=== PATIENT | female | born 1985 | race Caucasian/White ===

== ENCOUNTER 2019-12-30 11:55 | Emergency (ER) | payer MEDICARE, MEDICAID, SELFPAY ==
[2019-12-30 12:23] VITALS: BP 129/73; PULSE 93; RESP 20; TEMP 36.7; O2SAT 99
--- NOTE | 2019-12-30 13:05 | ED.EAR ---
HPI - Ear Problem General Chief complaint: Ear Stated complaint: Think I pushed a fly in my ear Time Seen by Provider: 12/30/19 13:05 Source: patient Mode of arrival: ambulatory Limitations: no limitations History of Present Illness HPI Narrative: Elvi Marcus is a 34 yo female with no PMH who comes to express care with c/o fly in L ear that got into ear this morning. States she can feel it moving around Related Data Home Medications Medication Instructions Recorded Confirmed amitriptyline 50 mg PO HS 12/30/19 12/30/19 pregabalin 50 mg PO BID 12/30/19 12/30/19 quetiapine 100 mg PO HS 12/30/19 12/30/19 Allergies Allergy/AdvReac Type Severity Reaction Status Date / Time No Known Allergies Allergy Verified 12/30/19 12:37 Review of Systems Review of Systems: Narrative: CONSTITUTIONAL: Denies fever, chills, sweats. EYES: Denies visual changes, redness, discharge. ENT: Denies rhinorrhea, congestion, sore throat, otalgia.Thinks fly is in L ear CARDIOVASCULAR: Denies chest pain, palpitations, edema. RESPIRATORY: Denies dyspnea, wheezing, cough GASTROINTESTINAL: Denies abdominal pain, nausea, vomiting, diarrhea. GENITOURINARY: Denies dysuria, hematuria, abnormal discharge SKIN: Denies rash or itching. NEUROLOGIC: Denies numbness, or focal weakness. PSYCHIATRIC: Denies anxiety or depression. [facility] Family History Family History (Updated 12/30/19 @ 13:08 by Lashaun Henry CNP) Other No acute medical problems Social History Social History (Updated 12/30/19 @ 13:08 by Lashaun Henry CNP) Smoking status: Former smoker Alcohol intake: current Comments At time of signature, I agree with nursing past medical, surgical, social and family history. There is no relevant family history pertinent to the presenting complaint. Exam Narrative: Exam Narrative: GENERAL: This is a well-nourished, well-developed patient, in mild distress. HEAD: normocephalic, atraumatic. EYES: PERRL. Sclera clear/white. Vision is grossly intact. EARS: External ears normal, auditory canals clear and without drainage, TMs normal without perforation.small amount wax with insect near TM Hearing grossly intact. NOSE: External nose normal without nasal discharge, nares without redness, no rhinorrhea. THROAT: Mucous membranes moist, posterior pharynx NECK: Neck supple, non-tender CARDIOVASCULAR: Regular rate and rhythm without murmurs, gallops, or rubs. RESPIRATORY: Clear to auscultation. Breath sounds equal bilaterally. No wheezes, rales, or rhonchi. GASTROINTESTINAL: Abdomen soft, SKIN: warm, intact with no suspicious lesions or rash, good texture and turgor. NEURO: awake, alert, and oriented to person, place and time. There were no obvious focal neurologic abnormalities. Steady gait EXTREMITIES: Normal range of motion. BACK: Nontender without deformity Course Course Emergency Course: Ear flush to remove small insect started on eardrops discussed use of eardrops with patient Vital Signs Vital signs: Vital Signs Temperature 98.0 F 12/30/19 12:23 Pulse Rate 93 12/30/19 12:23 Respiratory Rate 20 12/30/19 12:23 Blood Pressure 129/73 12/30/19 12:23 Pulse Oximetry 99 12/30/19 12:23 Temperature 98.0 F 12/30/19 12:23 Pulse Rate 93 12/30/19 12:23 Respiratory Rate 20 12/30/19 12:23 Blood Pressure 129/73 12/30/19 12:23 Pulse Oximetry 99 12/30/19 12:23 Procedures Foreign Body Removal Foreign Body #1: Foreign Body Removal Date: 12/30/19 Foreign Body Removal Time: 13:20 Time Out Performed: no Site: left and ear Description of foreign body: insect Sedation/Analgesia: none Technique: irrigation Confirmed by:: direct visualization Post-procedure exam: awake, alert Medical Decision Making Differential Diagnosis Differential Diagnosis: Impacted cerumen versus foreign body to ear Medical Records Medical records reviewed: Yes I reviewed the pa
== END 2019-12-30 13:25 | disposition home or self-care (01) ==
PROVIDERS: Emergency Provider Nurse Practitioner
DX: T16.2XXA Foreign body in left ear, initial encounter (principal); Z87.891 Personal history of nicotine dependence; X58.XXXA Exposure to other specified factors, initial encounter
CPT/HCPCS: 99213; G0463

== ENCOUNTER 2023-03-23 09:17 | Emergency (ER) | payer MEDICARE, MEDICAID, SELFPAY ==
--- NOTE | 2023-03-23 09:24 | ED.URI ---
HPI - URI/Sore Throat General Chief Complaint: Upper Respiratory Infection Stated Complaint: fever/cough/aches Time Seen by Provider: 03/23/23 09:31 Source: patient, RN notes reviewed and old records reviewed Mode of arrival: ambulatory Limitations: no limitations History of Present Illness HPI Narrative: 38-year-old female presents to the [facility] with complaints cough, body aches and feeling feverish. Patient states symptoms started last , got better over the weekend and cough returned yesterday. Related Data Home Medications Medication Instructions Recorded Confirmed amitriptyline 50 mg tablet 50 mg PO HS 12/30/19 03/23/23 quetiapine 100 mg tablet 100 mg PO HS 12/30/19 03/23/23 Allergies Allergy/AdvReac Type Severity Reaction Status Date / Time No Known Allergies Allergy Verified 03/23/23 09:32 Review of Systems Review of Systems: All systems reviewed & are unremarkable except as noted in HPI and below Constitutional: Constitutional: Reports as per HPI Eyes: Eyes: Reports no additional eye complaints ENT: Reports as per HPI Cardiovascular: Cardiovascular: Reports no additional cardiovascular complaints, Denies chest pain and Denies dyspnea Respiratory: Respiratory: Reports as per HPI, Denies chest congestion, Reports cough and Denies dyspnea Gastrointestinal: Gastrointestinal: Reports no additional gastrointestinal complaints, Denies abdominal pain, Denies nausea and Denies vomiting Musculoskeletal: Musculoskeletal: Reports no additional musculoskeletal complaints Integumentary/Breasts: Skin/Breast: Reports system reviewed and no additional complaints, except as docu Neurologic: Reports system reviewed and no additional complaints, except as documented Psychiatric: Psychiatric: Reports no additional psychiatric complaints Allergic/Immunologic: Allergic/Immunologic: Reports no additional allergic/immunologic complaints PMFSH Family History Family History Other No acute medical problems Social History Social History Smoking status: Former smoker Alcohol intake: current Comments At the time of my signature, I reviewed and agree with the nursing past medical, surgical, social, and family history. There is no relevant family history pertinent to the patient complaint. Exam Const: General: cooperative, healthy appearing, comfortable, no acute distress, well developed, alert and well nourished Nutritional Appearance: well nourished Orientation/consciousness: patient oriented x3 Limitations: no limitations HENMT: Head: normal to inspection Ears: hearing grossly normal bilaterally, external ears normal, TM's normal bilaterally, EAC's normal and mastoids normal Face/Nose/Sinus: Normal external nose present, Normal nares present, Normal nasal mucous membranes and turbinates present, normal facial exam and face symmetric Face and sinus: normal facial exam and face symmetric Mouth: Yes Normal oral and palatal mucosa present, Yes lip normal and Yes moist mucous membranes Throat: posterior oropharynx normal, uvula midline and postnasal drainage Eyes: General: appearance normal, both eyes and all related structures Alignment and Position: alignment normal Periorbital: periorbital findings normal Pupils: Equal, round and reactive pupils present EOM: EOMs intact bilaterally Neck: Neck: normal visual inspection, full ROM, no lymphadenopathy and no meningeal signs Chest: Chest palpation & inspection: normal inspection of the chest Resp: Effort & Inspection: normal respiratory effort and able to speak in complete sentences Auscultation: no crackles, no rales, no rhonchi and wheezes expiratory wheezes and throughout Cardio: Rate: regular rate Rhythm: regular rhythm Back/Spine/Pelvis: Cervical Spine: cervical ROM normal Skin: General skin exam: normal color and no rashes or lesions
[2023-03-23 09:29] VITALS: BP 113/85; PULSE 91; RESP 18; TEMP 36.3; O2SAT 98
== END 2023-03-23 09:53 | disposition home or self-care (01) ==
PROVIDERS: Emergency Provider Nurse Practitioner
DX: J40 Bronchitis, not specified as acute or chronic (principal); Z87.891 Personal history of nicotine dependence
CPT/HCPCS: 99213; G0463

== ENCOUNTER 2023-09-04 13:07 | Emergency (ER) | payer MEDICARE, MEDICAID, SELFPAY ==
[2023-09-04 13:12] VITALS: BP 135/66; PULSE 103; RESP 16; TEMP 36.8; O2SAT 99
--- NOTE | 2023-09-04 13:22 | ED.URI ---
HPI - URI/Sore Throat General Chief Complaint: Upper Respiratory Infection Stated Complaint: Sore Throat/Shortness of Breath Time Seen by Provider: 09/04/23 13:25 Source: patient, RN notes reviewed and old records reviewed Mode of arrival: ambulatory Limitations: no limitations History of Present Illness HPI Narrative: 38 year old female who presents to [facility] care with complaints of sore throat since Monday with painful swallowing. Patient reports that she feels a little shortness of breath with exertion, denies any acute cough. Patient has clear lungs to auscultation, no tachypnea noted or any retractions. Patient does have an inhaler but has not used it. Patient reports that she has been taking Tylenol cold and sinus for her symptoms. MD elicited complaint: sore throat Pertinent past history: other (past strep) Onset (ago): day(s) (day 3 symptoms) Consistency: constant Pain scale (0-10): 4 Able to tolerate fluids by mouth: Yes Treatments prior to arrival: antibiotics (3 doses of left over Amoxicillin) and other (Tylenol cold and sinus) Related Data Home Medications Medication Instructions Recorded Confirmed amitriptyline 50 mg tablet 50 mg PO HS 12/30/19 03/23/23 quetiapine 100 mg tablet 100 mg PO HS 12/30/19 03/23/23 Allergies Allergy/AdvReac Type Severity Reaction Status Date / Time No Known Allergies Allergy Verified 03/23/23 09:32 Review of Systems Review of Systems: CONSTITUTIONAL: Denies malaise, chills, sweats, or fever. EYES: Denies visual changes, redness, or discharge. ENT: Reports rhinorrhea, congestion,no sinus pain, nootalgia and positive for sore throat. CARDIOVASCULAR: Denies chest pain, palpitations, or edema. RESPIRATORY: Reports no cough.? states some dyspnea with exertion. GASTROINTESTINAL: Denies abdominal pain, nausea, vomiting, diarrhea SKIN: Denies rash or itching. MUSCULOSKELETAL: Denies myalgia. NEUROLOGIC: Denies headache. All systems reviewed & are unremarkable except as noted in HPI and below PMFSH Past Medical History Medical History (Updated 09/06/23 @ 09:43 by Chaparrita Mitchell NP) Bronchitis Fibromyalgia PTSD (post-traumatic stress disorder) Strep throat Family History Family History Other No acute medical problems Social History Social History (Updated 09/06/23 @ 09:44 by Chaparrita Mitchell NP) Smoking status: Former smoker Alcohol intake: current Gender identity (if verbalized by the patient): Female Comments At time of signature, agree with nursing past medical, surgical, social and family history. There is no relevant family history pertinent to the presenting complaint Exam Narrative: GENERAL: Well-appearing, well-nourished, and in no acute distress. HEAD: Normocephalic EYES: PERRLA, conjunctivae clear ENT: Nares clear, turbinates edematous and erythematous, clear discharge. Mucous membranes moist. TM pearly monahan with dull light reflex bilaterally; no tragal tenderness. Oropharynx erythematous without lesions. Tonsils enlarged and throat without exudate, no drooling, no hoarseness, no trismus, uvula midline. NECK: Supple. lymphadenopathy CHEST: Clear to auscultation, breath sounds equal. No wheezing, rhonchi, rales, or stridor. No respiratory distress, speaks in full sentences.SAO2 99% on room air HEART: Regular rate and rhythm. No murmur heard. SKIN: Warm, dry, no rash. NEURO: Alert and oriented x3. PSYCH: Normal mood and affect Course Course Emergency Course: Patient is aware of diagnosis, understands and agrees to treatment plan.? Anticipatory guidance given.? Patient agrees to follow-up as directed and is aware of reasons to seek care at the emergency department. Portions of this record may have been created with voice recognition software Level of Care: Express Care Visit Vital Signs Vital signs: Vital Signs Temperature 36.8 C 04
== END 2023-09-04 13:51 | disposition home or self-care (01) ==
PROVIDERS: Emergency Provider Registered Nurse
DX: J02.0 Streptococcal pharyngitis (principal); Z87.891 Personal history of nicotine dependence; M79.7 Fibromyalgia
CPT/HCPCS: 87880; 99213; G0463

== ENCOUNTER 2025-05-17 13:53 | Emergency (ER) | payer MEDICARE, SELFPAY ==
--- OUTSIDE RECORDS SUMMARY | 2025-05-17 13:55 | XMS_ITS | Clinical Summary ---
Author Organization [facility] Address [address] [place] [address] Phone Care Team Providers Care Airplane And Engine Inspector Name Role Phone JOSIE TOWNSEND MD Primary Care Provider [phone] [address], JARON Wall [phone] Reason for Visit and Chief Complaint The Chief Complaint is: Pt was here yesterday and tested pos for strep pt having sore throat and some fatigue and body ache neck and back Problems Includes: Problems addressed during this encounter and other active Problems All Visits Onset Date Resolved Date Provider Condition S tatus Hyperlipidemia 07/08/2016 JARON DIEGO M.D. Active Last Documented On 07/08/2016 2:16PM ; [facility] Note: Unchanged Fibromyalgia 07/25/2013 JARON TOWNSEND M.D. Active Last Documented On 4 12:07PM ; [facility] Low Back Pain 03/25/2013 JARON TOWNSEND M.D. A ctive Last Documented On 4 12:07PM ; [facility] Anxiety Disorder Nos 08/30/2012 JARON TOWNSEND M.D. Active Last Documented On 01/02/2023 2:44PM ; [facility] Note: Unchanged - Appears to be JAJA, rul e out OCD. Depression Chronic 08/27/2008 JARON Vega Active Last Documented On 4 12:06PM ; [facility] Plan of Treatment Pt to use prescription as ordered. Purpose of and use of medication discussed. . - Last Documented On 04/09/2022 1:09PM ; [facility] If symptoms worsen or do not improve call/return to office. - Last Documented On 04/09/2022 1:09PM ; [facility] Assessments Includes: Assessments from this encounter Findings - Acute pharyngitis [J02.9 - Acute pharyngitis, unspecified] - Last Documented On 04/09/2022 1:09PM ; [facility] Medical Equipment - Implanted Devices Includes: Current Devices No Medical Equipment Recorded Medications Includes: Medications discussed during this encounter and other current Medications New / Renewed during this visit HAYLIE LOPEZ on 04/09/2022 Amoxicillin 500 MG Oral Tablet Provider: HAYLIE LOPEZ 10 day supply: 20 tablet, 0 refills Diagnosis: Acute pharyngitis, unspecified One tablet twice a day Pharmacy: [address], [address] - Last Documented On 07/04/2022 2:35PM By JOSIE TOWNSEND MD ; [facility] Current Medications (continue as prescribed) Venlafaxine HCl ER 37.5 MG Oral Capsule Extended Release 24 Hour 11/02/2023 Provider: JARON TOWNSEND M.D. Diagnosis: Major depressive disorder, single episode, unspecified 1 CAPSULE EVERY MORNING NEED OFFICE VISIT. Last Documented On 11/02/2023 3:17PM By JOSIE TOWNSEND MD ; [facility] Amitriptyline HCl 50 MG Oral Tablet 11/02/2023 Provi jazmine: JARON TOWNSEND M.D. Diagnosis: Fibromyalgia TAKE 1 TABLET BY MOUTH AT BEDTIME NEED OFFICE SIT Last Documented On 11/02/2023 3:17PM By JOSIE TOWNSEND MD ; [facility] QUEtiapine Fumarate 100 MG Oral Tablet 10/02/2023 Provider: JARON TOWNSEND M.D. Diagnosis: Major depressive disorder, single episode, unspecified One tablet at bed timeNeed O ffice Visit. Last Documented On 10/02/2023 9:27AM By JOSIE TOWNSEND MD ; [facility] Medications Administered Includes: Administered Medications from this encounter No Administered Medications Recorded Vital Signs Includes: Vital Signs from this encounter Vital Name 04/09/2022 12:53P Pulse Rate-Sitting (bpm) 91 Temp-Oral (F) 99.2 Height (in) 65.75 Weight (lb) 178 Body Mass Index 28.9 Body Surface Area 1.9 Oxygen Saturation (%) 98 Last Documented: On 04/09/2022 12:57P M ; [facility] Results Includes: Results discussed during this encounter Group A strep [facility] Ordered by HAYLIE LOPEZ on 1 06/09/2021 Collected: Reported: 04/09/2022 13:01 Last Documented On 2 1:02PM ; [facility] Reviewed on 04/09/2022; All test results are final unless otherwise noted. Rapid Strep neg N (Normal) Last Documented On 2 1:02PM ; [facility] LOT # AND EXP. DATE [id number] N (Normal) Last Documented On 1:02PM ; [facility] INT. QC ACCEPTABLE? yes N (Normal) Last Documented On 1:02PM ; [facility] History of Present Illness Includes: History of Present Illness from this encounter HPI WILL PAEZ is a 37 year old female. Source of patient information was patient ? Allergy list reviewed ? Problem list reviewed ? Medication list reviewed - Feeling poorly (malaise) - No fever - No chills - Headache - Nasal discharge - Sore throat - No ear symptoms - No postnasal drip - No nasal passage blockage (stuffiness) - Intermittent cough - Not feeling congested in the chest - No dyspnea - No wheezing - No vomiting - No diarrhea - Myalgias Will is here with sore throat- tested positive for strep yesterday. Social History Description Last Updated Tobacco non-user 04/09/2022 Last Documented On 2 1:09PM ; [facility] Smoking Status Unknown Procedures and Surgical History Includes: Procedures from this encounter Procedures Code Diagnosis Performing Provider Service L ocation Service Date Discussed with family that current strep testing is NEGATIVE. Pt /family with be notified if further testing reveals positive strep pharyngitis. Discussed with pt /family the etiology, natural course, possible complications, and treatment options for pharyngitis. Recommended OTC therapy with pain/fever control products, topical products (lozenges/sprays/fercho les) as needed per information security analyst's recommendation. Recommended for pt/ family to call/return to office with follow up if pt persits with greater than 5 days of symptoms, worsens, or as otherwise directed. Discussed with pt / family that is pt contagious until fever free for at least 24 hours. Return to activities when pt feels well and fever free for 24 hours. Observe pt contacts for signs/symptoms of illness Last Documented On 2 1:09PM ; [facility] patient to call if symptoms worsen or not improved in 3-5 days to update patient's status Last Documented On 2 1:09PM ; [facility] use of tobacco assessment performed 1000F Last Documented On 2 12:58PM ; [facility] review of medications documented 1160F Last Documented On 2 12:58PM ; [facility] Medical History Includes: Medical History addressed during this encounter No Medical History Recorded Family History Includes: Family History addressed during this encounter No Family History Recorded Review of Systems Includes: Review of Systems from this encounter Systemic: No fever. Head: Headache. Otolaryngeal: No earache. Nasal discharge and sore throat. Cardiovascular: No cardiovascular symptoms. Pulmonary: Cough. Gastrointestinal: No gastrointestinal symptoms. Musculoskeletal: Muscle aches. Skin: No skin symptoms. Mental Status Includes: Mental Status from this encounter Description Oriented to time, place, and person Functional Status Includes: Functional Status from this encounter No Functional Status Recorded Physical Exam Includes: Physical Exam from this encounter Allergies Includes: Active Allergies Substance Type Reaction Onset Date Resolved Date Statu s Codeine and Related Allergy upset stomach 08/27/2008 Active Last Documented On 01/02/2023 1:31PM ; [facility] Note: Imported from external source. [facility] Allergy 10/13/2014 Active Last Documented On 01/02/2023 1:31PM ; [facility] Note: Imported from external source. Encounters Encounter Provider Location Date Check-In Time Check-Out Time Diagnosis COVID SICK VISIT- ESTABLISHED PATIENT HAYLIE Franco EZEKIEL FOOD MANAGER-C [facility] 04/09/20 12:48PM 1:01PM Pharyngitis Acute Insurance Includes: Active Insurance Policies Plan Name Member ID Group # Subscriber Relationship Effect adolfo Dates 1 - MEDICARE PART A CLAIMS/NGS [id number] WILL PAEZ Self 2 - MEDICAID OF [place] MEDICARE SECOND [id number] WILL PAEZ Self Clinical Notes Includes: Clinical Notes from this encounter No Clinical Notes Recorded
--- OUTSIDE RECORDS SUMMARY | 2025-05-17 13:55 | XMS_ITS | Clinical Summary ---
Author Organization [facility] Address [address] [place] [address] Phone Care Team Providers Care Rat Farmer Name Role Phone KRISTIAN PERAZA, JOSIE Primary Care Provider [phone] KRISTIAN Hill, JARON Wall [phone] Reason for Visit and Chief Complaint CHECK UP Problems Includes: Problems addressed during this encounter and other active Problems All Visits Onset Date Resolved Date Provider Condition S tatus Hyperlipidemia 07/08/2016 JARON DIEGO M.D. Active Last Documented On 07/08/2016 2:16PM ; [facility] Note: Unchanged Fibromyalgia 07/25/2013 JARON TOWNSEND M.D. Active Last Documented On 4 12:07PM ; [facility] Low Back Pain 03/25/2013 JARON TOWNSEND M.D. A ctive Last Documented On 4 12:07PM ; [facility] Anxiety Disorder Nos 08/30/2012 JARON TOWNSEND M.D. Active Last Documented On 01/02/2023 2:44PM ; [facility] Note: Unchanged - Appears to be JAJA, rul e out OCD. Depression Chronic 08/27/2008 JARON Vega Active Last Documented On 4 12:06PM ; [facility] Plan of Treatment Pending Tests Order Diagnosis Results Due Ordering [facility] Lab THYROID PANEL (TSH & FREE T4) 07/01/23 JARON TOWNSEND M.D. Last Documented On 3 2:46PM ; [facility] Lab LIPID PANEL 07/01/23 JARON DIEGO M.D. Last Documented On 3 2:46PM ; [facility] Lab CMP 07/01/23 JARON Franco M.D. Last Documented On 3 2:46PM ; [facility] Lab CBC WITH DIFF 07/01/23 JARON WALL M.D. Last Documented On 3 2:46PM ; [facility] Assessments Includes: Assessments from this encounter No Assessments Recorded Medical Equipment - Implanted Devices Includes: Current Devices No Medical Equipment Recorded Medications Includes: Medications discussed during this encounter and other current Medications Current Medications (continue as prescribed) Venlafaxine HCl ER 37.5 MG Oral Capsule Extended Release 24 Hour 11/02/2023 Provider: JARON TOWNSEND M.D. Diagnosis: Major depressive disorder, single episode, unspecified 1 CAPSULE EVERY MORNING NEED OFFICE VISIT. Last Documented On 11/02/2023 3:17PM By JOSIE TOWNSEND MD ; [facility] Amitriptyline HCl 50 MG Oral Tablet 11/02/2023 Provi jazmine: JARON TOWNSEND M.D. Diagnosis: Fibromyalgia TAKE 1 TABLET BY MOUTH AT BEDTIME NEED OFFICE SIT Last Documented On 11/02/2023 3:17PM By JOSIE TOWNSEND MD ; [facility] QUEtiapine Fumarate 100 MG Oral Tablet 10/02/2023 Provider: JARON TOWNSEND M.D. Diagnosis: Major depressive disorder, single episode, unspecified One tablet at bed timeNeed O ffice Visit. Last Documented On 10/02/2023 9:27AM By JOSIE TOWNSEND MD ; [facility] Medications Administered Includes: Administered Medications from this encounter No Administered Medications Recorded Results Includes: Results discussed during this encounter No Results Recorded For Specified Dates History of Present Illness Includes: History of Present Illness from this encounter No History of Present Illness Recorded Social History No Social History Recorded - Smoking Status Unknown Medical History Includes: Medical History addressed during this encounter No Medical History Recorded Family History Includes: Family History addressed during this encounter No Family History Recorded Review of Systems Includes: Review of Systems from this encounter No Review of Systems Recorded Mental Status Includes: Mental Status from this encounter No Mental Status Recorded Functional Status Includes: Functional Status from this encounter No Functional Status Recorded Physical Exam Includes: Physical Exam from this encounter No Physical Exam Recorded Allergies Includes: Active Allergies Substance Type Reaction Onset Date Resolved Date Statu s Codeine and Related Allergy upset stomach 08/27/2008 Active Last Documented On 01/02/2023 1:31PM ; [facility] Note: Imported from external source. [facility]ES Allergy 10/13/2014 Active Last Documented On 01/02/2023 1:31PM ; [facility] Note: Imported from external source. Insurance Includes: Active Insurance Policies Plan Name Member ID Group # Subscriber Relationship Effect adolfo Dates 1 - MEDICARE PART A CLAIMS/NGS [id number] WILL Alarcon 2 - MEDICAID [place] MEDICARE SECOND [id number] WILL Alarcon Clinical Notes Includes: Clinical Notes from this encounter No Clinical Notes Recorded
--- OUTSIDE RECORDS SUMMARY | 2025-05-17 13:56 | XMS_ITS | Data Portability ---
Author Organization [facility] Address [address] [place] [address] Assessment Encounter Date Assessment Date Assessment LastModified by Organization Details LastModified Time 07/18/2017 07/18/2017 38 weeks, scheduled induction for next monday Not available 07/18/2017 11:21:34 08/16/2017 08/16/2017 ppd check today is ok, bleeding minimal going ok exam in 4 weeks Not available 08/16/2017 11:02:45 09/12/2017 09/12/2017 post exam normal, quitting shortly. 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 still a smoker so contraceptive options limited. So far so good with condoms for 3 years. vasectomy and depo discussed as well. Not available 09/03/2020 10:48:03 08/21/2023 08/21/2023 Not seen in 3 years. No big health changes. 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 Kids 6 &17 ( senior and kindergarten...) will try some low dose OCPs Not available 08/21/2023 12:40:29 Plan of Treatment Reminders Order Date Submit Date Provider Last Modified By Organization Details Last Modified Time Details Appointments None recorded. Lab cytology report, thin prep, smear or scraping, cervical or vaginal 2023 024 L[facility], [address], [address] [address], [place], [address], 4 16:12:18 cytology report, thin prep, smear or scraping, cervical or vaginal 2020 021 [place] [facility], [address] [facility], [address], [place], [address], 1 07:11:05 unlisted lab - igp, rfx aptima HPV ascu 2017 018 [facility], [address] [facility], [address], [place], [address], 8 15:17:53 urinalysis , dipstick 2017 018 In-Office Order, Internal Use Only DO Not Attach Compendium DO Not Attach Compendium, Do Not Delete/merge, [id number] 8 11:21:35 Referral None recorded. Procedures None recorded. Surgeries None recorded. Imaging MAMMO, screening, digital, bilateral 2023 024 [place] Grajeda [facility] Scheduling, [address] [facility] , [place], [address], 4 16:52:44 Medication Orders Junel Fe 24 1 mg-20 mcg (24)/75 mg (4) tablet 2023 024 maciearrlia [facility] #[id number], [address] [place] [address], [address], 4 13:38:52 Loestrin Fe /20 (28-Day) 1 mg-20 mcg (21)/75 mg (7) tablet 2017 018 [email or web address] [facility], [address] [place] [address], [address], [place], [address], 3 12:02:22 Patient TargetsNo targets recorded. Patient Instructions Encounter Date Encounter Id Patient Instructions Last Modified By Organization Details Last Modified Time 08/16/[id number] depression after childbirth: care instructions Not available 08/16/2017 11:02:46 stress in parent s of infants: care instructions Not available 08/16/2017 11:02:46 08/21/2023 [id number] A healthy lifestyle: care instructions Not available 08/21/2023 12:28:59 learning about breast cancer screening gturner Not available 08/21/2023 12:28:59 Reason for Referral None Reported. Results Created Date Observation Date Name Description Value Unit Range Abnormal Flag Note LastModifiedBy Organization Detail LastModifiedTime 07/18/19 18 07/18/2017 urina lysis , dipst ick Protein Trace Not Available In-Office Order Internal Use Only DO Not Attach Compendium DO Not Attach Compendium, Do Not Delete/merge, [id number] 07/18/2017 10:56:47 07/18/19 18 07/18/2017 urina lysis , dipst ick Glucose Negati ve Not Available In-Office Order Internal Use Only DO Not Attach Compendium DO Not Attach Compendium, Do Not Delete/merge, [id number] 07/18/2017 10:56:47 06/26/19 18 06/26/2017 gluco se helen ance test, 4 speci mens note: Commen t For diagn osis of gesta jarett l diabe nakita, at least two value s must meet or excee d junior l limit s, which is based on 100 gm of oral gluco se chall enge. Not Available [facility] ([facility]) [address] [facility], [place], [address], 06/27/2017 08:31:18 06/26/19 18 06/27/2017 gluco se helen ance test, 4 speci mens glucose - fasting 69 mg/dL 65-94 Not Available [facility] ([facility]) [address] [place], [address], 06/27/2017 08:31:18 06/26/19 18 06/27/2017 gluco se helen ance test, 4 speci mens glucose - 1 hour 111 mg/dL 65-179 Not Available [facility] ([facility]) [address] [place], [address], 06/27/2017 08:31:18 06/26/19 18 06/27/2017 gluco se helen ance test, 4 speci mens glucose - 2 hour 101 mg/dL 65-154 Not Available [facility] ([facility]) [address] [place], [address], 06/27/2017 08:31:18 06/26/19 18 06/27/2017 gluco se helen ance test, 4 speci mens glucose - 3 hour 68 mg/dL 65-139 Not Available [facility] ([facility]) [address] [place], [address], 06/27/2017 08:31:18 06/26/19 18 06/28/2017 strep tococ cus group B, cultu re, unspe cifie d speci men strep gp B ALAINA Positi ve negati ve abnormal Cente rs for Disea se Contr ol and Preve ntion (CDC) and Ameri can Congr ess of Obste trici ans and Gynec ologi sts (ACOG ) guide lines for preve ntion of perin atal group B strep tococ sabas (GBS) disea se speci fy co-co llect ion of a vagin al and recta l swab speci men to maxim ize sensi tivit y of GBS detec tion. Per the CDC and ACOG, swabb ing both the lower vagin a and rectu m subst antia lly incre ases the yield of detec tion zay red with sampl ing the vagin a alone . Penic illin G, ampic illin , or cefaz arti are indic ated for intra partu m proph ylaxi s of perin atal GBS colon izati on. Refle x susce ptibi lity testi ng shoul d be perfo rmed prior to use of clind amyci n only on GBS isola nakita from penic illin -soha rgic women who are consi dered a high risk for anaph ylaxi s. Treat ment with vanco mycin witho ut addit ional testi ng is warra nted if resis tance to clind pooja spear is noted . Not Available [facility] ([facility]) [address] [facility], [place], [address], 06/28/2017 15:13:46 06/26/19 18 06/26/2017 urina lysis , dipst ick Protein Trace Not Available In-Office Order Internal Use Only DO Not Attach Compendium DO Not Attach Compendium, Do Not Delete/merge, [id number] 06/26/2017 16:03:00 06/26/19 18 06/26/2017 urina lysis , dipst ick Glucose Negati ve Not Available In-Office Order Internal Use Only DO Not Attach Compendium DO Not Attach Compendium, Do Not Delete/merge, [id number] 06/26/2017 16:03:00 07/06/19 18 07/06/2017 urina lysis , dipst ick Protein Trace Not Available In-Office Order Internal Use Only DO Not Attach Compendium DO Not Attach Compendium, Do Not Delete/merge, [id number] 07/06/2017 15:08:24 07/06/19 18 07/06/2017 urina lysis , dipst ick Glucose Negati ve Not Available In-Office Order Internal Use Only DO Not Attach Compendium DO Not Attach Compendium, Do Not Delete/merge, [id number] 07/06/2017 15:08:24 09/13/19 18 09/13/2017 pap, IG + refle x HR HPV diagnosis: Commen t NEGAT CARLOS FOR INTRA EPITH ELIAL SUMMER Spear AND MILDRED TAYLOR . Not Available [facility] ([facility]) [address] [facility], [place], [address], 09/13/2017 15:17:52 09/13/19 18 09/13/2017 pap, IG + refle x HR HPV specimen adequacy: Commen t Satis facto ry for evalu ation . Endoc ervic al and/o r squam ous metap lasti c cells (endo cervi sabas compo nent) are prese nt. Not Available [facility] ([facility]) [address] [place], [address], 09/13/2017 15:17:52 09/13/19 18 09/13/2017 pap, IG + refle x HR HPV clinician provided ICD10: Erik guo Z39.2 Not Available [facility] ([facility]) [address] [place], [address], 09/13/2017 15:17:52 09/13/19 18 09/13/2017 pap, IG + refle x HR HPV performed by: Erik Strauss ond, Cytot fide guo (ASCP ) Not Available [facility] ([facility]) [address] [place], [address], 09/13/2017 15:17:52 09/13/19 18 09/13/2017 pap, IG + refle x HR HPV . . Not Available [facility] ([facility]) [address] [place], [address], 09/13/2017 15:17:52 09/13/19 18 09/13/2017 pap, IG + refle x HR HPV note: Erik guo The Pap smear is a scree jennifer test desig joaquin to aid in the detec tion of hansel ligna nt and malig nant condi tions of the uteri ne cervi x. It is not a diagn ostic proce dure and shoul d not be used as the sole means of detec ting cervi sabas cance r. Both false -posi tive and false -nega tive repor ts do occur . Not Available [facility] ([facility]) [address] [place], [address], 09/13/2017 15:17:52 09/13/19 18 09/13/2017 pap, IG + refle x HR HPV test methodology: Erik guo This liqui d based ThinP rep(R ) pap test was scree joaquin with the use of an image guide d syste m. Not Available [facility] ([facility]) [address] [place], [address], 09/13/2017 15:17:52 09/13/19 18 09/13/2017 pap, IG + refle x HR HPV . Erik guo The HPV DNA refle x crite cyndi were not met with this speci men resul t there fore, no HPV testi ng was perfo rmed. Not Available [facility] ([facility]) [address] [place], [address], 09/13/2017 15:17:52 09/04/19 21 09/04/2020 cytol ogy repor t, thin prep, smear or scrap ing, cervi sabas or vagin al diagnosis: Erik guo NEGAT CARLOS FOR INTRA EPITH ELIAL LESIO N OR MILDRED TAYLOR . Not Available [facility] ([facility]) [address] [facility], [place], [address], 09/05/2020 07:11:05 09/04/19 21 09/04/2020 cytol ogy repor t, thin prep, smear or scrap ing, cervi sabas or vagin al specimen adequacy: Erik guo Satis facto ry for evalu ation . No endoc ervic al compo nent is ident ified . Not Available [facility] ([facility]) [address] [facility], [place], [address], 09/05/2020 07:11:05 09/04/19 21 09/04/2020 cytol ogy repor t, thin prep, smear or scrap ing, cervi sabas or vagin al clinician provided ICD10: Erik guo Z01.4 19 Not Available [facility] ([facility]) [address] [place], [address], 09/05/2020 07:11:05 09/04/19 21 09/04/2020 cytol ogy repor t, thin prep, smear or scrap ing, cervi sabas or vagin al performed by: Commen t Arron W Drege r, Cytot echno logis t (ASCP ) Not Available [facility] ([facility]) [address] [place], [address], 09/05/2020 07:11:05 09/04/19 21 09/04/2020 cytol ogy repor t, thin prep, smear or scrap ing, cervi sabas or vagin al . . Not Available [facility] ([facility]) [address] [facility], [place], [address], 09/05/2020 07:11:05 09/04/19 21 09/04/2020 cytol ogy repor t, thin prep, smear or scrap ing, cervi sabas or vagin al note: Commen t The Pap smear is a scree jennifer test desig joaquin to aid in the detec tion of hansel ligna nt and malig nant condi tions of the uteri ne cervi x. It is not a diagn ostic proce dure and shoul d not be used as the sole means of detec ting cervi sabas cance r. Both false -posi tive and false -nega tive repor ts do occur . Not Available [facility] ([facility]) [address] [facility], [place], [address], 09/05/2020 07:11:05 09/04/19 21 09/04/2020 cytol ogy repor t, thin prep, smear or scrap ing, cervi sabas or vagin al test methodology: Commen t This liqui d based ThinP rep(R ) pap test was scree joaquin with the use of an image guide d systelmer m. Not Available [facility] ([facility]) [address] [place], [address], 09/05/2020 07:11:05 09/04/1909/04/2020 cytol ogy repor t, thin prep, smear or scrap ing, cervi sabas or vagin al . Commen t The HPV DNA refle x crite cyndi were not met with this speci men resul t there fore, no HPV testi ng was perfo rmed. Not Available [facility] ([facility]) [address] [place], [address], 09/05/2020 07:11:05 09/04/19 21 09/04/2020 cytol ogy repor t, thin prep, smear or scrap ing, cervi sabas or vagin al chlamydia, nuc. acid amp Negati ve negati ve Not Available [facility] ([facility]) [address] [place], [address], 09/05/2020 07:11:05 09/04/19 21 09/04/2020 cytol ogy repor t, thin prep, smear or scrap ing, cervi sabas or vagin al gonococcus, nuc. acid amp Negati ve negati ve Not Available [facility] ([facility]) [address] [place], [address], 09/05/2020 07:11:05 09/04/19 21 09/04/2020 cytol ogy repor t, thin prep, smear or scrap ing, cervi sabas or vagin al trich vag by ALAINA Negati ve negati ve Not Available [facility] ([facility]) [address] [place], [address], 09/05/2020 07:11:05 08/21/19 24 08/23/2023 IGP,C TNGTV ,RFX APTIM A HPV ASCU diagnosis: Commen t NEGAT CARLOS FOR INTRA EPITH ELIAL LESIO N OR MILDRED TAYLOR . Not Available [facility] ([facility]) [address] [place], [address], 08/23/2023 16:12:18 08/21/19 24 08/23/2023 IGP,C TNGTV ,RFX APTIM A HPV ASCU specimen adequacy: Commen t Satis facto ry for evalu ation . Endoc ervic al and/o r squam ous metap lasti c cells (endo cervi sabas compo nent) are prese nt. Not Available [facility] ([facility]) [address] [facility], [place], [address], 08/23/2023 16:12:18 08/21/19 24 08/23/2023 IGP,C TNGTV ,RFX APTIM A HPV ASCU clinician provided ICD10: Erik guo Z01.4 19 Not Available [facility] ([facility]) [address] [place], [address], 08/23/2023 16:12:18 08/21/19 24 08/23/2023 IGP,C TNGTV ,RFX APTIM A HPV ASCU performed by: Jorge Alberto Zavala (ASCP ) Not Available [facility] ([facility]) [address] [facility], [place], [address], 08/23/2023 16:12:18 08/21/19 24 08/23/2023 IGP,C TNGTV ,RFX APTIM A HPV ASCU . . Not Available [facility] ([facility]) [address] [place], [address], 08/23/2023 16:12:18 08/21/19 24 08/23/2023 IGP,C TNGTV ,RFX APTIM A HPV ASCU note: Erik guo The Pap smear is a scree jennifer test desig joaquin to aid in the detec tion of hansel ligna nt and malig nant condi tions of the uteri ne cervi x. It is not a diagn ostic proce dure and shoul d not be used as the sole means of detec ting cervi sabas cance r. Both false -posi tive and false -nega tive repor ts do occur . Not Available [facility] ([facility]) [address] [place], [address], 08/23/2023 16:12:18 08/21/19 24 08/23/2023 IGP,C TNGTV ,RFX APTIM A HPV ASCU test methodology: Commen t This liqui d based ThinP rep(R ) pap test was jeff nuñez with the use of an image guide sally rivera Not Available [facility] ([facility]) [address] [place], [address], 08/23/2023 16:12:18 08/21/19 24 08/23/2023 IGP,C TNGTV ,RFX APTIM A HPV ASCU . Commen t The HPV DNA refle x crite cyndi were not met with this speci men resul t there fore, no HPV testi ng was perfo rmed. Not Available [facility] ([facility]) [address] [place], [address], 08/23/2023 16:12:18 08/21/19 24 08/23/2023 IGP,C TNGTV ,RFX APTIM A HPV ASCU chlamydia, nuc. acid amp Negati ve negati ve Not Available [facility] ([facility]) [address] [place], [address], 08/23/2023 16:12:18 08/21/19 24 08/23/2023 IGP,C TNGTV ,RFX APTIM A HPV ASCU gonococcus, nuc. acid amp Negati ve negati ve Not Available [facility] ([facility]) [address] [place], [address], 08/23/2023 16:12:18 08/21/19 24 08/23/2023 IGP,C TNGTV ,RFX APTIM A HPV ASCU trich vag by ALAINA Negati ve negati ve Not Available [facility] ([facility]) [address] [place], [address], 08/23/2023 16:12:18 01/04/20 24 01/04/2024 MAMMO , nahide jennifer, digit al, bilat eral No observ ation record ed. cdarrrn Symone [facility] Scheduling [address], [address], 01/04/2024 16:53:44 Result Notes None recorded. Problems Name Problem SNOMED Code Status Onset Date Resolution Date Notes Provider Name and Address Organization Details Recorded Time Amenorrhea 49705670 Active Marty Farias MD Attn: Cem ibanez,[address] [facility], [place], [address], [facility] 5 11:33:55 [id number] Completed 201608/10/2017 LIA Herrera, [facility] 8 16:52:56 Problem Notes None recorded. Procedures Surgical History Date Name Laterality Status Provider Name and Address Organization Details Recorded Time 01/04/20 24 Most Recent Mammogram completed Zaria Catalan RN [facility] 01/04/2024 16:53:51 08/21/19 24 Date of Last Pap Smear completed URIEL Maciel [facility] 08/23/2023 16:19:41 05/29/19 03 Cholecystectomy completed Zaria Catalan RN [facility] 12/02/2014 15:19:47 Imaging Results None recorded. Procedure Notes None recorded. Medical Equipment None Reported. Allergies Allergen ID Allergen Name Allergen Category Reaction Reaction Severity Criticality Documentation Date Start Date Code Code System Note Provider Name and Address Organization Details Recorded Time 80404 codeine medicatio n Not available Not available Not available 12/02/2014 2670 RxNorm LIA Herrera, [facility] 5 15:19:48 Medications Name Sig Start Date Stop Date Status Note LastModified by Organization Details LastModified Time fluoxetine 40 mg capsule 01/17 completed Not Available Not Available Not Available amoxicillin 500 mg capsule TAKE 1 CAPSULE BY MOUTH TWICE A DAY 01/17 completed Not Available Not Available Not Available venlafaxine ER 37.5 mg capsule,ext ended release 24 hr TAKE 1 TABLET BY MOUTH EVERY MORNING NEEDS CLINIC APPOINTME NT active Not Available Not Available No t Available ibuprofen 800 mg tablet 01/17 completed Not Available Not Available Not Available ampicillin 500 mg capsule 09/03 completed Not Available Not Available Not Available ondansetron HCl 4 mg tablet Take 1 tablet every 8 hours by oral route. 01/17 completed Not Available Not Available Not Available prednisone 20 mg tablet TAKE 2 TABS BY MOUTH DAILY FOR 5 DAYS, THEN 1 DAILY FOR 5 DAYS 08/20 completed Not Available Not Available Not Available quetiapine 200 mg tablet 01/17 completed Not Available Not Available Not Available metronidazo le 500 mg tablet 08/20 completed Not Available Not Available Not Available norethindro ne 1 mg-ethinyl estradiol 20 mcg (21)-iron 75 mg (7) tablet Take 1 tablet every day by oral route for 28 days. 01/17 completed Not Available Not Available Not Available quetiapine 100 mg tablet TAKE 1 TABLET BY MOUTH EVERYDAY AT BEDTIME active Not Available Not Available No t Available amitriptyli ne 50 mg tablet TAKE 1 TABLET BY MOUTH AT BEDTIME active Not Available Not Available No t Available bupropion HCl SR 100 mg tablet,12 hr sustained-r elease 01/17 completed Not Available Not Available Not Available terconazole 80 mg vaginal suppository Insert 1 supposito ry every day by vaginal route for 3 days. 01/17 completed Not Available Not Available Not Available alprazolam 0.5 mg tablet 01/17 completed Not Available Not Available Not Available amoxicillin 875 mg tablet TAKE 1 TABLET BY MOUTH EVERY 12 HOURS active Not Available Not Available No t Available hydrocodone 7.5 mg-acetamin ophen 325 mg tablet 09/03 completed Not Available Not Available Not Available ibuprofen 600 mg tablet 01/17 completed Not Available Not Available Not Available hydroxyzine HCl 10 mg tablet 01/17 completed Not Available Not Available Not Available fluoxetine 20 mg capsule 01/17 completed Not Available Not Available Not Available naproxen 500 mg tablet 01/17 completed Not Available Not Available Not Available Ventolin HFA 90 mcg/actuati on aerosol inhaler INHALE 2 PUFFS 4 TIMES A DAY NEEDED FOR SHORTNESS OF BREATH OR FOR WHEEZE active Not Available Not Available No t Available neomycin-po lymyxin-hyd rocort 3.5 mg-10,000 unit/mL-1 % ear drops,susp INSTIL 4 DROPS LEFT EAR EVERY 8 HOURS FOR 10 DAYS 01/17 completed Not Available Not Available Not Available Sprintec (28) 0.25 mg-0.035 mg tablet Take 1 tablet every day by oral route for 28 days. 2023 active Not Available Not Available Not Avai lable nitrofurant oin monohydrate /macrocryst als 100 mg capsule 01/17 completed Not Available Not Available Not Available duloxetine 30 mg capsule,del ayed release 01/17 completed Not Available Not Available Not Available pregabalin 50 mg capsule TAKE 1 CAPSULE TWICE DAILY 01/17 completed Not Available Not Available Not Available Xulane 150 mcg-35 mcg/24 hr transdermal patch 09/03 completed Not Available Not Available Not Available 1 mg-20 mcg (24)/75 mg (4) tablet TAKE 1 TABLET BY MOUTH EVERY DAY 2023 active Not Available Not Available Not Avai lable Vitals Date Recorded Body weight Provider Name an d Address Organization Details Last Updated DateTime 07/18/2017 21584.891206 g Marty Farias MD Attn: Accounting,[address] [place], [address], [facility] 07/18/2017 11:20:44 Date Recorded Body height Body mass index (BMI) Systolic And Diastolic Provider Name and Address Organization Details Last Updated DateTime 07/18/2017 165.1 cm 29.7 kg/m2 132/82 mm[Hg] Yanci Woodward MA [facility] 07/18/2017 10:56:17 Date Recorded Body height Body mass index (BMI) Body weight Systolic And Diastolic Provider Name and Address Organization Details Last Updated DateTime 08/16/2017 165.1 cm 25.4 kg/m2 10702.27 g 114/76 mm[Hg] Yanci Woodward [facility] 08/16/2017 10:50:40 Date Recorded Body height Body mass index (BMI) Body weight Systolic And Diastolic Provider Name and Address Organization Details Last Updated DateTime 08/21/2023 165.1 cm 31.8 kg/m2 34250.29 g 118/76 mm[Hg] URIEL Maciel [facility] 08/21/2023 12:14:58 Date Recorded Body weight Systolic And Diastolic Provider Name and Address Organization Details Last Updated DateTime 09/03/2020 40161.91 g 118/72 mm[Hg] URIEL Maciel [place] [facility] 09/03/2020 10:28:18 Date Recorded Body height Body mass index (BMI) Body weight Systolic And Diastolic Provider Name and Address Organization Details Last Updated DateTime 09/12/2017 165.1 cm 25.4 kg/m2 02920.55 g 122/82 mm[Hg] Yanci Woodward [place] [facility] 09/12/2017 14:40:54 Social History Question Answer Notes LastModified by Organizat ion Details LastModified Time Tobacco Smoking Status Former Smoker URIEL Maciel null, [place] [facility] 08/21/2023 12:18:24 Marital Status Single Informat ion not available 12/17/2014 What Was The Date Of Your Most Recent Tobacco Screening? 08/21/2023 Information not available 08/21/2023 How Many Children Do You Have? 1 Information not available 12/17/2014 What Is Your Current Pack Years? [id number] rs Information not available 09/03/2020 At What Age Did You Start Smoking Tobacco? 19 Information not available 09/03/2020 Has Tobacco Cessation Counseling Been Provided? No Information not available 09/03/2020 How Many Years Have You Smoked Tobacco? 15 [email or web address] Information not available 12/02/2014 Sex: Female Functional Status Question Answer Note LastModified by Organization D etails LastModified Time Do you or have you ever used any other forms of tobacco or nicotine? No Information not available 09/03/2020 Mental Status None recorded. Family History Relationship Description Onset Age of this Age Resolved Age Notes LastModified by Organization Details LastModified Time Father No current problems or disability [email or web address] Not available 09/03 10:22:45 Mother No current problems or disability [email or web address] Not available 09/03 10:22:45 Notes:no breast ca hx Medical History Condition Response Anxiety/Depression Y Gynecological History Statement/Question Response Abnormal Pap N Sexually Active? Y STIs/STDs Y Date of Last Pap Smear 08/21/2023 Sexual Problems? N Current Control Method None Most Recent Mammogram 01/04/2024 LMP Definite Desired Control Method Unknown Obstetrics History GPAL:G 3 P 2 0 1 2 Type Value Full Term 2 Induced 1 Living 2 Total 3 Immunizations Vaccine Type Date Status Note Provider Cesar payne and Address Organization Details Recorded Time Tdap 06/26/2017 completed Not Available [facility] 06[facility]15/2019 02:34:54 Past Encounters Encounter ID Performer Location Encounter Start Date Encounter Closed Date Diagnosis/Indication Diagnosis SNOMED-CT Code Diagnosis ICD10 Code Diagnosis IMO Codes Diagnosis Note [id number] MD Symone Parra ([place] [address]) 2 [facility] [address] [place] [address] 12/17/2014 10:27:56 12/17/2014 11:37:08 Amenorrhea [id number] MD Symone Parra ([place] [address]) 2 [facility] [address] [place] [address] 01/11/2017 11:23:37 01/11/2017 13:40:52 Normal [id number] Z34.81 [id number] MD Symone Parra ([place] [address]) 2 [facility] [address] [place] [address] 02/13/2017 11:06:29 02/14/2017 15:46:07 Normal [id number] Z34.81 [id number] MD Symone Parra ([place] [address]) 2 [facility] [address] [place] [address] 03/06/2017 11:15:58 03/06/2017 14:13:55 Normal 50300432 Z34.82 [id number] MD Symone Parra ([place] [address]) 2 [facility] [address] [place] [address] 03/27/2017 11:52:18 03/27/2017 15:12:09 Body mass index 25-29 - overweight 407463370 Z68.28 Normal 6110711 2 Z34.82 [id number] MD Symone Parar ([place] [address]) 2 [facility] [address] [place] [address] 04/27/2017 10:18:14 04/27/2017 16:36:37 Body mass index 25-29 - overweight 609121655 Z68.28 Normal 6417983 2 Z34.82 [id number] MD Symone Parra ([place] [address]) 2 [facility] [address] [place] [address] 05/18/2017 11:02:31 05/18/2017 16:09:45 Body mass index 25-29 - overweight 532431186 Z68.28 Normal 7482741 2 Z34.82 [id number] MD Symone Parra ([place] [address]) 2 [facility] [address] [place] [address] 06/08/2017 11:22:16 06/09/2017 11:53:33 Normal 97286584 Z34.82 [id number] MD Symone Parra ([place] [address]) 2 [facility] [address] [place] [address] 06/26/2017 15:48:41 06/26/2017 16:20:59 Body mass index 30+ - obesity 578297774 Z68.31 Administra tion of diphtheria, pertussis, and tetanus vaccine 450700492 Z23 Normal 1992593 2 Z34.82 [id number] MD Symone Parra ([place] [address]) 2 [facility] [address] [place] [address] 07/06/2017 14:55:28 07/06/2017 15:50:32 Body mass index 30+ - obesity 981826922 Z68.30 Normal 9212688 2 Z34.82 [id number] MD Symone Parra ([place] [address]) 2 [facility] [address] [place] [address] 07/18/2017 10:39:43 07/18/2017 16:22:40 Body mass index 25-29 - overweight 754966796 Z68.29 Normal 4252770 2 Z34.82 [id number] MD Symone Parra ([place] [address]) 2 [facility] [address] [place] [address] 08/16/2017 10:41:42 08/22/2017 10:01:49 Body mass index 25-29 - overweight 660550326 Z68.25 depression 58 980632 O99.442 [id number] MD Symone Parra ([place] [address]) 2 [facility] [address] [place] [address] 09/12/2017 14:18:04 09/13/2017 14:33:03 care 098728243 Z39.2 Body mass index 25-29 - overweight 378529741 Z68.25 Contracept [facility] [id number] Z30.9 [id number] MD Symone Parra 14 OB 4 [facility] [address] [place] [address] 09/03/2020 10:13:14 09/04/2020 07:32:11 Gynecologic examination 71091308 Z01.158 [id number] MD Symone Parra 14 OB 4 [facility] [address] [place] [address] 08/21/2023 12:00:10 08/22/2023 09:23:51 Positive screening for depression on PHQ-9 (Patient Health Questionnaire 9) 5655752056 11541 Z13.31 Obesity 041150921 E66.9 Gynecologi c examination 98917905 Z01.419 Screening for malignant neoplasm of breast 560235719 Z12.39 Irregular periods 498856 07 N92.6 Health Concerns Section Related Observation LastModified by Organization Detai ls LastModified Time None Recorded Concern Status LastModified by Organization Details LastModified Time None Recorded Advance Directives Directive None Recorded Payers Insurance Date Sequence Insurance Name Policy Number Policy Mims Covered Member ID Mims Member ID Guarantor Name 08/21/2023 1 [place] Elvi Marcus [id number] Elvi Marcus 08/21/2023 1 [facility] (MEDICARE - MEDICAID REPLACEMENT HMO) Elvi Marcus [id number] Elvi Marcus 08/22/2023 [place] [facility] Elvi Marcus [id number] Elvi Marcus 08/21/2023 2 [place] MED[place]ARE OR MEDICARE REPLACEMENT PRIMARY) Elvi Marcus [id number] Elvi Marcus 08/21/2023 1 [place] [facility] Elvi Ho [id number] Elvi Marcus 08/21/2023 1 [facility] (MEDICAID HMO) [id number] Elvi Ho [id number] Elvi Marcus 08/21/2023 2 [place] [facility] Elvi Marcus [id number] Elvi Marcus 08/21/2023 1 [place] Elvi [place] [id number] Elvi Marcus 08/21/2023 [place] [facility] Elvi Marcus [id number] Elvi Marcus 08/21/2023 2 [place] [facility] Eliv Ho [id number] Elvi Marcus 08/21/2023 2 MEDICARE A-[place]: [facility] Elvi Price Amrit [id number] Elvi Marcus 08/21/2023 1 [place] Elvi Marcus [id number] Elvi Marcus 08/21/2023 2 [place] [facility] Elvi Price Amrit [id number] Elvi Marcus 08/21/2023 2 [place] Elvi Price Amrit [id number] Elvi Marcus 08/21/2023 2 [place] OR MEDIC[place] REPLACEMENT PRIMARY) Elvi Marcus [id number] Elvi Marcus Notes Date Note Type Note Provider Name and Address Organization Details Recorded Time 8 text/html VisitReported by Patient Marty Farias MD Attn: Accounting[address] [place], [address], [facility] 09/12/2017 14:59:36 1 text/html Annual GYNReported by PatientGenitourinary symptomsFor menstrual cycle, patient reportsnormal menses. For urinary symptoms, patient reportsno hematuriaandno incontinence. For vulva, patient reportsno genital lesion. For vagina, patient reportsnormal vaginal discharge.Breast symptomsFor breast, patient reportsno breast pain,no breast lump, andno nipple discharge.Endocrine symptomsFor sexual complaints, patient reportsno sexual complaints,no pain during intercourse, andnormal libido. For menopausal symptoms, patient reportsno menopausal symptomsandnormal vaginal lubrication.Psychological symptomsFor psychological symptoms, patient reportsno depression,no anxiety, andno pmdd.ROS as noted in the HPI Marty Farias MD Attn: Accounting[address] [place], [address], [facility] 09/03/2020 10:48:16 4 text/html Annual GYNReported by PatientGenitourinary symptomsFor menstrual cycle, patient reportsirregular cycle intervals. For urinary symptoms, patient reportsno hematuriaandno incontinence. For vulva, patient reportsno genital lesion. For vagina, patient reportsnormal vaginal discharge.Breast symptomsFor breast, patient reportsno breast pain,no breast lump, andno nipple discharge.Endocrine symptomsFor sexual complaints, patient reportsno sexual complaints,no pain during intercourse, andnormal libido. 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 Marty Farias MD Attn: Accounting[address] [place], [address], [facility] 08/21/2023 12:40:46 OBGyn Episode Ob Episode Information Episode Created Date Number of Fetuses Patient Bloodtype Patient rh Status Prepregnancy Weight lbs Domestic Partner Domestic Partner Phone Father Name Washcloth Folder Status 12/03/19 15 1 CLOSED Fetus Data First Name Last Name Admitted to NICU Weight (g) Sex Living Outcome Pediatric Complications Fetus ID Race Codes Race Delivery Type [id number] Vaginal Jackson Calculation Initial Jackson Date Initial Exam Date Initial Exam Provider Initial Ultrasound Date Last Menstrual Period Date Ultra Sound Weeks Gestation 0 Eighteen To Twenty Week Jackson Update Ultra Sound Date Fundal Height At Umbil Quickening Date Ultra Sound Latest Weeks Gestation Final Jackson Confirmed By Final Jackson Confirmed Date Final Jackson Date Ultra Sound Latest Days Gestation 0 0 Menstrual History Last Menstrual Date Menses Monthly On Bcp Conception Prior Menses Frequency Hcg Plus Date Menarche Onset Age Delivery Information Delivery Date Delivery Type Labor Anesthesia Weeks Gestation Incision Type Labor Labor Length Hrs Delivered By Post Complications Tubal Sterilization Discharge Date Comments 6 Dr. Gauthier o/c for Dr. Farias Discharge Information Feeding Method Contraceptive Method Maternal HG B and HCT Levels Ob Episode Information Episode Created Date Number of Fetuses Patient Bloodtype Patient rh Status Prepregnancy Weight lbs Domestic Partner Domestic Partner Phone Father Name Washcloth Folder Status 01/12/20 17 1 A Positive [facility] CLOSED Fetus Data First Name Last Name Admitted to NICU Weight (g) Sex Living Outcome Pediatric Complications Fetus ID Race Codes Race Delivery Type Juan Marcus false 3118.44 5 M true Full Term 28801 [id number] White Vaginal Jackson Calculation Initial Jackson Date Initial Exam Date Initial Exam Provider Initial Ultrasound Date Last Menstrual Period Date Ultra Sound Weeks Gestation 07/22/2016 01/11/2017 03/08/2017 10/20/2016 20 Eighteen To Twenty Week Jackson Update Ultra Sound Date Fundal Height At Umbil Quickening Date Ultra Sound Latest Weeks Gestation Final Jackson Confirmed By Final Jackson Confirmed Date Final Jackson Date Ultra Sound Latest Days Gestation 0 07/28/19 18 0 Pre-caitlyn Flowsheet Flowsheet Date 01/11/2017 Reddy Score Blood Edema Fundus Height Fundus Units Glucose Ketones Leukocytes Nitrite Labor Signs Protein Cervic Dilation Cervic Effacement Cervic Station 12 wks 0cm 0% -4 Type Weight in lbs Pre/Post Dialysis Refused 175.090310878993 BP Diastolic BP Location Tested BP Systolic BP Type 68 100 sitting Fetus Heart Rate Present A 156 Present Fetus Movement Comments Seroquel is med she was most concerned aboutDAughter is 11 Flowsheet Date 02/13/2017 Reddy Score Blood Edema Fundus Height Fundus Units Glucose Ketones Leukocytes Nitrite Labor Signs Protein Cervic Dilation Cervic Effacement Cervic Station Type Weight in lbs Pre/Post Dialysis Refused 169.967293017650 BP Diastolic BP Location Tested BP Systolic BP Type 62 102 sitting Fetus Heart Rate Present A 145 Present Fetus Movement Comments doing well, US in 2 weeks, a pthere in threeLong S-T syndrome runs in DAd's family ; likely PP f/u with peds Flowsheet Date 03/06/2017 Reddy Score Blood Edema Fundus Height Fundus Units Glucose Ketones Leukocytes Nitrite Labor Signs Protein Cervic Dilation Cervic Effacement Cervic Station 19 wks Type Weight in lbs Pre/Post Dialysis Refused 163.651593365369 BP Diastolic BP Location Tested BP Systolic BP Type 66 106 sitting Fetus Heart Rate Present A 148 Present Fetus Movement A Yes Comments US is ve RX for F lagyl for trich on pap.did not discuss xanax / MJ as daughter was present Flowsheet Date 03/27/2017 Reddy Score Blood Edema Fundus Height Fundus Units Glucose Ketones Leukocytes Nitrite Labor Signs Protein Cervic Dilation Cervic Effacement Cervic Station 22 wks Type Weight in lbs Pre/Post Dialysis Refused 168.944873078282 BP Diastolic BP Location Tested BP Systolic BP Type 56 112 sitting Fetus Heart Rate Present A 146 Present Fetus Movement A Yes Comments doing well, discussed (+) dr sukhjinder pichardo test next visitanatomy scan was good Flowsheet Date 04/27/2017 Reddy Score Blood Edema Fundus Height Fundus Units Glucose Ketones Leukocytes Nitrite Labor Signs Protein Cervic Dilation Cervic Effacement Cervic Station 28 cm none neg Type Weight in lbs Pre/Post Dialysis Refused 168.568803632799 BP Diastolic BP Location Tested BP Systolic BP Type 66 102 sitting Fetus Heart Rate Present A 145 Present Fetus Movement A Yes Comments doing well, sugar test today discussed BTL and vasectomy Flowsheet Date 05/18/2017 Reddy Score Blood Edema Fundus Height Fundus Units Glucose Ketones Leukocytes Nitrite Labor Signs Protein Cervic Dilation Cervic Effacement Cervic Station none 29 cm Type Weight in lbs Pre/Post Dialysis Refused 170.150405168961 BP Diastolic BP Location Tested BP Systolic BP Type 76 110 sitting Fetus Heart Rate Present A 156 Present Fetus Movement A Yes Comments doing well, no 3 hr gtt ytno big issues Flowsheet Date 06/08/2017 Reddy Score Blood Edema Fundus Height Fundus Units Glucose Ketones Leukocytes Nitrite Labor Signs Protein Cervic Dilation Cervic Effacement Cervic Station 31 cm Type Weight in lbs Pre/Post Dialysis Refused 169.703809980324 BP Diastolic BP Location Tested BP Systolic BP Type 76 122 sitting Fetus Heart Rate Present A 156 Present Fetus Movement A Yes Comments doing well, had some PTL ove r the will try and get sugar test done Flowsheet Date 06/26/2017 Reddy Score Blood Edema Fundus Height Fundus Units Glucose Ketones Leukocytes Nitrite Labor Signs Protein Cervic Dilation Cervic Effacement Cervic Station trace 33 cm none trace Type Weight in lbs Pre/Post Dialysis Refused 186.566791967027 BP Diastolic BP Location Tested BP Systolic BP Type 68 102 sitting Fetus Heart Rate Present A 143 Present Fetus Movement A Yes Comments doing well, did 3 hr gtt tod ay. cervix check next time for vertex Flowsheet Date 07/06/2017 Reddy Score Blood Edema Fundus Height Fundus Units Glucose Ketones Leukocytes Nitrite Labor Signs Protein Cervic Dilation Cervic Effacement Cervic Station none 34 cm none trace 1cm 70% -3 Type Weight in lbs Pre/Post Dialysis Refused 184.019064270311 BP Diastolic BP Location Tested BP Systolic BP Type 74 112 sitting Fetus Heart Rate Present A 155 Present Fetus Movement A Yes Comments doing well, no new issues, p assed 3 hr GTTcervix 1.5 cm Flowsheet Date 07/18/2017 Reddy Score Blood Edema Fundus Height Fundus Units Glucose Ketones Leukocytes Nitrite Labor Signs Protein Cervic Dilation Cervic Effacement Cervic Station 34 cm Type Weight in lbs Pre/Post Dialysis Refused 178.640907188975 BP Diastolic BP Location Tested BP Systolic BP Type 82 132 sitting Fetus Heart Rate Present Fetus Movement A Yes Comments 38 weeks, scheduled inductio n for next monday Menstrual History Last Menstrual Date Menses Monthly On Bcp Conception Prior Menses Frequency Hcg Plus Date Menarche Onset Age 0510/20/2016 Genetic Screening And Infection History Question Response Note Congenital Heart Defect true Delivery Information Delivery Date Delivery Type Labor Anesthesia Weeks Gestation Incision Type Labor Labor Length Hrs Delivered By Post Complications Tubal Sterilization Discharge Date Comments 8 Induce d 39.5 false Kori Farias MD None 07/27/2017 Discharge Information Feeding Method Contraceptive Method Maternal HG B and HCT Levels Breast
--- OUTSIDE RECORDS SUMMARY | 2025-05-17 13:56 | XMS_ITS ---
Author Organization [facility] Address [address] [place] [address] Phone Care Team Providers Care Social Service Manager Name Role Phone KRISTIAN PERAZA, JOSIE Primary Care Provider [phone] KRISTIAN Hill, JARON Wall [phone] Reason for Referral Date Encounter Description Provider Reason for Referral 01/12/09 PROBLEM VISIT JARON TOWNSEND M.D. Reques t Consultation By Psychiatrist 10/13/08 2 WK CK-UP JARON TOWNSEND M.D. Request Consultation By Mental Health Counselor Problems Includes: Active, inactive, and resolved Problems All Visits Onset Date Resolved Date Provider Condition S tatus Hyperlipidemia 07/08/2016 JARON DIEGO M.D. Active Last Documented On 07/08/2016 2:16PM ; [facility] Note: Unchanged Fibromyalgia 07/25/2013 JARON TOWNSEND M.D. Active Last Documented On 4 12:07PM ; [facility] Low Back Pain 03/25/2013 JARON TOWNSEND M.D. A ctive Last Documented On 4 12:07PM ; [facility] Irritable Bowel Syndrome 01/21/2013 JARON WALL M.D. Inactive Last Documented On 3 1:50PM ; [facility] TENSION HEADACHE NOS 01/21/2013 JARON TOWNSEND M.D. Inactive Last Documented On 5 2:20PM ; [facility] Anxiety Disorder Nos 08/30/2012 JARON TOWNSEND M.D. Active Last Documented On 01/02/2023 2:44PM ; [facility]: Unchanged - Appears to be JAJA, rul e out OCD. 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 JARON Kristi TOWNSEND M.D. Inactive Last Documented On 01/02/2023 1:46PM ; [facility] Note: Unchanged Cannabis Dependence - Continuous 08/30/2012 JARON S KRISTIAN M.D. Inactive Last Documented On 01/02/2023 1:50PM ; [facility] Note: Unchanged Episodic Mood Disorders 08/30/2012 JARON S ARINA TREJO M.D. Inactive Last Documented On 01/02/2023 1:44PM ; [facility] Note: Unchanged - , Most likely major de pressive disorder, recurrent Longterm Use of Other Medications 08/30/2012 JARON S KRISTIAN M.D. Inactive Last Documented On 01/02/2023 1:44PM ; [facility] Note: Unchanged Post-traumatic Stress Disorder 08/30/2012 JARON S KRISTIAN M.D. Inactive Last Documented On 01/02/2023 1:45PM ; [facility] Note: Unchanged ATTN DEFICIT W HYPERACT 03/06/2012 JARON S DI ZON M.D. Inactive Last Documented On 5 2:20PM ; [facility] Anxiety Disorder Nos 08/27/2008 JARON Kristi TOWNSEND M.D. Inactive Last Documented On 3 1:44PM ; [facility] Depression Chronic 08/27/2008 JARON Kristi TOWNSEND M .D. Active Last Documented On 4 12:06PM ; [facility] Insomnia NOS 08/27/2008 JARON S KRISTIAN M.D. In active Last Documented On 0 11:56AM ; [facility] Plan of Treatment Findings Encounter Date Continue current medication CHECK UP with MIKOCI O Kristi Rogers.Vicki 01/02/2023 Last Documented On 3 2:48PM ; [facility] Ordered patient to call if fany funk develops CHECK UP with JARONDevonte Rogers.Vicki 01/02/2023 Last Documented On 3 2:48PM ; [facility] Ordered return to the clinic if condition worsens or new symptoms arise CHECK UP with JARON TOWNSEND M.D. 01/02/2023 Last Documented On 3 2:48PM ; [facility] Continue current medication CHECK UP with LEONCI O S KRISTIAN M.D. 07/04/2022 Last Documented On 3 2:51PM ; [facility] Ordered patient to call if p roblem develops CHECK UP with JARON S KRISTIAN M.D. 07/04/2022 Last Documented On 3 2:51PM ; [facility] Ordered return to the clinic if condition worsens or new symptoms arise CHECK UP with JARON S KRISTIAN M.D. 07/04/2022 Last Documented On 3 2:51PM ; [facility] Pt to use prescription as or dered. Purpose of and use of medication discussed. COVID SICK VISIT- ESTABLISHED PATIENT with HAYLIE [employer]-C 04/09/2022 Last Documented On 2 1:09PM ; [facility] Continue current medication CHECK UP with LEONCI O S KRISTIAN M.D. 05/25/2021 Last Documented On 1 10:41AM ; [facility] Ordered patient to call if p roblem develops CHECK UP with JARON S KRISTIAN M.D. 05/25/2021 Last Documented On 1 10:41AM ; [facility] Ordered return to the clinic if condition worsens or new symptoms arise CHECK UP with JARON S KRISTIAN M.D. 05/25/2021 Last Documented On 1 10:41AM ; [facility] Continue current medication CHECK UP with LEONCI O S KRISTIAN M.D. 10/23/2020 Last Documented On 1 10:12AM ; [facility] Ordered patient to call if p roblem develops CHECK UP with JARON S KRISTIAN M.D. 10/23/2020 Last Documented On 1 10:12AM ; [facility] Ordered return to the clinic if condition worsens or new symptoms arise CHECK UP with JARON S KRISTIAN M.D. 10/23/2020 Last Documented On 1 10:12AM ; [facility] Continue current medication CHECK UP with LEONCI O S KRISTIAN M.D. 08/24/2020 Last Documented On 1 2:04PM ; [facility] Ordered patient to call if p roblem develops CHECK UP with JARON S KRISTIAN M.D. 08/24/2020 Last Documented On 1 2:04PM ; [facility] Ordered return to the clinic if condition worsens or new symptoms arise CHECK UP with JARON S KRISTIAN M.D. 08/24/2020 Last Documented On 1 2:04PM ; [facility] Plan - start medication Add Effexor at am CHECK UP with JARON S KRISTIAN Rogers.Vicki 08/24/2020 Last Documented On 1 2:04PM ; [facility] Continue current medication duloxetine at night CHECK UP with JARON S KRISTIAN Rogers.Vicki 06/25/2020 Last Documented On 1 2:09PM ; [facility] Ordered patient to call if p roblem develops CHECK UP with JARON S KRISTIAN M.D. 06/25/2020 Last Documented On 1 2:09PM ; [facility] Ordered return to the clinic if condition worsens or new symptoms arise CHECK UP with JARON S KRISTIAN M.D. 06/25/2020 Last Documented On 1 2:09PM ; [facility] Ordered patient to call if p roblem develops MED CHECK with JARON S KRISTIAN M.D. 05/27/2020 Last Documented On 0 12:07PM ; [facility] Ordered return to the clinic if condition worsens or new symptoms arise MED CHECK with JARON S KRISTIAN M.D. 05/27/2020 Last Documented On 0 12:07PM ; [facility] Plan - start medication MED CHECK with JARON S KRISTIAN M.D. 05/27/2020 Last Documented On 0 12:07PM ; [facility] Ordered patient to call if p roblem develops MED CHECK with JARON S KRISTIAN M.D. 10/29/2019 Last Documented On 0 11:10AM ; [facility] Ordered return to the clinic if condition worsens or new symptoms arise MED CHECK with JARON TOWNSEND M.D. 10/29/2019 Last Documented On 0 11:10AM ; [facility] Plan - start medication tria l of Lyrica at 50 mg 2 x a day MED CHECK with JARON TOWNSEND M.D. 10/29/2019 Last Documented On 0 11:10AM ; [facility] Continue current medication 3 MONTH CHECK with L EONCRIOS TOWNSEND M.D. 03/29/2019 Last Documented On 9 11:12AM ; [facility] Ordered patient to call if p roblem develops 3 MONTH CHECK with JARON TOWNSEND M.D. 03/29/2019 Last Documented On 9 11:12AM ; [facility] Ordered return to the clinic if condition worsens or new symptoms arise 3 MONTH CHECK with JARON TOWNSEND M.D. 03/29/2019 Last Documented On 9 11:12AM ; [facility] Plan - start medication add wellbutrin at 100 mg 2 x a day 3 MONTH CHECK with JARON TOWNSEND M.D. 03/29/2019 Last Documented On 9 11:12AM ; [facility] Continue current medication ibuprofen for pain PROBLEM VISIT with JARON TOWNSEND M.D. 12/27/2018 Last Documented On 9 11:17AM ; [facility] Ordered patient to call if p roblem develops PROBLEM VISIT with JARNO TOWNSEND M.D. 12/27/2018 Last Documented On 9 11:17AM ; [facility] Ordered return to the clinic if condition worsens or new symptoms arise PROBLEM VISIT with JARON TOWNSEND M.D. 12/27/2018 Last Documented On 9 11:17AM ; [facility] Plan - start medication ly tidine for Ibuprofen PROBLEM VISIT with JARON TOWNSEND M.D. 12/27/2018 Last Documented On 9 11:17AM ; [facility] Continue current medication MED CHECK with LEONC IO Kristi TOWNSEND M.DLeyda 09/27/2018 Last Documented On 9 11:30AM ; [facility] Ordered patient to call if p rodlem develops MED CHECK with JARON Kristi TOWNSEND M.DLeyda 09/27/2018 Last Documented On 9 11:30AM ; [facility] Ordered return to the clinic if condition worsens or new symptoms arise MED CHECK with JARON Kristi TOWNSEND M.D. 09/27/2018 Last Documented On 9 11:30AM ; [facility] Ordered patient to call if p roblem develops SICK VISIT with JARONADRIAN TOWNSEND M.DLeyda 05/11/2018 Last Documented On 8 4:51PM ; [facility] Ordered return to the clinic if condition worsens or new symptoms arise SICK VISIT with JARON TOWNSEND M.Vicki 05/11/2018 Last Documented On 8 4:51PM ; [facility] Ordered patient to call if p roblem develops MED CHECK with JARON Kristi TOWNSEND M.D. 12/19/2017 Last Documented On 8 5:17PM ; [facility] Ordered return to the clinic if condition worsens or new symptoms arise MED CHECK with JARON TOWNSEND M.DLeyda 12/19/2017 Last Documented On 8 5:17PM ; [facility] Plan - start medication MED CHECK with JARON TOWNSEND M.Vicki 12/19/2017 Last Documented On 8 5:17PM ; [facility] Continue current medication seroquel at 100 mg at night amitriptyline at 50 mg at night MED CHECK with JARON TOWNSEND M.DLeyda 10/09/2017 Last Documented On 8 3:50PM ; [facility] Ordered patient to call if p roblem develops MED CHECK with JARON S KRISTIAN M.DLeyda 10/09/2017 Last Documented On 8 3:50PM ; [facility] Ordered return to the clinic if condition worsens or new symptoms arise MED CHECK with JARON S KRISTIAN M.DLeyda 10/09/2017 Last Documented On 8 3:50PM ; [facility] Continue current medication MED CHECK with LEONC IO S KRISTIAN M.DLeyda 11/11/2016 Last Documented On 7 4:13PM ; [facility] Ordered patient to call if p roblem develops MED CHECK with JARON S KRISTIAN M.D. 11/11/2016 Last Documented On 7 4:13PM ; [facility] Ordered return to the clinic if condition worsens or new symptoms arise MED CHECK with JARON S KRISTIAN M.DLeyda 11/11/2016 Last Documented On 7 4:13PM ; [facility] Continue current medication MED CHECK with LEONC IO S KRISTIAN M.DLeyda 07/08/2016 Last Documented On 7 2:17PM ; [facility] Ordered patient to call if p roblem develops MED CHECK with JARON S KRISTIAN M.DLeyda 07/08/2016 Last Documented On 7 2:17PM ; [facility] Ordered return to the clinic if condition worsens or new symptoms arise MED CHECK with JARON S KRISTIAN M.DLeyda 07/08/2016 Last Documented On 7 2:17PM ; [facility] Continue current medication 3 MONTH CHECK with L EONCIO S KRISTIAN M.DLeyda 03/30/2016 Last Documented On 6 4:14PM ; [facility] Ordered patient to call if p roblem develops 3 MONTH CHECK with JARON S KRISTIAN M.D. 03/30/2016 Last Documented On 6 4:14PM ; [facility] Ordered return to the clinic if condition worsens or new symptoms arise 3 MONTH CHECK with JARON S KRISTIAN M.D. 03/30/2016 Last Documented On 6 4:14PM ; [facility] Continue current medication 3 MONTH CHECK with L EONCIO S KRISTIAN M.DLeyda 12/25/2015 Last Documented On 6 2:31PM ; [facility] Ordered patient to call if p roblem develops 3 MONTH CHECK with JARON TOWNSEND M.D. 12/25/2015 Last Documented On 6 2:31PM ; [facility] Ordered return to the clinic if condition worsens or new symptoms arise 3 MONTH CHECK with JARONDevonte TOWNSEND M.D. 12/25/2015 Last Documented On 6 2:31PM ; [facility] Ordered patient to call if p roblem develops 1 MONTH CHECK with JARON TOWNSEND M.D. 10/13/2015 Last Documented On 6 10:35AM ; [facility] Ordered return to the clinic if condition worsens or new symptoms arise 1 MONTH CHECK with JARON TOWNSEND M.D. 10/13/2015 Last Documented On 6 10:35AM ; [facility] Plan - start medication restart Prozac 1 MONTH CHECK with JARON TOWNSEND M.D. 10/13/2015 Last Documented On 6 10:35AM ; [facility] Ordered patient to call if p roblem develops 3 MONTH CHECK with JARON TOWNSEND M.D. 08/31/2015 Last Documented On 6 11:22AM ; [facility] Ordered return to the clinic if condition worsens or new symptoms arise 3 MONTH CHECK with JARON TOWNSEND M.D. 08/31/2015 Last Documented On 6 11:22AM ; [facility] Plan - start medication add wellbutrin, 100 mg, 2 x a day 3 MONTH CHECK with JARON TOWNSEND M.D. 08/31/2015 Last Documented On 6 11:22AM ; [facility] Continue current medication CHECK UP with VANESSA O Kristi TOWNSEND M.D. 05/01/2015 Last Documented On 5 3:22PM ; [facility] Ordered patient to call if p roblem develops CHECK UP with JARONDevonte TOWNSEND M.D. 05/01/2015 Last Documented On 5 3:22PM ; [facility] Ordered return to the clinic if condition worsens or new symptoms arise CHECK UP with JARON TOWNSEND M.D. 05/01/2015 Last Documented On 5 3:22PM ; [facility] Continue current medication ibuprofen as needed PROBLEM VISIT with JARON TOWNSEND M.D. 02/16/2015 Last Documented On 5 2:24PM ; [facility] Ordered an X-ray ordered in outside facility L clavicle PROBLEM VISIT with JARON TOWNSEND M.D. 02/16/2015 Last Documented On 5 2:24PM ; [facility] Ordered patient to call if p roblem develops PROBLEM VISIT with JARON TOWNSEND M.D. 02/16/2015 Last Documented On 5 2:24PM ; [facility] Ordered return to the clinic if condition worsens or new symptoms arise PROBLEM VISIT with JARON TOWNSEND M.D. 02/16/2015 Last Documented On 5 2:24PM ; [facility] Advice appropriate Dietary r egimen. adviced low carbohydrate/ low starch diet MED CHECK with JARON TOWNSEND M.D. 01/26/2015 Last Documented On 5 11:41AM ; [facility] Continue current medication MED CHECK with MIKOC RIOS TOWNSEND M.D. 01/26/2015 Last Documented On 5 11:41AM ; [facility] Ordered patient to call if p roblem develops MED CHECK with JARON TOWNSEND M.D. 01/26/2015 Last Documented On 5 11:41AM ; [facility] Ordered return to the clinic if condition worsens or new symptoms arise MED CHECK with JARON Kristi Rogers.Vicki 01/26/2015 Last Documented On 5 11:41AM ; [facility] Continue current medication MED CHECK with LEONC IO Kristi Rogers.Vicki 10/13/2014 Last Documented On 5 5:12PM ; [facility] Ordered patient to call if p roblem develops MED CHECK with JARON Kristi TOWNSEND M.D. 10/13/2014 Last Documented On 5 5:12PM ; [facility] Ordered return to the clinic if condition worsens or new symptoms arise MED CHECK with JARON TOWNSEND M.D. 10/13/2014 Last Documented On 5 5:12PM ; [facility] Modify drug dosage increase amitriptyline to 50 mg at night MED CHECK with JARON TOWNSEND M.D. 08/05/2014 Last Documented On 5 2:23PM ; [facility] Ordered patient to call if p roblem develops MED CHECK with JARON TOWNSEND M.D. 08/05/2014 Last Documented On 5 2:23PM ; [facility] Ordered return to the clinic if condition worsens or new symptoms arise MED CHECK with JARON TOWNSEND M.D. 08/05/2014 Last Documented On 5 2:23PM ; [facility] Continue current medication 1 MONTH CHECK with Fernando TOWNSEND M.D. 04/17/2014 Last Documented On 4 1:49PM ; [facility] Ordered patient to call if p roblem develops 1 MONTH CHECK with JARON TOWNSEND M.D. 04/17/2014 Last Documented On 4 1:49PM ; [facility] Ordered return to the clinic if condition worsens or new symptoms arise 1 MONTH CHECK with JARON TOWNSEND M.D. 04/17/2014 Last Documented On 4 1:49PM ; [facility] Modify drug dosage xanax 0.5 TID on next refill PROBLEM VISIT with JARON TOWNSEND M.D. 03/18/2014 Last Documented On 4 2:52PM ; [facility] Ordered patient to call if p roblem develops PROBLEM VISIT with JARONDevonte TOWNSEND M.D. 03/18/2014 Last Documented On 4 2:52PM ; [facility] Ordered return to the clinic if condition worsens or new symptoms arise PROBLEM VISIT with JARON TOWNSEND M.D. 03/18/2014 Last Documented On 4 2:52PM ; [facility] Continue current medication 3 MONTH CHECK with L ENEDINANCRIOS ZhangD. 11/27/2013 Last Documented On 4 12:04PM ; [facility] Ordered a chest x-ray ordere d in outside facility 3 MONTH CHECK with JARON TOWNSEND M.D. 11/27/2013 Last Documented On 4 12:04PM ; [facility] Ordered an X-ray ordered in outside facility T Spine X ray 3 MONTH CHECK with JARON TOWNSEND M.D. 11/27/2013 Last Documented On 4 12:04PM ; [facility] Ordered patient to call if p roblem develops 3 MONTH CHECK with JARON TOWNSEND M.D. 11/27/2013 Last Documented On 4 12:04PM ; [facility] Ordered return to the clinic if condition worsens or new symptoms arise 3 MONTH CHECK with JARON TOWNSEND M.D. 11/27/2013 Last Documented On 4 12:04PM ; [facility] Continue current medication 2 MONTH CHECK with Fernando TOWNSEND M.D. 09/23/2013 Last Documented On 4 12:09PM ; [facility] Ordered patient to call if p roblem develops 2 MONTH CHECK with JARON TOWNSEND M.D. 09/23/2013 Last Documented On 4 12:09PM ; [facility] Ordered return to the clinic if condition worsens or new symptoms arise 2 MONTH CHECK with JARON TOWNSEND M.D. 09/23/2013 Last Documented On 4 12:09PM ; [facility] Plan - start medication scot ctone as needed for swelling 2 MONTH CHECK with JARON TOWNSEND M.D. 09/23/2013 Last Documented On 4 12:09PM ; [facility] Advice appropriate Dietary regimen 1 MONTH CHECK with JARON TOWNSEND M.D. 07/25/2013 Last Documented On 4 2:43PM ; [facility] Continue current medication 1 MONTH CHECK with Fernando TOWNSEND M.D. 07/25/2013 Last Documented On 4 2:43PM ; [facility] Ordered patient to call if p roblem develops 1 MONTH CHECK with JARONDevonte TOWNSEND M.DLeyda 07/25/2013 Last Documented On 4 2:43PM ; [facility] Ordered return to the clinic if condition worsens or new symptoms arise 1 MONTH CHECK with JARON Kristi TOWNSEND M.DLeyda 07/25/2013 Last Documented On 4 2:43PM ; [facility] Advice appropriate Dietary regimen 2 MONTH CHECK with JARON Rogers.DLeyda 06/27/2013 Last Documented On 4 2:14PM ; [facility] Patient advice on weight los s techniques 2 MONTH CHECK with JARON Rogers.Vicki 06/27/2013 Last Documented On 4 2:14PM ; [facility] Ordered patient to call if p roblem develops 2 MONTH CHECK with JARON Kristi Rogers.DLeyda 06/27/2013 Last Documented On 4 2:14PM ; [facility] Ordered return to the clinic if condition worsens or new symptoms arise 2 MONTH CHECK with JARON TOWNSEND M.DLeyda 06/27/2013 Last Documented On 4 2:14PM ; [facility] Plan - start medication bakari riptyline for myalgias 2 MONTH CHECK with JARON TOWNSEND M.DLeyda 06/27/2013 Last Documented On 4 2:14PM ; [facility] Continue current medication 1 MONTH CHECK with L EONCIO S KRISTIAN M.DLeyda 04/23/2013 Last Documented On 3 2:06PM ; [facility] Ordered patient to call if p roblem develops 1 MONTH CHECK with JARON Kristi TOWNSEND M.DLeyda 04/23/2013 Last Documented On 3 2:06PM ; [facility] Ordered return to the clinic if condition worsens or new symptoms arise 1 MONTH CHECK with JARON S KRISTIAN M.DLeyda 04/23/2013 Last Documented On 3 2:06PM ; [facility] Continue current medication 1 MONTH CHECK with L EONCIO S KRISTIANMAYA Hill 03/25/2013 Last Documented On 3 11:36AM ; [facility] Ordered patient to call if p roblem develops 1 MONTH CHECK with JARON TOWNSEND M.D. 03/25/2013 Last Documented On 3 11:36AM ; [facility] Ordered return to the clinic if condition worsens or new symptoms arise 1 MONTH CHECK with JARON TOWNSEND M.D. 03/25/2013 Last Documented On 3 11:36AM ; [facility] Continue current medication Ibuprofen 800 QID 2 WK CK-UP with JARON Rogers.Vicki 02/22/2013 Last Documented On 3 1:48PM ; [facility] Ordered patient to call if p roblem develops 2 WK CK-UP with JARON Rogers.Vicki 02/22/2013 Last Documented On 3 1:48PM ; [facility] Ordered return to the clinic if condition worsens or new symptoms arise 2 WK CK-UP with JARON TOWNSEND M.D. 02/22/2013 Last Documented On 3 1:48PM ; [facility] Ordered patient to call if p roblem develops EMERGENCY ROOM FOLLOW UP with JARON TOWNSEND M.D. 02/08/2013 Last Documented On 3 2:04PM ; [facility] Ordered return to the clinic if condition worsens or new symptoms arise EMERGENCY ROOM FOLLOW UP with JARON TOWNSEND M.D. 02/08/2013 Last Documented On 3 2:04PM ; [facility] Advice appropriate Dietary regimen 2 MONTH CHECK with JARON TOWNSEND M.D. 01/07/2013 Last Documented On 3 10:31AM ; [facility] Advice to have regular exerc ise regimen 2 MONTH CHECK with JARON TOWNSEND M.D. 01/07/2013 Last Documented On 3 10:31AM ; [facility] Ordered patient to call if p roblem develops 2 MONTH CHECK with JARON TOWNSEND M.D. 01/07/2013 Last Documented On 3 10:31AM ; [facility] Ordered return to the clinic if condition worsens or new symptoms arise 2 MONTH CHECK with JARON TOWNSEND M.D. 01/07/2013 Last Documented On 3 10:31AM ; [facility] Continue current medication Continue Prozac and Xanax 2 WK CK-UP with JARON TOWNSEND M.D. 07/09/2012 Last Documented On 3 12:04PM ; [facility] Modify drug dosage Inc Seroq uel to 200 mg a day 2 WK CK-UP with JARON TOWNSEND M.D. 07/09/2012 Last Documented On 3 12:04PM ; [facility] Plan - stop medication [place] 2 WK CK-UP with Fernando TOWNSEND M.D. 07/09/2012 Last Documented On 3 12:04PM ; [facility] Ordered return to the clinic if condition worsens or new symptoms arise MED CHECK with JARON TOWNSEND M.D. 06/25/2012 Last Documented On 3 5:16PM ; [facility] Plan - start medication add [place] 300 mg 1 tab 2 x a day MED CHECK with JARON TOWNSEND M.D. 06/25/2012 Last Documented On 3 5:16PM ; [facility] Ordered follow-up visit as n eeded with an office visit. SICK VISIT with MELANIE WHIPPLE PA-C 01/04/2012 Last Documented On 2 10:23AM ; [facility] Ordered patient to call if fany funk develops SICK VISIT with MELANIE WHIPPLE PA-C 01/04/2012 Last Documented On 2 10:23AM ; [facility] Advice appropriate Dietary regimen MED CHECK wit h JARON TOWNSEND M.D. 07/25/2011 Last Documented On 2 2:25PM ; [facility] Advice to have regular exerc ise regimen MED CHECK with JARON TOWNSEND M.D. 07/25/2011 Last Documented On 2 2:25PM ; [facility] Advice appropriate Dietary regimen 1 MONTH CHECK with JARON TOWNSEND M.D. 07/12/2010 Last Documented On 1 10:53AM ; [facility] Advice to have regular exerc ise regimen 1 MONTH CHECK with JARON TOWNSEND M.D. 07/12/2010 Last Documented On 1 10:53AM ; [facility] Requested consultation with a psychiatrist PROBLEM VISIT with JARON TOWNSEND M.D. 01/12/2009 Last Documented On 9 5:40PM ; [facility] Requested consultation with a mental health counselor 2 WK CK-UP with JARON TOWNSEND M.D. 10/13/2008 Last Documented On 9 11:38AM ; [facility] Pending Tests Order Diagnosis Results Due Ordering [facility] Lab THYROID PANEL (TSH & FREE T4) 07/01/23 JARON TOWNSEND M.D. Last Documented On 3 2:46PM ; [facility] Lab LIPID PANEL 07/01/23 JARON CERON ON M.Vicki Last Documented On 3 2:46PM ; [facility] Lab CMP 07/01/23 JARON Franco M.D. Last Documented On 3 2:46PM ; [facility] Lab CBC WITH DIFF 07/01/23 JARON WALL M.D. Last Documented On 3 2:46PM ; [facility] Referrals To Diagnosis Psychiatrist ELISA MOE MD DEPRESSIVE DIS ORDER NEC Note: At [place] Last Documented On 9 10:47AM ; [facility] Instructions to patient Intervention and counseling on cessation of tobacco use : Patient recieved smoking cessation handout Last Documented On 1 9:48AM ; [facility] Education and Decision Aids were provided during visit for: Discussed concerns about tob acco use Last Documented On 2 10:20AM ; [facility] Patient education about anti biotics: need to finish even if feeling better Last Documented On 2 10:21AM ; [facility] Assessments Includes: Assessments for all patient encounters Findings Encounter Date Anxiety disorder NOS CHECK UP with JARON SANTAZ ON M.D. 01/02/2023 Last Documented On 3 2:48PM ; [facility] Chronic depression CHECK UP with JARON S KRISTIAN M.D. 01/02/2023 Last Documented On 3 2:48PM ; [facility] Fibromyalgia CHECK UP with JARON S KRISTIAN M. D. 01/02/2023 Last Documented On 3 2:48PM ; [facility] Hyperlipidemia CHECK UP with JARON S KRISTIAN M. D. 01/02/2023 Last Documented On 3 2:48PM ; [facility] Low back pain CHECK UP with JARON S KRISTIAN M. D. 01/02/2023 Last Documented On 3 2:48PM ; [facility] Anxiety disorder NOS CHECK UP with JARON S DIZ ON M.D. 07/04/2022 Last Documented On 3 2:51PM ; [facility] Chronic depression CHECK UP with JARON S KRISTIAN M.D. 07/04/2022 Last Documented On 3 2:51PM ; [facility] Fibromyalgia CHECK UP with JARON S KRISTIAN M. D. 07/04/2022 Last Documented On 3 2:51PM ; [facility] Hyperlipidemia CHECK UP with JARON S KRISTIAN M. D. 07/04/2022 Last Documented On 3 2:51PM ; [facility] Irritable bowel syndrome CHECK UP with JARON S KRISTIAN M.D. 07/04/2022 Last Documented On 3 2:51PM ; [facility] Low back pain CHECK UP with JARON S KRISTIAN M. D. 07/04/2022 Last Documented On 3 2:51PM ; [facility] Acute pharyngitis COVID SICK VISIT- ES TABLISHED PATIENT with HAYLIE N FALCON FILM PRODUCER-C 04/09/2022 Last Documented On 2 1:09PM ; [facility] Anxiety disorder NOS CHECK UP with JARON S DIZ ON M.D. 05/25/2021 Last Documented On 1 10:41AM ; [facility] Chronic depression CHECK UP with JARON S KRISTIAN M.D. 05/25/2021 Last Documented On 1 10:41AM ; [facility] Fibromyalgia CHECK UP with JARON S KRISTIAN M. D. 05/25/2021 Last Documented On 1 10:41AM ; [facility] Hyperlipidemia CHECK UP with JARON S KRISTIAN M. D. 05/25/2021 Last Documented On 10:41AM ; [facility] Irritable bowel syndrome CHECK UP with JARON S KRISTIAN M.D. 05/25/2021 Last Documented On 10:41AM ; [facility] Low back pain CHECK UP with JARON S KRISTIAN M. D. 05/25/2021 Last Documented On 10:41AM ; [facility] Anxiety disorder NOS CHECK UP with JARON S DIZ ON M.D. 10/23/2020 Last Documented On 1 10:12AM ; [facility] Chronic depression CHECK UP with JARON S KRISTIAN M.D. 10/23/2020 Last Documented On 1 10:12AM ; [facility] Fibromyalgia CHECK UP with JARON S KRISTIAN M. D. 10/23/2020 Last Documented On 1 10:12AM ; [facility] Hyperlipidemia CHECK UP with JARON S KRISTIAN M. D. 10/23/2020 Last Documented On 1 10:12AM ; [facility] Irritable bowel syndrome CHECK UP with JARON S KRISTIAN M.D. 10/23/2020 Last Documented On 1 10:12AM ; [facility] Low back pain CHECK UP with JARON S KRISTIAN M. D. 10/23/2020 Last Documented On 1 10:12AM ; [facility] Anxiety disorder NOS CHECK UP with JARON S DIZ ON M.D. 08/24/2020 Last Documented On 1 2:04PM ; [facility] Chronic depression CHECK UP with JARON S KRISTIAN M.D. 08/24/2020 Last Documented On 1 2:04PM ; [facility] Fibromyalgia CHECK UP with JARON S KRISTIAN M. D. 08/24/2020 Last Documented On 1 2:04PM ; [facility] Hyperlipidemia CHECK UP with JARON S KRISTIAN M. D. 08/24/2020 Last Documented On 1 2:04PM ; [facility] Irritable bowel syndrome CHECK UP with JARON S KRISTIAN M.D. 08/24/2020 Last Documented On 1 2:04PM ; [facility] Low back pain CHECK UP with JARON S KRISTIAN M. D. 08/24/2020 Last Documented On 1 2:04PM ; [facility] Anxiety disorder NOS CHECK UP with JARON S DIZ ON M.D. 06/25/2020 Last Documented On 1 2:09PM ; [facility] Chronic depression CHECK UP with JARON S KRISTIAN M.D. 06/25/2020 Last Documented On 1 2:09PM ; [facility] Fibromyalgia CHECK UP with JARON S KRISTIAN M. D. 06/25/2020 Last Documented On 1 2:09PM ; [facility] Hyperlipidemia CHECK UP with JARON S KRISTIAN M. D. 06/25/2020 Last Documented On 1 2:09PM ; [facility] Irritable bowel syndrome CHECK UP with JARON S KRISTIAN M.D. 06/25/2020 Last Documented On 1 2:09PM ; [facility] Low back pain CHECK UP with JARON S KRISTIAN M. D. 06/25/2020 Last Documented On 1 2:09PM ; [facility] Anxiety disorder NOS MED CHECK with JARON S DI ZON M.D. 05/27/2020 Last Documented On 0 12:07PM ; [facility] Chronic depression MED CHECK with JARON S DIZO N M.D. 05/27/2020 Last Documented On 0 12:07PM ; [facility] Fibromyalgia MED CHECK with JARON S KRISTIAN M .D. 05/27/2020 Last Documented On 0 12:07PM ; [facility] Hyperlipidemia MED CHECK with JARON S KRISTIAN M .D. 05/27/2020 Last Documented On 0 12:07PM ; [facility] Irritable bowel syndrome MED CHECK with JARON S KRISTIAN M.D. 05/27/2020 Last Documented On 0 12:07PM ; [facility] Low back pain MED CHECK with AJRON S KRISTIAN M .D. 05/27/2020 Last Documented On 0 12:07PM ; [facility] Anxiety disorder NOS MED CHECK with JARON S DI ZON M.D. 10/29/2019 Last Documented On 0 11:10AM ; [facility] Chronic depression MED CHECK with JARON S DIZO N M.D. 10/29/2019 Last Documented On 0 11:10AM ; [facility] Fibromyalgia MED CHECK with JARON S KRISTIAN M .D. 10/29/2019 Last Documented On 0 11:10AM ; [facility] Hyperlipidemia MED CHECK with JARON S KRISTIAN M .D. 10/29/2019 Last Documented On 0 11:10AM ; [facility] Irritable bowel syndrome MED CHECK with JARON S KRISTIAN M.D. 10/29/2019 Last Documented On 0 11:10AM ; [facility] Low back pain MED CHECK with JARON S KRISTIAN M .D. 10/29/2019 Last Documented On 0 11:10AM ; [facility] Anxiety disorder NOS 3 MONTH CHECK with JARON S KRISTIAN M.D. 03/29/2019 Last Documented On 9 11:12AM ; [facility] Chronic depression 3 MONTH CHECK with JARON S KRISTIAN M.D. 03/29/2019 Last Documented On 9 11:12AM ; [facility] Fibromyalgia 3 MONTH CHECK with JARON S DIZ ON M.D. 03/29/2019 Last Documented On 9 11:12AM ; [facility] Hyperlipidemia 3 MONTH CHECK with JARON S DIZ ON M.D. 03/29/2019 Last Documented On 9 11:12AM ; [facility] Irritable bowel syndrome 3 MONTH CHECK with MIKO ROTARY CUTTER S KRISTIAN M.D. 03/29/2019 Last Documented On 9 11:12AM ; [facility] Low back pain 3 MONTH CHECK with JARON S DIZ ON M.D. 03/29/2019 Last Documented On 9 11:12AM ; [facility] Anxiety disorder NOS PROBLEM VISIT with JARON S KRISTIAN M.D. 12/27/2018 Last Documented On 9 11:17AM ; [facility] Chronic depression PROBLEM VISIT with JARON S KRISTIAN M.D. 12/27/2018 Last Documented On 9 11:17AM ; [facility] Fibromyalgia PROBLEM VISIT with JARON S DIZ ON M.D. 12/27/2018 Last Documented On 9 11:17AM ; [facility] Hyperlipidemia PROBLEM VISIT with JARON S DIZ ON M.D. 12/27/2018 Last Documented On 9 11:17AM ; [facility] Irritable bowel syndrome PROBLEM VISIT with MIKO ROTARY CUTTER S KRISTIAN M.D. 12/27/2018 Last Documented On 9 11:17AM ; [facility] Low back pain PROBLEM VISIT with JARON S DIZ ON M.D. 12/27/2018 Last Documented On 9 11:17AM ; [facility] Strain of left rhomboid muscles PROBLEM VISIT wi th JARON S KRISTIAN M.D. 12/27/2018 Last Documented On 9 11:17AM ; [facility] Anxiety disorder NOS MED CHECK with JARON S DI MAYA M.D. 09/27/2018 Last Documented On 9 11:30AM ; [facility] Chronic depression MED CHECK with JARON S DIZO N M.D. 09/27/2018 Last Documented On 9 11:30AM ; [facility] Fibromyalgia MED CHECK with JARON S KRISTIAN M .D. 09/27/2018 Last Documented On 9 11:30AM ; [facility] Hyperlipidemia MED CHECK with JARON S KRISTIAN M .D. 09/27/2018 Last Documented On 9 11:30AM ; [facility] Irritable bowel syndrome MED CHECK with JARON S KRISTIAN M.D. 09/27/2018 Last Documented On 9 11:30AM ; [facility] Low back pain MED CHECK with JARON S KRISTIAN M .D. 09/27/2018 Last Documented On 9 11:30AM ; [facility] Tinea versicolor MED CHECK with JARON S KRISTIAN M.D. 09/27/2018 Last Documented On 9 11:30AM ; [facility] Acute bronchitis SICK VISIT with JARON S KRISTIAN M.D. 05/11/2018 Last Documented On 8 4:51PM ; [facility] Acute sinusitis SICK VISIT with JARON S KRISTIAN M.D. 05/11/2018 Last Documented On 8 4:51PM ; [facility] Anxiety disorder NOS MED CHECK with JARON S ARNIA ZON M.D. 12/19/2017 Last Documented On 8 5:17PM ; [facility] Chronic depression MED CHECK with JARON S ARINAZO N M.D. 12/19/2017 Last Documented On 8 5:17PM ; [facility] Fibromyalgia MED CHECK with JARON S KRISTIAN M .D. 12/19/2017 Last Documented On 8 5:17PM ; [facility] Hyperlipidemia MED CHECK with JARON S KRISTIAN M .D. 12/19/2017 Last Documented On 8 5:17PM ; [facility] Irritable bowel syndrome MED CHECK with JARON S KRISTIAN M.D. 12/19/2017 Last Documented On 8 5:17PM ; [facility] Low back pain MED CHECK with JARON S KRISTIAN M .D. 12/19/2017 Last Documented On 8 5:17PM ; [facility] Anxiety disorder NOS MED CHECK with JARON S DI ZON M.D. 10/09/2017 Last Documented On 8 3:50PM ; [facility] Chronic depression MED CHECK with JARON S DIZO N M.D. 10/09/2017 Last Documented On 8 3:50PM ; [facility] Fibromyalgia MED CHECK with JARON S KRISTIAN M .D. 10/09/2017 Last Documented On 8 3:50PM ; [facility] Hyperlipidemia MED CHECK with JARON S KRISTIAN M .D. 10/09/2017 Last Documented On 8 3:50PM ; [facility] Irritable bowel syndrome MED CHECK with JARON S KRISTIAN M.D. 10/09/2017 Last Documented On 8 3:50PM ; [facility] Low back pain MED CHECK with JARON S KRISTIAN M .D. 10/09/2017 Last Documented On 8 3:50PM ; [facility] Anxiety disorder NOS MED CHECK with JARON S DI ZON M.D. 11/11/2016 Last Documented On 7 4:13PM ; [facility] Chronic depression MED CHECK with JARON S DIZO N M.D. 11/11/2016 Last Documented On 7 4:13PM ; [facility] Fibromyalgia MED CHECK with JARON S KRISTIAN M .D. 11/11/2016 Last Documented On 7 4:13PM ; [facility] Hyperlipidemia MED CHECK with JARON S KRISTIAN M .D. 11/11/2016 Last Documented On 7 4:13PM ; [facility] Irritable bowel syndrome MED CHECK with JARON S KRSITIAN M.D. 11/11/2016 Last Documented On 7 4:13PM ; [facility] Low back pain MED CHECK with JARON S KRISTIAN M .D. 11/11/2016 Last Documented On 7 4:13PM ; [facility] Acute bronchitis MED CHECK with JARON S KRISTIAN M.D. 07/08/2016 Last Documented On 7 2:17PM ; [facility] Anxiety disorder NOS MED CHECK with JARON S DI ZON M.D. 07/08/2016 Last Documented On 7 2:17PM ; [facility] Chronic depression MED CHECK with JARON S DIZO N M.D. 07/08/2016 Last Documented On 7 2:17PM ; [facility] Fibromyalgia MED CHECK with JARON S KRISTIAN M .D. 07/08/2016 Last Documented On 7 2:17PM ; [facility] Hyperlipidemia MED CHECK with JARON S KRISTIAN M .D. 07/08/2016 Last Documented On 7 2:17PM ; [facility] Irritable bowel syndrome MED CHECK with JARON S KRISTIAN M.D. 07/08/2016 Last Documented On 7 2:17PM ; [facility] Low back pain MED CHECK with JARON S KRISTIAN M .D. 07/08/2016 Last Documented On 7 2:17PM ; [facility] Anxiety disorder NOS 3 MONTH CHECK with JARON S KRISTIAN M.D. 03/30/2016 Last Documented On 6 4:14PM ; [facility] Chronic depression 3 MONTH CHECK with JARON S KRISTIAN M.D. 03/30/2016 Last Documented On 6 4:14PM ; [facility] Fibromyalgia 3 MONTH CHECK with JARON S DIZ ON M.D. 03/30/2016 Last Documented On 6 4:14PM ; [facility] Irritable bowel syndrome 3 MONTH CHECK with MIKO ROTARY CUTTER S KRISTIAN M.D. 03/30/2016 Last Documented On 6 4:14PM ; [facility] Low back pain 3 MONTH CHECK with JARON S DIZ ON M.D. 03/30/2016 Last Documented On 6 4:14PM ; [facility] Anxiety disorder NOS 3 MONTH CHECK with JARON S KRISTIAN M.D. 12/25/2015 Last Documented On 6 2:31PM ; [facility] Chronic depression 3 MONTH CHECK with JARON S KIRSTIAN M.D. 12/25/2015 Last Documented On 6 2:31PM ; [facility] Fibromyalgia 3 MONTH CHECK with JARON S DIZ ON M.D. 12/25/2015 Last Documented On 6 2:31PM ; [facility] Irritable bowel syndrome 3 MONTH CHECK with MIKO ROTARY CUTTER S KRISTIAN M.D. 12/25/2015 Last Documented On 6 2:31PM ; [facility] Low back pain 3 MONTH CHECK with JARON S DIZ ON M.D. 12/25/2015 Last Documented On 6 2:31PM ; [facility] Anxiety disorder NOS 1 MONTH CHECK with JARON S KRISTIAN M.D. 10/13/2015 Last Documented On 6 10:35AM ; [facility] Chronic depression 1 MONTH CHECK with JARON S KRISTIAN M.D. 10/13/2015 Last Documented On 6 10:35AM ; [facility] Fibromyalgia 1 MONTH CHECK with JARON S DIZ ON M.D. 10/13/2015 Last Documented On 6 10:35AM ; [facility] Irritable bowel syndrome 1 MONTH CHECK with MIKO ROTARY CUTTER S KRISTIAN M.D. 10/13/2015 Last Documented On 6 10:35AM ; [facility] Low back pain 1 MONTH CHECK with JARON S DIZ ON M.D. 10/13/2015 Last Documented On 6 10:35AM ; [facility] Anxiety disorder NOS 3 MONTH CHECK with JARON S KRISTIAN M.D. 08/31/2015 Last Documented On 6 11:22AM ; [facility] Chronic depression 3 MONTH CHECK with JARON S KRISTIAN M.D. 08/31/2015 Last Documented On 6 11:22AM ; [facility] Fibromyalgia 3 MONTH CHECK with JARON S DIZ ON M.D. 08/31/2015 Last Documented On 6 11:22AM ; [facility] Irritable bowel syndrome 3 MONTH CHECK with MIKO ROTARY CUTTER S KRISTIAN M.D. 08/31/2015 Last Documented On 6 11:22AM ; [facility] Low back pain 3 MONTH CHECK with JARON S DIZ ON M.D. 08/31/2015 Last Documented On 6 11:22AM ; [facility] Anxiety disorder NOS CHECK UP with JARON S DIZ ON M.D. 05/01/2015 Last Documented On 5 3:22PM ; [facility] Chronic depression CHECK UP with JARON S KRISTIAN M.D. 05/01/2015 Last Documented On 5 3:22PM ; [facility] Fibromyalgia CHECK UP with JARON S KRISTIAN M. D. 05/01/2015 Last Documented On 5 3:22PM ; [facility] Irritable bowel syndrome CHECK UP with JARON S KRISTIAN M.D. 05/01/2015 Last Documented On 5 3:22PM ; [facility] Low back pain CHECK UP with JARON S KRISTIAN M. D. 05/01/2015 Last Documented On 5 3:22PM ; [facility] Acquired deformity of clavicle PROBLEM VISIT wit h JARON S KRISTIAN M.D. 02/16/2015 Last Documented On 5 2:24PM ; [facility] Anxiety disorder NOS PROBLEM VISIT with JARON S KRISTIAN M.D. 02/16/2015 Last Documented On 5 2:24PM ; [facility] Anxiety disorder NOS MED CHECK with JARON S DI ZON M.D. 01/26/2015 Last Documented On 5 11:41AM ; [facility] Chronic depression MED CHECK with JARON S DIZO N M.D. 01/26/2015 Last Documented On 5 11:41AM ; [facility] Fibromyalgia MED CHECK with JARON S KRISTIAN M .D. 01/26/2015 Last Documented On 5 11:41AM ; [facility] Low back pain MED CHECK with JARON S KRISTIAN M .D. 01/26/2015 Last Documented On 5 11:41AM ; [facility] Anxiety disorder NOS MED CHECK with JARON S DI ZON M.D. 10/13/2014 Last Documented On 5 5:12PM ; [facility] Chronic depression MED CHECK with JARON S DIZO N M.D. 10/13/2014 Last Documented On 5 5:12PM ; [facility] Fibromyalgia MED CHECK with JARON S KRISTIAN M .D. 10/13/2014 Last Documented On 5 5:12PM ; [facility] Low back pain MED CHECK with JARON S KRISTIAN M .D. 10/13/2014 Last Documented On 5 5:12PM ; [facility] Anxiety disorder NOS MED CHECK with JARON S DI ZON M.D. 08/05/2014 Last Documented On 5 2:23PM ; [facility] Chronic depression MED CHECK with JARON S DIZO N M.D. 08/05/2014 Last Documented On 5 2:23PM ; [facility] Fibromyalgia MED CHECK with JARON S KRISTIAN M .D. 08/05/2014 Last Documented On 5 2:23PM ; [facility] Hyperlipidemia MED CHECK with JARON S KRISTIAN M .D. 08/05/2014 Last Documented On 5 2:23PM ; [facility] Low back pain MED CHECK with JARON S KRISTIAN M .D. 08/05/2014 Last Documented On 5 2:23PM ; [facility] Anxiety disorder NOS 1 MONTH CHECK with JARON S KRISTIAN M.D. 04/17/2014 Last Documented On 4 1:49PM ; [facility] Chronic depression 1 MONTH CHECK with JARON S KRISTIAN M.D. 04/17/2014 Last Documented On 4 1:49PM ; [facility] Fibromyalgia 1 MONTH CHECK with JARON S JIE ON M.D. 04/17/2014 Last Documented On 4 1:49PM ; [facility] Low back pain 1 MONTH CHECK with JARON S DIZ ON M.D. 04/17/2014 Last Documented On 4 1:49PM ; [facility] Anxiety disorder NOS PROBLEM VISIT with JARON S KRISTIAN M.D. 03/18/2014 Last Documented On 4 2:52PM ; [facility] Chronic depression PROBLEM VISIT with JARON S KRISTIAN M.D. 03/18/2014 Last Documented On 4 2:52PM ; [facility] Fibromyalgia PROBLEM VISIT with JARON S DIZ ON M.D. 03/18/2014 Last Documented On 4 2:52PM ; [facility] Low back pain PROBLEM VISIT with JARON S DIZ ON M.D. 03/18/2014 Last Documented On 4 2:52PM ; [facility] Anxiety disorder NOS 3 MONTH CHECK with JARON S KRISTIAN M.D. 11/27/2013 Last Documented On 4 12:04PM ; [facility] Chronic depression 3 MONTH CHECK with JARON S KRISTIAN M.D. 11/27/2013 Last Documented On 4 12:04PM ; [facility] Fibromyalgia 3 MONTH CHECK with JARON S DIZ ON M.D. 11/27/2013 Last Documented On 4 12:04PM ; [facility] Low back pain 3 MONTH CHECK with JARON S DIZ ON M.D. 11/27/2013 Last Documented On 4 12:04PM ; [facility] Anxiety disorder NOS 2 MONTH CHECK with JARON S KRSITIAN M.D. 09/23/2013 Last Documented On 4 12:09PM ; [facility] Chronic depression 2 MONTH CHECK with JARON S KRISTIAN M.D. 09/23/2013 Last Documented On 4 12:09PM ; [facility] Fibromyalgia 2 MONTH CHECK with JARON S DIZ ON M.D. 09/23/2013 Last Documented On 4 12:09PM ; [facility] Low back pain 2 MONTH CHECK with JARON S DIZ ON M.D. 09/23/2013 Last Documented On 4 12:09PM ; [facility] Anxiety disorder NOS 1 MONTH CHECK with JARON S KRISTIAN M.D. 07/25/2013 Last Documented On 4 2:43PM ; [facility] Depression 1 MONTH CHECK with JARON S DIZ ON M.D. 07/25/2013 Last Documented On 4 2:43PM ; [facility] Fibromyalgia 1 MONTH CHECK with JARON S DIZ ON M.D. 07/25/2013 Last Documented On 4 2:43PM ; [facility] Low back pain 1 MONTH CHECK with JARON S DIZ ON M.D. 07/25/2013 Last Documented On 4 2:43PM ; [facility] Anxiety disorder NOS 2 MONTH CHECK with JARON S KRISTIAN M.D. 06/27/2013 Last Documented On 4 2:14PM ; [facility] [facility] Depression 2 MONTH CHECK with JARON S DIZ ON M.D. 06/27/2013 Last Documented On 4 2:14PM ; [facility] Fibromyalgia 2 MONTH CHECK with JARON S DIZ ON M.D. 06/27/2013 Last Documented On 4 2:14PM ; [facility] Low back pain 2 MONTH CHECK with JARON S DIZ ON M.D. 06/27/2013 Last Documented On 4 2:14PM ; [facility] Anxiety disorder NOS 1 MONTH CHECK with JARON S KRISTIAN M.D. 04/23/2013 Last Documented On 3 2:06PM ; [facility] Depression 1 MONTH CHECK with JARON S DIZ ON M.D. 04/23/2013 Last Documented On 3 2:06PM ; [facility] Low back pain 1 MONTH CHECK with JARON S DIZ ON M.D. 04/23/2013 Last Documented On 3 2:06PM ; [facility] Anxiety disorder NOS 1 MONTH CHECK with JARON S KRISTIAN M.D. 03/25/2013 Last Documented On 3 11:36AM ; [facility] Depression 1 MONTH CHECK with JARON S DIZ ON M.D. 03/25/2013 Last Documented On 3 11:36AM ; [facility] Lumbago 1 MONTH CHECK with JARON S DIZ ON M.D. 03/25/2013 Last Documented On 3 11:36AM ; [facility] Anxiety disorder NOS 2 WK CK-UP with JARON S D IZON M.D. 02/22/2013 Last Documented On 3 1:48PM ; [facility] Attention-deficit hyperactivity disorder 2 WK CK-UP with JARON S KRISTIAN M.D. 02/22/2013 Last Documented On 3 1:48PM ; [facility] Depression 2 WK CK-UP with JARON S KRISTIAN M.D. 02/22/2013 Last Documented On 3 1:48PM ; [facility] Irritable bowel syndrome 2 WK CK-UP with JARON S KRISTIAN M.D. 02/22/2013 Last Documented On 3 1:48PM ; [facility] Lumbago 2 WK CK-UP with JARON S KRISTIAN M.D. 02/22/2013 Last Documented On 3 1:48PM ; [facility] Tension-type headache 2 WK CK-UP with JARON S KRISTIAN M.D. 02/22/2013 Last Documented On 3 1:48PM ; [facility] Anxiety disorder NOS EMERGENCY ROOM FOLLOW UP wi th JARON S KRISTIAN M.D. 02/08/2013 Last Documented On 3 2:04PM ; [facility] Lumbar strain EMERGENCY ROOM FOLLOW UP with LE ONCIO S KRISTIAN M.D. 02/08/2013 Last Documented On 3 2:04PM ; [facility] Anxiety disorder NOS PROBLEM VISIT with JARON S KRISTIAN M.D. 01/21/2013 Last Documented On 3 11:50AM ; [facility] Depression PROBLEM VISIT with JARON S DIZ ON M.D. 01/21/2013 Last Documented On 3 11:50AM ; [facility] Irritable bowel syndrome PROBLEM VISIT with MIKO ROTARY CUTTER S KRISTIAN M.D. 01/21/2013 Last Documented On 3 11:50AM ; [facility] Tension-type headache PROBLEM VISIT with JARON S KRISTIAN M.D. 01/21/2013 Last Documented On 3 11:50AM ; [facility] Anxiety disorder NOS 2 MONTH CHECK with JARON S KRISTIAN M.D. 01/07/2013 Last Documented On 3 10:31AM ; [facility] Depression 2 MONTH CHECK with JARON S ARINAZ ON M.D. 01/07/2013 Last Documented On 3 10:31AM ; [facility] Tension-type headache 2 MONTH CHECK with JARON S KRISTIAN M.D. 01/07/2013 Last Documented On 3 10:31AM ; [facility] Anxiety disorder NOS MED CHECK with JARON S ARINA TREJO M.D. 11/06/2012 Last Documented On 3 3:31PM ; [facility] Depression MED CHECK with JARON S KRISTIAN M .D. 11/06/2012 Last Documented On 3 3:31PM ; [facility] Ganglion of the flexor sheat h of the left ring finger MED CHECK with JARON S KRISTIAN M.D. 11/06/2012 Last Documented On 3 3:31PM ; [facility] Anxiety disorder NOS 1 MONTH CHECK with JARON S KRISTIAN M.D. 08/15/2012 Last Documented On 3 10:49AM ; [facility] Depression 1 MONTH CHECK with JARON S DIZ ON M.D. 08/15/2012 Last Documented On 3 10:49AM ; [facility] Anxiety disorder NOS 2 WK CK-UP with JARON S D SYEDON M.D. 07/09/2012 Last Documented On 3 12:04PM ; [facility] Depression 2 WK CK-UP with JARON S KRISTIAN M.D. 07/09/2012 Last Documented On 3 12:04PM ; [facility] Anxiety disorder NOS MED CHECK with JARON S DI ZON M.D. 06/25/2012 Last Documented On 3 5:16PM ; [facility] Depression MED CHECK with JARON S KRISTIAN M .D. 06/25/2012 Last Documented On 3 5:16PM ; [facility] Anxiety disorder NOS MED CHECK with JARON S DI ZON M.D. 04/11/2012 Last Documented On 2 5:09PM ; [facility] Attention-deficit hyperactivity disorder MED CHECK with JARON S KRISTIAN M.D. 04/11/2012 Last Documented On 2 5:09PM ; [facility] Depression MED CHECK with JARON S KRISTIAN M .D. 04/11/2012 Last Documented On 2 5:09PM ; [facility] Thoracic strain MED CHECK with JARON S KRISTIAN M .D. 04/11/2012 Last Documented On 2 5:09PM ; [facility] Anxiety disorder NOS 2 WK CK-UP with JARON S D SYEDON M.D. 03/06/2012 Last Documented On 2 10:29AM ; [facility] Attention-deficit hyperactivity disorder 2 WK CK-UP with JARON S KRISTIAN M.D. 03/06/2012 Last Documented On 2 10:29AM ; [facility] Depression 2 WK CK-UP with JARON S KRISTIAN M.D. 03/06/2012 Last Documented On 2 10:29AM ; [facility] Anxiety disorder NOS MED CHECK with JARON S DI ZON M.D. 02/20/2012 Last Documented On 2 5:23PM ; [facility] Attention-deficit hyperactivity disorder MED CHECK with JARON S KRISTIAN M.D. 02/20/2012 Last Documented On 2 5:23PM ; [facility] Depression MED CHECK with JARON S KRISTIAN M .D. 02/20/2012 Last Documented On 2 5:23PM ; [facility] Exanthem SICK VISIT with MELANIE Nogueira 01/04/2012 Last Documented On 2 10:23AM ; [facility] Fatigue SICK VISIT with MELANIE Nogueira 01/04/2012 Last Documented On 2 10:23AM ; [facility] Pharyngitis SICK VISIT with MELANIE Nogueira 01/04/2012 Last Documented On 2 10:23AM ; [facility] Tobacco Abuse SICK VISIT with MELANIE Nogueira 01/04/2012 Last Documented On 2 10:23AM ; [facility] Tension-type headache SICK VISIT with JARONDevonte TOWNSEND M.DLeyda 12/26/2011 Last Documented On 2 10:07AM ; [facility] Anxiety disorder NOS 1 MONTH CHECK with JARON S KRISTIAN M.D. 12/19/2011 Last Documented On 2 11:54AM ; [facility] Depression 1 MONTH CHECK with JARON S ARINAZ ON M.D. 12/19/2011 Last Documented On 2 11:54AM ; [facility] Anxiety disorder NOS MED CHECK with JARON S DI ZON M.D. 11/18/2011 Last Documented On 2 5:56PM ; [facility] Candidal intertrigo MED CHECK with JARON S DIZ ON M.D. 11/18/2011 Last Documented On 2 5:56PM ; [facility] Depression MED CHECK with JARON S KRISTIAN M .D. 11/18/2011 Last Documented On 2 5:56PM ; [facility] Anxiety disorder NOS MED CHECK with JARON S DI ZON M.D. 07/25/2011 Last Documented On 2 2:25PM ; [facility] Depression MED CHECK with JARON S KRISTIAN M .D. 07/25/2011 Last Documented On 2 2:25PM ; [facility] Anxiety disorder NOS MED CHECK with JARON S DI ZON M.D. 05/13/2011 Last Documented On 1 11:35AM ; [facility] Depression MED CHECK with JARON S KRISTIAN M .D. 05/13/2011 Last Documented On 1 11:35AM ; [facility] Irritable bowel syndrome MED CHECK with JARON S KRISTIAN M.D. 05/13/2011 Last Documented On 1 11:35AM ; [facility] Anxiety disorder NOS MED CHECK with JARON S DI ZON M.D. 03/08/2011 Last Documented On 1 4:38PM ; [facility] Depression MED CHECK with JARON S KRISTIAN M .D. 03/08/2011 Last Documented On 1 4:38PM ; [facility] Anxiety disorder NOS MED CHECK with JARON S DI ZON M.D. 12/30/2010 Last Documented On 1 3:52PM ; [facility] Depression MED CHECK with JARON S KRISTIAN M .D. 12/30/2010 Last Documented On 1 3:52PM ; [facility] Anxiety disorder NOS MED CHECK with JARON S DI ZON M.D. 09/17/2010 Last Documented On 1 3:57PM ; [facility] Depression MED CHECK with JARON S KRISTIAN M .D. 09/17/2010 Last Documented On 1 3:57PM ; [facility] Anxiety disorder NOS 1 MONTH CHECK with JARON S KRISTIAN M.D. 07/12/2010 Last Documented On 1 10:53AM ; [facility] Depression 1 MONTH CHECK with JARON S JIE ON M.D. 07/12/2010 Last Documented On 1 10:53AM ; [facility] Anxiety disorder NOS MED CHECK with JARON S DI ZON M.D. 06/11/2010 Last Documented On 1 2:34PM ; [facility] Depression MED CHECK with JARON S KRISTIAN M .D. 06/11/2010 Last Documented On 1 2:34PM ; [facility] Anxiety disorder NOS MED CHECK with JARON S DI ZON M.D. 03/22/2010 Last Documented On 0 5:43PM ; [facility] Depression MED CHECK with JARON S KRISTIAN M .D. 03/22/2010 Last Documented On 0 5:43PM ; [facility] Anxiety disorder NOS MED CHECK with JARON S DI ZON M.D. 02/02/2010 Last Documented On 0 1:57PM ; [facility] Depression MED CHECK with JARON S KRISTIAN M .D. 02/02/2010 Last Documented On 0 1:57PM ; [facility] Anxiety disorder NOS 2 MONTH CHECK with JARON S KRISTIAN M.D. 10/12/2009 Last Documented On 0 2:17PM ; [facility] Depression 2 MONTH CHECK with JARON S DIZ ON M.D. 10/12/2009 Last Documented On 0 2:17PM ; [facility] Anxiety disorder NOS 1 MONTH CHECK with JARON S KRISTIAN M.D. 08/19/2009 Last Documented On 0 11:58AM ; [facility] Depression 1 MONTH CHECK with JARON S DIZ ON M.D. 08/19/2009 Last Documented On 0 11:58AM ; [facility] Anxiety disorder NOS 2 WK CK-UP with JARON S D IZON M.D. 07/22/2009 Last Documented On 0 12:13PM ; [facility] Depression 2 WK CK-UP with JARON S KRISTIAN M.D. 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 07/22/2009 Last Documented On 0 12:13PM ; [facility] Anxiety disorder NOS 2 WK CK-UP with JARON S D IZON M.D. 07/08/2009 Last Documented On 0 12:04PM ; [facility] Depression 2 WK CK-UP with JARON S KRISTIAN M.D. 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 07/08/2009 Last Documented On 0 12:04PM ; [facility] Anxiety disorder NOS MED CHECK with JARON S ARINA TREJO M.D. 06/23/2009 Last Documented On 0 3:29PM ; [facility] Depression ? PTSD MED CHECK with JARON Kristi TOWNSEND M.D. 06/23/2009 Last Documented On 0 3:29PM ; [facility] Anxiety disorder NOS PROBLEM VISIT with JARON Kristi TOWNSEND M.DLeyda 01/12/2009 Last Documented On 9 5:40PM ; [facility] Depression ? Bipolar dso PROBLEM VISIT with MIKO ROTARY CUTTER Kristi TOWNSEND M.DLeyda 01/12/2009 Last Documented On 9 5:40PM ; [facility] Lymphadenopathy ? thyroglossal duct cyst PROBLEM VISIT with JARONADRIAN TOWNSEND M.DLeyda 01/12/2009 Last Documented On 9 5:40PM ; [facility] Anxiety disorder NOS MED CHECK with JARON S ARINA TREJO M.D. 10/30/2008 Last Documented On 9 2:26PM ; [facility] Depression MED CHECK with JARON Kristi TOWNSEND M .D. 10/30/2008 Last Documented On 9 2:26PM ; [facility] Insomnia related known axis III factor MED CHECK with JARON Kristi TOWNSEND M.D. 10/30/2008 Last Documented On 9 2:26PM ; [facility] Anxiety disorder NOS 2 WK CK-UP with JARON Kristi WALL M.D. 10/13/2008 Last Documented On 9 11:38AM ; [facility] Depression 2 WK CK-UP with JARON S KRISTIAN M.D. 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 10/13/2008 Last Documented On 9 11:38AM ; [facility] Depression 2 MONTH CHECK with JARON Kristi DIEGO M.DLeyda 09/29/2008 Last Documented On 9 11:07PM ; [facility] Generalized anxiety disorder 2 MONTH CHECK with JARON TOWNSEND M.D. 09/29/2008 Last Documented On 9 11:07PM ; [facility] Panic disorder without agoraphobia 2 MONTH CHECK with JARON TOWNSEND M.D. 09/29/2008 Last Documented On 9 11:07PM ; [facility] Instructions Includes: Instructions for all patient encounters Instructions to patient Intervention and counseling on cessation of tobacco use : Patient recieved smoking cessation handout Last Documented On 1 9:48AM ; [facility] Education and Decision Aids were provided during visit for: Discussed concerns about tob acco use Last Documented On 2 10:20AM ; [facility] Patient education about anti biotics: need to finish even if feeling better Last Documented On 2 10:21AM ; [facility] Medical Equipment - Implanted Devices Includes: Current and historical Devices No Medical Equipment Recorded Medications Includes: Current and historical Medications Current Medications (continue as prescribed) Venlafaxine HCl ER 37.5 MG Oral Capsule Extended Release 24 Hour 11/02/2023 Provider: JARON TOWNSEND M.D. Diagnosis: Major depressive disorder, single episode, unspecified 1 CAPSULE EVERY MORNING NEED OFFICE VISIT. Last Documented On 11/02/2023 3:17PM By JOSIE TOWNSEND MD ; [facility] Amitriptyline HCl 50 MG Oral Tablet 11/02/2023 Provi jazmine: JARON TOWNSEND M.D. Diagnosis: Fibromyalgia TAKE 1 TABLET BY MOUTH AT BEDTIME NEED OFFICE SIT Last Documented On 11/02/2023 3:17PM By JOSIE TOWNSEND MD ; [facility] QUEtiapine Fumarate 100 MG Oral Tablet 10/02/2023 Provider: JARON TOWNSEND M.D. Diagnosis: Major depressive disorder, single episode, unspecified One tablet at bed timeNeed O ffice Visit. Last Documented On 10/02/2023 9:27AM By JOSIE TOWNSEND MD ; [facility] Past Medications on file Venlafaxine HCl ER 37.5 MG Oral Capsule Extended Release 24 Hour 10/02/2023 - 11/02/2023 Provider: JARON TOWNSEND M.D. Diagnosis: Major depressive disorder, single episode, unspecified 1 Capsule every morningNeed Office Visit. Last Documented On 11/02/2023 3:06PM By JOSIE TOWNSEND MD ; [facility] Amitriptyline HCl 50 MG Oral Tablet 10/02/2023 - 11/02/2023 Provider: JARON TOWNSEND M.D. Diagnosis: Fibromyalgia One tablet at bed timeNeed Office Visit. Last Documented On 11/02/2023 3:06PM By JOSIE TOWNSEND MD ; [facility] Venlafaxine HCl ER 37.5 MG Oral Capsule Extended Release 24 Hour 07/02/2023 - 10/02/2023 Provider: JARON TOWNSEND M.D. Diagnosis: Major depressive disorder, single episode, unspecified TAKE 1 CAPSULE BY MOUTH EVER Y DAY IN THE MORNING Last Documented On 10/02/2023 9:19AM By JOSIE TOWNSEND MD ; [facility] Amitriptyline HCl 50 MG Oral Tablet 07/02/2023 - 10/02/2023 Provider: JARON TOWNSEND M.D. Diagnosis: Fibromyalgia TAKE 1 TABLET BY MOUTH EVERYDAY AT BEDTIME Last Documented On 10/02/2023 9:17AM By JOSIE TOWNSEND MD ; [facility] Fumarate 100 MG Oral Tablet 07/02/2023 - 10/02/2023 Provider: JARON TOWNSEND M.D. Diagnosis: Major depressive disorder, single episode, unspecified TAKE 1 TABLET BY MOUTH EVERYDAY AT BEDTIME Last Documented On 10/02/2023 9:18AM By JOSIE TOWNSEND MD ; [facility] Fumarate 100 MG Oral Tablet 04/02/2023 - 07/02/2023 Provider: JARON TOWNSEND M.D. Diagnosis: Major depressive disorder, single episode, unspecified TAKE 1 TABLET BY MOUTH EVERYDAY AT BEDTIME Last Documented On 07/02/2023 5:59PM By JOSIE TOWNSEND MD ; [facility] Venlafaxine HCl ER 37.5 MG Oral Capsule Extended Release 24 Hour 04/02/2023 - 07/02/2023 Provider: JARON TOWNSEND M.D. Diagnosis: Major depressive disorder, single episode, unspecified TAKE 1 CAPSULE BY MOUTH EVER Y DAY IN THE MORNING Last Documented On 07/02/2023 6:00PM By JOSIE TOWNSEND MD ; [facility] Amitriptyline HCl 50 MG Oral Tablet 04/02/2023 - 07/02/2023 Provider: JARON TOWNSEND M.D. Diagnosis: Fibromyalgia TAKE 1 TABLET BY MOUTH EVERYDAY AT BEDTIME Last Documented On 07/02/2023 5:59PM By JOSIE TOWNSEND MD ; [facility] Fumarate 100 MG Oral Tablet 01/02/2023 - 04/02/2023 Provider: JARON TOWNSEND M.D. Diagnosis: Major depressive disorder, single episode, unspecified TAKE 1 TABLET BY MOUTH AT BEDTIME Last Documented On 04/02/2023 9:22PM By JOSIE TOWNSEND MD ; [facility] Amitriptyline HCl 50 MG Oral Tablet 01/02/2023 - 04/02/2023 Provider: JARON TOWNSEND M.D. Diagnosis: Fibromyalgia TAKE 1 TABLET BY MOUTH AT BEDTIME Last Documented On 04/02/2023 9:23PM By JOSIE TOWNSEND MD ; [facility] Venlafaxine HCl ER 37.5 MG Oral Capsule Extended Release 24 Hour 01/02/2023 - 04/02/2023 Provider: JARON TOWNSEND M.D. Diagnosis: Major depressive disorder, single episode, unspecified TAKE 1 CAPSULE BY MOUTH EVER Y DAY IN THE MORNING Last Documented On 04/02/2023 9:26PM By JOSIE TOWNSEND MD ; [facility] Amitriptyline HCl 50 MG Oral Tablet 09/29/2022 - 01/02/2023 Provider: JARON TOWNSEND M.D. Diagnosis: Major depressive disorder, single episode, unspecified TAKE 1 TABLET BY MOUTH AT BEDTIME Last Documented On 01/02/2023 2:45PM By JOSIE TOWNSEND MD ; [facility] Venlafaxine HCl ER 37.5 MG Oral Capsule Extended Release 24 Hour 09/29/2022 - 01/02/2023 Provider: JARON TOWNSEND M.D. Diagnosis: Major depressive disorder, single episode, unspecified TAKE 1 CAPSULE BY MOUTH EVER Y DAY IN THE MORNING Last Documented On 01/02/2023 2:45PM By JOSIE TOWNSEND MD ; [facility] QUEtiapine Fumarate 100 MG Oral Tablet 09/29/2022 - 01/02/2023 Provider: JARON TOWNSEND M.D. Diagnosis: Major depressive disorder, single episode, unspecified TAKE 1 TABLET BY MOUTH AT BEDTIME Last Documented On 01/02/2023 2:45PM By JOSIE TOWNSEND MD ; [facility] Amitriptyline HCl 50 MG Oral Tablet 07/04/2022 - 09/29/2022 Provider: JARON TOWNSEND M.D. Diagnosis: Major depressive disorder, single episode, unspecified One tablet at bed time Last Documented On 09/29/2022 8:51AM By JOSIE TOWNSEND MD ; [facility] Venlafaxine HCl ER 37.5 MG Oral Capsule Extended Release 24 Hour 07/04/2022 - 09/29/2022 Provider: JARON TOWNSEND M.D. Diagnosis: Major depressive disorder, single episode, unspecified 1 Capsule every morning Last Documented On 09/29/2022 8:52AM By JOSIE TOWNSEND MD ; [facility] Fumarate 100 MG Oral Tablet 07/04/2022 - 09/29/2022 Provider: JARON TOWNSEND M.D. Diagnosis: Major depressive disorder, single episode, unspecified One tablet at bed time Last Documented On 09/29/2022 8:51AM By JOSIE TOWNSEND MD ; [facility] Amitriptyline HCl 50 MG Oral Tablet 06/11/2022 - 07/04/2022 Provider: JARON TOWNSEND M.D. Diagnosis: Major depressive disorder, single episode, unspecified TAKE 1 TABLET BY MOUTH EVERY DAY AT BEDTIME , NEED OFFICE VISIT Last Documented On 07/04/2022 2:47PM By JOSIE TOWNSEND MD ; [facility] QUEtiapine Fumarate 100 MG Oral Tablet 05/27/2022 - 07/04/2022 Provider: JARON TOWNSEND M.D. Diagnosis: ONE TABLET AT BED TIME NEED OFFICE VISIT. Last Documented On 07/04/2022 2:48PM By JOSIE TOWNSEND MD ; [facility] Amitriptyline HCl 50 MG Oral Tablet 05/12/2022 - 06/11/2022 Provider: JARON TOWNSEND M.D. Diagnosis: Major depressive disorder, single episode, unspecified TAKE 1 TABLET BY MOUTH EVERY DAY AT BEDTIME , NEED OFFICE VISIT Last Documented On 06/11/2022 11:58AM By JOSIE TOWNSEND MD ; [facility] QUEtiapine Fumarate 100 MG Oral Tablet 04/13/2022 - 05/27/2022 Provider: JARON TOWNSEND M.D. Diagnosis: One tablet at bed timeNeed Office Visit. Last Documented On 05/27/2022 8:13PM By JOSIE TOWNSEND MD ; [facility] Amitriptyline HCl 50 MG Oral Tablet 04/13/2022 - 05/12/2022 Provider: JARON TOWNSEND M.D. Diagnosis: Major depressive disorder, single episode, unspecified TAKE 1 TABLET BY MOUTH EVERY DAY AT BEDTIME , NEED OFFICE VISIT Last Documented On 05/12/2022 11:46AM By JOSIE TOWNSEND MD ; [facility] Amoxicillin 500 MG Oral Tablet 04/09/2022 - 07/04/2022 Provider: [employer] Diagnosis: Acute pharyngiti s, unspecified One tablet twice a day Last Documented On 07/04/2022 2:35PM By JOSIE TOWNSEND MD ; [facility] Venlafaxine HCl ER 37.5 MG Oral Capsule Extended Release 24 Hour 03/22/2022 - 07/04/2022 Provider: JARON TOWNSEND M.D. Diagnosis: Major depressive disorder, single episode, unspecified TAKE 1 CAPSULE BY MOUTH EVER Y DAY EVERY MORNING NEED OFFICE VISIT. Last Documented On 07/04/2022 2:48PM By JOSIE TOWNSEND MD ; [facility] Amitriptyline HCl 50 MG Oral Tablet 03/13/2022 - 04/13/2022 Provider: JARON TOWNSEND M.D. Diagnosis: Major depressive disorder, single episode, unspecified TAKE 1 TABLET BY MOUTH EVERY DAY AT BEDTIME , NEED OFFICE VISIT Last Documented On 04/13/2022 9:14AM By JOSIE TOWNSEND MD ; [facility] QUEtiapine Fumarate 100 MG Oral Tablet 02/21/2022 - 04/13/2022 Provider: JARON TOWNSEND M.D. Diagnosis: TAKE 1 TABLET BY MOUTH AT BEDTIME NEED CLINIC AP PT Last Documented On 04/13/2022 2:13PM By JOSIE TOWNSEND MD ; [facility] Amitriptyline HCl 50 MG Oral Tablet 02/17/2022 - 03/13/2022 Provider: JARON TOWNSEND M.D. Diagnosis: Major depressive disorder, single episode, unspecified One tablet at bed timeNeed Office Visit. Last Documented On 03/13/2022 6:21PM By JOSIE TOWNSEND MD ; [facility] Venlafaxine HCl ER 37.5 MG Oral Capsule Extended Release 24 Hour 01/26/2022 - 03/22/2022 Provider: JARON TOWNSEND M.D. Diagnosis: TAKE 1 CAPSULE BY MOUTH EVER Y DAY EVERY MORNINGNeed Office Visit. Last Documented On 03/22/2022 8:58AM By JOSIE TOWNSEND MD ; [facility] QUEtiapine Fumarate 100 MG Oral Tablet 12/23/2021 - 02/21/2022 Provider: JARON TOWNSEND M.D. Diagnosis: TAKE 1 TABLET BY MOUTH AT BEDTIME NEED CLINIC AP PT Last Documented On 02/21/2022 1:28PM By JOSIE TOWNSEND MD ; [facility] Venlafaxine HCl ER 37.5 MG Oral Capsule Extended Release 24 Hour 11/20/2021 - 01/26/2022 Provider: JARON TOWNSEND M.D. Diagnosis: 1 Capsule every morningNeed Office Visit. Last Documented On 01/26/2022 1:51PM By JOSIE TOWNSEND MD ; [facility] Amitriptyline HCl 50 MG Oral Tablet 11/20/2021 - 02/17/2022 Provider: JARON TOWNSEND M.D. Diagnosis: TAKE 1 TABLET BY MOUTH EVERYDAY AT BEDTIME Last Documented On 02/17/2022 8:57AM By OJSIE TOWNSEND MD ; [facility] QUEtiapine Fumarate 100 MG Oral Tablet 09/19/2021 - 12/23/2021 Provider: JARON TOWNSEND M.D. Diagnosis: TAKE 1 TABLET BY MOUTH AT BEDTIME NEED CLINIC AP PT Last Documented On 12/23/2021 9:44AM By JOSIE TOWNSEND MD ; [facility] QUEtiapine Fumarate 100 MG Oral Tablet 08/26/2021 - 09/19/2021 Provider: JARON TOWNSEND M.D. Diagnosis: One tablet at bed timeNeed Office Visit. Last Documented On 09/19/2021 8:22PM By JOSIE TOWNSEND MD ; [facility] Venlafaxine HCl ER 37.5 MG Oral Capsule Extended Release 24 Hour 08/16/2021 - 11/20/2021 Provider: JARON TOWNSEND M.D. Diagnosis: TAKE 1 CAPSULE BY MOUTH EVERY DAY IN THE MORNING Last Documented On 11/20/2021 10:47AM By JOSIE TOWNSEND MD ; [facility] Amitriptyline HCl 50 MG Oral Tablet 08/16/2021 - 11/20/2021 Provider: JARON TOWNSEND M.D. Diagnosis: TAKE 1 TABLET BY MOUTH EVERYDAY AT BEDTIME Last Documented On 11/20/2021 10:48AM By JOSIE TOWNSEND MD ; [facility] SEROquel 100 MG Oral Tablet 06/04/2021 - 08/26/2021 Pr ovider: JARON TOWNSEND M.D. Diagnosis: One tablet at bed time Last Documented On 08/26/2021 9:27AM By JOSIE TOWNSEND MD ; [facility] Nicoderm CQ 14 MG/24HR Transdermal Patch 24 Hour 05/25/2021 - 01/02/2023 Provider: Diagnosis: Last Documented On 01/02/2023 2:45PM By JOSIE TOWNSEND MD ; [facility] Venlafaxine HCl ER 37.5 MG Oral Capsule Extended Release 24 Hour 05/25/2021 - 08/16/2021 Provider: JARON TOWNSEND M.D. Diagnosis: 1 Capsule every morning Last Documented On 08/16/2021 8:56AM By JOSIE TOWNSEND MD ; [facility] Amitriptyline HCl 50 MG Oral Tablet 05/25/2021 - 08/16/2021 Provider: JARON TOWNSEND M.D. Diagnosis: TAKE 1 TABLET AT BEDTIME Last Documented On 08/16/2021 8:56AM By JOSIE TOWNSEND MD ; [facility] Venlafaxine HCl ER 37.5 MG Oral Capsule Extended Release 24 Hour 04/27/2021 - 05/25/2021 Provider: JARON TOWNSEND M.D. Diagnosis: 1 Capsule every morningNeed Office Visit. Last Documented On 05/25/2021 10:35AM By JOSIE TOWNSEND MD ; [facility] QUEtiapine Fumarate 100 MG Oral Tablet 03/26/2021 - 01/02/2023 Provider: JARON TOWNSEND M.D. Diagnosis: One tablet at bed timeNeed Office Visit. Last Documented On 01/02/2023 1:45PM By JOSIE TOWNSEND MD ; [facility] Venlafaxine HCl ER 37.5 MG Oral Capsule Extended Release 24 Hour 03/26/2021 - 04/27/2021 Provider: JARON TOWNSEND M.D. Diagnosis: TAKE 1 CAPSULE EVERY MORNING NEED OFFICE VISIT Last Documented On 04/27/2021 3:23PM By JOSIE TOWNSEND MD ; [facility] Amitriptyline HCl 50 MG Oral Tablet 02/23/2021 - 05/25/2021 Provider: JARON TOWNSEND M.D. Diagnosis: TAKE 1 TABLET AT BEDTIME Last Documented On 05/25/2021 10:35AM By JOSIE TOWNSEND MD ; [facility] Venlafaxine HCl ER 37.5 MG Oral Capsule Extended Release 24 Hour 02/16/2021 - 03/26/2021 Provider: JARON TOWNSEND M.D. Diagnosis: TAKE 1 CAPSULE EVERY MORNINGNeed Office Visit. Last Documented On 03/26/2021 3:41PM By JOSIE TOWNSEND MD ; [facility] Venlafaxine HCl ER 37.5 MG Oral Capsule Extended Release 24 Hour 01/15/2021 - 02/16/2021 Provider: JARON TOWNSEND M.D. Diagnosis: TAKE 1 CAPSULE EVERY MORNING Last Documented On 02/16/2021 1:57PM By JOSIE TOWNSEND MD ; [facility] Venlafaxine HCl ER 37.5 MG Oral Capsule Extended Release 24 Hour 12/10/2020 - 01/15/2021 Provider: JARON TOWNSEND M.D. Diagnosis: 1 Capsule every morning Last Documented On 01/15/2021 3:30PM By Vasiliy TREVINO ; [facility] Amitriptyline HCl 50 MG Oral Tablet 11/23/2020 - 02/23/2021 Provider: JARON TOWNSEND M.D. Diagnosis: TAKE 1 TABLET AT BEDTIME Last Documented On 02/23/2021 3:06PM By JOSIE TOWNSEND MD ; [facility] Effexor XR 37.5 MG Oral Capsule Extended Release 24 Hour 10/23/2020 - 05/25/2021 Provider: JARON TOWNSEND M.D. Diagnosis: 1 Capsule every morning Last Documented On 05/25/2021 10:29AM By JOSIE TOWNSEND MD ; [facility] QUEtiapine Fumarate 100 MG Oral Tablet 08/24/2020 - 03/26/2021 Provider: JARON TOWNSEND M.D. Diagnosis: One tablet at bed time Last Documented On 03/26/2021 3:40PM By JOSIE TOWNSEND MD ; [facility] Effexor XR 37.5 MG Oral Capsule Extended Release 24 Hour 08/24/2020 - 10/23/2020 Provider: JARON TOWNSEND M.D. Diagnosis: 1 Capsule every morning Last Documented On 10/23/2020 10:09AM By JOSIE TOWNSEND MD ; [facility] Amitriptyline HCl 50 MG Oral Tablet 08/24/2020 - 11/23/2020 Provider: JARON TOWNSEND M.D. Diagnosis: One tablet at bed time Last Documented On 11/23/2020 11:43AM By JOSIE TOWNSEND MD ; [facility] QUEtiapine Fumarate 100 MG Oral Tablet 05/27/2020 - 08/24/2020 Provider: JARON TOWNSEND M.D. Diagnosis: One tablet at bed time Last Documented On 08/24/2020 2:01PM By JOSIE TOWNSEND MD ; [facility] hydrOXYzine HCl 10 MG Oral Tablet 05/27/2020 - 06/25/2020 Provider: JARON TOWNSEND M.D. Diagnosis: One to 2 tabs tablet daily as needed for anxiety Last Documented On 06/25/2020 2:05PM By JOSIE TOWNSEND MD ; [facility] DULoxetine HCl 30 MG Oral Capsule Delayed Release Particles 05/27/2020 - 08/24/2020 Provider: JARON TOWNSEND M.D. Diagnosis: One tablet daily Last Documented On 08/24/2020 1:45PM By Sandra TREVINO ; [facility] Amitriptyline HCl 50 MG Oral Tablet 05/27/2020 - 08/24/2020 Provider: JARON TOWNSEND M.D. Diagnosis: One tablet at bed time Last Documented On 08/24/2020 2:01PM By JOSIE TOWNSEND MD ; [facility] Lyrica 50 MG Oral Capsule 04/28/2020 - 05/27/2020 Prov ider: JARON TOWNSEND M.D. Diagnosis: One tablet twice a dayNeed Office Visit. Last Documented On 10:39AM By Sandra TREVINO ; [facility] QUEtiapine Fumarate 100 MG Oral Tablet 04/28/2020 - 05/27/2020 Provider: JARON TOWNSEND M.D. Diagnosis: One tablet at bed timeNeed Office Visit. Last Documented On 05/27/2020 12:04PM By JOSIE TOWNSEND MD ; [facility] Amitriptyline HCl 50 MG Oral Tablet 04/28/2020 - 05/27/2020 Provider: JARON TOWNSEND M.D. Diagnosis: One tablet at bed timeNeed Office Visit. Last Documented On 05/27/2020 12:04PM By JOSIE TOWNSEND MD ; [facility] Amitriptyline HCl 50 MG Oral Tablet 01/28/2020 - 04/28/2020 Provider: JARON TOWNSEND M.D. Diagnosis: One tablet at bed time Last Documented On 04/28/2020 5:17PM By JOSIE TOWNSEND MD ; [facility] SEROquel 100 MG Oral Tablet 01/28/2020 - 06/04/2021 Pr ovider: JARON TOWNSEND M.D. Diagnosis: One tablet at bed time Last Documented On 06/04/2021 11:11AM By JOSIE TOWNSEND MD ; [facility] Amitriptyline HCl 50 MG Oral Tablet 10/29/2019 - 01/28/2020 Provider: JARON TOWNSEND M.D. Diagnosis: One tablet at bed time Last Documented On 01/28/2020 8:53AM By Julita Ontiveros LPN ; [facility] Lyrica 50 MG Oral Capsule 10/29/2019 - 04/28/2020 Prov ider: JARON TOWNSEND M.D. Diagnosis: One tablet twice a day Last Documented On 04/28/2020 3:18PM By JOSIE TOWNSEND MD ; [facility] SEROquel 100 MG Oral Tablet 10/29/2019 - 01/28/2020 Pr ovider: JARON TOWNSEND M.D. Diagnosis: One tablet at bed time Last Documented On 01/28/2020 8:54AM By Julita Ontiveros LPN ; [facility] Amitriptyline HCl 50 MG Oral Tablet 09/26/2019 - 10/29/2019 Provider: JARON TOWNSEND M.D. Diagnosis: One tablet at bed timeNeed Office Visit. Last Documented On 10/29/2019 11:10AM By JOSIE TOWNSEND MD ; [facility] SEROquel 100 MG Oral Tablet 09/26/2019 - 10/29/2019 Pr ovider: JARON TOWNSEND M.D. Diagnosis: One tablet at bed timeNeed Office Visit. Last Documented On 10/29/2019 11:10AM By JOSIE TOWNSEND MD ; [facility] Amitriptyline HCl 50 MG Oral Tablet 06/27/2019 - 09/26/2019 Provider: JARON TOWNSEND M.D. Diagnosis: One tablet at bed timeNeed Office Visit. Last Documented On 09/26/2019 2:04PM By JOSIE TOWNSEND MD ; [facility] SEROquel 100 MG Oral Tablet 06/27/2019 - 09/26/2019 Pr ovider: JARON TOWNSEND M.D. Diagnosis: One tablet at bed timeNeed Office Visit. Last Documented On 09/26/2019 2:05PM By JOSIE TOWNSEND MD ; [facility] Amitriptyline HCl 50 MG Oral Tablet 03/29/2019 - 06/27/2019 Provider: JARON TOWNSEND M.D. Diagnosis: One tablet at bed time Last Documented On 06/27/2019 3:46PM By JOSIE TOWNSEND MD ; [facility] Wellbutrin SR 100 MG Oral Tablet Extended Release 12 Hour 03/29/2019 - 10/29/2019 Provider: JARON TOWNSEND M.D. Diagnosis: 1 twice a day Last Documented On 0 10:36AM By Sandra Jean Baptiste Dee ; [facility] Meclizine HCl 25 MG Oral Tablet 03/29/2019 - 10/29/2019 Provider: JARON TOWNSEND M.D. Diagnosis: Take one four times a day as needed Last Documented On 0 10:37AM By Sandra TREVINO ; [facility] SEROquel 100 MG Oral Tablet 03/29/2019 - 06/27/2019 Pr ovider: JARON TOWNSEND M.D. Diagnosis: One tablet at bed time Last Documented On 06/27/2019 3:47PM By JOSIE TOWNSEND MD ; [facility] raNITIdine HCl 300MG Oral Tablet 12/27/2018 - 03/29/2019 Provider: JARON TOWNSEND M.D. Diagnosis: Strain of musc/fasc/tend at shldr/up arm, left arm, init One tablet twice a day Last Documented On 03/29/2019 11:03AM By JOSIE TOWNSEND MD ; [facility] SEROquel 100MG Oral Tablet 12/27/2018 - 03/29/2019 Pro vider: JARON TOWNSEND M.D. Diagnosis: One tablet at bed time Last Documented On 03/29/2019 11:12AM By JOSIE TOWNSEND MD ; [facility] Amitriptyline HCl 50MG Oral Tablet 12/26/2018 - 03/29/2019 Provider: JARON TOWNSEND M.D. Diagnosis: One tablet at bed time Last Documented On 03/29/2019 11:12AM By JOSIE TOWNSEND MD ; [facility] Amitriptyline HCl 50MG Oral Tablet 09/27/2018 - 12/26/2018 Provider: JARON TOWNSEND M.D. Diagnosis: One tablet at bed time Last Documented On 12/26/2018 4:30PM By JOSIE TOWNSEND MD ; [facility] LamISIL AT 1% External Cream 09/27/2018 - 12/27/2018 Provider: JARON TOWNSEND M.D. Diagnosis: Pityriasis versi color as directed apply to area 2 x a day x 3 weeks Last Documented On 10:09AM By Sandra TREVINO ; [facility] SEROquel 100MG Oral Tablet 09/27/2018 - 12/27/2018 Pro vider: JARON TOWNSEND M.D. Diagnosis: One tablet at bed time Last Documented On 12/27/2018 11:16AM By JOSIE TOWNSEND MD ; [facility] SEROquel 100MG Oral Tablet 08/29/2018 - 09/27/2018 Pro vider: JARON TOWNSEND M.D. Diagnosis: TAKE ONE TABLET BY MOUTH AT BED TIME NEED OFFICE VISIT. Last Documented On 09/27/2018 11:29AM By JOSIE TOWNSEND MD ; [facility] Amitriptyline HCl 50MG Oral Tablet 08/29/2018 - 09/27/2018 Provider: JARON TOWNSEND M.D. Diagnosis: One tablet at bed timeNeed Office Visit. Last Documented On 09/27/2018 11:29AM By JOSIE TOWNSEND MD ; [facility] SEROquel 100MG Oral Tablet 07/27/2018 - 08/29/2018 Pro vider: JARON TOWNSEND M.D. Diagnosis: One tablet at bed timeNeed Office Visit. Last Documented On 08/29/2018 2:48PM By JOSIE TOWNSEND MD ; [facility] SEROquel 100MG Oral Tablet 06/28/2018 - 07/27/2018 Pro vider: JARON TOWNSEND M.D. Diagnosis: One tablet at bed time Last Documented On 07/27/2018 3:41PM By JOSIE TOWNSEND MD ; [facility] SEROquel 100MG Oral Tablet 05/30/2018 - 06/28/2018 Pro vider: JARON TOWNSEND M.D. Diagnosis: One tablet at bed time Last Documented On 06/28/2018 1:33PM By JOSIE TOWNSEND MD ; [facility] Amitriptyline HCl 50MG Oral Tablet 05/30/2018 - 08/29/2018 Provider: JARON TOWNSEND M.D. Diagnosis: One tablet at bed time Last Documented On 08/29/2018 3:58PM By JOSIE TOWNSEND MD ; [facility] Zithromax Z-Gonzalez 250MG Oral Tablet 05/11/2018 - 08/29/2018 Provider: JARON TOWNSEND M.D. Diagnosis: use as directed Last Documented On 08/29/2018 3:57PM By Tonya TREVINO ; [facility] SEROquel 100MG Oral Tablet 04/18/2018 - 05/30/2018 Pro vider: JARON TOWNSEND M.D. Diagnosis: One tablet at bed timeNeed Office Visit. Last Documented On 05/30/2018 11:51AM By JOSIE TOWNSEND MD ; [facility] Amitriptyline HCl 50MG Oral Tablet 03/06/2018 - 05/30/2018 Provider: JARON TOWNSEND M.D. Diagnosis: One tablet at bed time Last Documented On 05/30/2018 11:51AM By JOSIE TOWNSEND MD ; [facility] SEROquel 100MG Oral Tablet 01/16/2018 - 04/18/2018 Pro vider: JARON TOWNSEND M.D. Diagnosis: One tablet at bed time Last Documented On 04/18/2018 11:08AM By JOSIE TOWNSEND MD ; [facility] BusPIRone HCl 10MG Oral Tablet 12/19/2017 - 09/27/2018 Provider: JARON TOWNSEND M.D. Diagnosis: Anxiety disorder , unspecified One tablet daily as needed Last Documented On 09/27/2018 11:24AM By JOSIE TOWNSEND MD ; [facility] Gabapentin 100MG Oral Capsule 12/19/2017 - 09/27/2018 Provider: JARON TOWNSEND M.D. Diagnosis: Low back pain One tablet three times a day Last Documented On 09/27/2018 11:24AM By JOSIE TOWNSEND MD ; [facility] Naproxen 500MG Oral Tablet 11/21/2017 - 12/19/2017 Pro vider: JARON TOWNSEND M.D. Diagnosis: One tablet twice a day Last Documented On 12/19/2017 5:13PM By JOSIE TOWNSEND MD ; [facility] SEROquel 200MG Oral Tablet 11/09/2017 - 12/19/2017 Pro vider: JARON TOWNSEND M.D. Diagnosis: 1/2 tab at night Last Documented On 12/19/2017 2:45PM By Sandra TREVINO ; [facility] SEROquel 100MG Oral Tablet 10/09/2017 - 01/16/2018 Pro vider: JARON TOWNSEND M.D. Diagnosis: One tablet at bed time Last Documented On 01/16/2018 3:17PM By JOSIE TOWNSEND MD ; [facility] Amitriptyline HCl 50MG Oral Tablet 10/09/2017 - 03/06/2018 Provider: JARON TOWNSEND M.D. Diagnosis: One tablet at bed time Last Documented On 03/06/2018 11:13AM By JOSIE TOWNSEND MD ; [facility] Amitriptyline HCl 50MG Oral Tablet 08/16/2017 - 10/09/2017 Provider: JARON TOWNSEND M.D. Diagnosis: One tablet at bed time TAKE 1 TABLET AT BEDTIME Last Documented On 10/09/2017 3:48PM By JOSIE TOWNSEND MD ; [facility] SEROquel 200MG Oral Tablet 04/26/2017 - 10/09/2017 Pro vider: JARON TOWNSEND M.D. Diagnosis: TAKE 1 TABLET AT BEDTIME Last Documented On 10/09/2017 3:48PM By JOSIE TOWNSEND MD ; [facility] Amitriptyline HCl 50MG Oral Tablet 02/13/2017 - 08/16/2017 Provider: JARON TOWNSEND M.D. Diagnosis: One tablet at bed time TAKE 1 TABLET AT BEDTIME Last Documented On 08/16/2017 12:00PM By JOSIE TOWNSEND MD ; [facility] Xanax 0.5MG Oral Tablet 01/12/2017 - 10/09/2017 Provid er: JARON TOWNSEND M.D. Diagnosis: One tablet twice a day Last Documented On 10/09/2017 3:19PM By Sandra TREVINO ; [facility] Amitriptyline HCl 50MG Oral Tablet 01/06/2017 - 01/06/2017 Provider: JARON TOWNSEND M.D. Diagnosis: TAKE 1 TABLET AT BEDTIME Last Documented On 01/06/2017 3:26PM By ITA Malin LPN ; [facility] Amitriptyline HCl 50 MG OR TABS 01/06/2017 - 02/13/2017 Provider: JARON TOWNSEND M.D. Diagnosis: TAKE 1 TABLET AT BEDTIME Last Documented On 02/13/2017 2:26PM By JOSIE TOWNSEND MD ; [facility] Hydrocodone-Acetaminophen 7. 5-325MG Oral Tablet 2017 - 10/09/2017 Provider: JARON TOWNSEND M.D. Diagnosis: One tablet three times a day Last Documented On 10/09/2017 3:45PM By JOSIE TOWNSEND MD ; [facility] ALPRAZolam 0.5MG Oral Tablet 12/12/2016 - 10/09/2017 Provider: JARON TOWNSEND M.D. Diagnosis: Anxiety disorder , unspecified One tablet three times a day as needed Last Documented On 10/09/2017 3:22PM By Sandra TREVINO ; [facility] SEROquel 200MG Oral Tablet 12/06/2016 - 04/26/2017 Pro vider: JARON TOWNSEND M.D. Diagnosis: TAKE 1 TABLET AT BEDTIME Last Documented On 04/26/2017 9:45AM By JOSIE TOWNSEND MD ; [facility] Hydrocodone-Acetaminophen 7. 5-325MG Oral Tablet 12/02/2016 - 2017 Provider: JARON TOWNSEND M.D. Diagnosis: One tablet three times a day Last Documented On 2017 3:01PM By JOSIE TOWNSEND MD ; [facility] ALPRAZolam 0.5MG Oral Tablet 11/11/2016 - 12/12/2016 Provider: JARON TOWNSEND M.D. Diagnosis: Anxiety disorder , unspecified One tablet three times a day as needed Last Documented On 12/12/2016 9:33AM By JOSIE TOWNSEND MD ; [facility] Hydrocodone-Acetaminophen 7. 5-325MG Oral Tablet 11/01/2016 - 12/02/2016 Provider: BEHZAD BENITEZ D.O. Diagnosis: One tablet three times a day Last Documented On 12/02/2016 10:50AM By JOSIE TOWNSEND MD ; [facility] Xanax 0.5MG Oral Tablet 11/01/2016 - 01/12/2017 Provid er: BEHZAD BENITEZ D.O. Diagnosis: One tablet three times a day Last Documented On 01/12/2017 11:26AM By JOSIE TOWNSEND MD ; [facility] Xanax 0.5MG Oral Tablet 10/03/2016 - 11/01/2016 Provid er: JARON TOWNSEND M.D. Diagnosis: One tablet three times a day Last Documented On 11/01/2016 1:13PM By BEHZAD BENITEZ DO ; [facility] Hydrocodone-Acetaminophen 7. 5-325MG Oral Tablet 10/03/2016 - 11/01/2016 Provider: JARON TOWNSEND M.D. Diagnosis: One tablet three times a day Last Documented On 11/01/2016 1:10PM By BEHZAD BENITEZ DO ; [facility] Ibuprofen 800MG Oral Tablet 09/19/2016 - 09/27/2018 Pr ovider: JARON TOWNSEND M.D. Diagnosis: Take one four times a day as needed Last Documented On 09/27/2018 11:24AM By JOSIE TOWNSEND MD ; [facility] Xanax 0.5MG Oral Tablet 09/02/2016 - 10/03/2016 Provid er: JARON TOWNSEND M.D. Diagnosis: One tablet three times a day Last Documented On 10/03/2016 10:27AM By JOSIE TOWNSEND MD ; [facility] Hydrocodone-Acetaminophen 7. 5-325MG Oral Tablet 09/02/2016 - 10/03/2016 Provider: JARON TOWNSEND M.D. Diagnosis: One tablet three times a day Last Documented On 10/03/2016 10:27AM By JOSIE TOWNSEND MD ; [facility] Hydrocodone-Acetaminophen 7. 5-325MG Oral Tablet 08/03/2016 - 09/02/2016 Provider: JARON TOWNSEND M.D. Diagnosis: One tablet three times a day Last Documented On 09/02/2016 10:29AM By JOSIE TOWNSEND MD ; [facility] Xanax 0.5MG Oral Tablet 08/03/2016 - 09/02/2016 Provid er: JARON TOWNSEND M.D. Diagnosis: One tablet three times a day Last Documented On 09/02/2016 10:26AM By JOSIE TOWNSEND MD ; [facility] Amoxicillin 500MG Oral Capsule 07/08/2016 - 11/11/2016 Provider: JARON TOWNSEND M.D. Diagnosis: Acute bronchitis , unspecified 1 three times daily Last Documented On 11/11/2016 3:26PM By CINTHYA TREVINO ; [facility] Amitriptyline HCl 50MG Oral Tablet 07/06/2016 - 01/06/2017 Provider: JARON TOWNSEND M.D. Diagnosis: TAKE 1 TABLET AT BEDTIME Last Documented On 01/06/2017 1:14PM By JOSIE TOWNSEND MD ; [facility] Xanax 0.5MG Oral Tablet 07/06/2016 - 08/03/2016 Provid er: JARON TOWNSEND M.D. Diagnosis: One tablet three times a day Last Documented On 08/03/2016 9:52AM By JOSIE TOWNSEND MD ; [facility] Hydrocodone-Acetaminophen 7. 5-325MG Oral Tablet 07/06/2016 - 08/03/2016 Provider: JARON TOWNSEND M.D. Diagnosis: One tablet three times a day Last Documented On 08/03/2016 9:58AM By JOSIE TOWNSEND MD ; [facility] SEROquel 200MG Oral Tablet 07/06/2016 - 12/06/2016 Pro vider: JARON TOWNSEND M.D. Diagnosis: TAKE 1 TABLET AT BEDTIME Last Documented On 12/06/2016 2:15PM By JOSIE TOWNSEND MD ; [facility] PROzac 40 MG Capsule, conventional 06/06/2016 - 10/09/2017 Provider: JARON TOWNSEND M.D. Diagnosis: Major depressive disorder, single episode, unspecified One tablet daily Last Documented On 10/09/2017 3:21PM By Sandra TREVINO ; [facility] Hydrocodone-Acetaminophen 7. 5-325 MG Tablet 06/06/2016 - 07/06/2016 Provider: JARON TOWNSEND M.D. Diagnosis: One tablet three times a day Last Documented On 07/06/2016 10:14AM By JOSIE TOWNSEND MD ; [facility] Xanax 0.5 MG Tablet 06/06/2016 - 07/06/2016 Provider: AJRON TOWNSEND M.D. Diagnosis: One tablet three times a day Last Documented On 07/06/2016 10:15AM By JOSIE TOWNSEND MD ; [facility] SEROquel 200 MG Tablet 06/06/2016 - 07/06/2016 Provide r: JARON TOWNSEND M.D. Diagnosis: TAKE 1 TABLET AT BEDTIME Last Documented On 07/06/2016 10:13AM By JOSIE TOWNSEND MD ; [facility] Hydrocodone-Acetaminophen 7. 5-325 MG Tablet 05/06/2016 - 06/06/2016 Provider: HIPOLITO PROCTOR PMHNP-BC FILM PRODUCER-BC Diagnosis: 1 q 8hrs PRN pain Last Documented On 06/06/2016 10:53AM By JOSIE TOWNSEND MD ; [facility] Xanax 0.5 MG Tablet 05/06/2016 - 06/06/2016 Provider: HIPOLITO PROCTOR PMHNP-BC FILM PRODUCER-BC Diagnosis: One tablet three times a day Last Documented On 06/06/2016 10:51AM By JOSIE TOWNSEND MD ; [facility] Amitriptyline HCl 50 MG Tablet 04/07/2016 - 07/06/2016 Provider: JARON TOWNSEND M.D. Diagnosis: TAKE 1 TABLET AT BEDTIME Last Documented On 07/06/2016 10:12AM By JOSIE TOWNSEND MD ; [facility] SEROquel 200 MG Tablet 04/07/2016 - 06/06/2016 Provide r: JARON TOWNSEND M.D. Diagnosis: TAKE 1 TABLET AT BEDTIME Last Documented On 06/06/2016 9:02AM By JOSIE TOWNSEND MD ; [facility] Hydrocodone-Acetaminophen 7. 5-325 MG Tablet 03/10/2016 - 04/07/2016 Provider: JARON TOWNSEND M.D. Diagnosis: One tablet three times a day as needed Last Documented On 04/07/2016 9:43AM By JOSIE TOWNSEND MD ; [facility] Xanax 0.5 MG Tablet 03/10/2016 - 04/07/2016 Provider: JARON TOWNSEND M.D. Diagnosis: One tablet three times a day Last Documented On 04/07/2016 9:44AM By JOSIE TOWNSEND MD ; [facility] PROzac 40 MG Capsule, conventional 03/10/2016 - 06/06/2016 Provider: JARON TOWNSEND M.D. Diagnosis: Major depressive disorder, single episode, unspecified One tablet daily Last Documented On 06/06/2016 9:02AM By JOSIE TOWNSEND MD ; [facility] Hydrocodone-Acetaminophen 7. 5-325 MG Tablet 02/10/2016 - 03/10/2016 Provider: JARON TOWNSEND M.D. Diagnosis: One tablet three times a day as needed Last Documented On 03/10/2016 10:27AM By JOSIE TOWNSEND MD ; [facility] Xanax 0.5 MG Tablet 02/08/2016 - 03/10/2016 Provider: JARON TOWNSEND M.D. Diagnosis: One tablet three times a day Last Documented On 03/10/2016 10:26AM By JOSIE TOWNSEND MD ; [facility] Hydrocodone-Acetaminophen 7. 5-325 MG Tablet 01/11/2016 - 02/10/2016 Provider: JARON TOWNSEND M.D. Diagnosis: One tablet three times a day as needed Last Documented On 02/10/2016 9:23AM By JOSIE TOWNSEND MD ; [facility] [facility] S[facility] MG Tablet 01/08/2016 - 04/07/2016 Provide r: JARON TOWNSEND M.D. Diagnosis: TAKE 1 TABLET AT BEDTIME Last Documented On 04/07/2016 9:42AM By JOSIE TOWNSEND MD ; [facility] Amitriptyline HCl 50 MG Tablet 01/08/2016 - 04/07/2016 Provider: JARON TOWNSEND M.D. Diagnosis: TAKE 1 TABLET AT BEDTIME Last Documented On 04/07/2016 9:42AM By JOSIE TOWNSEND MD ; [facility] Xanax 0.5 MG Tablet 01/08/2016 - 02/08/2016 Provider: JARON TOWNSEND M.D. Diagnosis: One tablet three times a day Last Documented On 02/08/2016 11:18AM By JOSIE TOWNSEND MD ; [facility] PROzac 40 MG Capsule, conventional 12/25/2015 - 03/10/2016 Provider: JARON TOWNSEND M.D. Diagnosis: Major depressive disorder, single episode, unspecified One tablet daily Last Documented On 03/10/2016 10:25AM By JOSIE TOWNSEND MD ; [facility] Xanax 0.5 MG Tablet 12/10/2015 - 01/08/2016 Provider: HIPOLITO PROCTOR [facility] Diagnosis: One tablet three times a day Last Documented On 01/08/2016 9:33AM By JOSIE TOWNSEND MD ; [facility] Hydrocodone-Acetaminophen 7. 5-325 MG Tablet 12/10/2015 - 01/11/2016 Provider: HIPOLITO PROCTOR [facility] Diagnosis: One tablet three times a dayFill on: 12/11/15 Last Documented On 01/11/2016 12:04PM By JOSIE TOWNSEND MD ; [facility] SEROquel 200 MG Tablet 12/10/2015 - 01/08/2016 Provide r: JARON TOWNSEND M.D. Diagnosis: TAKE 1 TABLET AT BEDTIME Last Documented On 01/08/2016 9:39AM By JOSIE TOWNSEND MD ; [facility] Amitriptyline HCl 50 MG Tablet 12/10/2015 - 01/08/2016 Provider: JARON TOWNSEND M.D. Diagnosis: TAKE 1 TABLET AT BEDTIME Last Documented On 01/08/2016 9:33AM By JOSIE TOWNSEND MD ; [facility] Hydrocodone-Acetaminophen 7. 5-325 MG Tablet 11/12/2015 - 12/10/2015 Provider: JARON TOWNSEND M.D. Diagnosis: One tablet three times a day Last Documented On 6 12:53PM By HIPOLITO PROCTOR [facility] [place] ; [facility] Xanax 0.5 MG Tablet 11/10/2015 - 12/10/2015 Provider: JARON TOWNSEND M.D. Diagnosis: One tablet three times a day Last Documented On 6 12:56PM By HIOPLITO PROCTOR [facility] [place] ; [facility] Hydrocodone-Acetaminophen 7. 5-325 MG Tablet 10/15/2015 - 11/12/2015 Provider: JARON TOWNSEND M.D. Diagnosis: One tablet three times a day Last Documented On 11/12/2015 2:59PM By JOSIE TOWNSEND MD ; [facility] PROzac 40 MG Capsule 10/13/2015 - 12/25/2015 Provider: JARON TOWNSEND M.D. Diagnosis: Major depressive disorder, single episode, unspecified 1 daily Last Documented On 12/25/2015 2:28PM By JOSIE TOWNSEND MD ; [facility] Xanax 0.5 MG Tablet 10/09/2015 - 11/10/2015 Provider: JARON TOWNSEND M.D. Diagnosis: One tablet three times a day Last Documented On 11/10/2015 11:27AM By JOSIE TOWNSEND MD ; [facility] Hydrocodone-Acetaminophen 7. 5-325 MG Tablet 09/17/2015 - 10/15/2015 Provider: JARON TOWNSEND M.D. Diagnosis: One tablet three times a day Last Documented On 10/15/2015 11:58AM By JOSIE TOWNSEND MD ; [facility] Amitriptyline HCl 50 MG Tablet 09/11/2015 - 12/10/2015 Provider: JARON TOWNSEND M.D. Diagnosis: TAKE 1 TABLET AT BEDTIME Last Documented On 6 12:52PM By СЕРГЕЙ MOFFETT PA-C ; [facility] SEROquel 200 MG Tablet 09/11/2015 - 12/10/2015 Provide r: JARON TOWNSEND M.D. Diagnosis: TAKE 1 TABLET AT BEDTIME Last Documented On 6 12:53PM By СЕРГЕЙ MOFFETT PA-C ; [facility] Xanax 0.5 MG Tablet 09/11/2015 - 10/09/2015 Provider: JARON TOWNSEND M.D. Diagnosis: One tablet three times a day Last Documented On 10/09/2015 1:16PM By JOSIE TOWNSEND MD ; [facility] Wellbutrin SR 100 MG Tablet, extended-release 12 hour 08/31/2015 - 10/13/2015 Provider: JARON TOWNSEND M.D. Diagnosis: Major depressive disorder, single episode, unspecified 1 twice a day Last Documented On 10/13/2015 10:32AM By JOSIE TOWNSEND MD ; [facility] Hydrocodone-Acetaminophen 7. 5-325 MG Tablet 08/20/2015 - 09/17/2015 Provider: JARON TOWNSEND M.D. Diagnosis: One tablet three times a day Last Documented On 09/17/2015 9:22AM By JOSIE TOWNSEND MD ; [facility] Xanax 0.5 MG Tablet 08/13/2015 - 09/11/2015 Provider: JARON TOWNSEND M.D. Diagnosis: One tablet three times a day Last Documented On 09/11/2015 9:38AM By JOSIE TOWNSEND MD ; [facility] SEROquel 200 MG Tablet 08/13/2015 - 09/11/2015 Provide r: JARON TOWNSEND M.D. Diagnosis: TAKE 1 TABLET AT BEDTIME Last Documented On 09/11/2015 9:38AM By JOSIE TOWNSEND MD ; [facility] Amitriptyline HCl 50 MG Tablet 08/13/2015 - 09/11/2015 Provider: JARON TOWNSEND M.D. Diagnosis: TAKE 1 TABLET AT BEDTIME Last Documented On 09/11/2015 9:40AM By JOSIE TOWNSEND MD ; [facility] Hydrocodone-Acetaminophen 7. 5-325 MG Tablet 07/23/2015 - 08/20/2015 Provider: JARON TOWNSEND M.D. Diagnosis: One tablet three times a day Last Documented On 08/20/2015 11:37AM By JOSIE TOWNSEND MD ; [facility] Xanax 0.5 MG Tablet 07/17/2015 - 08/13/2015 Provider: JARON TOWNSEND M.D. Diagnosis: One tablet three times a day Last Documented On 08/13/2015 11:49AM By JOSIE TOWNSEND MD ; [facility] Amitriptyline HCl 50 MG Tablet 07/15/2015 - 08/13/2015 Provider: JARON TOWNSEND M.D. Diagnosis: TAKE 1 TABLET AT BEDTIME Last Documented On 08/13/2015 11:48AM By JOSIE TOWNSEND MD ; [facility] SEROquel 200 MG Tablet 07/15/2015 - 08/13/2015 Provide r: JARON TOWNSEND M.D. Diagnosis: TAKE 1 TABLET AT BEDTIME Last Documented On 08/13/2015 11:48AM By JOSIE TOWNSEND MD ; [facility] Hydrocodone-Acetaminophen 7. 5-325 MG Tablet 06/23/2015 - 07/23/2015 Provider: JARON TOWNSEND M.D. Diagnosis: One tablet three times a day as needed - DO NOT FILL UNTIL 05-24-15 Last Documented On 07/23/2015 10:30AM By JOSIE TOWNSEND MD ; [facility] Xanax 0.5 MG Tablet 06/18/2015 - 07/17/2015 Provider: JARON TOWNSEND M.D. Diagnosis: One tablet three times a day Last Documented On 07/17/2015 1:39PM By JOSIE TOWNSEND MD ; [facility] Hydrocodone-Acetaminophen 7. 5-325 MG Tablet 05/21/2015 - 06/23/2015 Provider: ADAL BARAJAS PA-C Diagnosis: One tablet three times a day as needed - DO NOT FILL UNTIL 05-24-15 Last Documented On 06/23/2015 2:49PM By JOSIE TOWNSEND MD ; [facility] Xanax 0.5 MG Tablet 05/18/2015 - 06/18/2015 Provider: BEHZAD BENITEZ D.O. Diagnosis: One tablet three times a day Last Documented On 06/18/2015 12:10PM By JOSIE TOWNSEND MD ; [facility] Hydrocodone-Acetaminophen 7. 5-325 MG Tablet 04/24/2015 - 05/21/2015 Provider: JARON TOWNSEND M.D. Diagnosis: One tablet three times a day as needed Last Documented On 5 10:27AM By ADAL BARAJAS PA-C ; [facility] Xanax 0.5 MG Tablet 04/17/2015 - 05/18/2015 Provider: JARON TOWNSEND M.D. Diagnosis: One tablet three times a day Last Documented On 05/18/2015 5:26PM By SANTOSH TREVINO ; [facility] SEROquel 200 MG Tablet 04/07/2015 - 07/15/2015 Provide r: JARON TOWNSEND M.D. Diagnosis: One tablet at bed time Last Documented On 07/15/2015 10:26AM By JOSIE TOWNSEND MD ; [facility] Amitriptyline HCl 50 MG Tablet 04/07/2015 - 07/15/2015 Provider: JARON TOWNSEND M.D. Diagnosis: One tablet at bed time Last Documented On 07/15/2015 10:27AM By JOSIE TOWNSEND MD ; [facility] Hydrocodone-Acetaminophen 7. 5-325 MG Tablet 03/26/2015 - 04/24/2015 Provider: JARON TOWNSEND M.D. Diagnosis: One tablet three times a day as needed Last Documented On 04/24/2015 9:54AM By JOSIE TOWNSEND MD ; [facility] Xanax 0.5 MG Tablet 03/18/2015 - 04/17/2015 Provider: JARON TOWNSEND M.D. Diagnosis: One tablet three times a day Last Documented On 04/17/2015 11:59AM By JOSIE TOWNSEND MD ; [facility] SEROquel 200 MG Tablet 03/06/2015 - 04/07/2015 Provide r: JARON TOWNSEND M.D. Diagnosis: One tablet at bed time Last Documented On 04/07/2015 10:00AM By JOSIE TOWNSEND MD ; [facility] Amitriptyline HCl 50 MG Tablet 03/06/2015 - 04/07/2015 Provider: JARON TOWNSEND M.D. Diagnosis: One tablet at bed time Last Documented On 04/07/2015 10:00AM By JOSIE TOWNSEND MD ; [facility] Hydrocodone-Acetaminophen 7. 5-325 MG Tablet 02/23/2015 - 03/26/2015 Provider: JARON TOWNSEND M.D. Diagnosis: One tablet three times a day as needed Last Documented On 03/26/2015 9:06AM By JOSIE TOWNSEND MD ; [facility] Xanax 0.5 MG Tablet 02/16/2015 - 03/18/2015 Provider: JARON TOWNSEND M.D. Diagnosis: One tablet three times a day Last Documented On 03/18/2015 10:43AM By JOSIE TOWNSEND MD ; [facility] Hydrocodone-Acetaminophen 7. 5-325 MG Tablet 01/22/2015 - 02/23/2015 Provider: JARON TOWNSEND M.D. Diagnosis: One tablet three times a day as needed Last Documented On 02/23/2015 9:23AM By JOSIE TOWNSEND MD ; [facility] Xanax 0.5 MG Tablet 01/16/2015 - 02/16/2015 Provider: JARON TOWNSEND M.D. Diagnosis: One tablet three times a day Last Documented On 02/16/2015 12:03PM By JOSIE TOWNSEND MD ; [facility] Hydrocodone-Acetaminophen 7. 5-325 MG Tablet 12/23/2014 - 01/22/2015 Provider: JARON TOWNSEND M.D. Diagnosis: One tablet three times a day as needed Last Documented On 01/22/2015 9:32AM By JOSIE TOWNSEND MD ; [facility] Xanax 0.5 MG Tablet 12/16/2014 - 01/16/2015 Provider: JARON TOWNSEND M.D. Diagnosis: 1 three times daily Last Documented On 01/16/2015 9:49AM By JOSIE TOWNSEND MD ; [facility] SEROquel 200 MG Tablet 12/08/2014 - 03/06/2015 Provide r: JARON TOWNSEND M.D. Diagnosis: One tablet at bed time Last Documented On 03/06/2015 2:45PM By JOSIE TOWNSEND MD ; [facility] Amitriptyline HCl 50 MG Tablet 12/05/2014 - 03/06/2015 Provider: JARON TOWNSEND M.D. Diagnosis: TAKE 1 TABLET AT BEDTIME Last Documented On 03/06/2015 2:45PM By JOSIE TOWNSEND MD ; [facility] Hydrocodone-Acetaminophen 7. 5-325 MG Tablet 11/24/2014 - 12/23/2014 Provider: JARON TOWNSEND M.D. Diagnosis: One tablet three times a day as needed Last Documented On 12/23/2014 9:52AM By JOSIE TOWNSEND MD ; [facility] Xanax 0.5 MG Tablet 11/17/2014 - 12/16/2014 Provider: JARON TOWNSEND M.D. Diagnosis: 1 three times daily Last Documented On 12/16/2014 10:42AM By JOSIE TOWNSEND MD ; [facility] Amitriptyline HCl 50 MG Tablet 11/07/2014 - 12/05/2014 Provider: JARON TOWNSEND M.D. Diagnosis: TAKE 1 TABLET AT BEDTIME Last Documented On 12/05/2014 1:49PM By JOSIE TOWNSEND MD ; [facility] SEROquel 200 MG Tablet 11/06/2014 - 12/08/2014 Provide r: JARON TOWNSEND M.D. Diagnosis: One tablet at bed time Last Documented On 12/08/2014 9:35AM By JOSIE TOWNSEND MD ; [facility] Hydrocodone-Acetaminophen 7. 5-325 MG Tablet 10/27/2014 - 11/24/2014 Provider: BEHZAD BENITEZ D.O. Diagnosis: One tablet three times a day as needed Last Documented On 11/24/2014 11:56AM By JOSIE TOWNSEND MD ; [facility] Hydrocodone-Acetaminophen 7. 5-325 MG Tablet 10/23/2014 - 10/27/2014 Provider: JARON TOWNSEND M.D. Diagnosis: One tablet three times a day as needed Last Documented On 10/27/2014 2:21PM By BEHZAD BENITEZ DO ; [facility] Xanax 0.5 MG Tablet 10/17/2014 - 11/17/2014 Provider: JARON TOWNSEND M.D. Diagnosis: 1 three times daily Last Documented On 11/17/2014 10:30AM By JOSIE TOWNSEND MD ; [facility] SEROquel 200 MG Tablet 10/07/2014 - 11/06/2014 Provide r: JARON TOWNSEND M.D. Diagnosis: One tablet at bed time Last Documented On 11/06/2014 11:58AM By JOSIE TOWNSEND MD ; [facility] Amitriptyline HCl 50 MG Tablet 10/07/2014 - 11/07/2014 Provider: JARON TOWNSEND M.D. Diagnosis: One tablet at bed time Last Documented On 11/07/2014 4:56PM By JOSIE TOWNSEND MD ; [facility] Hydrocodone-Acetaminophen 7. 5-325 MG Tablet 09/22/2014 - 10/23/2014 Provider: JARON TOWNSEND M.D. Diagnosis: One tablet three times a day as needed Last Documented On 10/23/2014 3:25PM By JOSIE TOWNSEND MD ; [facility] Xanax 0.5 MG Tablet 09/18/2014 - 10/17/2014 Provider: JARON TOWNSEND M.D. Diagnosis: 1 three times daily Last Documented On 10/17/2014 3:23PM By JOSIE TOWNSEND MD ; [facility] SEROquel 200 MG Tablet 09/05/2014 - 10/07/2014 Provide r: JARON TOWNSEND M.D. Diagnosis: One tablet at bed time Last Documented On 10/07/2014 9:32AM By JOSIE TOWNSEND MD ; [facility] Hydrocodone-Acetaminophen 7. 5-325 MG Tablet 08/19/2014 - 09/22/2014 Provider: JARON TOWNSEND M.D. Diagnosis: One tablet three times a day as needed Last Documented On 09/22/2014 1:21PM By JOSIE TOWNSEND MD ; [facility] Xanax 0.5 MG Tablet 08/18/2014 - 09/18/2014 Provider: JARON TOWNSEND M.D. Diagnosis: 1 three times daily Last Documented On 09/18/2014 1:45PM By JOSIE TOWNSEND MD ; [facility] SEROquel 200 MG Tablet 08/05/2014 - 09/05/2014 Provide r: JARON TOWNSEND M.D. Diagnosis: One tablet at bed time Last Documented On 09/05/2014 3:22PM By JOSIE TOWNSEND MD ; [facility] Amitriptyline HCl 50 MG Tablet 08/05/2014 - 10/07/2014 Provider: JARON TOWNSEND M.D. Diagnosis: One tablet at bed time Last Documented On 10/07/2014 9:32AM By JOSIE TOWNSEND MD ; [facility] PROzac 40 MG Capsule, conventional 08/05/2014 - 08/31/2015 Provider: JARON TOWNSEND M.D. Diagnosis: 1 daily Last Documented On 08/31/2015 10:47AM By CINTHYA TREVINO ; [facility] Xanax 0.5 MG OR TABS 07/21/2014 - 08/18/2014 Provider: JARON TOWNSEND M.D. Diagnosis: Last Documented On 08/18/2014 10:29AM By JOSIE TOWNSEND MD ; [facility] HYDROcodone-Acetaminophen 7. 5-325 MG OR TABS 07/21/2014 - 08/19/2014 Provider: JARON TOWNSEND M.D. Diagnosis: Need Office Visit. Last Documented On 08/19/2014 4:12PM By JOSIE TOWNSEND MD ; [facility] Xanax 0.5 MG OR TABS 06/19/2014 - 07/21/2014 Provider: JARON TOWNSEND M.D. Diagnosis: Last Documented On 07/21/2014 10:56AM By JOSIE TOWNSEND MD ; [facility] HYDROcodone-Acetaminophen 7. 5-325 MG OR TABS 06/19/2014 - 07/21/2014 Provider: JARON TOWNSEND M.D. Diagnosis: Need Office Visit. Last Documented On 07/21/2014 9:35AM By JOSIE TOWNSEND MD ; [facility] Xanax 0.5 MG OR TABS 05/19/2014 - 06/19/2014 Provider: JARON TOWNSEND M.D. Diagnosis: Last Documented On 06/19/2014 3:09PM By JOSIE TOWNSEND MD ; [facility] HYDROcodone-Acetaminophen 7. 5-325 MG OR TABS 05/13/2014 - 06/19/2014 Provider: JARON TOWNSEND M.D. Diagnosis: Last Documented On 06/19/2014 1:47PM By JOSIE TOWNSEND MD ; [facility] SEROquel 200 MG OR TABS 05/06/2014 - 08/05/2014 Provid er: JARON TOWNSEND M.D. Diagnosis: Last Documented On 08/05/2014 11:50AM By JOSIE TOWNSEND MD ; [facility] Amitriptyline HCl 25 MG OR TABS 05/06/2014 - 10/13/2014 Provider: JARON TOWNSEND M.D. Diagnosis: Last Documented On 10/13/2014 4:54PM By JOSIE TOWNSEND MD ; [facility] Xanax 0.5 MG OR TABS 04/17/2014 - 05/19/2014 Provider: JARON TOWNSEND M.D. Diagnosis: Last Documented On 05/19/2014 2:17PM By JOSIE TOWNSEND MD ; [facility] HYDROcodone-Acetaminophen 7. 5-325 MG OR TABS 04/14/2014 - 05/13/2014 Provider: JARON TOWNSEND M.D. Diagnosis: Last Documented On 05/13/2014 11:42AM By JOSIE TOWNSEND MD ; [facility] SEROquel 200 MG OR TABS 04/03/2014 - 05/06/2014 Provid er: JARON TOWNSEND M.D. Diagnosis: Last Documented On 05/06/2014 1:34PM By JOSIE TOWNSEND MD ; [facility] Amitriptyline HCl 25 MG OR TABS 04/03/2014 - 05/06/2014 Provider: JARON TOWNSEND M.D. Diagnosis: Last Documented On 05/06/2014 1:34PM By JOSIE TOWNSEND MD ; [facility] Xanax 0.5 MG OR TABS 03/20/2014 - 04/17/2014 Provider: JARON TOWNSEND M.D. Diagnosis: Last Documented On 04/17/2014 1:42PM By JOSIE TOWNSEND MD ; [facility] Diflucan 150 MG OR TABS 03/18/2014 - 04/17/2014 Provid er: JARON TOWNSEND M.D. Diagnosis: Last Documented On 04/17/2014 1:39PM By JOSIE TOWNSEND MD ; [facility] HYDROcodone-Acetaminophen 7. 5-325 MG OR TABS 03/14/2014 - 04/14/2014 Provider: BEHZAD BENITEZ D.O. Diagnosis: Last Documented On 04/14/2014 10:19AM By JOSIE TOWNSEND MD ; [facility] Amitriptyline HCl 25 MG OR TABS 03/03/2014 - 04/03/2014 Provider: JARON TOWNSEND M.D. Diagnosis: Last Documented On 04/03/2014 10:43AM By JOSIE TOWNSEND MD ; [facility] HYDROcodone-Acetaminophen 7. 5-325 MG OR TABS 02/14/2014 - 03/14/2014 Provider: JARON TOWNSEND M.D. Diagnosis: Last Documented On 03/14/2014 1:00PM By BEHZAD BENITEZ DO ; [facility] Amitriptyline HCl 25 MG OR TABS 01/24/2014 - 03/03/2014 Provider: JARON TOWNSEND M.D. Diagnosis: Last Documented On 03/03/2014 1:52PM By JOSIE TOWNSEND MD ; [facility] HYDROcodone-Acetaminophen 7. 5-325 MG OR TABS 01/16/2014 - 02/14/2014 Provider: JARON TOWNSEND M.D. Diagnosis: Last Documented On 02/14/2014 9:50AM By JOSIE TOWNSEND MD ; [facility] HYDROcodone-Acetaminophen 7. 5-325 MG OR TABS 12/17/2013 - 01/16/2014 Provider: JARON TOWNSEND M.D. Diagnosis: Last Documented On 01/16/2014 2:12PM By JOSIE TOWNSEND MD ; [facility] HYDROcodone-Acetaminophen 7. 5-325 MG OR TABS 11/18/2013 - 12/17/2013 Provider: JARON TOWNSEND M.D. Diagnosis: Last Documented On 12/17/2013 3:37PM By JOSIE TOWNSEND MD ; [facility] Xanax 0.5 MG OR TABS 11/04/2013 - 03/20/2014 Provider: BEHZAD BENITEZ D.O. Diagnosis: Last Documented On 03/20/2014 11:36AM By JOSIE TOWNSEND MD ; [facility] Amitriptyline HCl 25 MG OR TABS 10/24/2013 - 01/24/2014 Provider: JARON TOWNSEND M.D. Diagnosis: Last Documented On 01/24/2014 12:03PM By JOSIE TOWNSEND MD ; [facility] HYDROcodone-Acetaminophen 7. 5-325 MG OR TABS 10/17/2013 - 11/18/2013 Provider: JARON TOWNSEND M.D. Diagnosis: Last Documented On 11/18/2013 2:33PM By JOSIE TOWNSEND MD ; [facility] SEROquel 200 MG OR TABS 10/07/2013 - 04/03/2014 Provid er: JARON TOWNSEND M.D. Diagnosis: Last Documented On 04/03/2014 10:44AM By JOSIE TOWNSEND MD ; [facility] Xanax 0.5 MG OR TABS 10/04/2013 - 11/04/2013 Provider: JARON TOWNSEND M.D. Diagnosis: Last Documented On 11/04/2013 4:47PM By BEHZAD BENITEZ DO ; [facility] PROzac 40 MG OR CAPS 10/04/2013 - 08/05/2014 Provider: JARON TOWNSEND M.D. Diagnosis: Last Documented On 08/05/2014 11:50AM By JOSIE TOWNSEND MD ; [facility] Aldactone 25 MG OR TABS 09/23/2013 - 03/18/2014 Provid er: JARON TOWNSEND M.D. Diagnosis: Last Documented On 03/18/2014 2:19PM By JOSIE TOWNSEND MD ; [facility] HYDROcodone-Acetaminophen 7. 5-325 MG OR TABS 09/18/2013 - 10/17/2013 Provider: JARON TOWNSEND M.D. Diagnosis: Last Documented On 10/17/2013 1:22PM By JOSIE TOWNSEND MD ; [facility] Xanax 0.5 MG OR TABS 09/06/2013 - 10/04/2013 Provider: JARON TOWNSEND M.D. Diagnosis: Last Documented On 10/04/2013 2:27PM By JOSIE TOWNSEND MD ; [facility] HYDROcodone-Acetaminophen 7. 5-325 MG OR TABS 08/19/2013 - 09/18/2013 Provider: JARON TOWNSEND M.D. Diagnosis: Last Documented On 09/18/2013 11:09AM By JOSIE TOWNSEND MD ; [facility] Xanax 0.5 MG OR TABS 08/08/2013 - 09/06/2013 Provider: JARON TOWNSEND M.D. Diagnosis: Last Documented On 09/06/2013 1:28PM By JOSIE TOWNSEND MD ; [facility] Amitriptyline HCl 25 MG OR TABS 07/25/2013 - 10/24/2013 Provider: JARON TOWNSEND M.D. Diagnosis: Last Documented On 10/24/2013 11:12AM By JOSIE TOWNSEND MD ; [facility] HYDROcodone-Acetaminophen 7. 5-325 MG OR TABS 07/22/2013 - 08/19/2013 Provider: JARON TOWNSEND M.D. Diagnosis: Last Documented On 08/19/2013 1:37PM By JOSIE TOWNSEND MD ; [facility] Xanax 0.5 MG OR TABS 07/08/2013 - 08/08/2013 Provider: JARON TOWNSEND M.D. Diagnosis: Last Documented On 08/08/2013 2:21PM By JOSIE TOWNSEND MD ; [facility] PROzac 40 MG OR CAPS 07/08/2013 - 10/04/2013 Provider: JARON TOWNSEND M.D. Diagnosis: Last Documented On 10/04/2013 2:13PM By JOSIE TOWNSEND MD ; [facility] SEROquel 200 MG OR TABS 07/08/2013 - 10/07/2013 Provid er: JARON TOWNSEND M.D. Diagnosis: Last Documented On 10/07/2013 11:37AM By JOSIE TOWNSEND MD ; [facility] Amitriptyline HCl 25 MG OR TABS 06/27/2013 - 07/25/2013 Provider: JARON TOWNSEND M.D. Diagnosis: Last Documented On 07/25/2013 11:49AM By JOSIE TOWNSEND MD ; [facility] HYDROcodone-Acetaminophen 7. 5-325 MG OR TABS 06/24/2013 - 07/22/2013 Provider: BEHZAD BENITEZ D.O. Diagnosis: Last Documented On 07/22/2013 3:22PM By JOSIE TOWNSEND MD ; [facility] PROzac 40 MG OR CAPS 06/10/2013 - 07/08/2013 Provider: JARON TOWNSEND M.D. Diagnosis: Last Documented On 07/08/2013 1:19PM By JOSIE TOWNSEND MD ; [facility] SEROquel 200 MG OR TABS 06/10/2013 - 07/08/2013 Provid er: JARON TOWNSEND M.D. Diagnosis: Last Documented On 07/08/2013 1:19PM By JOSIE TOWNSEND MD ; [facility] Xanax 0.5 MG OR TABS 06/07/2013 - 07/08/2013 Provider: JARON TOWNSEND M.D. Diagnosis: Last Documented On 07/08/2013 2:22PM By JOSIE TOWNSEND MD ; [facility] HYDROcodone-Acetaminophen 7. 5-325 MG OR TABS 05/23/2013 - 06/24/2013 Provider: BEHZAD BENITEZ D.O. Diagnosis: Last Documented On 06/24/2013 1:20PM By BEHZAD BENITEZ DO ; [facility] Xanax 0.5 MG OR TABS 05/07/2013 - 06/07/2013 Provider: JARON TOWNSEND M.D. Diagnosis: Last Documented On 06/07/2013 1:59PM By JOSIE TOWNSEND MD ; [facility] PROzac 40 MG OR CAPS 05/07/2013 - 06/10/2013 Provider: JARON TOWNSEND M.D. Diagnosis: Last Documented On 06/10/2013 11:23AM By JOSIE TOWNSEND MD ; [facility] SEROquel 200 MG OR TABS 05/07/2013 - 06/10/2013 Provid er: JARON TOWNSEND M.D. Diagnosis: Last Documented On 06/10/2013 11:23AM By JOSIE TOWNSEND MD ; [facility] [facility] HYDROcodone-Acetaminophen 7. 5-325 MG OR TABS 04/23/2013 - 05/23/2013 Provider: JARON TOWNSEND M.D. Diagnosis: Last Documented On 05/23/2013 4:36PM By BEHZAD BENITEZ DO ; [facility] Xanax 0.5 MG OR TABS 04/08/2013 - 05/07/2013 Provider: JARON TOWNSEND M.D. Diagnosis: Last Documented On 05/07/2013 10:28AM By JOSIE TOWNSEND MD ; [facility] PROzac 40 MG OR CAPS 04/08/2013 - 05/07/2013 Provider: JARON TOWNSEND M.D. Diagnosis: Last Documented On 05/07/2013 10:10AM By JOSIE TOWNSEND MD ; [facility] SEROquel 200 MG OR TABS 04/08/2013 - 05/07/2013 Provid er: JARON TOWNSEND M.D. Diagnosis: Last Documented On 05/07/2013 10:10AM By JOSIE TOWNSEND MD ; [facility] HYDROcodone-Acetaminophen 7. 5-325 MG OR TABS 03/25/2013 - 04/23/2013 Provider: JARON TOWNSEND M.D. Diagnosis: Last Documented On 04/23/2013 11:32AM By JOSIE TOWNSEND MD ; [facility] SEROquel 200 MG OR TABS 03/11/2013 - 04/08/2013 Provid er: JARON TOWNSEND M.D. Diagnosis: Last Documented On 04/08/2013 10:50AM By JOSIE TOWNSEND MD ; [facility] Xanax 0.5 MG OR TABS 03/08/2013 - 04/08/2013 Provider: JARON TOWNSEND M.D. Diagnosis: Last Documented On 04/08/2013 10:58AM By JOSIE TOWNSEND MD ; [facility] traZODone HCl 50 MG OR TABS 03/08/2013 - 04/23/2013 Pr ovider: JARON TOWNSEND M.D. Diagnosis: Last Documented On 04/23/2013 11:29AM By JOSIE TOWNSEND MD ; [facility] HYDROcodone-Acetaminophen 7. 5-325 MG OR TABS 02/22/2013 - 03/25/2013 Provider: JARON TOWNSEND M.D. Diagnosis: Last Documented On 03/25/2013 11:26AM By JOSIE TOWNSEND MD ; [facility] HYDROcodone-Acetaminophen 7. 5-325 MG OR TABS 02/08/2013 - 02/22/2013 Provider: JARON TOWNSEND M.D. Diagnosis: Last Documented On 02/22/2013 1:42PM By JOSIE TOWNSEND MD ; [facility] Xanax 0.5 MG OR TABS 02/06/2013 - 03/08/2013 Provider: JARON TOWNSEND M.D. Diagnosis: Last Documented On 03/08/2013 9:51AM By JOSIE TOWNSEND MD ; [facility] PROzac 40 MG OR CAPS 02/06/2013 - 04/08/2013 Provider: JARON TOWNSEND M.D. Diagnosis: Last Documented On 04/08/2013 10:50AM By JOSIE TOWNSEND MD ; [facility] SEROquel 200 MG OR TABS 02/06/2013 - 03/11/2013 Provid er: JARON S KRISTIAN M.D. Diagnosis: Last Documented On 03/11/2013 9:50AM By JOSIE TOWNSEND MD ; [facility] traZODone HCl 50 MG OR TABS 01/21/2013 - 03/08/2013 Pr ovider: JARON TOWNSEND M.D. Diagnosis: Last Documented On 03/08/2013 9:43AM By JOSIE TOWNSEND MD ; [facility] Xanax 0.5 MG OR TABS 01/07/2013 - 02/06/2013 Provider: JARON TOWNSEND M.D. Diagnosis: Last Documented On 02/06/2013 10:53AM By JOSIE TOWNSEND MD ; [facility] Naprosyn 500 MG OR TABS 01/07/2013 - 02/08/2013 Provid er: JARON TOWNSEND M.D. Diagnosis: Last Documented On 02/08/2013 1:24PM By JOSIE TOWNSEND MD ; [facility] SEROquel 200 MG OR TABS 01/07/2013 - 02/06/2013 Provid er: JARON TOWNSEND M.D. Diagnosis: Last Documented On 02/06/2013 10:35AM By JOSIE TOWNSEND MD ; [facility] PROzac 40 MG OR CAPS 01/07/2013 - 02/06/2013 Provider: JARON TOWNSEND M.D. Diagnosis: Last Documented On 02/06/2013 10:39AM By JOSIE TOWNSEND MD ; [facility] Xanax 0.5 MG OR TABS 12/07/2012 - 01/07/2013 Provider: JARON TOWNSEND M.D. Diagnosis: Last Documented On 01/07/2013 10:16AM By JOSIE TOWNSEND MD ; [facility] SEROquel 200 MG OR TABS 11/06/2012 - 01/07/2013 Provid er: JARON TOWNSEND M.D. Diagnosis: Last Documented On 01/07/2013 10:15AM By JOSIE TOWNSEND MD ; [facility] PROzac 40 MG OR CAPS 11/06/2012 - 01/07/2013 Provider: JARON TOWNSEND M.D. Diagnosis: Last Documented On 01/07/2013 10:15AM By JOSIE TOWNSEND MD ; [facility] Xanax 0.5 MG OR TABS 11/06/2012 - 12/07/2012 Provider: JARON TOWNSEND M.D. Diagnosis: Last Documented On 12/07/2012 3:48PM By JOSIE TOWNSEND MD ; [facility] Xanax 0.5 MG OR TABS 10/17/2012 - 11/06/2012 Provider: JARON TOWNSEND M.D. Diagnosis: Last Documented On 11/06/2012 2:44PM By JOSIE TOWNSEND MD ; [facility] Xanax 0.5 MG OR TABS 09/17/2012 - 10/17/2012 Provider: JARON TOWNSEND M.D. Diagnosis: Last Documented On 10/17/2012 3:18PM By JOSIE TOWNSEND MD ; [facility] PROzac 40 MG OR CAPS 09/07/2012 - 11/06/2012 Provider: JARON TOWNSEND M.D. Diagnosis: Last Documented On 11/06/2012 2:44PM By JOSIE TOWNSEND MD ; [facility] SEROquel 200 MG OR TABS 09/07/2012 - 11/06/2012 Provid er: JARON TOWNSEND M.D. Diagnosis: Last Documented On 11/06/2012 2:44PM By JOSIE TOWNSEND MD ; [facility] Xanax 0.5 MG OR TABS 08/15/2012 - 09/17/2012 Provider: JARON TOWNSEND M.D. Diagnosis: Last Documented On 09/17/2012 10:30AM By JOSIE TOWNSEND MD ; [facility] SEROquel 200 MG OR TABS 08/06/2012 - 09/07/2012 Provid er: JARON TOWNSEND M.D. Diagnosis: Last Documented On 09/07/2012 4:37PM By JOSIE TOWNSEND MD ; [facility] PROzac 40 MG OR CAPS 08/02/2012 - 01/02/2023 Provider: ANAY TIRADO Diagnosis: Last Documented On 01/02/2023 2:45PM By JOSIE TOWNSEND MD ; [facility] Xanax 0.5 MG OR TABS 08/02/2012 - 08/27/2012 Provider: Diagnosis: Last Documented On 3 5:27PM By MIGDALIA CARL MA ; [facility] PROzac 40 MG OR CAPS 08/02/2012 - 08/27/2012 Provider: Diagnosis: Last Documented On 3 5:27PM By MIGDALIA CARL MA ; [facility] SEROquel 200 MG OR TABS 08/02/2012 - 08/27/2012 Provid er: Diagnosis: Last Documented On 3 5:27PM By MIGDALIA CARL MA ; [facility] SEROquel 300 MG OR TABS 08/02/2012 - 01/02/2023 Provid er: ANAY LLANOS DO FAPA Diagnosis: Last Documented On 01/02/2023 1:45PM By JOSIE TOWNSEND MD ; [facility] Xanax 0.5 MG OR TABS 08/02/2012 - 01/02/2023 Provider: ANAY LLANOS DO FAPA Diagnosis: Last Documented On 01/02/2023 1:45PM By JOSIE TOWNSEND MD ; [facility] Xanax 0.5 MG OR TABS 07/09/2012 - 08/15/2012 Provider: JARON TOWNSEND M.D. Diagnosis: Last Documented On 08/15/2012 11:05AM By JOSIE TOWNSEND MD ; [facility] PROzac 40 MG OR CAPS 07/09/2012 - 09/07/2012 Provider: JARON TOWNSEND M.D. Diagnosis: Last Documented On 09/07/2012 4:36PM By JOSIE TOWNSEND MD ; [facility] SEROquel 200 MG OR TABS 07/09/2012 - 08/06/2012 Provid er: JARON TOWNSEND M.D. Diagnosis: Last Documented On 08/06/2012 11:38AM By JOSIE TONWSEND MD ; [facility] [place] Carbonate 300 MG OR CAPS 06/25/2012 - 08/15/2012 Provider: JARON TOWNSEND M.D. Diagnosis: Last Documented On 08/15/2012 9:50AM By JOSIE TOWNSEND MD ; [facility] SEROquel 100 MG OR TABS 06/20/2012 - 08/15/2012 Provid er: JARON TOWNSEND M.D. Diagnosis: Last Documented On 08/15/2012 9:41AM By TONYA LUONG CMA ; [facility] PROzac 40 MG OR CAPS 05/18/2012 - 07/09/2012 Provider: JARON TOWNSEND M.D. Diagnosis: Last Documented On 07/09/2012 11:30AM By JOSIE TOWNSEND MD ; [facility] Amphetamine-Dextroamphetamin e 10 MG OR TABS 05/17/2012 - 07/09/2012 Provider: JARON TOWNSEND M.D. Diagnosis: ATTN DEFICIT W HYPERACT Last Documented On 07/09/2012 11:26AM By JOSIE TOWNSEND MD ; [facility] Xanax 0.5 MG OR TABS 05/17/2012 - 07/09/2012 Provider: JARON TOWNSEND M.D. Diagnosis: Last Documented On 07/09/2012 11:30AM By JOSIE TOWNSEND MD ; [facility] Flexeril 10 MG OR TABS 05/16/2012 - 06/25/2012 Provide r: JARON TOWNSEND M.D. Diagnosis: Last Documented On 06/25/2012 3:12PM By JOSIE TOWNSEND MD ; [facility] Ibuprofen 800 MG OR TABS 05/16/2012 - 06/25/2012 Provi jazmine: JARON TOWNSEND M.D. Diagnosis: Last Documented On 06/25/2012 3:12PM By JOSIE TOWNSEND MD ; [facility] SEROquel 100 MG OR TABS 04/18/2012 - 06/20/2012 Provid er: JARON TOWNSEND M.D. Diagnosis: Last Documented On 06/20/2012 9:41AM By JOSIE TOWNSEND MD ; [facility] Xanax 0.5 MG OR TABS 04/16/2012 - 05/17/2012 Provider: JARON TOWNSEND M.D. Diagnosis: Last Documented On 05/17/2012 10:43AM By JOSIE TOWNSEND MD ; [facility] Amphetamine-Dextroamphetamin e 10 MG OR TABS 04/11/2012 - 05/17/2012 Provider: JARON TOWNSEND M.D. Diagnosis: ATTN DEFICIT W HYPERACT Last Documented On 05/17/2012 10:43AM By JOSIE TOWNSEND MD ; [facility] Flexeril 10 MG OR TABS 04/11/2012 - 05/16/2012 Provide r: JARON TOWNSEND M.D. Diagnosis: Last Documented On 05/16/2012 4:56PM By JOSIE TOWNSEND MD ; [facility] Ibuprofen 800 MG OR TABS 04/11/2012 - 05/16/2012 Provi jazmine: JARON TOWNSEND M.D. Diagnosis: Last Documented On 05/16/2012 4:56PM By JOSIE TWONSEND MD ; [facility] SEROquel 100 MG OR TABS 03/21/2012 - 04/18/2012 Provid er: JARON TOWNSEND M.D. Diagnosis: Last Documented On 04/18/2012 3:47PM By JOSIE TOWNSEND MD ; [facility] PROzac 40 MG OR CAPS 03/16/2012 - 05/18/2012 Provider: JARON TOWNSEND M.D. Diagnosis: Last Documented On 05/18/2012 8:50PM By JOSIE TOWNSEND MD ; [facility] Xanax 0.5 MG OR TABS 03/16/2012 - 04/16/2012 Provider: JARON TOWNSEND M.D. Diagnosis: Last Documented On 04/16/2012 4:37PM By JOSIE TOWNSEND MD ; [facility] Amphetamine-Dextroamphetamin e 10 MG OR TABS 03/06/2012 - 04/11/2012 Provider: JARON TOWNSEND M.D. Diagnosis: ATTN DEFICIT W HYPERACT Last Documented On 04/11/2012 11:17AM By JOSIE TOWNSEND MD ; [facility] Amphetamine-Dextroamphetamin e 10 MG OR TABS 02/20/2012 - 03/06/2012 Provider: JARON TOWNSEND M.D. Diagnosis: ATTN DEFICIT W HYPERACT Last Documented On 03/06/2012 9:46AM By JOSIE TOWNSEND MD ; [facility] Ritalin 10 MG OR TABS 02/20/2012 - 03/06/2012 Provider : JARON TOWNSEND M.D. Diagnosis: Last Documented On 03/06/2012 9:42AM By JOSIE TOWNSEND MD ; [facility] PROzac 40 MG OR CAPS 02/20/2012 - 03/16/2012 Provider: JARON TOWNSEND M.D. Diagnosis: Last Documented On 03/16/2012 2:16PM By JOSIE TOWNSEND MD ; [facility] PROzac 20 MG OR CAPS 02/17/2012 - 03/06/2012 Provider: JARON TOWNSEND M.D. Diagnosis: Need Office Visit. Last Documented On 03/06/2012 9:37AM By TONYA LUONG CMA ; [facility] Xanax 0.5 MG OR TABS 02/17/2012 - 03/16/2012 Provider: JARON TOWNSEND M.D. Diagnosis: Last Documented On 03/16/2012 2:32PM By JOSIE TOWNSEND MD ; [facility] SEROquel 100 MG OR TABS 02/17/2012 - 03/21/2012 Provid er: JARON TOWNSEND M.D. Diagnosis: Last Documented On 03/21/2012 4:43PM By JOSIE TOWNSEND MD ; [facility] SEROquel 100 MG OR TABS 01/17/2012 - 02/17/2012 Provid er: JARON TOWNSEND M.D. Diagnosis: Last Documented On 02/17/2012 11:35AM By JOSIE TOWNSEND MD ; [facility] Xanax 0.5 MG OR TABS 01/17/2012 - 02/17/2012 Provider: JARON TOWNSEND M.D. Diagnosis: Last Documented On 02/17/2012 11:45AM By JOSIE TOWNSEND MD ; [facility] Zithromax Z-Gonzalez 250 MG OR TABS 01/04/2012 - 12/25/2015 Provider: MELANIE Nogueira Diagnosis: ACUTE PHARYNGITI S Last Documented On 12/25/2015 2:02PM By TONYA LUONG CMA ; [facility] Fioricet 50-325-40 MG OR TABS 12/26/2011 - 02/20/2012 Provider: JARON TOWNSEND M.D. Diagnosis: prn Last Documented On 02/20/2012 11:20AM By TONYA LUONG CMA ; [facility] PROzac 20 MG OR CAPS 12/26/2011 - 02/17/2012 Provider: JARON TOWNSEND M.D. Diagnosis: Last Documented On 02/17/2012 11:34AM By JOSIE TOWNSEND MD ; [facility] SEROquel 100 MG OR TABS 12/26/2011 - 01/17/2012 Provid er: JARON TOWNSEND M.D. Diagnosis: Last Documented On 01/17/2012 10:22AM By JOSIE TOWNSEND MD ; [facility] Xanax 0.5 MG OR TABS 12/19/2011 - 01/17/2012 Provider: JARON TOWNSEND M.D. Diagnosis: Last Documented On 01/17/2012 10:49AM By JOSIE TOWNSEND MD ; [facility] PROzac 20 MG OR CAPS 11/18/2011 - 12/26/2011 Provider: JARON TOWNSEND M.D. Diagnosis: Last Documented On 12/26/2011 9:50AM By JOSIE TOWNSEND MD ; [facility] SEROquel 100 MG OR TABS 11/18/2011 - 12/26/2011 Provid er: JARON TOWNSEND M.D. Diagnosis: Last Documented On 12/26/2011 9:50AM By JOSIE TOWNSEND MD ; [facility] Xanax 0.5 MG OR TABS 11/18/2011 - 12/19/2011 Provider: JARON TOWNSEND M.D. Diagnosis: Last Documented On 12/19/2011 11:36AM By JOSIE TOWNSEND MD ; [facility] Nystatin [id number] UNIT/GM EX POWD 11/18/2011 - 02/20/2012 Provider: JARON TOWNSEND M.D. Diagnosis: Apply to area qid Last Documented On 02/20/2012 11:20AM By TONYA LUONG CMA ; [facility] SEROquel 100 MG OR TABS 10/26/2011 - 11/18/2011 Provid er: JARON TOWNSEND M.D. Diagnosis: Need Office Visit. Last Documented On 11/18/2011 4:48PM By JOSIE TOWNSEND MD ; [facility] Xanax 0.5 MG OR TABS 10/18/2011 - 11/18/2011 Provider: JARON TOWNSEND M.D. Diagnosis: Last Documented On 11/18/2011 4:48PM By JOSIE TOWNSEND MD ; [facility] SEROquel 100 MG OR TABS 09/19/2011 - 10/26/2011 Provid er: JARON TOWNSEND M.D. Diagnosis: Last Documented On 10/26/2011 3:32PM By JOSIE TOWNSEND MD ; [facility] Xanax 0.5 MG OR TABS 09/19/2011 - 10/18/2011 Provider: JARON TOWNSEND M.D. Diagnosis: Last Documented On 10/18/2011 2:19PM By JOSIE TOWNSEND MD ; [facility] Xanax 0.5 MG OR TABS 08/17/2011 - 09/19/2011 Provider: JARON TOWNSEND M.D. Diagnosis: Last Documented On 09/19/2011 3:09PM By JOSIE TOWNSEND MD ; [facility] SEROquel 100 MG OR TABS 08/17/2011 - 09/19/2011 Provid er: JARON TOWNSEND M.D. Diagnosis: Last Documented On 09/19/2011 1:50PM By JOSIE TOWNSEND MD ; [facility] SEROquel 50 MG OR TABS 08/17/2011 - 12/25/2015 Provide r: JARON TOWNSEND M.D. Diagnosis: 1 tab q am Last Documented On 12/25/2015 2:02PM By TONYA LUONG CMA ; [facility] Xanax 0.5 MG OR TABS 07/19/2011 - 08/17/2011 Provider: JARON TOWNSEND M.D. Diagnosis: Last Documented On 08/17/2011 4:33PM By JOSIE TOWNSEND MD ; [facility] SEROquel 100 MG OR TABS 07/19/2011 - 08/17/2011 Provid er: JARON TOWNSEND M.D. Diagnosis: Need Office Visit. Last Documented On 08/17/2011 12:43PM By JOSIE TOWNSEND MD ; [facility] Xanax 0.5 MG OR TABS 06/17/2011 - 07/19/2011 Provider: JARON TOWNSEND M.D. Diagnosis: Last Documented On 07/19/2011 4:33PM By JOSIE TOWNSEND MD ; [facility] SEROquel 100 MG OR TABS 05/13/2011 - 07/19/2011 Provid er: JARON TOWNSEND M.D. Diagnosis: Last Documented On 07/19/2011 2:35PM By JOSIE TOWNSEND MD ; [facility] Xanax 0.5 MG OR TABS 05/13/2011 - 06/17/2011 Provider: JARON TOWNSEND M.D. Diagnosis: Last Documented On 06/17/2011 3:48PM By JOSIE TOWNSEND MD ; [facility] Hyoscyamine Sulfate 0.125 MG OR TABS 05/13/2011 - 12/25/2015 Provider: JARON TOWNSEND M.D. Diagnosis: prn Last Documented On 12/25/2015 2:02PM By TONYA LUONG CMA ; [facility] SEROquel 50 MG OR TABS 04/18/2011 - 08/17/2011 Provide r: JARON TOWNSEND M.D. Diagnosis: 1 tab q amNeed Office Visit. Last Documented On 08/17/2011 12:43PM By JOSIE TOWNSEND MD ; [facility] Xanax 0.5 MG OR TABS 04/14/2011 - 05/13/2011 Provider: JARON TOWNSEND M.D. Diagnosis: Last Documented On 05/13/2011 11:27AM By JOSIE TOWNSEND MD ; [facility] SEROquel 50 MG OR TABS 03/08/2011 - 04/18/2011 Provide r: JARON TOWNSEND M.D. Diagnosis: 1 tab q am Last Documented On 04/18/2011 4:16PM By JOSIE TOWNSEND MD ; [facility] Xanax 0.5 MG OR TABS 03/08/2011 - 04/14/2011 Provider: JARON TOWNSEND M.D. Diagnosis: Last Documented On 04/14/2011 4:00PM By JOSIE TOWNSEND MD ; [facility] SEROquel 100 MG OR TABS 03/08/2011 - 05/13/2011 Provid er: JARON TOWNSEND M.D. Diagnosis: Last Documented On 05/13/2011 11:27AM By JOSIE TOWNSEND MD ; [facility] SEROquel 100 MG OR TABS 01/28/2011 - 03/08/2011 Provider: JARON TOWNSEND M.D. Diagnosis: DEPRESSIVE DISOR JAZMINE NEC Last Documented On 03/08/2011 1:53PM By JOSIE TOWNSEND MD ; [facility] Xanax 0.5 MG OR TABS 01/27/2011 - 03/08/2011 Provider: JARON TOWNSEND M.D. Diagnosis: Last Documented On 03/08/2011 1:53PM By JOSIE TOWNSEND MD ; [facility] Xanax 0.5 MG OR TABS 01/14/2011 - 01/27/2011 Provider: JARON TOWNSEND M.D. Diagnosis: Last Documented On 01/27/2011 2:38PM By JOSIE TOWNSEND MD ; [facility] SEROquel 100 MG OR TABS 12/27/2010 - 01/28/2011 Provider: JARON TOWNSEND M.D. Diagnosis: DEPRESSIVE DISOR JAZMINE NEC Need Office Visit. Last Documented On 01/28/2011 2:21PM By JOSIE TOWNSEND MD ; [facility] Xanax 0.5 MG OR TABS 12/27/2010 - 01/14/2011 Provider: JARON TOWNSEND M.D. Diagnosis: Last Documented On 01/14/2011 4:52PM By JOSIE TOWNSEND MD ; [facility] Xanax 0.5 MG OR TABS 12/14/2010 - 12/27/2010 Provider: JARON TOWNSEND M.D. Diagnosis: Last Documented On 12/27/2010 1:36PM By JOSIE TOWNSEND MD ; [facility] Xanax 0.5 MG OR TABS 11/15/2010 - 12/14/2010 Provider: LC FIGUEROA PA-C Diagnosis: Last Documented On 12/14/2010 1:40PM By JOSIE TOWNSEND MD ; [facility] SEROquel 100 MG OR TABS 10/19/2010 - 12/27/2010 Provider: JARON TOWNSEND M.D. Diagnosis: DEPRESSIVE DISOR JAZMINE NEC Last Documented On 12/27/2010 11:42AM By JOSIE TOWNSEND MD ; [facility] Xanax 0.5 MG OR TABS 10/11/2010 - 11/15/2010 Provider: JARON TOWNSEND M.D. Diagnosis: Last Documented On 11/15/2010 9:48AM By LC FIGUEROA PA-C ; [facility] SEROquel 100 MG OR TABS 09/17/2010 - 10/19/2010 Provider: JARON TOWNSEND M.D. Diagnosis: DEPRESSIVE DISOR JAZMINE NEC Last Documented On 10/19/2010 10:31AM By JOSIE TOWNSEND MD ; [facility] Xanax 0.5 MG OR TABS 09/10/2010 - 10/11/2010 Provider: JARON TOWNSEND M.D. Diagnosis: Last Documented On 10/11/2010 3:27PM By JOSIE TOWNSEND MD ; [facility] SEROquel 100 MG OR TABS 08/17/2010 - 09/17/2010 Provider: JARON TOWNSEND M.D. Diagnosis: DEPRESSIVE DISOR JAZMINE NEC Last Documented On 09/17/2010 3:23PM By JOSIE TOWNSEND MD ; [facility] Xanax 0.5 MG OR TABS 08/11/2010 - 09/10/2010 Provider: JARON TOWNSEND M.D. Diagnosis: Last Documented On 09/10/2010 2:05PM By JOSIE TOWNSEND MD ; [facility] Effexor XR 150 MG OR CP24 08/11/2010 - 12/25/2015 Provider: JARON TOWNSEND M.D. Diagnosis: DEPRESSIVE DISOR JAZMINE NEC Last Documented On 12/25/2015 2:02PM By TONYA LUONG CMA ; [facility] Xanax 0.5 MG OR TABS 07/12/2010 - 08/11/2010 Provider: JARON TOWNSEND M.D. Diagnosis: Last Documented On 08/11/2010 11:44AM By JOSIE TOWNSEND MD ; [facility] Effexor XR 150 MG OR CP24 07/12/2010 - 08/11/2010 Provider: JARON TOWNSEND M.D. Diagnosis: DEPRESSIVE DISOR JAZMINE NEC Last Documented On 08/11/2010 11:03AM By JOSIE TOWNSEND MD ; [facility] Effexor XR 150 MG OR CP24 06/11/2010 - 07/12/2010 Provider: JARON TOWNSEND M.D. Diagnosis: DEPRESSIVE DISOR JAZMINE NEC Last Documented On 07/12/2010 10:23AM By JOSIE TOWNSEND MD ; [facility] Xanax 0.5 MG OR TABS 06/11/2010 - 07/12/2010 Provider: JARON TOWNSEND M.D. Diagnosis: Last Documented On 07/12/2010 10:24AM By JOSIE TOWNSEND MD ; [facility] SEROquel 100 MG OR TABS 06/11/2010 - 08/17/2010 Provider: JARON TOWNSEND M.D. Diagnosis: DEPRESSIVE DISOR JAZMINE NEC Last Documented On 08/17/2010 11:35AM By JOSIE TOWNSEND MD ; [facility] Effexor XR 150 MG OR CP24 05/03/2010 - 06/11/2010 Provider: JARON TOWNSEND M.D. Diagnosis: DEPRESSIVE DISOR JAZMINE NEC Need Office Visit. Last Documented On 06/11/2010 1:45PM By JOSIE TOWNSEND MD ; [facility] Xanax 0.5 MG OR TABS 05/03/2010 - 06/11/2010 Provider: JARON TOWNSEND M.D. Diagnosis: Last Documented On 06/11/2010 1:45PM By JOSIE TOWNSEND MD ; [facility] SEROquel 50 MG OR TABS 05/03/2010 - 12/25/2015 Provide r: JARON TOWNSEND M.D. Diagnosis: Last Documented On 12/25/2015 2:02PM By TONYA LUONG CMA ; [facility] Amoxicillin 500 MG OR CAPS 04/12/2010 - 12/25/2015 Pro vider: JARON TOWNSEND M.D. Diagnosis: Last Documented On 12/25/2015 2:02PM By TONYA LUONG CMA ; [facility] SEROquel 50 MG OR TABS 03/22/2010 - 05/03/2010 Provide r: JARON TOWNSEND M.D. Diagnosis: Last Documented On 05/03/2010 10:42AM By JOSIE TOWNSEND MD ; [facility] Xanax 0.5 MG OR TABS 03/22/2010 - 05/03/2010 Provider: JARON TOWNSEND M.D. Diagnosis: Last Documented On 05/03/2010 1:44PM By JOSIE TOWNSEND MD ; [facility] Effexor XR 150 MG OR CP24 03/22/2010 - 05/03/2010 Provider: JARON TOWNSEND M.D. Diagnosis: DEPRESSIVE DISOR JAZMINE NEC Last Documented On 05/03/2010 10:42AM By JOSIE TOWNSEND MD ; [facility] Xanax 0.5 MG OR TABS 02/23/2010 - 03/22/2010 Provider: JARON TOWNSEND M.D. Diagnosis: Last Documented On 03/22/2010 3:35PM By JOSIE TOWNSEND MD ; [facility] Effexor XR 150 MG OR CP24 02/02/2010 - 03/22/2010 Provider: JARON TOWNSEND M.D. Diagnosis: DEPRESSIVE DISOR JAZMINE NEC Last Documented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
--- OUTSIDE RECORDS SUMMARY | 2025-05-17 13:57 | XMS_ITS | Clinical Summary ---
Author Organization [facility] Address [address] [place] [address] Phone Care Team Providers Care Director Of Bands Name Role Phone ANAY BUCIO Primary Care Provider [phone] Reason for Referral Date Encounter Description Provider Reason for Referral 08/30/12 ESTABLISHED PT. EXAM ANAY TIRADO Request Consultation By Psychologist - /therapist of her choice strongly encouraged to work on the psychological issues causing or exacerbating her mental health concerns. Reason for Visit and Chief Complaint The Chief Complaint is: Medication Management follow up appointment Problems Includes: Problems addressed during this encounter and other active Problems Current Visit Onset Date Resolved Date Provider Conditio n Status Anxiety Disorder Nos 08/30/2012 MINDY LOPESA Active Last Documented On 08/30/2012 11:58AM ; [facility] Note: Unchanged - Appears to be JAJA, rul e out OCD. 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 ANAY LLANOS DO [facility] Active Last Documented On 08/30/2012 11:58AM ; [facility] Note: Unchanged Cannabis Dependence - Continuous 08/30/2012 ANAY LLANOS DO [facility] Active Last Documented On 08/30/2012 11:58AM ; [facility] Note: Unchanged Episodic Mood Disorders 08/30/2012 ANAY LLANOS DO [facility] Active Last Documented On 08/30/2012 11:58AM ; [facility] Note: Unchanged - , Most likely major de pressive disorder, recurrent Assisted Use of Other Medications 08/30/2012 ANAY LLANOS DO [facility] Active Last Documented On 08/30/2012 11:58AM ; [facility] Note: Unchanged Post-traumatic Stress Disorder 08/30/2012 ANAY LLANOS DO [facility] Active Last Documented On 08/30/2012 11:58AM ; [facility] Note: Unchanged Plan of Treatment The patient has voiced an understanding of this need to be personally responsible to assist in assuring their recovery from their illness and the dangers associated with not following the treatment plan including increased risk of not recovering from their illness, worsening of their illness and from their illness or not following the treatment as it has been recommended. - Last Documented On 08/30/2012 4:54PM ; [facility] The patient is an adult that appeared competent and capable of understanding all the information given and to make decisions for herself. - Last Documented On 08/30/2012 4:54PM ; [facility] - Consultation with a psychologist /therapist of her choice strongly encouraged to work on the psychological issues causing or exacerbating her mental health concerns - Last Documented On 08/30/2012 4:54PM ; [facility] GOAL Stabilize anxiety level while increasing ability to function on a daily basis~~OBJECTIVES Report decreased frequency of anxiety symptoms Report decreased severity of anxiety symptoms Able to accomplish activities of daily living Learn and use at least one relaxation technique Implement exercise and diversion activities Increase daily social and vocational involvement Implement thought stopping technique to interrupt anxiety producing thoughts. . 1) I have discussed the risks, potential side efffects/adverse effects and alternatives with the patient and she understood these. 2) Despite these risks the patient choose to the above mentioned treatment plan for for the treatment of anxiety, depression, mood lablility and PTSD. Plan is to taper off of Xanax due to it's risk of causing rebound anxiety and depression. Take Prozac daily (missing multiple doses every week) and for now continue Seroquel for appetite, treatment resistent depression and anxiety 3) The patient has been advised to continue to follow up with her PCP for medical management of their general medical concerns. 4) The patient has contracted for safety agreeing to call 911/crisis line stat with any suicidal/homicidal I/P/I or any other serious concerns. 5) The patient has agreed to be adherent to the treatment plan and raise any concerns with it as soon as they come about. 6) Sleep hygiene techniques recommended. 7) Healthy diet and exercise as tolerated and directed by her primary care physician recommended. - Last Documented On 08/30/2012 4:54PM ; [facility] She was instructed that antidepressant medication can take up to 2-3 months to see the full effect with anxiety and on average 1-2 weeks before any effects are seen (occasionally as little as a few days and occasionally as long as a month). - Last Documented On 08/30/2012 4:54PM ; [facility] Increase physical activity as tolerated and directed/considered safe by PCP. - Last Documented On 08/30/2012 4:54PM ; [facility] Avoid daytime sleeping and isolating. - Last Documented On 08/30/2012 4:54PM ; [facility] Education and Decision Aids were provided during visit for: Discussed concerns about tob acco use Discussed in detatil the deleterious effects of nicotine on health in general and on mental health in particular Last Documented On 3 11:57AM ; [facility] Discussed concerns about tob acco use Last Documented On 3 11:57AM ; [facility] Discussed concerns about alc ohol use . I discussed with the patient the problems that regular and excessive alcohol use causes in terms of mental health including (but not limited to) causing or exacerbating depression and anxiety as well as the risks of brain damage, dementia and while mixed with psychotropics or with complications of non medically supervised withdrawal Last Documented On 3 11:57AM ; [facility] Discussed concerns about ill icit drug use I advised against the use of all illicit substances as they can cause/exacerbate all of their mental health symptoms and cause treatment failure or worse in combination with psychotropics Last Documented On 3 11:57AM ; [facility] Assessments Includes: Assessments from this encounter Findings - Cannabis dependence - continuous - Last Documented On 08/30/2012 4:54PM ; [facility] - Episodic mood disorders, Most likely major depressive disorder, recurrent - Last Documented On 08/30/2012 4:54PM ; [facility] - Atypical depressive disorder - Last Documented On 08/30/2012 4:54PM ; [facility] - Post-traumatic stress disorder - Last Documented On 08/30/2012 4:54PM ; [facility] - Anxiety disorder NOS Appears to be JAJA, rule out OCD - Last Documented On 08/30/2012 4:54PM ; [facility] - Somatoform disorder NOS rule out somatoform disorder causing health concerns - Last Documented On 08/30/2012 4:54PM ; [facility] - Psychiatric diagnosis or condition deferred on axis II - Last Documented On 08/30/2012 4:54PM ; [facility] - Psychiatric diagnosis or condition deferred on axis III -Rule out psychogenic basis for chronic emesis - Last Documented On 08/30/2012 4:54PM ; [facility] Instructions Includes: Instructions from this encounter Education and Decision Aids were provided during visit for: Discussed concerns about tob acco use Discussed in detatil the deleterious effects of nicotine on health in general and on mental health in particular Last Documented On 3 11:57AM ; [facility] Discussed concerns about tob acco use Last Documented On 3 11:57AM ; [facility] Discussed concerns about alc ohol use . I discussed with the patient the problems that regular and excessive alcohol use causes in terms of mental health including (but not limited to) causing or exacerbating depression and anxiety as well as the risks of brain damage, dementia and while mixed with psychotropics or with complications of non medically supervised withdrawal Last Documented On 3 11:57AM ; [facility] Discussed concerns about ill icit drug use I advised against the use of all illicit substances as they can cause/exacerbate all of their mental health symptoms and cause treatment failure or worse in combination with psychotropics Last Documented On 3 11:57AM ; [facility] Medical Equipment - Implanted Devices Includes: Current Devices No Medical Equipment Recorded Medications Includes: Medications discussed during this encounter and other current Medications Current Medications (continue as prescribed) Xanax 0.5 MG OR TABS 08/02/2012 Provider: MINDY LLANOS DO [facility] Diagnosis: Last Documented On 3 12:13PM By ANAY LLANOS DO ; [facility] PROzac 40 MG OR CAPS 08/02/2012 Provider: MINDY LOPESA Diagnosis: Last Documented On 3 12:11PM By ANAY LLANOS DO ; [facility] SEROquel 300 MG OR TABS 08/02/2012 Provider: JENNA TIRADO Diagnosis: Last Documented On 3 12:16PM By ANAY LLANOS DO ; [facility] Medications Administered Includes: Administered Medications from this encounter No Administered Medications Recorded Vital Signs Includes: Vital Signs from this encounter Vital Name 08/30/2012 11:30A Blood Pressure Sitting L 112/62 BP Cuff Size Regular Pulse Rate-Sitting (bpm) 68 Respiration Rate (breaths/min) 18 Height (in) 66.5 Weight (lb) 166 Body Mass Index (kg/m2) 26.4 Body Surface Area (m2) 1.9 Last Documented: On 08/30/2012 11:37A M ; [facility] Results Includes: Results discussed during this encounter No Results Recorded For Specified Dates History of Present Illness Includes: History of Present Illness from this encounter ELIE VALENCIA is a 27 year old female. - Energy level poor. - Appetite adequate. - She does not think she may be . - Progressively worsening. - Decreased concentrating ability. - Mood sad - Anxiety high - Sleep poor - Loss of interest in activities -Still using cannibis - No complaint of allergic reaction Today the patient states I lost your prescription for Xanax and called your office and then called Dr. Goldman and he refilled it for me but the pharmacy said that I was filling it too early, that I should not be out so they refused to fill it. I brought in the bottle to show them that they were all gone and they still wouldn't fill it. I asked her about her cannabis use (because we had talked so extensively about how it could cause treatment resistant depression and anxiety at her first visit and her need to stop it TOMY) and she told me I am smoking a little less ~ 2 times a week. I praised her for this and for starting psychotherapy. I asked her if she was having trouble stopping marijuana and she said No, I can stop it anytime I want. I then asked why she hadn't stopped it as noted previously we had a lengthy discussion on how it is causing her problems. She stated How am I going to handle my mother then (she also said this when discussing Xanax). We discussed my concerns with her breaking our treatment contract by having someone else refill her Xanax prescription and my concerns that the pharmacy was telling her that she was attempting to fill it early (? taking more than prescribed). I discussed that my policy is to work on getting people (slowly and safely only with a doctors supervision) off of controlled substances when they are using illegal drugs (and if there is any question about using more than prescribed) and started discussing the plan for a Xanax taper and she then became irate and asked Well then, what are you going to give me to replace it. How am I going to handle my mother? I counseled her on the need to get away from looking for a numbing agent/pill fix for dealing with my mother and the importance of psychotherapy/relaxation exercises (explained in detail at the last appointment), increasing physical activity/exercise as tolerated, avoiding substances that can induce depression or anxiety such as cannabis (and caffeine for anxiety and insomnia). She apparently did not like this answer as she told me You mean I have waited here for an hour for you to not help me? I advised her it was quite the opposite that I would be not helping her by continuing a drug that is not only causing her problems but she admits is not helping as she rated her anxiety as severe today on the HAM-A (which I purposely had her fill out herself). Again she did not like this answer and stated I can't believe you made me wait for this BS.. She reported no medication side effects. She reports no suicidal ideation, plan or intent. She reports no homicidal ideation, plan or intent. She denies hallucinations, delusions or any other form of psychosis. Social History Description Last Updated Smoking status : Current everyday smoker 08/30/2012 Last Documented On 3 4:54PM ; [facility] Procedures and Surgical History Includes: Procedures from this encounter Procedures Code Diagnosis Performing Provider Service L ocation Service Date follow-up visit Last Documented On 3 11:57AM ; [facility] psychiatric therapy for drug abuse Last Documented On 3 11:57AM ; [facility] psychiatric therapy for drug and alcohol abuse Cannabis currently, alcohol in high school per pt report Last Documented On 3 11:57AM ; [facility] brief solution-focused therapy with me Last Documented On 3 11:57AM ; [facility] Clinical summary provided to patient Last Documented On 3 11:57AM ; [facility] Medical History Includes: Medical History addressed during this encounter Description Last Updated No recent change in medication 3 Last Documented On 3 4:54PM ; [facility] Family History Includes: Family History addressed during this encounter Description Last Updated 1 children living 08/30/2012 Last Documented On 3 4:54PM ; [facility] Family history of alcoholism MOTHER 08/2012 Last Documented On 3 4:54PM ; [facility] Family history of cancer AUNTS ANDGRANDP ARENTS 08/30/2012 Last Documented On 3 4:54PM ; [facility] Family history of genetic disease GRANDF ATHER 08/30/2012 Last Documented On 3 4:54PM ; [facility] Family history of GI problems GRANDMOTHE R 08/30/2012 Last Documented On 3 4:54PM ; [facility] Family history of heart disease SISTER- GRANDPARENTS 08/30/2012 Last Documented On 3 4:54PM ; [facility] No family history of allergies 3 Last Documented On 3 4:54PM ; [facility] No family history of bleeding problems 0 08/30/2012 Last Documented On 3 4:54PM ; [facility] No family history of chronic disabling d iseases 08/30/2012 Last Documented On 3 4:54PM ; [facility] No family history of early deaths 2012 Last Documented On 3 4:54PM ; [facility] No family history of endocrine history 0 08/30/2012 Last Documented On 3 4:54PM ; [facility] No family history of mental illness (not retardation) 08/30/2012 Last Documented On 3 4:54PM ; [facility] No family history of pulmonary disease 0 08/30/2012 Last Documented On 3 4:54PM ; [facility] Review of Systems Includes: Review of Systems from this encounter No Review of Systems Recorded Mental Status Includes: Mental Status from this encounter Description The estimated intelligence w as normal No confusion was observed No delirium was noted No disorientation was observ ed A&O X 4 No illusions No depersonalization was not ed No derealization was noted No hallucinations Remote memory was not impair ed Recent memory was not impair ed Short term memory not impair ed An adequate fund of knowledg e regarding current events was demonstrated An adequate fund of knowledg e regarding vocabulary was demonstrated Immediate recall was normal Was able to correctly draw a clock and place the hands as instructed Thought processes were not i mpaired No thought disorder was note d No thought insertion was not ed No thought withdrawal was no nikhil No thought broadcast was not ed No thought control was noted Anxiety high Cognitive speed was not decr eased Cognitive flexibility was no t decreased No impairment of abstract re asoning Judgement was not impaired Insight was intact No reduced abstraction abili ty No ideas of reference No obsessions No paranoid ideations No delusions No suicidal tendency No suicidal ideation No suicidal plans No suicidal intent No homicidal tendencies No homicidal ideations No homicidal plans No homicidal intent Atypical depressive disorder Functional Status Includes: Functional Status from this encounter No Functional Status Recorded Physical Exam Includes: Physical Exam from this encounter Allergies Includes: Active Allergies Substance Type Reaction Onset Date Resolved Date Statu s Codeine and Related Allergy upset stomach 08/27/2008 Active Last Documented On 01/02/2023 1:31PM ; [facility] Note: Imported from external source. [facility] Allergy 10/13/2014 Active Last Documented On 01/02/2023 1:31PM ; [facility] Note: Imported from external source. Encounters Encounter Provider Location Date Check-In Time Check-Out Time Diagnosis ESTABLISHED PT. EXAM ANAY LLANOS DO [facility] 013 11:06AM 12:12PM Post-traumatic Stress Disorder,Anxie ty Disorder Nos,Atypical Depressive Disorder,Episo dic Mood Disorders,Zaki abis Dependence - Continuous,Oscar atoform Disorder Nos,Psychiatri c Diagnosis Or Condition Deferred on [place] II,Psychiatric Diagnosis Or Condition Deferred on [place] III Insurance Includes: Active Insurance Policies Plan Name Member ID Group # Subscriber Relationship Effect adolfo Dates 1 - MEDICARE PART A CLAIMS/NGS [id number] WILL Alarcon 2 - MEDICAID OF [place] MEDICARE SECOND [id number] WILL Alarcon Clinical Notes Includes: Clinical Notes from this encounter No Clinical Notes Recorded
--- OUTSIDE RECORDS SUMMARY | 2025-05-17 13:57 | XMS_ITS | Clinical Summary ---
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 11/2012 Last Documented On 3 5:31PM ; [facility] Family history of cancer AUNTS ANDGRANDP ARENTS 08/02/2012 Last Documented On 3 5:31PM ; [facility] Family history of genetic disease GRANDF ATHER 08/02/2012 Last Documented On 3 5:31PM ; [facility] Family history of GI problems GRANDMOTHE R 08/02/2012 Last Documented On 3 5:31PM ; [facility] Family history of heart disease SISTER- GRANDPARENTS 08/02/2012 Last Documented On 3 5:31PM ; [facility] No family history of allergies 3 Last Documented On 3 5:31PM ; [facility] No family history of bleeding problems 0 08/02/2012 Last Documented On 3 5:31PM ; [facility] No family history of chronic disabling d iseases 08/02/2012 Last Documented On 3 5:31PM ; [facility] No family history of early deaths 2012 Last Documented On 3 5:31PM ; [facility] No family history of endocrine history 0 08/02/2012 Last Documented On 3 5:31PM ; [facility] No family history of mental illness (not retardation) 08/02/2012 Last Documented On 3 5:31PM ; [facility] No family history of pulmonary disease 0 08/02/2012 Last Documented On 3 5:31PM ; [facility] 1 children living 08/02/2012 Last Documented On 3 5:31PM ; [facility] Review of Systems Includes: Review of Systems from this encounter Systemic: Preoccupied with current illness, feeling tired (fatigue), lethargy, recent weight loss five pounds in the last month. Dr. Goldman is evaluating me for this, and feeling overweight Reports ideal weight as 140 denies any history of binging/purging, restricting, overexercise, etc...I've never had an eating disorder. Head: No headache Since I was put on Seroquel. Endocrine: Polydipsia excessive fluid consumption because I throw up a lot. Dr. Goldman is evaluating me for this and we both think it is in my head. Neurological: No decrease in consciousness. Decreased concentrating ability. No confusion, no disorientation, no memory lapses or loss, no convulsions, no focal disturbances, and no difficulty with balance. Psychological: Feeling nervous, anxiety with persistent worry, with anticipation of misfortune to self or others, from anticipation of separation, about medical condition, about medical regimen, with unrealistic fear of disease, and with fear of dying. Anxiety without a fear of going crazy, without fear of losing self- control, and not with difficulty breathing. Anxiety with muscle tension or jitters, with stomach discomfort, with frequent urination or diarrhea, continuously for a month or more, interfering with social activities, interfering with work, relieved by checking, and relieved by a ritual. Anxiety not relieved by medication. Fear of possible disease. No euphoria. Emotional lability and depression moderate. No depression preceded by a high activity level. Pessimistic about the future, or brooding about the past. No feelings of hopelessness. Difficulty falling asleep and middle-night awakening. No decreased need for sleep. Loss of pleasure, decreased functioning ability, listless, and energy level is poor. No dangerous thoughts reported. Mental Status Includes: Mental Status from this [...] not ed No thought control was noted No memory lapses or loss Anxiety Anxiety with persistent worr y No persistent anxiety about recurrent panic attacks Anxiety with an anticipation of misfortune to self or others Anxiety from anticipation of separation Anxiety about medical condit ion Anxiety about medical regime n Anxiety with unrealistic fea r of disease Anxiety with a fear of dying Anxiety without a fear of go ing crazy Anxiety without a fear of lo sing self-control Anxiety with no difficulty b reathing Anxiety with muscle tension or jitters Anxiety with stomach discomf ort Continuous anxiety for a mon th or more Anxiety interferes with soci al activities Anxiety interferes with work Anxiety relieved by checking Anxiety relieved by a ritual Anxiety not relieved by medi cation No dangerous thoughts report ed Not wishing to be Not thinking about suicide Never Not having a suicide plan No stated intent to commit s uicide No previous suicide attempt I threatened it at 14 to get attention and was placed in the hospital No violent behavior No delusions No delusions that one is a p rominent figure No derealization No depersonalization No hallucinations Denies psy chotic symptoms Racing thoughts worries Cognitive speed was not decr eased Cognitive [...] Active Last Documented On 01/02/2023 1:31PM ; [facility] Note: Imported from external source. [facility] 10/13/2014 Active Last Documented On 01/02/2023 1:31PM ; [facility] Note: Imported from external source. Encounters Encounter Provider Location Date Check-In Time Check-Out Time Diagnosis NEW PATIENT VISIT ANAY LLANOS DO [facility] 08/03/19 13 9:57AM 12:22PM Snf Use of Other Medications,Po st-traumatic Stress Disorder,Anxie ty Disorder Nos,Atypical Depressive Disorder,Episo dic Mood Disorders,Zaki abis Dependence - Continuous,Oscar atoform Disorder Nos,Psychiatri c Diagnosis Or Condition Deferred on [place] II,Psychiatric Diagnosis Or Condition Deferred on [place] III,[place] IV Problems Primary Support Group,[place] IV Problems Social Environment,Ax is V Global Assess of Functioning (Gaf) Scale ___ (100-0) Insurance Includes: Active Insurance Policies Plan Name Member ID Group # Subscriber Relationship Effect adolfo Dates 1 - MEDICARE PART A CLAIMS/NGS [id number] WILL Alarcon 2 - MED[place] MED[place] SECOND [id number] WILL Alarcon Clinical Notes Includes: Clinical Notes from this encounter No Clinical Notes Recorded
--- OUTSIDE RECORDS SUMMARY | 2025-05-17 13:57 | XMS_ITS | Clinical Summary ---
Author Organization [facility] Address [address] [place] [address] Phone Care Team Providers Care Sap Basis Architect Name Role Phone ANAY BUCIO Primary Care Provider [phone] Reason for Visit and Chief Complaint NEW PATIENT VISIT Problems Includes: Problems addressed during this encounter and other active Problems All Visits Onset Date Resolved Date Provider Condition S tatus Anxiety Disorder Nos 08/30/2012 MINDY LOPESA Active Last Documented On 08/30/2012 11:58AM ; [facility] Note: Unchanged - Appears to be JAJA, rul e out OCD. 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 ANAY LOPESA Active Last Documented On 08/30/2012 11:58AM ; [facility] Note: Unchanged Cannabis Dependence - Continuous 08/30/2012 ANAY LOPESA Active Last Documented On 08/30/2012 11:58AM ; [facility] Note: Unchanged Episodic Mood Disorders 08/30/2012 ANAY LOPESA Active Last Documented On 08/30/2012 11:58AM ; [facility] Note: Unchanged - , Most likely major de pressive disorder, recurrent Shelter Use of Other Medications 08/30/2012 ANAY LLANOS DO ELIZABETHA Active Last Documented On 08/30/2012 11:58AM ; [facility] Note: Unchanged Post-traumatic Stress Disorder 08/30/2012 ANAY LLANOS DO FAPA Active Last Documented On 08/30/2012 11:58AM ; [facility] Note: Unchanged Plan of Treatment No Plan of Treatment Recorded Assessments Includes: Assessments from this encounter No Assessments Recorded Medical Equipment - Implanted Devices Includes: Current Devices No Medical Equipment Recorded Medications Includes: Medications discussed during this encounter and other current Medications Current Medications (continue as prescribed) Xanax 0.5 MG OR TABS 08/02/2012 Provider: MINDY LLANOS DO FAPA Diagnosis: Last Documented On 3 12:13PM By ANAY LLANOS DO ; [facility] 08/02/2012 Provider: MINDY LLANOS DO FAPA Diagnosis: Last Documented On 3 12:11PM By ANAY LLANOS DO ; [facility] Medical [facility] SEROquel 300 MG OR TABS 08/02/2012 Provider: JENNA LLANOS DO FAPA Diagnosis: Last Documented On 3 12:16PM By ANAY LLANOS DO ; [facility] Group S Medications Administered Includes: Administered Medications from this [...] Active Last Documented On 01/02/2023 1:31PM ; [facility] Note: Imported from external source. [facility] 10/13/2014 Active Last Documented On 01/02/2023 1:31PM ; [facility] Note: Imported from external source. Insurance Includes: Active Insurance Policies Plan Name Member ID Group # Subscriber Relationship Effect adolfo Dates 1 - MEDICARE PART A CLAIMS/NGS [id number] WILL Alarcon 2 - [place] MED[place] SECOND [id number] WILL Alarcon Clinical Notes Includes: Clinical Notes from this encounter No Clinical Notes Recorded
--- OUTSIDE RECORDS SUMMARY | 2025-05-17 13:57 | XMS_ITS ---
Care Plan - [facility] Created on: May 17, 2025 WILL PAEZ : 1985 Sex: Female Author Organization [facility] Address [address] [place] [address] Phone Care Team Providers Care Supervisor Nuclear Medicine Name Role Phone JOSIE TOWNSEND MD Primary Care Provider [phone] KRISTIAN Hill, JARON Berry [facility] [phone]
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
--- OUTSIDE RECORDS SUMMARY | 2025-05-17 13:57 | XMS_ITS ---
Care Plan - [facility] Medical [facility] Created on: May 17, 2025 WILL PAEZ : 1985 Sex: Female Author Organization [facility] Medical [facility] Address [address] [place] [phone] Phone Care Team Providers Care Electrical Instrument Repairer Name Role Phone ANAY BUCIO Primary Care Provider [phone]
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
--- OUTSIDE RECORDS SUMMARY | 2025-05-17 13:59 | XMS_ITS ---
Care Plan - [facility] Created on: May 17, 2025 WILL PAEZ : 1985 Sex: Female Author Organization [facility] Address [address] [place] [address] Phone Care Team Providers Care T[employer] Name Role Phone JOSIE TOWNSEND MD Primary Care Provider [phone] KRISTIAN Hill, JARON Berry [facility] [phone]
--- OUTSIDE RECORDS SUMMARY | 2025-05-17 13:59 | XMS_ITS | Clinical Summary ---
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 Active Last Documented On 4 12:07PM ; [facility] Low Back Pain 03/25/2013 JARON TOWNSEND M.D. A ctive Last Documented On 4 12:07PM ; [facility] Anxiety Disorder Nos 08/30/2012 JARON TOWNSEND M.D. Active Last Documented On 01/02/2023 2:44PM ; [facility] Note: Unchanged - Appears to be JAJA, rul e out OCD. Depression Chronic 08/27/2008 JARON Vega Active Last Documented On 4 12:06PM ; [facility] Plan of Treatment Pt to use prescription as ordered. Purpose of and use of medication discussed. . - Last Documented On 04/09/2022 1:09PM ; [facility] If symptoms worsen or do not improve call/return to office. - Last Documented On 04/09/2022 1:09PM ; [facility] Assessments Includes: Assessments from this encounter Findings - Acute pharyngitis [J02.9 - Acute pharyngitis, unspecified] - Last Documented On 04/09/2022 1:09PM ; [facility] Medical Equipment - Implanted Devices Includes: Current Devices No Medical Equipment Recorded Medications Includes: Medications discussed during this encounter and other current Medications New / Renewed during this visit HAYLIE LOPEZ on 04/09/2022 Amoxicillin 500 MG Oral Tablet Provider: HAYLIE LOPEZ 10 day supply: 20 tablet, 0 refills Diagnosis: Acute pharyngitis, unspecified One tablet twice a day Pharmacy: [address], [address] - Last Documented On 07/04/2022 2:35PM By JOSIE TOWNSEND MD ; [facility] Current Medications (continue as prescribed) Venlafaxine HCl ER 37.5 MG Oral Capsule Extended Release 24 Hour 11/02/2023 Provider: JARON TOWNSEND M.D. Diagnosis: Major depressive disorder, single episode, unspecified 1 CAPSULE EVERY MORNING NEED OFFICE VISIT. Last Documented On 11/02/2023 3:17PM By JOSIE TOWNSEND MD ; [facility] Amitriptyline HCl 50 MG Oral Tablet 11/02/2023 Provi jazmine: JARON TOWNSEND M.D. Diagnosis: Fibromyalgia TAKE 1 TABLET BY MOUTH AT BEDTIME NEED OFFICE SIT Last Documented On 11/02/2023 3:17PM By JOSIE TOWNSEND MD ; [facility] QUEtiapine Fumarate 100 MG Oral Tablet 10/02/2023 Provider: JARON TOWNSEND M.D. Diagnosis: Major depressive disorder, single episode, unspecified One tablet at bed timeNeed O ffice Visit. Last Documented On 10/02/2023 9:27AM By JOSIE TOWNSEND MD ; [facility] Medications Administered Includes: Administered Medications from this encounter No Administered Medications Recorded Vital Signs Includes: Vital Signs from this encounter Vital Name 04/09/2022 12:53P Pulse Rate-Sitting (bpm) 91 Temp-Oral (F) 99.2 Height (in) 65.75 Weight (lb) 178 Body Mass Index 28.9 Body Surface Area 1.9 Oxygen Saturation (%) 98 Last Documented: On 04/09/2022 12:57P M ; [facility] Results Includes: Results discussed during this encounter Group A strep [facility] Ordered by HAYLIE LOPEZ on 1 06/09/2021 Collected: Reported: 04/09/2022 13:01 Last Documented On 2 1:02PM ; [facility] Reviewed on 04/09/2022; All test results are final unless otherwise noted. Rapid Strep neg N (Normal) Last Documented On 2 1:02PM ; [facility] LOT # AND EXP. DATE [id number] N (Normal) Last Documented On 1:02PM ; [facility] INT. QC ACCEPTABLE? yes N (Normal) Last Documented On 1:02PM ; [facility] History of Present Illness Includes: History of [...] 04/09/2022 Last Documented On 2 1:09PM ; [facility] Smoking Status Unknown Procedures and Surgical History [...] topical products (lozenges/sprays/fercho les) as needed per x ray examiner of aircraft's recommendation. Recommended for pt/ family to call/return [...] illness Last Documented On 2 1:09PM ; [facility] patient to call if symptoms worsen or not improved in 3-5 days to update patient's status Last Documented On 2 1:09PM ; [facility] use of tobacco assessment performed 1000F Last Documented On 2 12:58PM ; [facility] review of medications documented 1160F Last Documented On 2 12:58PM ; [facility] Medical History Includes: Medical History addressed during [...] Active Last Documented On 01/02/2023 1:31PM ; [facility] Note: Imported from external source. [facility] Allergy 10/13/2014 Active Last Documented On 01/02/2023 1:31PM ; [facility] Note: Imported from external source. Encounters Encounter Provider Location Date Check-In Time Check-Out Time Diagnosis COVID SICK VISIT- ESTABLISHED PATIENT HAYLIE Franco EZEKIEL PLAN NURSE-C [facility] 04/09/20 12:48PM 1:01PM Pharyngitis Acute Insurance Includes: Active Insurance Policies Plan Name Member ID Group # Subscriber Relationship Effect adolfo Dates 1 - MEDICARE PART A CLAIMS/NGS [id number] WILL PAEZ Self 2 - [place] MED[place] SECOND [id number] WILL PAEZ Self Clinical Notes Includes: Clinical Notes from this encounter No Clinical Notes Recorded
--- OUTSIDE RECORDS SUMMARY | 2025-05-17 13:59 | XMS_ITS | Clinical Summary ---
Author Organization [facility] Address [address] [place] [address] Phone Care Team Providers Care Beach Lifeguard Name Role Phone KRISTIAN PERAZA, JOSIE Primary Care Provider [phone] KRISTIAN Hill, JARON Wall [phone] Reason for Visit and Chief Complaint CHECK UP Problems Includes: Problems addressed during this encounter and other active Problems All Visits Onset Date Resolved Date Provider Condition S tatus Hyperlipidemia 07/08/2016 JARON DIEGO M.D. Active Last Documented On 07/08/2016 2:16PM ; [facility] Note: Unchanged Fibromyalgia 07/25/2013 JARON TOWNSEND M.D. Active Last Documented On 4 12:07PM ; [facility] Low Back Pain 03/25/2013 JARON TOWNSEND M.D. A ctive Last Documented On 4 12:07PM ; [facility] Anxiety Disorder Nos 08/30/2012 JARON TOWNSEND M.D. Active Last Documented On 01/02/2023 2:44PM ; [facility] Note: Unchanged - Appears to be JAJA, rul e out OCD. Depression Chronic 08/27/2008 JARON Vega Active Last Documented On 4 12:06PM ; [facility] Plan of Treatment Pending Tests Order Diagnosis Results Due Ordering Solo bhakta Lab THYROID PANEL (TSH & FREE T4) 07/01/23 JARON TOWNSEND M.D. Last Documented On 3 2:46PM ; [facility] Lab LIPID PANEL 07/01/23 JARON DIEGO M.D. Last Documented On 3 2:46PM ; [facility] Lab CMP 07/01/23 JARON Franco M.D. Last Documented On 3 2:46PM ; [facility] Lab CBC WITH DIFF 07/01/23 JARON WALL M.D. Last Documented On 3 2:46PM ; [facility] Assessments Includes: Assessments from this encounter No [...] 11/02/2023 3:17PM By JOSIE TOWNSEND MD ; [facility] Amitriptyline HCl 50 MG Oral Tablet 11/02/2023 Provi jazmine: JARON TOWNSEND M.D. Diagnosis: Fibromyalgia TAKE 1 TABLET BY MOUTH AT BEDTIME NEED OFFICE SIT Last Documented On 11/02/2023 3:17PM By JOSIE TOWNSEND MD ; [facility] QUEtiapine Fumarate 100 MG Oral Tablet 10/02/2023 Provider: JARON TOWNSEND M.D. Diagnosis: Major depressive disorder, single episode, unspecified One tablet at bed timeNeed O ffice Visit. Last Documented On 10/02/2023 9:27AM By JOSIE TOWNSEND MD ; [facility] Medications Administered Includes: Administered Medications from this [...] Dates 1 - MEDICARE PART A CLAIMS/NGS [id number] WILL Alarcon 2 - [place] MED[place] SECOND [id number] WILL Alarcon Clinical Notes Includes: Clinical Notes from this encounter No Clinical Notes Recorded
--- OUTSIDE RECORDS SUMMARY | 2025-05-17 14:00 | XMS_ITS | Clinical Summary ---
Author Organization [facility] Address [address] [place] [address] Phone Care Team Providers Care Call Specialist Name Role Phone ANAY BUCIO Primary Care Provider [phone] Reason for Visit and Chief Complaint NEW PATIENT VISIT Problems Includes: Problems addressed during this encounter and other active Problems All Visits Onset Date Resolved Date Provider Condition S tatus Anxiety Disorder Nos 08/30/2012 MINDY LOPESA Active Last Documented On 08/30/2012 11:58AM ; [facility] Note: Unchanged - Appears to be JAJA, rul e out OCD. 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 Note: Unchanged Cannabis Dependence - Continuous 08/30/2012 ANAY LOPESA Active Last Documented On 08/30/2012 11:58AM ; [facility] Note: Unchanged Episodic Mood Disorders 08/30/2012 ANAY LOPESA Active Last Documented On 08/30/2012 11:58AM ; [facility] Note: Unchanged - , Most likely major de pressive disorder, recurrent Residential Use of Other Medications 08/30/2012 ANAY LLANOS DO ELIZABETHA Active Last Documented On 08/30/2012 11:58AM ; [facility] Note: Unchanged Post-traumatic Stress Disorder 08/30/2012 ANAY LLANOS DO FAPA Active Last Documented On 08/30/2012 11:58AM ; [facility] Note: Unchanged Plan of Treatment No Plan [...] 3 12:13PM By ANAY LLANOS DO ; [facility] 40 MG OR CAPS 08/02/2012 Provider: MINDY LLANOS DO FAPA Diagnosis: Last Documented On 3 12:11PM By ANAY LLANOS DO ; [facility] Medical [facility] MHS SEROquel 300 MG OR TABS 08/02/2012 Provider: JENNA LLANOS DO FAPA Diagnosis: Last Documented On 3 12:16PM By ANAY LLANOS DO ; [facility] Medications Administered Includes: Administered [...] Active Last Documented On 01/02/2023 1:31PM ; [facility] Note: Imported from external source. [facility] Allergy 10/13/2014 Active Last Documented On 01/02/2023 1:31PM ; [facility] Note: Imported from external source. Insurance Includes: Active Insurance Policies Plan Name Member ID Group # Subscriber Relationship Effect adolfo Dates 1 - MEDICARE PART A CLAIMS/NGS [id number] WILL Alarcon 2 - [place] MED[place] SECOND [id number] WILL Alarcon Clinical Notes Includes: Clinical Notes from this encounter No Clinical Notes Recorded
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
--- OUTSIDE RECORDS SUMMARY | 2025-05-17 14:00 | XMS_ITS ---
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 Reques t Consultation By Psychiatrist 10/13/08 2 WK CK-UP JARON TOWNSEND M.D. Request Consultation By Mental Health Counselor Problems Includes: Active, inactive, and resolved Problems All Visits Onset Date Resolved Date Provider Condition S tatus Hyperlipidemia 07/08/2016 JARON DIEGO M.D. Active Last Documented On 07/08/2016 2:16PM ; [facility] Note: Unchanged Fibromyalgia 07/25/2013 JARON TOWNSEND M.D. Active Last Documented On 4 12:07PM ; [facility] Low Back Pain 03/25/2013 JARON TOWNSEND M.D. A ctive Last Documented On 4 12:07PM ; [facility] Irritable Bowel Syndrome 01/21/2013 JARON WALL M.D. Inactive Last Documented On 3 1:50PM ; [facility] TENSION HEADACHE NOS 01/21/2013 JARON TOWNSEND M.D. Inactive Last Documented On 5 2:20PM ; [facility] Anxiety Disorder Nos 08/30/2012 JARON TOWNSEND M.D. Active Last Documented On 01/02/2023 2:44PM ; [facility] Note: Unchanged - Appears to be JAJA, rul e out OCD. 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 JARON Kristi TOWNSEND M.D. Inactive Last Documented On 01/02/2023 1:46PM ; [facility] Note: Unchanged Cannabis Dependence - Continuous 08/30/2012 JARON S KRISTIAN M.D. Inactive Last Documented On 01/02/2023 1:50PM ; [facility] Note: Unchanged Episodic Mood Disorders 08/30/2012 JARON S ARINA TREJO M.D. 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 Inactive Last Documented On 01/02/2023 1:44PM ; [facility] Note: Unchanged Post-traumatic Stress Disorder 08/30/2012 JARON S KRISTIAN M.D. Inactive Last Documented On 01/02/2023 1:45PM ; [facility] Note: Unchanged ATTN DEFICIT W HYPERACT 03/06/2012 JARON S DI ZON M.D. Inactive Last Documented On 5 2:20PM ; [facility] Anxiety Disorder Nos 08/27/2008 JARON Kristi TOWNSEND M.D. Inactive Last Documented On 3 1:44PM ; [facility] Depression Chronic 08/27/2008 JARON Kristi TOWNSEND M .D. Active Last Documented On 4 12:06PM ; [facility] Insomnia NOS 08/27/2008 JARON S KRISTIAN M.D. In active Last Documented On 0 11:56AM ; [facility] Plan of Treatment Findings Encounter Date Continue current medication CHECK UP with MIKOCI O Kristi Rogers.Vicki 01/02/2023 Last Documented On 3 2:48PM ; [facility] Ordered patient to call if fany funk develops CHECK UP with JARONDevonte Rogers.Vicki 01/02/2023 Last Documented On 3 2:48PM ; [facility] Ordered return to the clinic if condition worsens or new symptoms arise CHECK UP with JARON TOWNSEND M.D. 01/02/2023 Last Documented On 3 2:48PM ; [facility] Continue current medication CHECK UP with LEONCI O S KRISTIAN M.D. 07/04/2022 Last Documented On 3 2:51PM ; [facility] Ordered patient to call if p roblem develops CHECK UP with JARON S KRISTIAN M.D. 07/04/2022 Last Documented On 3 2:51PM ; [facility] Ordered return to the clinic if condition worsens or new symptoms arise CHECK UP with JARON S KRISTIAN M.D. 07/04/2022 Last Documented On 3 2:51PM ; [facility] Pt to use prescription as or dered. Purpose of and use of medication discussed. COVID SICK VISIT- ESTABLISHED PATIENT with HAYLIE FALCON SPACER TYPE BAR AND SEGMENT-C 04/09/2022 Last Documented On 2 1:09PM ; [facility] Continue current medication CHECK UP with LEONCI O S KRISTIAN M.D. 05/25/2021 Last Documented On 1 10:41AM ; [facility] Ordered patient to call if p roblem develops CHECK UP with JARON S KRISTIAN M.D. 05/25/2021 Last Documented On 1 10:41AM ; [facility] Ordered return to the clinic if condition worsens or new symptoms arise CHECK UP with JARON S KRISTIAN M.D. 05/25/2021 Last Documented On 1 10:41AM ; [facility] Continue current medication CHECK UP with LEONCI O S KRISTIAN M.D. 10/23/2020 Last Documented On 1 10:12AM ; [facility] Ordered patient to call if p roblem develops CHECK UP with JARON S KRISTIAN M.D. 10/23/2020 Last Documented On 1 10:12AM ; [facility] Ordered return to the clinic if condition worsens or new symptoms arise CHECK UP with JARON S KRISTIAN M.D. 10/23/2020 Last Documented On 1 10:12AM ; [facility] Continue current medication CHECK UP with LEONCI O S KRISTIAN M.D. 08/24/2020 Last Documented On 1 2:04PM ; [facility] Ordered patient to call if p roblem develops CHECK UP with JARON S KRISTIAN M.D. 08/24/2020 Last Documented On 1 2:04PM ; [facility] Ordered return to the clinic if condition worsens or new symptoms arise CHECK UP with JARON S KRISTIAN M.D. 08/24/2020 Last Documented On 1 2:04PM ; [facility] Plan - start medication Add Effexor at am CHECK UP with JARON S KRISTIAN Rogers.Vicki 08/24/2020 Last Documented On 1 2:04PM ; [facility] Continue current medication duloxetine at night CHECK UP with JARON S KRISTIAN Rogers.Vicki 06/25/2020 Last Documented On 1 2:09PM ; [facility] Ordered patient to call if p roblem develops CHECK UP with JARON S KRISTIAN M.D. 06/25/2020 Last Documented On 1 2:09PM ; [facility] Ordered return to the clinic if condition worsens or new symptoms arise CHECK UP with JARON S KRISTIAN M.D. 06/25/2020 Last Documented On 1 2:09PM ; [facility] Ordered patient to call if p roblem develops MED CHECK with JARON S KRISTIAN M.D. 05/27/2020 Last Documented On 0 12:07PM ; [facility] Ordered return to the clinic if condition worsens or new symptoms arise MED CHECK with JARON S KRISTIAN M.D. 05/27/2020 Last Documented On 0 12:07PM ; [facility] Plan - start medication MED CHECK with JARON S KRISTIAN M.D. 05/27/2020 Last Documented On 0 12:07PM ; [facility] Ordered patient to call if p roblem develops MED CHECK with JARON S KRISTIAN M.D. 10/29/2019 Last Documented On 0 11:10AM ; [facility] Ordered return to the clinic if condition worsens or new symptoms arise MED CHECK with JARON TOWNSEND M.D. 10/29/2019 Last Documented On 0 11:10AM ; [facility] Plan - start medication tria l of Lyrica at 50 mg 2 x a day MED CHECK with JARON TOWNSEND M.D. 10/29/2019 Last Documented On 0 11:10AM ; [facility] Continue current medication 3 MONTH CHECK with L EONCRIOS TOWNSEND M.D. 03/29/2019 Last Documented On 9 11:12AM ; [facility] Ordered patient to call if p roblem develops 3 MONTH CHECK with JARON TOWNSEND M.D. 03/29/2019 Last Documented On 9 11:12AM ; [facility] Ordered return to the clinic if condition worsens or new symptoms arise 3 MONTH CHECK with JARON TOWNSEND M.D. 03/29/2019 Last Documented On 9 11:12AM ; [facility] Plan - start medication add wellbutrin at 100 mg 2 x a day 3 MONTH CHECK with JARON TOWNSEND M.D. 03/29/2019 Last Documented On 9 11:12AM ; [facility] Continue current medication ibuprofen for pain PROBLEM VISIT with JARON TOWNSEND M.D. 12/27/2018 Last Documented On 9 11:17AM ; [facility] Ordered patient to call if p roblem develops PROBLEM VISIT with JARON TOWNSEND M.D. 12/27/2018 Last Documented On 9 11:17AM ; [facility] Ordered return to the clinic if condition worsens or new symptoms arise PROBLEM VISIT with JARON TOWNSEND M.D. 12/27/2018 Last Documented On 9 11:17AM ; [facility] Plan - start medication ly tidine for Ibuprofen PROBLEM VISIT with JARON TOWNSEND M.D. 12/27/2018 Last Documented On 9 11:17AM ; [facility] Continue current medication MED CHECK with LEONC IO Kristi TOWNSEND M.DLeyda 09/27/2018 Last Documented On 9 11:30AM ; [facility] Ordered patient to call if p rodlem develops MED CHECK with JARON Kristi TOWNSEND M.DLeyda 09/27/2018 Last Documented On 9 11:30AM ; [facility] Ordered return to the clinic if condition worsens or new symptoms arise MED CHECK with JARON Kristi TOWNSEND M.D. 09/27/2018 Last Documented On 9 11:30AM ; [facility] Ordered patient to call if p roblem develops SICK VISIT with JARONADRIAN TOWNSEND M.DLeyda 05/11/2018 Last Documented On 8 4:51PM ; [facility] Ordered return to the clinic if condition worsens or new symptoms arise SICK VISIT with JARON TOWNSEND M.Vicki 05/11/2018 Last Documented On 8 4:51PM ; [facility] Ordered patient to call if p roblem develops MED CHECK with JARON Kristi TOWNSEND M.D. 12/19/2017 Last Documented On 8 5:17PM ; [facility] Ordered return to the clinic if condition worsens or new symptoms arise MED CHECK with JARON TOWNSEND M.DLeyda 12/19/2017 Last Documented On 8 5:17PM ; [facility] Plan - start medication MED CHECK with JARON TOWNSEND M.Vicki 12/19/2017 Last Documented On 8 5:17PM ; [facility] Continue current medication seroquel at 100 mg at night amitriptyline at 50 mg at night MED CHECK with JARON TOWNSEND M.DLeyda 10/09/2017 Last Documented On 8 3:50PM ; [facility] Ordered patient to call if p roblem develops MED CHECK with JARON S KRISTIAN M.DLeyda 10/09/2017 Last Documented On 8 3:50PM ; [facility] Ordered return to the clinic if condition worsens or new symptoms arise MED CHECK with JARON S KRISTIAN M.DLeyda 10/09/2017 Last Documented On 8 3:50PM ; [facility] Continue current medication MED CHECK with LEONC IO S KRISTIAN M.DLeyda 11/11/2016 Last Documented On 7 4:13PM ; [facility] Ordered patient to call if p roblem develops MED CHECK with JARON S KRISTIAN M.D. 11/11/2016 Last Documented On 7 4:13PM ; [facility] Ordered return to the clinic if condition worsens or new symptoms arise MED CHECK with JARON S KRISTIAN M.DLeyda 11/11/2016 Last Documented On 7 4:13PM ; [facility] Continue current medication MED CHECK with LEONC IO S KRISTIAN M.DLeyda 07/08/2016 Last Documented On 7 2:17PM ; [facility] Ordered patient to call if p roblem develops MED CHECK with JARON S KRISTIAN M.DLeyda 07/08/2016 Last Documented On 7 2:17PM ; [facility] Ordered return to the clinic if condition worsens or new symptoms arise MED CHECK with JARON S KRISTIAN M.DLeyda 07/08/2016 Last Documented On 7 2:17PM ; [facility] Continue current medication 3 MONTH CHECK with L EONCIO S KRISTIAN M.DLeyda 03/30/2016 Last Documented On 6 4:14PM ; [facility] Ordered patient to call if p roblem develops 3 MONTH CHECK with JARON S KRISTIAN M.D. 03/30/2016 Last Documented On 6 4:14PM ; [facility] Ordered return to the clinic if condition worsens or new symptoms arise 3 MONTH CHECK with JARON S KRISTIAN M.D. 03/30/2016 Last Documented On 6 4:14PM ; [facility] Continue current medication 3 MONTH CHECK with L EONCIO S KRISTIAN M.DLeyda 12/25/2015 Last Documented On 6 2:31PM ; [facility] Ordered patient to call if p roblem develops 3 MONTH CHECK with JARON TOWNSEND M.D. 12/25/2015 Last Documented On 6 2:31PM ; [facility] Ordered return to the clinic if condition worsens or new symptoms arise 3 MONTH CHECK with JARONDevonte TOWNSEND M.D. 12/25/2015 Last Documented On 6 2:31PM ; [facility] Ordered patient to call if p roblem develops 1 MONTH CHECK with JARON TOWNSEND M.D. 10/13/2015 Last Documented On 6 10:35AM ; [facility] Ordered return to the clinic if condition worsens or new symptoms arise 1 MONTH CHECK with JARON TOWNSEND M.D. 10/13/2015 Last Documented On 6 10:35AM ; [facility] Plan - start medication restart Prozac 1 MONTH CHECK with JARON TOWNSEND M.D. 10/13/2015 Last Documented On 6 10:35AM ; [facility] Ordered patient to call if p roblem develops 3 MONTH CHECK with JARON TOWNSEND M.D. 08/31/2015 Last Documented On 6 11:22AM ; [facility] Ordered return to the clinic if condition worsens or new symptoms arise 3 MONTH CHECK with JARON TOWNSEND M.D. 08/31/2015 Last Documented On 6 11:22AM ; [facility] Plan - start medication add wellbutrin, 100 mg, 2 x a day 3 MONTH CHECK with JARON TOWNSEND M.D. 08/31/2015 Last Documented On 6 11:22AM ; [facility] Continue current medication CHECK UP with VANESSA O Kristi TOWNSEND M.D. 05/01/2015 Last Documented On 5 3:22PM ; [facility] Ordered patient to call if p roblem develops CHECK UP with JARONDevonte TOWNSEND M.D. 05/01/2015 Last Documented On 5 3:22PM ; [facility] Ordered return to the clinic if condition worsens or new symptoms arise CHECK UP with JARON TOWNSEND M.D. 05/01/2015 Last Documented On 5 3:22PM ; [facility] Continue current medication ibuprofen as needed PROBLEM VISIT with JARON TOWNSEND M.D. 02/16/2015 Last Documented On 5 2:24PM ; [facility] Ordered an X-ray ordered in outside facility L clavicle PROBLEM VISIT with JARON TOWNSEND M.D. 02/16/2015 Last Documented On 5 2:24PM ; [facility] Ordered patient to call if p roblem develops PROBLEM VISIT with JARON TOWNSEND M.D. 02/16/2015 Last Documented On 5 2:24PM ; [facility] Ordered return to the clinic if condition worsens or new symptoms arise PROBLEM VISIT with JARON TOWNSEND M.D. 02/16/2015 Last Documented On 5 2:24PM ; [facility] Advice appropriate Dietary r egimen. adviced low carbohydrate/ low starch diet MED CHECK with JARON TOWNSEND M.D. 01/26/2015 Last Documented On 5 11:41AM ; [facility] Continue current medication MED CHECK with MIKOC RIOS TOWNSEND M.D. 01/26/2015 Last Documented On 5 11:41AM ; [facility] Ordered patient to call if p roblem develops MED CHECK with JARON TOWNSEND M.D. 01/26/2015 Last Documented On 5 11:41AM ; [facility] Ordered return to the clinic if condition worsens or new symptoms arise MED CHECK with JARON Kristi Rogers.Vicki 01/26/2015 Last Documented On 5 11:41AM ; [facility] Continue current medication MED CHECK with LEONC IO Kristi Rogers.Vicki 10/13/2014 Last Documented On 5 5:12PM ; [facility] Ordered patient to call if p roblem develops MED CHECK with JARON Kristi TOWNSEND M.D. 10/13/2014 Last Documented On 5 5:12PM ; [facility] Ordered return to the clinic if condition worsens or new symptoms arise MED CHECK with JARON TOWNSEND M.D. 10/13/2014 Last Documented On 5 5:12PM ; [facility] Modify drug dosage increase amitriptyline to 50 mg at night MED CHECK with JARON TOWNSEND M.D. 08/05/2014 Last Documented On 5 2:23PM ; [facility] Ordered patient to call if p roblem develops MED CHECK with JARON TOWNSEND M.D. 08/05/2014 Last Documented On 5 2:23PM ; [facility] Ordered return to the clinic if condition worsens or new symptoms arise MED CHECK with JARON TOWNSEND M.D. 08/05/2014 Last Documented On 5 2:23PM ; [facility] Continue current medication 1 MONTH CHECK with Fernando TOWNSEND M.D. 04/17/2014 Last Documented On 4 1:49PM ; [facility] Ordered patient to call if p roblem develops 1 MONTH CHECK with JARON TOWNSEND M.D. 04/17/2014 Last Documented On 4 1:49PM ; [facility] Ordered return to the clinic if condition worsens or new symptoms arise 1 MONTH CHECK with JARON TOWNSEND M.D. 04/17/2014 Last Documented On 4 1:49PM ; [facility] Modify drug dosage xanax 0.5 TID on next refill PROBLEM VISIT with JARON TOWNSEND M.D. 03/18/2014 Last Documented On 4 2:52PM ; [facility] Ordered patient to call if p roblem develops PROBLEM VISIT with JARONDevonte TOWNSEND M.D. 03/18/2014 Last Documented On 4 2:52PM ; [facility] Ordered return to the clinic if condition worsens or new symptoms arise PROBLEM VISIT with JARON TOWNSEND M.D. 03/18/2014 Last Documented On 4 2:52PM ; [facility] Continue current medication 3 MONTH CHECK with L ENEDINANCRIOS ZhangD. 11/27/2013 Last Documented On 4 12:04PM ; [facility] Ordered a chest x-ray ordere d in outside facility 3 MONTH CHECK with JARON TOWNSEND M.D. 11/27/2013 Last Documented On 4 12:04PM ; [facility] Ordered an X-ray ordered in outside facility T Spine X ray 3 MONTH CHECK with JARON TOWNSEND M.D. 11/27/2013 Last Documented On 4 12:04PM ; [facility] Ordered patient to call if p roblem develops 3 MONTH CHECK with JARON TOWNSEND M.D. 11/27/2013 Last Documented On 4 12:04PM ; [facility] Ordered return to the clinic if condition worsens or new symptoms arise 3 MONTH CHECK with JARON TOWNSEND M.D. 11/27/2013 Last Documented On 4 12:04PM ; [facility] Continue current medication 2 MONTH CHECK with Fernando TOWNSEND M.D. 09/23/2013 Last Documented On 4 12:09PM ; [facility] Ordered patient to call if p roblem develops 2 MONTH CHECK with JARON TOWNSEND M.D. 09/23/2013 Last Documented On 4 12:09PM ; [facility] Ordered return to the clinic if condition worsens or new symptoms arise 2 MONTH CHECK with JARON TOWNSEND M.D. 09/23/2013 Last Documented On 4 12:09PM ; [facility] Plan - start medication scot ctone as needed for swelling 2 MONTH CHECK with JARON TOWNSEND M.D. 09/23/2013 Last Documented On 4 12:09PM ; [facility] Advice appropriate Dietary regimen 1 MONTH CHECK with JARON TOWNSEND M.D. 07/25/2013 Last Documented On 4 2:43PM ; [facility] Continue current medication 1 MONTH CHECK with Fernando TOWNSEND M.D. 07/25/2013 Last Documented On 4 2:43PM ; [facility] Ordered patient to call if p roblem develops 1 MONTH CHECK with JARONDevonte TOWNSEND M.DLeyda 07/25/2013 Last Documented On 4 2:43PM ; [facility] Ordered return to the clinic if condition worsens or new symptoms arise 1 MONTH CHECK with JARON Kristi TOWNSEND M.DLeyda 07/25/2013 Last Documented On 4 2:43PM ; [facility] Advice appropriate Dietary regimen 2 MONTH CHECK with JARON Rogers.DLeyda 06/27/2013 Last Documented On 4 2:14PM ; [facility] Patient advice on weight los s techniques 2 MONTH CHECK with JARON Rogers.Vicki 06/27/2013 Last Documented On 4 2:14PM ; [facility] Ordered patient to call if p roblem develops 2 MONTH CHECK with JARON Kristi Rogers.DLeyda 06/27/2013 Last Documented On 4 2:14PM ; [facility] Ordered return to the clinic if condition worsens or new symptoms arise 2 MONTH CHECK with JARON TOWNSEND M.DLeyda 06/27/2013 Last Documented On 4 2:14PM ; [facility] Plan - start medication bakari riptyline for myalgias 2 MONTH CHECK with JARON TOWNSEND M.DLeyda 06/27/2013 Last Documented On 4 2:14PM ; [facility] Continue current medication 1 MONTH CHECK with L EONCIO S KRISTIAN M.DLeyda 04/23/2013 Last Documented On 3 2:06PM ; [facility] Ordered patient to call if p roblem develops 1 MONTH CHECK with JARON Kristi TOWNSEND M.DLeyda 04/23/2013 Last Documented On 3 2:06PM ; [facility] Ordered return to the clinic if condition worsens or new symptoms arise 1 MONTH CHECK with JARON S KRISTIAN M.DLeyda 04/23/2013 Last Documented On 3 2:06PM ; [facility] Continue current medication 1 MONTH CHECK with L EONCIO S KRISTIANMAYA Hill 03/25/2013 Last Documented On 3 11:36AM ; [facility] Ordered patient to call if p roblem develops 1 MONTH CHECK with JARON TOWNSEND M.D. 03/25/2013 Last Documented On 3 11:36AM ; [facility] Ordered return to the clinic if condition worsens or new symptoms arise 1 MONTH CHECK with JARON TOWSNEND M.D. 03/25/2013 Last Documented On 3 11:36AM ; [facility] Continue current medication Ibuprofen 800 QID 2 WK CK-UP with JARON Rogers.Vicki 02/22/2013 Last Documented On 3 1:48PM ; [facility] Ordered patient to call if p roblem develops 2 WK CK-UP with JARON Rogers.Vicki 02/22/2013 Last Documented On 3 1:48PM ; [facility] Ordered return to the clinic if condition worsens or new symptoms arise 2 WK CK-UP with JARON TOWNSEND M.D. 02/22/2013 Last Documented On 3 1:48PM ; [facility] Ordered patient to call if p roblem develops EMERGENCY ROOM FOLLOW UP with JARON TOWNSEND M.D. 02/08/2013 Last Documented On 3 2:04PM ; [facility] Ordered return to the clinic if condition worsens or new symptoms arise EMERGENCY ROOM FOLLOW UP with JARON TOWNSEND M.D. 02/08/2013 Last Documented On 3 2:04PM ; [facility] Advice appropriate Dietary regimen 2 MONTH CHECK with JARON TOWNSEND M.D. 01/07/2013 Last Documented On 3 10:31AM ; [facility] Advice to have regular exerc ise regimen 2 MONTH CHECK with JARON TOWNSEND M.D. 01/07/2013 Last Documented On 3 10:31AM ; [facility] Ordered patient to call if p roblem develops 2 MONTH CHECK with JARON TOWNSEND M.D. 01/07/2013 Last Documented On 3 10:31AM ; [facility] Ordered return to the clinic if condition worsens or new symptoms arise 2 MONTH CHECK with JARON TOWNSEND M.D. 01/07/2013 Last Documented On 3 10:31AM ; [facility] Continue current medication Continue Prozac and Xanax 2 WK CK-UP with JARON TOWNSEND M.D. 07/09/2012 Last Documented On 3 12:04PM ; [facility] Modify drug dosage Inc Seroq uel to 200 mg a day 2 WK CK-UP with JARON TOWNSEND M.D. 07/09/2012 Last Documented On 3 12:04PM ; [facility] Plan - stop medication Everman 2 WK CK-UP with Fernando TOWNSEND M.D. 07/09/2012 Last Documented On 3 12:04PM ; [facility] Ordered return to the clinic if condition worsens or new symptoms arise MED CHECK with JARON TOWNSEND M.D. 06/25/2012 Last Documented On 3 5:16PM ; [facility] Plan - start medication add Everman 300 mg 1 tab 2 x a day MED CHECK with JARON TOWNSEND M.D. 06/25/2012 Last Documented On 3 5:16PM ; [facility] Ordered follow-up visit as n eeded with an office visit. SICK VISIT with MELANIE WHIPPLE PA-C 01/04/2012 Last Documented On 2 10:23AM ; [facility] Ordered patient to call if fany funk develops SICK VISIT with MELANIE WHIPPLE PA-C 01/04/2012 Last Documented On 2 10:23AM ; [facility] Advice appropriate Dietary regimen MED CHECK wit h JARON TOWNSEND M.D. 07/25/2011 Last Documented On 2 2:25PM ; [facility] Advice to have regular exerc ise regimen MED CHECK with JARON TOWNSEND M.D. 07/25/2011 Last Documented On 2 2:25PM ; [facility] Advice appropriate Dietary regimen 1 MONTH CHECK with JARON TOWNSEND M.D. 07/12/2010 Last Documented On 1 10:53AM ; [facility] Advice to have regular exerc ise regimen 1 MONTH CHECK with JARON TOWNSEND M.D. 07/12/2010 Last Documented On 1 10:53AM ; [facility] Requested consultation with a psychiatrist PROBLEM VISIT with JARON TOWNSEND M.D. 01/12/2009 Last Documented On 9 5:40PM ; [facility] Requested consultation with a mental health counselor 2 WK CK-UP with JARON TOWNSEND M.D. 10/13/2008 Last Documented On 9 11:38AM ; [facility] Pending Tests Order Diagnosis Results Due Ordering [facility] THYROID PANEL (TSH & FREE T4) 07/01/23 JARON TOWNSEND M.D. Last Documented On 3 2:46PM ; [facility] Lab LIPID PANEL 07/01/23 JARON CERON ON M.Vicki Last Documented On 3 2:46PM ; [facility] Lab CMP 07/01/23 JARON Franco M.D. Last Documented On 3 2:46PM ; [facility] Lab CBC WITH DIFF 07/01/23 JARON WALL M.D. Last Documented On 3 2:46PM ; [facility] Referrals To Diagnosis Psychiatrist ELISA MOE MD DEPRESSIVE DIS ORDER NEC Note: At [place] Last Documented On 9 10:47AM ; [facility] Instructions to patient Intervention and counseling on cessation of tobacco use : Patient recieved smoking cessation handout Last Documented On 1 9:48AM ; [facility] Education and Decision Aids were provided during visit for: Discussed concerns about tob acco use Last Documented On 2 10:20AM ; [facility] Patient education about anti biotics: need to finish even if feeling better Last Documented On 2 10:21AM ; [facility] Assessments Includes: Assessments for all patient encounters Findings Encounter Date Anxiety disorder NOS CHECK UP with JARON SANTAZ ON M.D. 01/02/2023 Last Documented On 3 2:48PM ; [facility] Chronic depression CHECK UP with JARON S KRISTIAN M.D. 01/02/2023 Last Documented On 3 2:48PM ; [facility] Fibromyalgia CHECK UP with JARON S KRISTINA M. D. 01/02/2023 Last Documented On 3 2:48PM ; [facility] Hyperlipidemia CHECK UP with JARON S KRISTIAN M. D. 01/02/2023 Last Documented On 3 2:48PM ; [facility] Low back pain CHECK UP with JARON S KRISTIAN M. D. 01/02/2023 Last Documented On 3 2:48PM ; [facility] Anxiety disorder NOS CHECK UP with JARON S DIZ ON M.D. 07/04/2022 Last Documented On 3 2:51PM ; [facility] Chronic depression CHECK UP with JARON S KRISTIAN M.D. 07/04/2022 Last Documented On 3 2:51PM ; [facility] Fibromyalgia CHECK UP with JARON S KRISTIAN M. D. 07/04/2022 Last Documented On 3 2:51PM ; [facility] Hyperlipidemia CHECK UP with JARON S KRISTIAN M. D. 07/04/2022 Last Documented On 3 2:51PM ; [facility] Irritable bowel syndrome CHECK UP with JARON S KRISTIAN M.D. 07/04/2022 Last Documented On 3 2:51PM ; [facility] Low back pain CHECK UP with JARON S KRISTIAN M. D. 07/04/2022 Last Documented On 3 2:51PM ; [facility] Acute pharyngitis COVID SICK VISIT- ES TABLISHED PATIENT with HAYLIE N FALCON SPACER TYPE BAR AND SEGMENT-C 04/09/2022 Last Documented On 2 1:09PM ; [facility] Anxiety disorder NOS CHECK UP with JARON S DIZ ON M.D. 05/25/2021 Last Documented On 1 10:41AM ; [facility] Chronic depression CHECK UP with JARON S KRISTIAN M.D. 05/25/2021 Last Documented On 1 10:41AM ; [facility] Fibromyalgia CHECK UP with JARON S KRISTIAN M. D. 05/25/2021 Last Documented On 1 10:41AM ; [facility] Hyperlipidemia CHECK UP with JARON S KRISTIAN M. D. 05/25/2021 Last Documented On 10:41AM ; [facility] Irritable bowel syndrome CHECK UP with JARON S KRISTIAN M.D. 05/25/2021 Last Documented On 10:41AM ; [facility] Low back pain CHECK UP with JARON S KRISTIAN M. D. 05/25/2021 Last Documented On 10:41AM ; [facility] Anxiety disorder NOS CHECK UP with JARON S DIZ ON M.D. 10/23/2020 Last Documented On 1 10:12AM ; [facility] Chronic depression CHECK UP with JARON S KRISTIAN M.D. 10/23/2020 Last Documented On 1 10:12AM ; [facility] Fibromyalgia CHECK UP with JARON S KRISTIAN M. D. 10/23/2020 Last Documented On 1 10:12AM ; [facility] Hyperlipidemia CHECK UP with JARON S KRISTIAN M. D. 10/23/2020 Last Documented On 1 10:12AM ; [facility] Irritable bowel syndrome CHECK UP with JARON S KRISTIAN M.D. 10/23/2020 Last Documented On 1 10:12AM ; [facility] Low back pain CHECK UP with JARON S KRISTIAN M. D. 10/23/2020 Last Documented On 1 10:12AM ; [facility] Anxiety disorder NOS CHECK UP with JARON S DIZ ON M.D. 08/24/2020 Last Documented On 1 2:04PM ; [facility] Chronic depression CHECK UP with JARON S KRISTIAN M.D. 08/24/2020 Last Documented On 1 2:04PM ; [facility] Fibromyalgia CHECK UP with JARON S KRISTIAN M. D. 08/24/2020 Last Documented On 1 2:04PM ; [facility] Hyperlipidemia CHECK UP with JARON S KRISTIAN M. D. 08/24/2020 Last Documented On 1 2:04PM ; [facility] Irritable bowel syndrome CHECK UP with JARON S KRISTIAN M.D. 08/24/2020 Last Documented On 1 2:04PM ; [facility] Low back pain CHECK UP with JARON S KRISTIAN M. D. 08/24/2020 Last Documented On 1 2:04PM ; [facility] Anxiety disorder NOS CHECK UP with JARON S DIZ ON M.D. 06/25/2020 Last Documented On 1 2:09PM ; [facility] Chronic depression CHECK UP with JARON S KRISTIAN M.D. 06/25/2020 Last Documented On 1 2:09PM ; [facility] Fibromyalgia CHECK UP with JARON S KRISTIAN M. D. 06/25/2020 Last Documented On 1 2:09PM ; [facility] Hyperlipidemia CHECK UP with JARON S KRISTIAN M. D. 06/25/2020 Last Documented On 1 2:09PM ; [facility] Irritable bowel syndrome CHECK UP with JARON S KRISTIAN M.D. 06/25/2020 Last Documented On 1 2:09PM ; [facility] Low back pain CHECK UP with JARON S KRISTIAN M. D. 06/25/2020 Last Documented On 1 2:09PM ; [facility] Anxiety disorder NOS MED CHECK with JARON S DI ZON M.D. 05/27/2020 Last Documented On 0 12:07PM ; [facility] Chronic depression MED CHECK with JARON S DIZO N M.D. 05/27/2020 Last Documented On 0 12:07PM ; [facility] Fibromyalgia MED CHECK with JARON S KRISTIAN M .D. 05/27/2020 Last Documented On 0 12:07PM ; [facility] Hyperlipidemia MED CHECK with JARON S KRISTIAN M .D. 05/27/2020 Last Documented On 0 12:07PM ; [facility] Irritable bowel syndrome MED CHECK with JARON S KRISTIAN M.D. 05/27/2020 Last Documented On 0 12:07PM ; [facility] Low back pain MED CHECK with JARON S KRISTIAN M .D. 05/27/2020 Last Documented On 0 12:07PM ; [facility] Anxiety disorder NOS MED CHECK with JARON S DI ZON M.D. 10/29/2019 Last Documented On 0 11:10AM ; [facility] Chronic depression MED CHECK with JARON S DIZO N M.D. 10/29/2019 Last Documented On 0 11:10AM ; [facility] Fibromyalgia MED CHECK with JARON S KRISTIAN M .D. 10/29/2019 Last Documented On 0 11:10AM ; [facility] Hyperlipidemia MED CHECK with JARON S KRISTIAN M .D. 10/29/2019 Last Documented On 0 11:10AM ; [facility] Irritable bowel syndrome MED CHECK with JARON S KRISTIAN M.D. 10/29/2019 Last Documented On 0 11:10AM ; [facility] Low back pain MED CHECK with JARON S KRISTIAN M .D. 10/29/2019 Last Documented On 0 11:10AM ; [facility] Anxiety disorder NOS 3 MONTH CHECK with JARON S KRISTIAN M.D. 03/29/2019 Last Documented On 9 11:12AM ; [facility] Chronic depression 3 MONTH CHECK with JARON S KRISTIAN M.D. 03/29/2019 Last Documented On 9 11:12AM ; [facility] Fibromyalgia 3 MONTH CHECK with JARON S DIZ ON M.D. 03/29/2019 Last Documented On 9 11:12AM ; [facility] Hyperlipidemia 3 MONTH CHECK with JARON S DIZ ON M.D. 03/29/2019 Last Documented On 9 11:12AM ; [facility] Irritable bowel syndrome 3 MONTH CHECK with MIKO BUCKET HOOKER S KRISTIAN M.D. 03/29/2019 Last Documented On 9 11:12AM ; [facility] Low back pain 3 MONTH CHECK with JARON S DIZ ON M.D. 03/29/2019 Last Documented On 9 11:12AM ; [facility] Anxiety disorder NOS PROBLEM VISIT with JARON S KRISTIAN M.D. 12/27/2018 Last Documented On 9 11:17AM ; [facility] Chronic depression PROBLEM VISIT with JARON S KRISTIAN M.D. 12/27/2018 Last Documented On 9 11:17AM ; [facility] Fibromyalgia PROBLEM VISIT with JARON S DIZ ON M.D. 12/27/2018 Last Documented On 9 11:17AM ; [facility] Hyperlipidemia PROBLEM VISIT with JARON S DIZ ON M.D. 12/27/2018 Last Documented On 9 11:17AM ; [facility] Irritable bowel syndrome PROBLEM VISIT with MIKO BUCKET HOOKER S KRISTIAN M.D. 12/27/2018 Last Documented On 9 11:17AM ; [facility] Low back pain PROBLEM VISIT with JARON S DIZ ON M.D. 12/27/2018 Last Documented On 9 11:17AM ; [facility] Strain of left rhomboid muscles PROBLEM VISIT wi th JARON S KRISTIAN M.D. 12/27/2018 Last Documented On 9 11:17AM ; [facility] Anxiety disorder NOS MED CHECK with JARON S DI MAYA M.D. 09/27/2018 Last Documented On 9 11:30AM ; [facility] Chronic depression MED CHECK with JARON S DIZO N M.D. 09/27/2018 Last Documented On 9 11:30AM ; [facility] Fibromyalgia MED CHECK with JARON S KRISTIAN M .D. 09/27/2018 Last Documented On 9 11:30AM ; [facility] Hyperlipidemia MED CHECK with JARON S KRISTIAN M .D. 09/27/2018 Last Documented On 9 11:30AM ; [facility] Irritable bowel syndrome MED CHECK with JARON S KRISTIAN M.D. 09/27/2018 Last Documented On 9 11:30AM ; [facility] Low back pain MED CHECK with JARON S KRISTIAN M .D. 09/27/2018 Last Documented On 9 11:30AM ; [facility] Tinea versicolor MED CHECK with JARON S KRISTIAN M.D. 09/27/2018 Last Documented On 9 11:30AM ; [facility] Acute bronchitis SICK VISIT with JARON S KRISTIAN M.D. 05/11/2018 Last Documented On 8 4:51PM ; [facility] Acute sinusitis SICK VISIT with JARON S KRISTIAN M.D. 05/11/2018 Last Documented On 8 4:51PM ; [facility] Anxiety disorder NOS MED CHECK with JARON S ARINA ZON M.D. 12/19/2017 Last Documented On 8 5:17PM ; [facility] Chronic depression MED CHECK with JARON S ARINAZO N M.D. 12/19/2017 Last Documented On 8 5:17PM ; [facility] Fibromyalgia MED CHECK with JARON S KRISTIAN M .D. 12/19/2017 Last Documented On 8 5:17PM ; [facility] Hyperlipidemia MED CHECK with JARON S KRISTIAN M .D. 12/19/2017 Last Documented On 8 5:17PM ; [facility] Irritable bowel syndrome MED CHECK with JARON S KRISTIAN M.D. 12/19/2017 Last Documented On 8 5:17PM ; [facility] Low back pain MED CHECK with JARON S KRISTIAN M .D. 12/19/2017 Last Documented On 8 5:17PM ; [facility] Anxiety disorder NOS MED CHECK with JARON S DI ZON M.D. 10/09/2017 Last Documented On 8 3:50PM ; [facility] Chronic depression MED CHECK with JARON S DIZO N M.D. 10/09/2017 Last Documented On 8 3:50PM ; [facility] Fibromyalgia MED CHECK with JARON S KRISTIAN M .D. 10/09/2017 Last Documented On 8 3:50PM ; [facility] Hyperlipidemia MED CHECK with JARON S KRISTIAN M .D. 10/09/2017 Last Documented On 8 3:50PM ; [facility] Irritable bowel syndrome MED CHECK with JARON S KRISTIAN M.D. 10/09/2017 Last Documented On 8 3:50PM ; [facility] Low back pain MED CHECK with JARON S KRISTIAN M .D. 10/09/2017 Last Documented On 8 3:50PM ; [facility] Anxiety disorder NOS MED CHECK with JARON S DI ZON M.D. 11/11/2016 Last Documented On 7 4:13PM ; [facility] Chronic depression MED CHECK with JARON S DIZO N M.D. 11/11/2016 Last Documented On 7 4:13PM ; [facility] Fibromyalgia MED CHECK with JARON S KRISTIAN M .D. 11/11/2016 Last Documented On 7 4:13PM ; [facility] Hyperlipidemia MED CHECK with JARON S KRISTIAN M .D. 11/11/2016 Last Documented On 7 4:13PM ; [facility] Irritable bowel syndrome MED CHECK with JARON S KRISTIAN M.D. 11/11/2016 Last Documented On 7 4:13PM ; [facility] Low back pain MED CHECK with JARON S KRISTIAN M .D. 11/11/2016 Last Documented On 7 4:13PM ; [facility] Acute bronchitis MED CHECK with JARON S KRISTIAN M.D. 07/08/2016 Last Documented On 7 2:17PM ; [facility] Anxiety disorder NOS MED CHECK with JARON S DI ZON M.D. 07/08/2016 Last Documented On 7 2:17PM ; [facility] Chronic depression MED CHECK with JARON S DIZO N M.D. 07/08/2016 Last Documented On 7 2:17PM ; [facility] Fibromyalgia MED CHECK with JARON S KRISTIAN M .D. 07/08/2016 Last Documented On 7 2:17PM ; [facility] Hyperlipidemia MED CHECK with JARON S KRISTIAN M .D. 07/08/2016 Last Documented On 7 2:17PM ; [facility] Irritable bowel syndrome MED CHECK with JARON S KRISTIAN M.D. 07/08/2016 Last Documented On 7 2:17PM ; [facility] Low back pain MED CHECK with JARON S KRISTIAN M .D. 07/08/2016 Last Documented On 7 2:17PM ; [facility] Anxiety disorder NOS 3 MONTH CHECK with JARON S KRISTIAN M.D. 03/30/2016 Last Documented On 6 4:14PM ; [facility] Chronic depression 3 MONTH CHECK with JARON S KRISTIAN M.D. 03/30/2016 Last Documented On 6 4:14PM ; [facility] Fibromyalgia 3 MONTH CHECK with JARON S DIZ ON M.D. 03/30/2016 Last Documented On 6 4:14PM ; [facility] Irritable bowel syndrome 3 MONTH CHECK with MIKO BUCKET HOOKER S KRISTIAN M.D. 03/30/2016 Last Documented On 6 4:14PM ; [facility] Low back pain 3 MONTH CHECK with JARON S DIZ ON M.D. 03/30/2016 Last Documented On 6 4:14PM ; [facility] Anxiety disorder NOS 3 MONTH CHECK with JARON S KRISTIAN M.D. 12/25/2015 Last Documented On 6 2:31PM ; [facility] Chronic depression 3 MONTH CHECK with JARON S KRISTIAN M.D. 12/25/2015 Last Documented On 6 2:31PM ; [facility] Fibromyalgia 3 MONTH CHECK with JARON S DIZ ON M.D. 12/25/2015 Last Documented On 6 2:31PM ; [facility] Irritable bowel syndrome 3 MONTH CHECK with MIKO BUCKET HOOKER S KRISTIAN M.D. 12/25/2015 Last Documented On 6 2:31PM ; [facility] Low back pain 3 MONTH CHECK with JARON S DIZ ON M.D. 12/25/2015 Last Documented On 6 2:31PM ; [facility] Anxiety disorder NOS 1 MONTH CHECK with JARON S KRISTIAN M.D. 10/13/2015 Last Documented On 6 10:35AM ; [facility] Chronic depression 1 MONTH CHECK with JARON S KRISTIAN M.D. 10/13/2015 Last Documented On 6 10:35AM ; [facility] Fibromyalgia 1 MONTH CHECK with JARON S DIZ ON M.D. 10/13/2015 Last Documented On 6 10:35AM ; [facility] Irritable bowel syndrome 1 MONTH CHECK with MIKO BUCKET HOOKER S KRISTIAN M.D. 10/13/2015 Last Documented On 6 10:35AM ; [facility] Low back pain 1 MONTH CHECK with JARON S DIZ ON M.D. 10/13/2015 Last Documented On 6 10:35AM ; [facility] Anxiety disorder NOS 3 MONTH CHECK with JARON S KRISTIAN M.D. 08/31/2015 Last Documented On 6 11:22AM ; [facility] Chronic depression 3 MONTH CHECK with JARON S KRISTIAN M.D. 08/31/2015 Last Documented On 6 11:22AM ; [facility] Fibromyalgia 3 MONTH CHECK with JARON S DIZ ON M.D. 08/31/2015 Last Documented On 6 11:22AM ; [facility] Irritable bowel syndrome 3 MONTH CHECK with MIKO BUCKET HOOKER S KRISTIAN M.D. 08/31/2015 Last Documented On 6 11:22AM ; [facility] Low back pain 3 MONTH CHECK with JARON S DIZ ON M.D. 08/31/2015 Last Documented On 6 11:22AM ; [facility] Anxiety disorder NOS CHECK UP with JARON S DIZ ON M.D. 05/01/2015 Last Documented On 5 3:22PM ; [facility] Chronic depression CHECK UP with JARON S KRISTIAN M.D. 05/01/2015 Last Documented On 5 3:22PM ; [facility] Fibromyalgia CHECK UP with JARON S KRISTIAN M. D. 05/01/2015 Last Documented On 5 3:22PM ; [facility] Irritable bowel syndrome CHECK UP with JARON S KRISTIAN M.D. 05/01/2015 Last Documented On 5 3:22PM ; [facility] Low back pain CHECK UP with JARON S KRISTIAN M. D. 05/01/2015 Last Documented On 5 3:22PM ; [facility] Acquired deformity of clavicle PROBLEM VISIT wit h JARON S KRISTIAN M.D. 02/16/2015 Last Documented On 5 2:24PM ; [facility] Anxiety disorder NOS PROBLEM VISIT with JARON S KRISTIAN M.D. 02/16/2015 Last Documented On 5 2:24PM ; [facility] Anxiety disorder NOS MED CHECK with JARON S DI ZON M.D. 01/26/2015 Last Documented On 5 11:41AM ; [facility] Chronic depression MED CHECK with JARON S DIZO N M.D. 01/26/2015 Last Documented On 5 11:41AM ; [facility] Fibromyalgia MED CHECK with JARON S KRISTIAN M .D. 01/26/2015 Last Documented On 5 11:41AM ; [facility] Low back pain MED CHECK with JARON S KRISTIAN M .D. 01/26/2015 Last Documented On 5 11:41AM ; [facility] Anxiety disorder NOS MED CHECK with JARON S DI ZON M.D. 10/13/2014 Last Documented On 5 5:12PM ; [facility] Chronic depression MED CHECK with JARON S DIZO N M.D. 10/13/2014 Last Documented On 5 5:12PM ; [facility] Fibromyalgia MED CHECK with JARON S KRISTIAN M .D. 10/13/2014 Last Documented On 5 5:12PM ; [facility] Low back pain MED CHECK with JARON S KRISTIAN M .D. 10/13/2014 Last Documented On 5 5:12PM ; [facility] Anxiety disorder NOS MED CHECK with JARON S DI ZON M.D. 08/05/2014 Last Documented On 5 2:23PM ; [facility] Chronic depression MED CHECK with JARON S DIZO N M.D. 08/05/2014 Last Documented On 5 2:23PM ; [facility] Fibromyalgia MED CHECK with JARON S KRISTIAN M .D. 08/05/2014 Last Documented On 5 2:23PM ; [facility] Hyperlipidemia MED CHECK with JARON S KRISTIAN M .D. 08/05/2014 Last Documented On 5 2:23PM ; [facility] Low back pain MED CHECK with JARON S KRISTIAN M .D. 08/05/2014 Last Documented On 5 2:23PM ; [facility] Anxiety disorder NOS 1 MONTH CHECK with JARON S KRISTIAN M.D. 04/17/2014 Last Documented On 4 1:49PM ; [facility] Chronic depression 1 MONTH CHECK with JARON S KRISTIAN M.D. 04/17/2014 Last Documented On 4 1:49PM ; [facility] Fibromyalgia 1 MONTH CHECK with JARON S JIE ON M.D. 04/17/2014 Last Documented On 4 1:49PM ; [facility] Low back pain 1 MONTH CHECK with JARON S DIZ ON M.D. 04/17/2014 Last Documented On 4 1:49PM ; [facility] Anxiety disorder NOS PROBLEM VISIT with JARON S KRISTIAN M.D. 03/18/2014 Last Documented On 4 2:52PM ; [facility] Chronic depression PROBLEM VISIT with JARON S KRISTIAN M.D. 03/18/2014 Last Documented On 4 2:52PM ; [facility] Fibromyalgia PROBLEM VISIT with JARON S DIZ ON M.D. 03/18/2014 Last Documented On 4 2:52PM ; [facility] Low back pain PROBLEM VISIT with JARON S DIZ ON M.D. 03/18/2014 Last Documented On 4 2:52PM ; [facility] Anxiety disorder NOS 3 MONTH CHECK with JARON S KRISTIAN M.D. 11/27/2013 Last Documented On 4 12:04PM ; [facility] Chronic depression 3 MONTH CHECK with JARON S KRISTIAN M.D. 11/27/2013 Last Documented On 4 12:04PM ; [facility] Fibromyalgia 3 MONTH CHECK with JARON S DIZ ON M.D. 11/27/2013 Last Documented On 4 12:04PM ; [facility] Low back pain 3 MONTH CHECK with JARON S DIZ ON M.D. 11/27/2013 Last Documented On 4 12:04PM ; [facility] Anxiety disorder NOS 2 MONTH CHECK with JARON S KRISTIAN M.D. 09/23/2013 Last Documented On 4 12:09PM ; [facility] Chronic depression 2 MONTH CHECK with JARON S KRISTIAN M.D. 09/23/2013 Last Documented On 4 12:09PM ; [facility] Fibromyalgia 2 MONTH CHECK with JARON S DIZ ON M.D. 09/23/2013 Last Documented On 4 12:09PM ; [facility] Low back pain 2 MONTH CHECK with JARON S DIZ ON M.D. 09/23/2013 Last Documented On 4 12:09PM ; [facility] Anxiety disorder NOS 1 MONTH CHECK with JARON S KRISTIAN M.D. 07/25/2013 Last Documented On 4 2:43PM ; [facility] Depression 1 MONTH CHECK with JARON S DIZ ON M.D. 07/25/2013 Last Documented On 4 2:43PM ; [facility] Fibromyalgia 1 MONTH CHECK with JARON S DIZ ON M.D. 07/25/2013 Last Documented On 4 2:43PM ; [facility] Low back pain 1 MONTH CHECK with JARON S DIZ ON M.D. 07/25/2013 Last Documented On 4 2:43PM ; [facility] Anxiety disorder NOS 2 MONTH CHECK with JARON S KRISTIAN M.D. 06/27/2013 Last Documented On 4 2:14PM ; [facility] Depression 2 MONTH CHECK with JARON S DIZ ON M.D. 06/27/2013 Last Documented On 4 2:14PM ; [facility] Fibromyalgia 2 MONTH CHECK with JARON S DIZ ON M.D. 06/27/2013 Last Documented On 4 2:14PM ; [facility] Low back pain 2 MONTH CHECK with JARON S DIZ ON M.D. 06/27/2013 Last Documented On 4 2:14PM ; [facility] Anxiety disorder NOS 1 MONTH CHECK with JARON S KRISTIAN M.D. 04/23/2013 Last Documented On 3 2:06PM ; [facility] Depression 1 MONTH CHECK with JARON S DIZ ON M.D. 04/23/2013 Last Documented On 3 2:06PM ; [facility] Low back pain 1 MONTH CHECK with JARON S DIZ ON M.D. 04/23/2013 Last Documented On 3 2:06PM ; [facility] Anxiety disorder NOS 1 MONTH CHECK with JARON S KRISTIAN M.D. 03/25/2013 Last Documented On 3 11:36AM ; [facility] Depression 1 MONTH CHECK with JARON S DIZ ON M.D. 03/25/2013 Last Documented On 3 11:36AM ; [facility] Lumbago 1 MONTH CHECK with JARON S DIZ ON M.D. 03/25/2013 Last Documented On 3 11:36AM ; [facility] Anxiety disorder NOS 2 WK CK-UP with JARON S D IZON M.D. 02/22/2013 Last Documented On 3 1:48PM ; [facility] Attention-deficit hyperactivity disorder 2 WK CK-UP with JARON S KRISTIAN M.D. 02/22/2013 Last Documented On 3 1:48PM ; [facility] Depression 2 WK CK-UP with JARON S KRISTIAN M.D. 02/22/2013 Last Documented On 3 1:48PM ; [facility] Irritable bowel syndrome 2 WK CK-UP with JARON S KRISTIAN M.D. 02/22/2013 Last Documented On 3 1:48PM ; [facility] Lumbago 2 WK CK-UP with JARON S KRISTIAN M.D. 02/22/2013 Last Documented On 3 1:48PM ; [facility] Tension-type headache 2 WK CK-UP with JARON S KRISTIAN M.D. 02/22/2013 Last Documented On 3 1:48PM ; [facility] Anxiety disorder NOS EMERGENCY ROOM FOLLOW UP wi th JARON S KRISTIAN M.D. 02/08/2013 Last Documented On 3 2:04PM ; [facility] Lumbar strain EMERGENCY ROOM FOLLOW UP with LE ONCIO S KRISTIAN M.D. 02/08/2013 Last Documented On 3 2:04PM ; [facility] Anxiety disorder NOS PROBLEM VISIT with JARON S KRISTIAN M.D. 01/21/2013 Last Documented On 3 11:50AM ; [facility] Depression PROBLEM VISIT with JARON S DIZ ON M.D. 01/21/2013 Last Documented On 3 11:50AM ; [facility] Irritable bowel syndrome PROBLEM VISIT with MIKO BUCKET HOOKER S KRISTIAN M.D. 01/21/2013 Last Documented On 3 11:50AM ; [facility] Tension-type headache PROBLEM VISIT with JARON S KRISTIAN M.D. 01/21/2013 Last Documented On 3 11:50AM ; [facility] Anxiety disorder NOS 2 MONTH CHECK with JARON S KRISTIAN M.D. 01/07/2013 Last Documented On 3 10:31AM ; [facility] Depression 2 MONTH CHECK with JARON S ARINAZ ON M.D. 01/07/2013 Last Documented On 3 10:31AM ; [facility] Tension-type headache 2 MONTH CHECK with JARON S KRISTIAN M.D. 01/07/2013 Last Documented On 3 10:31AM ; [facility] Anxiety disorder NOS MED CHECK with JARON S ARINA TREJO M.D. 11/06/2012 Last Documented On 3 3:31PM ; [facility] Depression MED CHECK with JARON S KRISTIAN M .D. 11/06/2012 Last Documented On 3 3:31PM ; [facility] Ganglion of the flexor sheat h of the left ring finger MED CHECK with JARON S KRISTIAN M.D. 11/06/2012 Last Documented On 3 3:31PM ; [facility] Anxiety disorder NOS 1 MONTH CHECK with JARON S KRISTIAN M.D. 08/15/2012 Last Documented On 3 10:49AM ; [facility] Depression 1 MONTH CHECK with JARON S DIZ ON M.D. 08/15/2012 Last Documented On 3 10:49AM ; [facility] Anxiety disorder NOS 2 WK CK-UP with JARON S D SYEDON M.D. 07/09/2012 Last Documented On 3 12:04PM ; [facility] Depression 2 WK CK-UP with JARON S KRISTIAN M.D. 07/09/2012 Last Documented On 3 12:04PM ; [facility] Anxiety disorder NOS MED CHECK with JARON S DI ZON M.D. 06/25/2012 Last Documented On 3 5:16PM ; [facility] Depression MED CHECK with JARON S KRISTIAN M .D. 06/25/2012 Last Documented On 3 5:16PM ; [facility] Anxiety disorder NOS MED CHECK with JARON S DI ZON M.D. 04/11/2012 Last Documented On 2 5:09PM ; [facility] Attention-deficit hyperactivity disorder MED CHECK with JARON S KRISTIAN M.D. 04/11/2012 Last Documented On 2 5:09PM ; [facility] Depression MED CHECK with JARON S KRISTIAN M .D. 04/11/2012 Last Documented On 2 5:09PM ; [facility] Thoracic strain MED CHECK with JARON S KRISTIAN M .D. 04/11/2012 Last Documented On 2 5:09PM ; [facility] Anxiety disorder NOS 2 WK CK-UP with JARON S D SYEDON M.D. 03/06/2012 Last Documented On 2 10:29AM ; [facility] Attention-deficit hyperactivity disorder 2 WK CK-UP with JARON S KRISTIAN M.D. 03/06/2012 Last Documented On 2 10:29AM ; [facility] Depression 2 WK CK-UP with JARON S KRISTIAN M.D. 03/06/2012 Last Documented On 2 10:29AM ; [facility] Anxiety disorder NOS MED CHECK with JARON S DI ZON M.D. 02/20/2012 Last Documented On 2 5:23PM ; [facility] Attention-deficit hyperactivity disorder MED CHECK with JARON S KRITSIAN M.D. 02/20/2012 Last Documented On 2 5:23PM ; [facility] Depression MED CHECK with JARON S KRISTIAN M .D. 02/20/2012 Last Documented On 2 5:23PM ; [facility] Exanthem SICK VISIT with MELANIE Nogueira 01/04/2012 Last Documented On 2 10:23AM ; [facility] Fatigue SICK VISIT with MELANIE Nogueira 01/04/2012 Last Documented On 2 10:23AM ; [facility] Pharyngitis SICK VISIT with MELANIE Nogueira 01/04/2012 Last Documented On 2 10:23AM ; [facility] Tobacco Abuse SICK VISIT with MELANIE Nogueira 01/04/2012 Last Documented On 2 10:23AM ; [facility] Tension-type headache SICK VISIT with JARONDevonte TOWNSEND M.DLeyda 12/26/2011 Last Documented On 2 10:07AM ; [facility] Anxiety disorder NOS 1 MONTH CHECK with JARON S KRISTIAN M.D. 12/19/2011 Last Documented On 2 11:54AM ; [facility] Depression 1 MONTH CHECK with JARON S ARINAZ ON M.D. 12/19/2011 Last Documented On 2 11:54AM ; [facility] Anxiety disorder NOS MED CHECK with JARON S DI ZON M.D. 11/18/2011 Last Documented On 2 5:56PM ; [facility] Candidal intertrigo MED CHECK with JARON S DIZ ON M.D. 11/18/2011 Last Documented On 2 5:56PM ; [facility] Depression MED CHECK with JARON S KRISTIAN M .D. 11/18/2011 Last Documented On 2 5:56PM ; [facility] Anxiety disorder NOS MED CHECK with JARON S DI ZON M.D. 07/25/2011 Last Documented On 2 2:25PM ; [facility] Depression MED CHECK with JARON S KRISTIAN M .D. 07/25/2011 Last Documented On 2 2:25PM ; [facility] Anxiety disorder NOS MED CHECK with JARON S DI ZON M.D. 05/13/2011 Last Documented On 1 11:35AM ; [facility] Depression MED CHECK with JARON S KRISTIAN M .D. 05/13/2011 Last Documented On 1 11:35AM ; [facility] Irritable bowel syndrome MED CHECK with JARON S KRISTIAN M.D. 05/13/2011 Last Documented On 1 11:35AM ; [facility] Anxiety disorder NOS MED CHECK with JARON S DI ZON M.D. 03/08/2011 Last Documented On 1 4:38PM ; [facility] Depression MED CHECK with JARON S KRISTIAN M .D. 03/08/2011 Last Documented On 1 4:38PM ; [facility] Anxiety disorder NOS MED CHECK with JARON S DI ZON M.D. 12/30/2010 Last Documented On 1 3:52PM ; [facility] Depression MED CHECK with JARON S KRISTIAN M .D. 12/30/2010 Last Documented On 1 3:52PM ; [facility] Anxiety disorder NOS MED CHECK with JARON S DI ZON M.D. 09/17/2010 Last Documented On 1 3:57PM ; [facility] Depression MED CHECK with JARON S KRISTIAN M .D. 09/17/2010 Last Documented On 1 3:57PM ; [facility] Anxiety disorder NOS 1 MONTH CHECK with JARON S KRISTIAN M.D. 07/12/2010 Last Documented On 1 10:53AM ; [facility] Depression 1 MONTH CHECK with JARON S JIE ON M.D. 07/12/2010 Last Documented On 1 10:53AM ; [facility] Anxiety disorder NOS MED CHECK with JARON S DI ZON M.D. 06/11/2010 Last Documented On 1 2:34PM ; [facility] Depression MED CHECK with JARON S KRISTIAN M .D. 06/11/2010 Last Documented On 1 2:34PM ; [facility] Anxiety disorder NOS MED CHECK with JARON S DI ZON M.D. 03/22/2010 Last Documented On 0 5:43PM ; [facility] Depression MED CHECK with JARON S KRISTIAN M .D. 03/22/2010 Last Documented On 0 5:43PM ; [facility] Anxiety disorder NOS MED CHECK with JARON S DI ZON M.D. 02/02/2010 Last Documented On 0 1:57PM ; [facility] Depression MED CHECK with JARON S KRISTIAN M .D. 02/02/2010 Last Documented On 0 1:57PM ; [facility] Anxiety disorder NOS 2 MONTH CHECK with JARON S KRISTIAN M.D. 10/12/2009 Last Documented On 0 2:17PM ; [facility] Depression 2 MONTH CHECK with JARON S DIZ ON M.D. 10/12/2009 Last Documented On 0 2:17PM ; [facility] Anxiety disorder NOS 1 MONTH CHECK with JARON S KRISTIAN M.D. 08/19/2009 Last Documented On 0 11:58AM ; [facility] Depression 1 MONTH CHECK with JARON S DIZ ON M.D. 08/19/2009 Last Documented On 0 11:58AM ; [facility] Anxiety disorder NOS 2 WK CK-UP with JARON S D IZON M.D. 07/22/2009 Last Documented On 0 12:13PM ; [facility] Depression 2 WK CK-UP with JARON S KRISTIAN M.D. 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 07/22/2009 Last Documented On 0 12:13PM ; [facility] Anxiety disorder NOS 2 WK CK-UP with JARON S D IZON M.D. 07/08/2009 Last Documented On 0 12:04PM ; [facility] Depression 2 WK CK-UP with JARON S KRISTIAN M.D. 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 07/08/2009 Last Documented On 0 12:04PM ; [facility] Anxiety disorder NOS MED CHECK with JARON S ARINA TREJO M.D. 06/23/2009 Last Documented On 0 3:29PM ; [facility] Depression ? PTSD MED CHECK with JARON Kristi TOWNSEND M.D. 06/23/2009 Last Documented On 0 3:29PM ; [facility] Anxiety disorder NOS PROBLEM VISIT with JARON Kristi TOWNSEND M.DLeyda 01/12/2009 Last Documented On 9 5:40PM ; [facility] Depression ? Bipolar dso PROBLEM VISIT with MIKO BUCKET HOOKER Kristi TOWNSEND M.DLeyda 01/12/2009 Last Documented On 9 5:40PM ; [facility] Lymphadenopathy ? thyroglossal duct cyst PROBLEM VISIT with JARONADRIAN TOWNSEND M.DLeyda 01/12/2009 Last Documented On 9 5:40PM ; [facility] Anxiety disorder NOS MED CHECK with JARON S ARINA TREJO M.D. 10/30/2008 Last Documented On 9 2:26PM ; [facility] Depression MED CHECK with JARON Kristi TOWNSEND M .D. 10/30/2008 Last Documented On 9 2:26PM ; [facility] Insomnia related known axis III factor MED CHECK with JARON Kristi TOWNSEND M.D. 10/30/2008 Last Documented On 9 2:26PM ; [facility] Anxiety disorder NOS 2 WK CK-UP with JARON Kristi WALL M.D. 10/13/2008 Last Documented On 9 11:38AM ; [facility] Depression 2 WK CK-UP with JARON S KRISTIAN M.D. 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 10/13/2008 Last Documented On 9 11:38AM ; [facility] Depression 2 MONTH CHECK with JARON Kristi DIEGO M.DLeyda 09/29/2008 Last Documented On 9 11:07PM ; [facility] Generalized anxiety disorder 2 MONTH CHECK with JARON TOWNSEND M.D. 09/29/2008 Last Documented On 9 11:07PM ; [facility] Panic disorder without agoraphobia 2 MONTH CHECK with JARON TOWNSEND M.D. 09/29/2008 Last Documented On 9 11:07PM ; [facility] Instructions Includes: Instructions for all patient encounters Instructions to patient Intervention and counseling on cessation of tobacco use : Patient recieved smoking cessation handout Last Documented On 1 9:48AM ; [facility] Education and Decision Aids were provided during visit for: Discussed concerns about tob acco use Last Documented On 2 10:20AM ; [facility] Patient education about anti biotics: need to finish even if feeling better Last Documented On 2 10:21AM ; [facility] Medical Equipment - Implanted Devices Includes: [...] 11/02/2023 3:17PM By JOSIE TOWNSEND MD ; [facility] Amitriptyline HCl 50 MG Oral Tablet 11/02/2023 Provi jazmine: JARON TOWNSEND M.D. Diagnosis: Fibromyalgia TAKE 1 TABLET BY MOUTH AT BEDTIME NEED OFFICE SIT Last Documented On 11/02/2023 3:17PM By JOSIE TOWNSEND MD ; [facility] QUEtiapine Fumarate 100 MG Oral Tablet 10/02/2023 Provider: JARON TOWNSEND M.D. Diagnosis: Major depressive disorder, single episode, unspecified One tablet at bed timeNeed O ffice Visit. Last Documented On 10/02/2023 9:27AM By JOSIE TOWNSEND MD ; [facility] Past Medications on file Venlafaxine HCl ER 37.5 MG Oral Capsule Extended Release 24 Hour 10/02/2023 - 11/02/2023 Provider: JARON TOWNSEND M.D. Diagnosis: Major depressive disorder, single episode, unspecified 1 Capsule every morningNeed Office Visit. Last Documented On 11/02/2023 3:06PM By JOSIE TOWNSEND MD ; [facility] Amitriptyline HCl 50 MG Oral Tablet 10/02/2023 - 11/02/2023 Provider: JARON TOWNSEND M.D. Diagnosis: Fibromyalgia One tablet at bed timeNeed Office Visit. Last Documented On 11/02/2023 3:06PM By JOSIE TOWNSEND MD ; [facility] Venlafaxine HCl ER 37.5 MG Oral Capsule Extended Release 24 Hour 07/02/2023 - 10/02/2023 Provider: JARON TOWNSEND M.D. Diagnosis: Major depressive disorder, single episode, unspecified TAKE 1 CAPSULE BY MOUTH EVER Y DAY IN THE MORNING Last Documented On 10/02/2023 9:19AM By JOSIE TOWNSEND MD ; [facility] Amitriptyline HCl 50 MG Oral Tablet 07/02/2023 - 10/02/2023 Provider: JARON TOWNSEND M.D. Diagnosis: Fibromyalgia TAKE 1 TABLET BY MOUTH EVERYDAY AT BEDTIME Last Documented On 10/02/2023 9:17AM By JOSIE TOWNSEND MD ; [facility] QUEtiapine Fumarate 100 MG Oral Tablet 07/02/2023 - 10/02/2023 Provider: JARON TOWNSEND M.D. Diagnosis: Major depressive disorder, single episode, unspecified TAKE 1 TABLET BY MOUTH EVERYDAY AT BEDTIME Last Documented On 10/02/2023 9:18AM By JOSIE TOWNSEND MD ; [facility] QUEtiapine Fumarate 100 MG Oral Tablet 04/02/2023 - 07/02/2023 Provider: JARON TOWNSEND M.D. Diagnosis: Major depressive disorder, single episode, unspecified TAKE 1 TABLET BY MOUTH EVERYDAY AT BEDTIME Last Documented On 07/02/2023 5:59PM By JOSIE TOWNSEND MD ; [facility] Venlafaxine HCl ER 37.5 MG Oral Capsule Extended Release 24 Hour 04/02/2023 - 07/02/2023 Provider: JARON TOWNSEND M.D. Diagnosis: Major depressive disorder, single episode, unspecified TAKE 1 CAPSULE BY MOUTH EVER Y DAY IN THE MORNING Last Documented On 07/02/2023 6:00PM By JOSIE TOWNSEND MD ; [facility] Amitriptyline HCl 50 MG Oral Tablet 04/02/2023 - 07/02/2023 Provider: JARON TOWNSEND M.D. Diagnosis: Fibromyalgia TAKE 1 TABLET BY MOUTH EVERYDAY AT BEDTIME Last Documented On 07/02/2023 5:59PM By JOSIE TOWNSEND MD ; [facility] QUEtiapine Fumarate 100 MG Oral Tablet 01/02/2023 - 04/02/2023 Provider: JARON TOWNSEND M.D. Diagnosis: Major depressive disorder, single episode, unspecified TAKE 1 TABLET BY MOUTH AT BEDTIME Last Documented On 04/02/2023 9:22PM By JOSIE TOWNSEND MD ; [facility] Amitriptyline HCl 50 MG Oral Tablet 01/02/2023 - 04/02/2023 Provider: JARON TOWNSEND M.D. Diagnosis: Fibromyalgia TAKE 1 TABLET BY MOUTH AT BEDTIME Last Documented On 04/02/2023 9:23PM By JOSIE TOWNSEND MD ; [facility] Venlafaxine HCl ER 37.5 MG Oral Capsule Extended Release 24 Hour 01/02/2023 - 04/02/2023 Provider: JARON TOWNSEND M.D. Diagnosis: Major depressive disorder, single episode, unspecified TAKE 1 CAPSULE BY MOUTH EVER Y DAY IN THE MORNING Last Documented On 04/02/2023 9:26PM By JOSIE TOWNSEND MD ; [facility] Amitriptyline HCl 50 MG Oral Tablet 09/29/2022 - 01/02/2023 Provider: JARON TOWNSEND M.D. Diagnosis: Major depressive disorder, single episode, unspecified TAKE 1 TABLET BY MOUTH AT BEDTIME Last Documented On 01/02/2023 2:45PM By JOSIE TOWNSEND MD ; [facility] Venlafaxine HCl ER 37.5 MG Oral Capsule Extended Release 24 Hour 09/29/2022 - 01/02/2023 Provider: JARON TOWNSEND M.D. Diagnosis: Major depressive disorder, single episode, unspecified TAKE 1 CAPSULE BY MOUTH EVER Y DAY IN THE MORNING Last Documented On 01/02/2023 2:45PM By JOSIE TOWNSEND MD ; [facility] QUEtiapine Fumarate 100 MG Oral Tablet 09/29/2022 - 01/02/2023 Provider: JARON TOWNSEND M.D. Diagnosis: Major depressive disorder, single episode, unspecified TAKE 1 TABLET BY MOUTH AT BEDTIME Last Documented On 01/02/2023 2:45PM By JOSIE TOWNSEND MD ; [facility] Amitriptyline HCl 50 MG Oral Tablet 07/04/2022 - 09/29/2022 Provider: JARON TOWNSEND M.D. Diagnosis: Major depressive disorder, single episode, unspecified One tablet at bed time Last Documented On 09/29/2022 8:51AM By JOSIE TOWNSEND MD ; [facility] Venlafaxine HCl ER 37.5 MG Oral Capsule Extended Release 24 Hour 07/04/2022 - 09/29/2022 Provider: JARON TOWNSEND M.D. Diagnosis: Major depressive disorder, single episode, unspecified 1 Capsule every morning Last Documented On 09/29/2022 8:52AM By JOSIE TOWNSEND MD ; [facility] QUEtiapine Fumarate 100 MG Oral Tablet 07/04/2022 - 09/29/2022 Provider: JARON TOWNSEND M.D. Diagnosis: Major depressive disorder, single episode, unspecified One tablet at bed time Last Documented On 09/29/2022 8:51AM By JOSIE TOWNSEND MD ; [facility] Amitriptyline HCl 50 MG Oral Tablet 06/11/2022 - 07/04/2022 Provider: JARON TOWNSEND M.D. Diagnosis: Major depressive disorder, single episode, unspecified TAKE 1 TABLET BY MOUTH EVERY DAY AT BEDTIME , NEED OFFICE VISIT Last Documented On 07/04/2022 2:47PM By JOSIE TOWNSEND MD ; [facility] QUEtiapine Fumarate 100 MG Oral Tablet 05/27/2022 - 07/04/2022 Provider: JARON TOWNSEND M.D. Diagnosis: ONE TABLET AT BED TIME NEED OFFICE VISIT. Last Documented On 07/04/2022 2:48PM By JOSIE TOWNSEND MD ; [facility] Amitriptyline HCl 50 MG Oral Tablet 05/12/2022 - 06/11/2022 Provider: JARON TOWNSEND M.D. Diagnosis: Major depressive disorder, single episode, unspecified TAKE 1 TABLET BY MOUTH EVERY DAY AT BEDTIME , NEED OFFICE VISIT Last Documented On 06/11/2022 11:58AM By JOSIE TOWNSEND MD ; [facility] QUEtiapine Fumarate 100 MG Oral Tablet 04/13/2022 - 05/27/2022 Provider: JARON TOWNSEND M.D. Diagnosis: One tablet at bed timeNeed Office Visit. Last Documented On 05/27/2022 8:13PM By JOSIE TOWNSEND MD ; [facility] Amitriptyline HCl 50 MG Oral Tablet 04/13/2022 - 05/12/2022 Provider: JARON TOWNSEND M.D. Diagnosis: Major depressive disorder, single episode, unspecified TAKE 1 TABLET BY MOUTH EVERY DAY AT BEDTIME , NEED OFFICE VISIT Last Documented On 05/12/2022 11:46AM By JOSIE TOWNSEND MD ; [facility] Amoxicillin 500 MG Oral Tablet 04/09/2022 - 07/04/2022 Provider: HAYLIE [employer] Diagnosis: Acute pharyngiti s, unspecified One tablet twice a day Last Documented On 07/04/2022 2:35PM By JOSIE TOWNSEND MD ; [facility] Venlafaxine HCl ER 37.5 MG Oral Capsule Extended Release 24 Hour 03/22/2022 - 07/04/2022 Provider: JARON TOWNSEND M.D. Diagnosis: Major depressive disorder, single episode, unspecified TAKE 1 CAPSULE BY MOUTH EVER Y DAY EVERY MORNING NEED OFFICE VISIT. Last Documented On 07/04/2022 2:48PM By JOSIE TOWNSEND MD ; [facility] Amitriptyline HCl 50 MG Oral Tablet 03/13/2022 - 04/13/2022 Provider: JARON TOWNSEND M.D. Diagnosis: Major depressive disorder, single episode, unspecified TAKE 1 TABLET BY MOUTH EVERY DAY AT BEDTIME , NEED OFFICE VISIT Last Documented On 04/13/2022 9:14AM By JOSIE TOWNSEND MD ; [facility] QUEtiapine Fumarate 100 MG Oral Tablet 02/21/2022 - 04/13/2022 Provider: JARON TOWNSEND M.D. Diagnosis: TAKE 1 TABLET BY MOUTH AT BEDTIME NEED CLINIC AP PT Last Documented On 04/13/2022 2:13PM By JOSIE TOWNSEND MD ; [facility] Amitriptyline HCl 50 MG Oral Tablet 02/17/2022 - 03/13/2022 Provider: JARON TOWNSEND M.D. Diagnosis: Major depressive disorder, single episode, unspecified One tablet at bed timeNeed Office Visit. Last Documented On 03/13/2022 6:21PM By JOSIE TOWNSEND MD ; [facility] Venlafaxine HCl ER 37.5 MG Oral Capsule Extended Release 24 Hour 01/26/2022 - 03/22/2022 Provider: JARON TOWNSEND M.D. Diagnosis: TAKE 1 CAPSULE BY MOUTH EVER Y DAY EVERY MORNINGNeed Office Visit. Last Documented On 03/22/2022 8:58AM By JOSIE TOWNSEND MD ; [facility] QUEtiapine Fumarate 100 MG Oral Tablet 12/23/2021 - 02/21/2022 Provider: JARON TOWNSEND M.D. Diagnosis: TAKE 1 TABLET BY MOUTH AT BEDTIME NEED CLINIC AP PT Last Documented On 02/21/2022 1:28PM By JOSIE TOWNSEND MD ; [facility] Venlafaxine HCl ER 37.5 MG Oral Capsule Extended Release 24 Hour 11/20/2021 - 01/26/2022 Provider: JARON TOWNSEND M.D. Diagnosis: 1 Capsule every morningNeed Office Visit. Last Documented On 01/26/2022 1:51PM By JOSIE TOWNSEND MD ; [facility] Amitriptyline HCl 50 MG Oral Tablet 11/20/2021 - 02/17/2022 Provider: JARON TOWNSEND M.D. Diagnosis: TAKE 1 TABLET BY MOUTH EVERYDAY AT BEDTIME Last Documented On 02/17/2022 8:57AM By JOSIE TOWNSEND MD ; [facility] QUEtiapine Fumarate 100 MG Oral Tablet 09/19/2021 - 12/23/2021 Provider: JARON TOWNSEND M.D. Diagnosis: TAKE 1 TABLET BY MOUTH AT BEDTIME NEED CLINIC AP PT Last Documented On 12/23/2021 9:44AM By JOSIE TOWNSEND MD ; [facility] QUEtiapine Fumarate 100 MG Oral Tablet 08/26/2021 - 09/19/2021 Provider: JARON TOWNSEND M.D. Diagnosis: One tablet at bed timeNeed Office Visit. Last Documented On 09/19/2021 8:22PM By JOSIE TOWNSEND MD ; [facility] Venlafaxine HCl ER 37.5 MG Oral Capsule Extended Release 24 Hour 08/16/2021 - 11/20/2021 Provider: JARON TOWNSEND M.D. Diagnosis: TAKE 1 CAPSULE BY MOUTH EVERY DAY IN THE MORNING Last Documented On 11/20/2021 10:47AM By JOSIE TOWNSEND MD ; [facility] Amitriptyline HCl 50 MG Oral Tablet 08/16/2021 - 11/20/2021 Provider: JARON OTWNSEND M.D. Diagnosis: TAKE 1 TABLET BY MOUTH EVERYDAY AT BEDTIME Last Documented On 11/20/2021 10:48AM By JOSIE TOWNSEND MD ; [facility] SEROquel 100 MG Oral Tablet 06/04/2021 - 08/26/2021 Pr ovider: JARON TOWNSEND M.D. Diagnosis: One tablet at bed time Last Documented On 08/26/2021 9:27AM By JOSIE TOWNSEND MD ; [facility] Nicoderm CQ 14 MG/24HR Transdermal Patch 24 Hour 05/25/2021 - 01/02/2023 Provider: Diagnosis: Last Documented On 01/02/2023 2:45PM By JOSIE TOWNSEND MD ; [facility] Venlafaxine HCl ER 37.5 MG Oral Capsule Extended Release 24 Hour 05/25/2021 - 08/16/2021 Provider: JARON TOWNSEND M.D. Diagnosis: 1 Capsule every morning Last Documented On 08/16/2021 8:56AM By JOSIE TOWNSEND MD ; [facility] Amitriptyline HCl 50 MG Oral [...] 05/25/2021 10:35AM By JOSIE TOWNSEND MD ; [facility] QUEtiapine Fumarate 100 MG Oral Tablet 03/26/2021 - 01/02/2023 Provider: JARON TOWNSEND M.D. Diagnosis: One tablet at bed timeNeed Office Visit. Last Documented On 01/02/2023 1:45PM By JOSIE TOWNSEND MD ; [facility] Venlafaxine HCl ER 37.5 MG Oral Capsule Extended Release 24 Hour 03/26/2021 - 04/27/2021 Provider: JARON TOWNSEND M.D. Diagnosis: TAKE 1 CAPSULE EVERY MORNING NEED OFFICE VISIT Last Documented On 04/27/2021 3:23PM By JOSIE TOWNSEND MD ; [facility] Amitriptyline HCl 50 MG Oral Tablet 02/23/2021 - 05/25/2021 Provider: JARON TOWNSEND M.D. Diagnosis: TAKE 1 TABLET AT BEDTIME Last Documented On 05/25/2021 10:35AM By JOSIE TOWNSEND MD ; [facility] Venlafaxine HCl ER 37.5 MG Oral Capsule Extended Release 24 Hour 02/16/2021 - 03/26/2021 Provider: JARON TOWNSEND M.D. Diagnosis: TAKE 1 CAPSULE EVERY MORNINGNeed Office Visit. Last Documented On 03/26/2021 3:41PM By JOSIE TOWNSEND MD ; [facility] Venlafaxine HCl ER 37.5 MG Oral Capsule Extended Release 24 Hour 01/15/2021 - 02/16/2021 Provider: JARON TOWNSEND M.D. Diagnosis: TAKE 1 CAPSULE EVERY MORNING Last Documented On 02/16/2021 1:57PM By JOSIE TOWNSEND MD ; [facility] Venlafaxine HCl ER 37.5 MG Oral Capsule Extended Release 24 Hour 12/10/2020 - 01/15/2021 Provider: JARON TOWNSEND M.D. Diagnosis: 1 Capsule every morning Last Documented On 01/15/2021 3:30PM By Vasiliy TREVINO ; [facility] Amitriptyline HCl 50 MG Oral Tablet 11/23/2020 - 02/23/2021 Provider: JARON TOWNSEDN M.D. Diagnosis: TAKE 1 TABLET AT BEDTIME Last Documented On 02/23/2021 3:06PM By JOSIE TOWNSEND MD ; [facility] Effexor XR 37.5 MG Oral Capsule Extended Release 24 Hour 10/23/2020 - 05/25/2021 Provider: JARON TOWNSEND M.D. Diagnosis: 1 Capsule every morning Last Documented On 05/25/2021 10:29AM By JOSIE TOWNSEND MD ; [facility] QUEtiapine Fumarate 100 MG Oral Tablet 08/24/2020 - 03/26/2021 Provider: JARON TOWNSEND M.D. Diagnosis: One tablet at bed time Last Documented On 03/26/2021 3:40PM By JOSIE TOWNSEND MD ; [facility] Effexor XR 37.5 MG Oral Capsule Extended Release 24 Hour 08/24/2020 - 10/23/2020 Provider: JARON TOWNSEND M.D. Diagnosis: 1 Capsule every morning Last Documented On 10/23/2020 10:09AM By JOSIE TOWNSEND MD ; [facility] Amitriptyline HCl 50 MG Oral Tablet 08/24/2020 - 11/23/2020 Provider: JARON TOWNSEND M.D. Diagnosis: One tablet at bed time Last Documented On 11/23/2020 11:43AM By JOSIE TOWNSEND MD ; [facility] QUEtiapine Fumarate 100 MG Oral Tablet 05/27/2020 - 08/24/2020 Provider: JARON TOWNSEND M.D. Diagnosis: One tablet at bed time Last Documented On 08/24/2020 2:01PM By JOSIE TOWNSEND MD ; [facility] hydrOXYzine HCl 10 MG Oral [...] On 08/24/2020 1:45PM By Sandra TREVINO ; [facility] Amitriptyline HCl 50 MG Oral Tablet 05/27/2020 - 08/24/2020 Provider: JARON TOWNSEND M.D. Diagnosis: One tablet at bed time Last Documented On 08/24/2020 2:01PM By JOSIE TOWNSEND MD ; [facility] Lyrica 50 MG Oral Capsule 04/28/2020 - 05/27/2020 Prov ider: JARON TOWNSEND M.D. Diagnosis: One tablet twice a dayNeed Office Visit. Last Documented On 10:39AM By Sandra TREVINO ; [facility] QUEtiapine Fumarate 100 MG Oral Tablet 04/28/2020 - 05/27/2020 Provider: JARON TOWNSEND M.D. Diagnosis: One tablet at bed timeNeed Office Visit. Last Documented On 05/27/2020 12:04PM By JOSIE TOWNSEND MD ; [facility] Amitriptyline HCl 50 MG Oral Tablet 04/28/2020 - 05/27/2020 Provider: JARON TOWNSEND M.D. Diagnosis: One tablet at bed timeNeed Office Visit. Last Documented On 05/27/2020 12:04PM By JOSIE TOWNSEND MD ; [facility] Amitriptyline HCl 50 MG Oral Tablet 01/28/2020 - 04/28/2020 Provider: JARON TOWNSEND M.D. Diagnosis: One tablet at bed time Last Documented On 04/28/2020 5:17PM By JOSIE TOWNSEND MD ; [facility] SEROquel 100 MG Oral Tablet 01/28/2020 - 06/04/2021 Pr ovider: JARON TOWNSEND M.D. Diagnosis: One tablet at bed time Last Documented On 06/04/2021 11:11AM By JOSIE TOWNSEND MD ; [facility] Amitriptyline HCl 50 MG Oral Tablet 10/29/2019 - 01/28/2020 Provider: JARON TOWNSEND M.D. Diagnosis: One tablet at bed time Last Documented On 01/28/2020 8:53AM By Julita Ontiveros LPN ; [facility] Lyrica 50 MG Oral Capsule 10/29/2019 - 04/28/2020 Prov ider: JARON TOWNSEND M.D. Diagnosis: One tablet twice a day Last Documented On 04/28/2020 3:18PM By JOSIE TOWNSEND MD ; [facility] SEROquel 100 MG Oral Tablet 10/29/2019 - 01/28/2020 Pr ovider: JARON TOWNSEND M.D. Diagnosis: One tablet at bed time Last Documented On 01/28/2020 8:54AM By Julita Ontiveros LPN ; [facility] Amitriptyline HCl 50 MG Oral Tablet 09/26/2019 - 10/29/2019 Provider: JARON TOWNSEND M.D. Diagnosis: One tablet at bed timeNeed Office Visit. Last Documented On 10/29/2019 11:10AM By JOSIE TOWNSEND MD ; [facility] SEROquel 100 MG Oral Tablet 09/26/2019 - 10/29/2019 Pr ovider: JARON TOWNSEND M.D. Diagnosis: One tablet at bed timeNeed Office Visit. Last Documented On 10/29/2019 11:10AM By JOSIE TOWNSEND MD ; [facility] Amitriptyline HCl 50 MG Oral Tablet 06/27/2019 - 09/26/2019 Provider: JARON TOWNSEND M.D. Diagnosis: One tablet at bed timeNeed Office Visit. Last Documented On 09/26/2019 2:04PM By JOSIE TOWNSEND MD ; [facility] SEROquel 100 MG Oral Tablet 06/27/2019 - 09/26/2019 Pr ovider: JARON TOWNSEND M.D. Diagnosis: One tablet at bed timeNeed Office Visit. Last Documented On 09/26/2019 2:05PM By JOSIE TOWNSEND MD ; [facility] Amitriptyline HCl 50 MG Oral Tablet 03/29/2019 - 06/27/2019 Provider: JARON TOWNSEND M.D. Diagnosis: One tablet at bed time Last Documented On 06/27/2019 3:46PM By JOSIE TOWNSEND MD ; [facility] Wellbutrin SR 100 MG Oral Tablet Extended Release 12 Hour 03/29/2019 - 10/29/2019 Provider: JARON TOWNSEND M.D. Diagnosis: 1 twice a day Last Documented On 0 10:36AM By Sandra Jean Baptiste Dee ; [facility] Meclizine HCl 25 MG Oral Tablet 03/29/2019 - 10/29/2019 Provider: JARON TOWNSEND M.D. Diagnosis: Take one four times a day as needed Last Documented On 0 10:37AM By Sandra TREVINO ; [facility] SEROquel 100 MG Oral Tablet 03/29/2019 - 06/27/2019 Pr ovider: JARON TOWNSEND M.D. Diagnosis: One tablet at bed time Last Documented On 06/27/2019 3:47PM By JOSIE TOWNSEND MD ; [facility] raNITIdine HCl 300MG Oral Tablet 12/27/2018 - 03/29/2019 Provider: JARON TOWNSEND M.D. Diagnosis: Strain of musc/fasc/tend at shldr/up arm, left arm, init One tablet twice a day Last Documented On 03/29/2019 11:03AM By JOSIE TOWNSEND MD ; [facility] SEROquel 100MG Oral Tablet 12/27/2018 - 03/29/2019 Pro vider: JARON TOWNSEND M.D. Diagnosis: One tablet at bed time Last Documented On 03/29/2019 11:12AM By JOSIE TOWNSEND MD ; [facility] Amitriptyline HCl 50MG Oral Tablet 12/26/2018 - 03/29/2019 Provider: JARON TOWNSEND M.D. Diagnosis: One tablet at bed time Last Documented On 03/29/2019 11:12AM By JOSIE TOWNSEND MD ; [facility] Amitriptyline HCl 50MG Oral Tablet 09/27/2018 - 12/26/2018 Provider: JARON TOWNSEND M.D. Diagnosis: One tablet at bed time Last Documented On 12/26/2018 4:30PM By JOSIE TOWNSEND MD ; [facility] LamISIL AT 1% External Cream 09/27/2018 - 12/27/2018 Provider: JARON TOWNSEND M.D. Diagnosis: Pityriasis versi color as directed apply to area 2 x a day x 3 weeks Last Documented On 10:09AM By Sandra TREVINO ; [facility] SEROquel 100MG Oral Tablet 09/27/2018 - 12/27/2018 Pro vider: JARON TOWNSEND M.D. Diagnosis: One tablet at bed time Last Documented On 12/27/2018 11:16AM By JOSIE TOWNSEND MD ; [facility] SEROquel 100MG Oral Tablet 08/29/2018 - 09/27/2018 Pro vider: JARON TOWNSEND M.D. Diagnosis: TAKE ONE TABLET BY MOUTH AT BED TIME NEED OFFICE VISIT. Last Documented On 09/27/2018 11:29AM By JOSIE TOWNSEND MD ; [facility] Amitriptyline HCl 50MG Oral Tablet 08/29/2018 - 09/27/2018 Provider: JARON TOWNSEND M.D. Diagnosis: One tablet at bed timeNeed Office Visit. Last Documented On 09/27/2018 11:29AM By JOSIE TOWNSEND MD ; [facility] SEROquel 100MG Oral Tablet 07/27/2018 - 08/29/2018 Pro vider: JARON TOWNSEND M.D. Diagnosis: One tablet at bed timeNeed Office Visit. Last Documented On 08/29/2018 2:48PM By JOSIE TOWNSEND MD ; [facility] SEROquel 100MG Oral Tablet 06/28/2018 - 07/27/2018 Pro vider: JARON TOWNSEND M.D. Diagnosis: One tablet at bed time Last Documented On 07/27/2018 3:41PM By JOSIE TOWNSEND MD ; [facility] SEROquel 100MG Oral Tablet 05/30/2018 - 06/28/2018 Pro vider: JARON TOWNSEND M.D. Diagnosis: One tablet at bed time Last Documented On 06/28/2018 1:33PM By JOSIE TOWNSEND MD ; [facility] Amitriptyline HCl 50MG Oral Tablet 05/30/2018 - 08/29/2018 Provider: JARON TOWNSEND M.D. Diagnosis: One tablet at bed time Last Documented On 08/29/2018 3:58PM By JOSIE TOWNSEND MD ; [facility] Zithromax Z-Gonzalez 250MG Oral Tablet 05/11/2018 - 08/29/2018 Provider: JARON TOWNSEND M.D. Diagnosis: use as directed Last Documented On 08/29/2018 3:57PM By Tonya TREVINO ; [facility] SEROquel 100MG Oral Tablet 04/18/2018 - 05/30/2018 Pro vider: JARON TOWNSEND M.D. Diagnosis: One tablet at bed timeNeed Office Visit. Last Documented On 05/30/2018 11:51AM By JOSIE TOWNSEND MD ; [facility] Amitriptyline HCl 50MG Oral Tablet 03/06/2018 - 05/30/2018 Provider: JARON TOWNSEND M.D. Diagnosis: One tablet at bed time Last Documented On 05/30/2018 11:51AM By JOSIE TOWNSEND MD ; [facility] SEROquel 100MG Oral Tablet 01/16/2018 - 04/18/2018 Pro vider: JARON TOWNSEND M.D. Diagnosis: One tablet at bed time Last Documented On 04/18/2018 11:08AM By JOSIE TOWNSEND MD ; [facility] BusPIRone HCl 10MG Oral Tablet 12/19/2017 - 09/27/2018 Provider: JARON TOWNSEND M.D. Diagnosis: Anxiety disorder , unspecified One tablet daily as needed Last Documented On 09/27/2018 11:24AM By JOSIE TOWNSEND MD ; [facility] Gabapentin 100MG Oral Capsule 12/19/2017 - 09/27/2018 Provider: JARON TOWNSEND M.D. Diagnosis: Low back pain One tablet three times a day Last Documented On 09/27/2018 11:24AM By JOSIE TOWNSEND MD ; [facility] Naproxen 500MG Oral Tablet 11/21/2017 - 12/19/2017 Pro vider: JARON TOWNSEND M.D. Diagnosis: One tablet twice a day Last Documented On 12/19/2017 5:13PM By JOSIE TOWNSEND MD ; [facility] SEROquel 200MG Oral Tablet 11/09/2017 - 12/19/2017 Pro vider: JARON TOWNSEND M.D. Diagnosis: 1/2 tab at night Last Documented On 12/19/2017 2:45PM By Sandra TREVINO ; [facility] SEROquel 100MG Oral Tablet 10/09/2017 - 01/16/2018 Pro vider: JARON TOWNSEND M.D. Diagnosis: One tablet at bed time Last Documented On 01/16/2018 3:17PM By JOSIE TOWNSEND MD ; [facility] Amitriptyline HCl 50MG Oral Tablet 10/09/2017 - 03/06/2018 Provider: JARON TOWNSEND M.D. Diagnosis: One tablet at bed time Last Documented On 03/06/2018 11:13AM By JOSIE TOWNSEND MD ; [facility] Amitriptyline HCl 50MG Oral Tablet 08/16/2017 - 10/09/2017 Provider: JARON TOWNSEND M.D. Diagnosis: One tablet at bed time TAKE 1 TABLET AT BEDTIME Last Documented On 10/09/2017 3:48PM By JOSIE TOWNSEND MD ; [facility] SEROquel 200MG Oral Tablet 04/26/2017 - 10/09/2017 Pro vider: JARON TOWNSEND M.D. Diagnosis: TAKE 1 TABLET AT BEDTIME Last Documented On 10/09/2017 3:48PM By JOSIE TOWNSEND MD ; [facility] Amitriptyline HCl 50MG Oral Tablet 02/13/2017 - 08/16/2017 Provider: JARON TOWNSEND M.D. Diagnosis: One tablet at bed time TAKE 1 TABLET AT BEDTIME Last Documented On 08/16/2017 12:00PM By JOSIE TOWNSEND MD ; [facility] Xanax 0.5MG Oral Tablet 01/12/2017 - 10/09/2017 Provid er: JARON TOWNSEND M.D. Diagnosis: One tablet twice a day Last Documented On 10/09/2017 3:19PM By Sandra TREVINO ; [facility] Amitriptyline HCl 50MG Oral Tablet 01/06/2017 - 01/06/2017 Provider: JARON TOWNSEND M.D. Diagnosis: TAKE 1 TABLET AT BEDTIME Last Documented On 01/06/2017 3:26PM By ITA Malin LPN ; [facility] Amitriptyline HCl 50 MG OR TABS 01/06/2017 - 02/13/2017 Provider: JARON TOWNSEND M.D. Diagnosis: TAKE 1 TABLET AT BEDTIME Last Documented On 02/13/2017 2:26PM By JOSIE TOWNSEND MD ; [facility] Hydrocodone-Acetaminophen 7. 5-325MG Oral Tablet 2017 - 10/09/2017 Provider: JARON TOWNSEND M.D. Diagnosis: One tablet three times a day Last Documented On 10/09/2017 3:45PM By JOSIE TOWNSEND MD ; [facility] ALPRAZolam 0.5MG Oral Tablet 12/12/2016 - 10/09/2017 Provider: JARON TOWNSEND M.D. Diagnosis: Anxiety disorder , unspecified One tablet three times a day as needed Last Documented On 10/09/2017 3:22PM By Sandra TREVINO ; [facility] SEROquel 200MG Oral Tablet 12/06/2016 - 04/26/2017 Pro vider: JARON TOWNSEND M.D. Diagnosis: TAKE 1 TABLET AT BEDTIME Last Documented On 04/26/2017 9:45AM By JOSIE TOWNSEND MD ; [facility] Hydrocodone-Acetaminophen 7. 5-325MG Oral Tablet 12/02/2016 - 2017 Provider: JARON TOWNSEND M.D. Diagnosis: One tablet three times a day Last Documented On 2017 3:01PM By JOSIE TOWNSEND MD ; [facility] ALPRAZolam 0.5MG Oral Tablet 11/11/2016 - 12/12/2016 Provider: JARON TOWNSEND M.D. Diagnosis: Anxiety disorder , unspecified One tablet three times a day as needed Last Documented On 12/12/2016 9:33AM By JOSIE TOWNSEND MD ; [facility] Hydrocodone-Acetaminophen 7. 5-325MG Oral Tablet 11/01/2016 - 12/02/2016 Provider: BEHZAD BENITEZ D.O. Diagnosis: One tablet three times a day Last Documented On 12/02/2016 10:50AM By JOSIE TOWNSEND MD ; [facility] Xanax 0.5MG Oral Tablet 11/01/2016 - 01/12/2017 Provid er: BEHZAD BENITEZ D.O. Diagnosis: One tablet three times a day Last Documented On 01/12/2017 11:26AM By JOSIE TOWNSEND MD ; [facility] Xanax 0.5MG Oral Tablet 10/03/2016 - 11/01/2016 Provid er: JARON TOWNSEND M.D. Diagnosis: One tablet three times a day Last Documented On 11/01/2016 1:13PM By BEHZAD BENITEZ DO ; [facility] Hydrocodone-Acetaminophen 7. 5-325MG Oral Tablet 10/03/2016 - 11/01/2016 Provider: JARON TOWNSEND M.D. Diagnosis: One tablet three times a day Last Documented On 11/01/2016 1:10PM By BEHZAD BENITEZ DO ; [facility] Ibuprofen 800MG Oral Tablet 09/19/2016 - 09/27/2018 Pr ovider: JARON TONWSEND M.D. Diagnosis: Take one four times a day as needed Last Documented On 09/27/2018 11:24AM By JOSIE TOWNSEND MD ; [facility] Xanax 0.5MG Oral Tablet 09/02/2016 - 10/03/2016 Provid er: JARON TOWNSEND M.D. Diagnosis: One tablet three times a day Last Documented On 10/03/2016 10:27AM By JOSIE TOWNSEND MD ; [facility] Hydrocodone-Acetaminophen 7. 5-325MG Oral Tablet 09/02/2016 - 10/03/2016 Provider: JARON TOWNSEND M.D. Diagnosis: One tablet three times a day Last Documented On 10/03/2016 10:27AM By JOSIE TOWNSEND MD ; [facility] Hydrocodone-Acetaminophen 7. 5-325MG Oral Tablet 08/03/2016 - 09/02/2016 Provider: JARON TOWNSEND M.D. Diagnosis: One tablet three times a day Last Documented On 09/02/2016 10:29AM By JOSIE TOWNSEND MD ; [facility] Xanax 0.5MG Oral Tablet 08/03/2016 - 09/02/2016 Provid er: JARON TOWNSEND M.D. Diagnosis: One tablet three times a day Last Documented On 09/02/2016 10:26AM By JOSIE TOWNSEND MD ; [facility] Amoxicillin 500MG Oral Capsule 07/08/2016 - 11/11/2016 Provider: JARON TOWNSEND M.D. Diagnosis: Acute bronchitis , unspecified 1 three times daily Last Documented On 11/11/2016 3:26PM By CINTHYA TREVINO ; [facility] Amitriptyline HCl 50MG Oral Tablet 07/06/2016 - 01/06/2017 Provider: JARON TOWNSEND M.D. Diagnosis: TAKE 1 TABLET AT BEDTIME Last Documented On 01/06/2017 1:14PM By JOSIE TOWNSEND MD ; [facility] Xanax 0.5MG Oral Tablet 07/06/2016 - 08/03/2016 Provid er: JARON TOWNSEND M.D. Diagnosis: One tablet three times a day Last Documented On 08/03/2016 9:52AM By JOSIE TOWNSEND MD ; [facility] Hydrocodone-Acetaminophen 7. 5-325MG Oral Tablet 07/06/2016 - 08/03/2016 Provider: JARON TOWNSEND M.D. Diagnosis: One tablet three times a day Last Documented On 08/03/2016 9:58AM By JOSIE TOWNSEND MD ; [facility] SEROquel 200MG Oral Tablet 07/06/2016 - 12/06/2016 Pro vider: JARON TOWNSEND M.D. Diagnosis: TAKE 1 TABLET AT BEDTIME Last Documented On 12/06/2016 2:15PM By JOSIE TOWNSEND MD ; [facility] PROzac 40 MG Capsule, conventional 06/06/2016 - 10/09/2017 Provider: JARON TOWNSEND M.D. Diagnosis: Major depressive disorder, single episode, unspecified One tablet daily Last Documented On 10/09/2017 3:21PM By Sandra TREVINO ; [facility] Hydrocodone-Acetaminophen 7. 5-325 MG Tablet 06/06/2016 - 07/06/2016 Provider: JARON TOWNSEND M.D. Diagnosis: One tablet three times a day Last Documented On 07/06/2016 10:14AM By JOSIE TOWNSEND MD ; [facility] Xanax 0.5 MG Tablet 06/06/2016 - 07/06/2016 Provider: JARON TOWNSEND M.D. Diagnosis: One tablet three times a day Last Documented On 07/06/2016 10:15AM By JOSIE TOWNSEND MD ; [facility] SEROquel 200 MG Tablet 06/06/2016 - 07/06/2016 Provide r: JARON TOWNSEND M.D. Diagnosis: TAKE 1 TABLET AT BEDTIME Last Documented On 07/06/2016 10:13AM By JOSIE TOWNSEND MD ; [facility] Hydrocodone-Acetaminophen 7. 5-325 MG Tablet 05/06/2016 - 06/06/2016 Provider: HIPOLITO PROCTOR PMHNP-BC SPACER TYPE BAR AND SEGMENT-BC Diagnosis: 1 q 8hrs PRN pain Last Documented On 06/06/2016 10:53AM By JOSIE TOWNSEND MD ; [facility] Xanax 0.5 MG Tablet 05/06/2016 - 06/06/2016 Provider: HIPOLITO PROCTOR PMHNP-BC SPACER TYPE BAR AND SEGMENT-BC Diagnosis: One tablet three times a day Last Documented On 06/06/2016 10:51AM By JOSIE TOWNSEND MD ; [facility] Amitriptyline HCl 50 MG Tablet 04/07/2016 - 07/06/2016 Provider: JARON TOWNSEND M.D. Diagnosis: TAKE 1 TABLET AT BEDTIME Last Documented On 07/06/2016 10:12AM By JOSIE TOWNSEND MD ; [facility] SEROquel 200 MG Tablet 04/07/2016 - 06/06/2016 Provide r: JARON TOWNSEND M.D. Diagnosis: TAKE 1 TABLET AT BEDTIME Last Documented On 06/06/2016 9:02AM By JOSIE TOWNSEND MD ; [facility] Hydrocodone-Acetaminophen 7. 5-325 MG Tablet 03/10/2016 - 04/07/2016 Provider: JARON TOWNSEND M.D. Diagnosis: One tablet three times a day as needed Last Documented On 04/07/2016 9:43AM By JOSIE TOWNSEND MD ; [facility] Xanax 0.5 MG Tablet 03/10/2016 - 04/07/2016 Provider: JARON TOWNSEND M.D. Diagnosis: One tablet three times a day Last Documented On 04/07/2016 9:44AM By JOSIE TOWNSEND MD ; [facility] PROzac 40 MG Capsule, conventional 03/10/2016 - 06/06/2016 Provider: JARON TOWNSEND M.D. Diagnosis: Major depressive disorder, single episode, unspecified One tablet daily Last Documented On 06/06/2016 9:02AM By JOSIE TOWNSEND MD ; [facility] Hydrocodone-Acetaminophen 7. 5-325 MG Tablet 02/10/2016 - 03/10/2016 Provider: JARON TOWNSEND M.D. Diagnosis: One tablet three times a day as needed Last Documented On 03/10/2016 10:27AM By JOSIE TOWNSEND MD ; [facility] Xanax 0.5 MG Tablet 02/08/2016 - 03/10/2016 Provider: JARON TOWNSEND M.D. Diagnosis: One tablet three times a day Last Documented On 03/10/2016 10:26AM By JOSIE TOWNSEND MD ; [facility] Hydrocodone-Acetaminophen 7. 5-325 MG Tablet 01/11/2016 - 02/10/2016 Provider: JARON TOWNSEND M.D. Diagnosis: One tablet three times a day as needed Last Documented On 02/10/2016 9:23AM By JOSIE TOWNSEND MD ; [facility] SEROquel 200 MG Tablet 01/08/2016 - 04/07/2016 Provide r: JARON TOWNSEND M.D. Diagnosis: TAKE 1 TABLET AT BEDTIME Last Documented On 04/07/2016 9:42AM By JOSIE TOWNSEND MD ; [facility] Amitriptyline HCl 50 MG Tablet 01/08/2016 - 04/07/2016 Provider: JARON TOWNSEND M.D. Diagnosis: TAKE 1 TABLET AT BEDTIME Last Documented On 04/07/2016 9:42AM By JOSIE TOWNSEND MD ; [facility] Xanax 0.5 MG Tablet 01/08/2016 - 02/08/2016 Provider: JARON TOWNSEND M.D. Diagnosis: One tablet three times a day Last Documented On 02/08/2016 11:18AM By JOSIE TOWNSEND MD ; [facility] PROzac 40 MG Capsule, conventional 12/25/2015 - 03/10/2016 Provider: JARON TOWNSEND M.D. Diagnosis: Major depressive disorder, single episode, unspecified One tablet daily Last Documented On 03/10/2016 10:25AM By JOSIE TOWNSEND MD ; [facility] Xanax 0.5 MG Tablet 12/10/2015 - 01/08/2016 Provider: HIPOLITO PROCTOR [facility] Diagnosis: One tablet three times a day Last Documented On 01/08/2016 9:33AM By JOSIE TOWNSEND MD ; [facility] Hydrocodone-Acetaminophen 7. 5-325 MG Tablet 12/10/2015 - 01/11/2016 Provider: HIPOLITO PROCTOR [facility] Diagnosis: One tablet three times a dayFill on: 12/11/15 Last Documented On 01/11/2016 12:04PM By JOSIE TOWNSEND MD ; [facility] SEROquel 200 MG Tablet 12/10/2015 - 01/08/2016 Provide r: JARON TOWNSEND M.D. Diagnosis: TAKE 1 TABLET AT BEDTIME Last Documented On 01/08/2016 9:39AM By JOSIE TOWNSEND MD ; [facility] Amitriptyline HCl 50 MG Tablet 12/10/2015 - 01/08/2016 Provider: JARON TOWNSEND M.D. Diagnosis: TAKE 1 TABLET AT BEDTIME Last Documented On 01/08/2016 9:33AM By JOSIE TOWNSEND MD ; [facility] Hydrocodone-Acetaminophen 7. 5-325 MG Tablet 11/12/2015 - 12/10/2015 Provider: JARON TOWNSEND M.D. Diagnosis: One tablet three times a day Last Documented On 6 12:53PM By HIPOLITO PROCTOR [facility] ; [facility] Xanax 0.5 MG Tablet 11/10/2015 - 12/10/2015 Provider: JARON TOWNSEND M.D. Diagnosis: One tablet three times a day Last Documented On 6 12:56PM By HIPOLITO PROCTOR [facility] ; [facility] Hydrocodone-Acetaminophen 7. 5-325 MG Tablet 10/15/2015 - 11/12/2015 Provider: JARON TOWNSEND M.D. Diagnosis: One tablet three times a day Last Documented On 11/12/2015 2:59PM By JOSIE TOWNSEND MD ; [facility] PROzac 40 MG Capsule 10/13/2015 - 12/25/2015 Provider: JARON TOWNSEND M.D. Diagnosis: Major depressive disorder, single episode, unspecified 1 daily Last Documented On 12/25/2015 2:28PM By JOSIE TOWNSEND MD ; [facility] Xanax 0.5 MG Tablet 10/09/2015 - 11/10/2015 Provider: JARON TOWNSEND M.D. Diagnosis: One tablet three times a day Last Documented On 11/10/2015 11:27AM By JOSIE TOWNSEND MD ; [facility] Hydrocodone-Acetaminophen 7. 5-325 MG Tablet 09/17/2015 - 10/15/2015 Provider: JARON TOWNSEND M.D. Diagnosis: One tablet three times a day Last Documented On 10/15/2015 11:58AM By JOSIE TOWNSEND MD ; [facility] Amitriptyline HCl 50 MG Tablet 09/11/2015 - 12/10/2015 Provider: JARON TOWNSEND M.D. Diagnosis: TAKE 1 TABLET AT BEDTIME Last Documented On 6 12:52PM By СЕРГЕЙ MOFFETT PA-C ; [facility] SEROquel 200 MG Tablet 09/11/2015 - 12/10/2015 Provide r: JARON TOWNSEND M.D. Diagnosis: TAKE 1 TABLET AT BEDTIME Last Documented On 6 12:53PM By СЕРГЕЙ MOFFETT PA-C ; [facility] Xanax 0.5 MG Tablet 09/11/2015 - 10/09/2015 Provider: JARON TOWNSEND M.D. Diagnosis: One tablet three times a day Last Documented On 10/09/2015 1:16PM By JOSIE TOWNSEND MD ; [facility] Wellbutrin SR 100 MG Tablet, extended-release 12 hour 08/31/2015 - 10/13/2015 Provider: JARON TOWNSEND M.D. Diagnosis: Major depressive disorder, single episode, unspecified 1 twice a day Last Documented On 10/13/2015 10:32AM By JOSIE TOWNSEND MD ; [facility] Hydrocodone-Acetaminophen 7. 5-325 MG Tablet 08/20/2015 - 09/17/2015 Provider: JARON TOWNSEND M.D. Diagnosis: One tablet three times a day Last Documented On 09/17/2015 9:22AM By JOSIE TOWNSEND MD ; [facility] Xanax 0.5 MG Tablet 08/13/2015 - 09/11/2015 Provider: JARON TOWNSEND M.D. Diagnosis: One tablet three times a day Last Documented On 09/11/2015 9:38AM By JOSIE TOWNSEND MD ; [facility] SEROquel 200 MG Tablet 08/13/2015 - 09/11/2015 Provide r: JARON TOWNSEND M.D. Diagnosis: TAKE 1 TABLET AT BEDTIME Last Documented On 09/11/2015 9:38AM By JOSIE TOWNSEND MD ; [facility] Amitriptyline HCl 50 MG Tablet 08/13/2015 - 09/11/2015 Provider: JARON TOWNSEND M.D. Diagnosis: TAKE 1 TABLET AT BEDTIME Last Documented On 09/11/2015 9:40AM By JOSIE TOWNSEND MD ; [facility] Hydrocodone-Acetaminophen 7. 5-325 MG Tablet 07/23/2015 - 08/20/2015 Provider: JARON TOWNSEND M.D. Diagnosis: One tablet three times a day Last Documented On 08/20/2015 11:37AM By JOSIE TOWNSEND MD ; [facility] Xanax 0.5 MG Tablet 07/17/2015 - 08/13/2015 Provider: JARON TOWNSEND M.D. Diagnosis: One tablet three times a day Last Documented On 08/13/2015 11:49AM By JOSIE TOWNSEND MD ; [facility] Amitriptyline HCl 50 MG Tablet 07/15/2015 - 08/13/2015 Provider: JARON TOWNSEND M.D. Diagnosis: TAKE 1 TABLET AT BEDTIME Last Documented On 08/13/2015 11:48AM By JOSIE TOWNSEND MD ; [facility] SEROquel 200 MG Tablet 07/15/2015 - 08/13/2015 Provide r: JARON TOWNSEND M.D. Diagnosis: TAKE 1 TABLET AT BEDTIME Last Documented On 08/13/2015 11:48AM By JOSIE TOWNSEND MD ; [facility] [facility] Hydrocodone-Acetaminophen 7. 5-325 MG Tablet 06/23/2015 - 07/23/2015 Provider: JARON TOWNSEND M.D. Diagnosis: One tablet three times a day as needed - DO NOT FILL UNTIL 05-24-15 Last Documented On 07/23/2015 10:30AM By JOSIE TOWNSEND MD ; [facility] Xanax 0.5 MG Tablet 06/18/2015 - 07/17/2015 Provider: JARON TOWNSEND M.D. Diagnosis: One tablet three times a day Last Documented On 07/17/2015 1:39PM By JOSIE TOWNSEND MD ; [facility] Hydrocodone-Acetaminophen 7. 5-325 MG Tablet 05/21/2015 - 06/23/2015 Provider: ADAL BARAJAS PA-C Diagnosis: One tablet three times a day as needed - DO NOT FILL UNTIL 05-24-15 Last Documented On 06/23/2015 2:49PM By JOSIE TOWNSEND MD ; [facility] Xanax 0.5 MG Tablet 05/18/2015 - 06/18/2015 Provider: BEHZAD BENITEZ D.O. Diagnosis: One tablet three times a day Last Documented On 06/18/2015 12:10PM By JOSIE TOWNSEND MD ; [facility] Hydrocodone-Acetaminophen 7. 5-325 MG Tablet 04/24/2015 - 05/21/2015 Provider: JARON TOWNSEND M.D. Diagnosis: One tablet three times a day as needed Last Documented On 5 10:27AM By ADAL BARAJAS PA-C ; [facility] Xanax 0.5 MG Tablet 04/17/2015 - 05/18/2015 Provider: JARON TOWNSEND M.D. Diagnosis: One tablet three times a day Last Documented On 05/18/2015 5:26PM By SANTOSH TREVINO ; [facility] SEROquel 200 MG Tablet 04/07/2015 - 07/15/2015 Provide r: JARON TOWNSEND M.D. Diagnosis: One tablet at bed time Last Documented On 07/15/2015 10:26AM By JOSIE TOWNSEND MD ; [facility] Amitriptyline HCl 50 MG Tablet 04/07/2015 - 07/15/2015 Provider: JARON TOWNSEND M.D. Diagnosis: One tablet at bed time Last Documented On 07/15/2015 10:27AM By JOSIE TOWNSEND MD ; [facility] Hydrocodone-Acetaminophen 7. 5-325 MG Tablet 03/26/2015 - 04/24/2015 Provider: JARON TOWNSEND M.D. Diagnosis: One tablet three times a day as needed Last Documented On 04/24/2015 9:54AM By JOSIE TOWNSEND MD ; [facility] Xanax 0.5 MG Tablet 03/18/2015 - 04/17/2015 Provider: JARON TOWNSEND M.D. Diagnosis: One tablet three times a day Last Documented On 04/17/2015 11:59AM By JOSIE TOWNSEND MD ; [facility] SEROquel 200 MG Tablet 03/06/2015 - 04/07/2015 Provide r: JARON TOWNSEND M.D. Diagnosis: One tablet at bed time Last Documented On 04/07/2015 10:00AM By JOSIE TOWNSEND MD ; [facility] Amitriptyline HCl 50 MG Tablet 03/06/2015 - 04/07/2015 Provider: JARON TOWNSEND M.D. Diagnosis: One tablet at bed time Last Documented On 04/07/2015 10:00AM By JOSIE TOWNSEND MD ; [facility] Hydrocodone-Acetaminophen 7. 5-325 MG Tablet 02/23/2015 - 03/26/2015 Provider: JARON TOWNSEND M.D. Diagnosis: One tablet three times a day as needed Last Documented On 03/26/2015 9:06AM By JOSIE TOWNSEND MD ; [facility] Xanax 0.5 MG Tablet 02/16/2015 - 03/18/2015 Provider: JARON TOWNSEND M.D. Diagnosis: One tablet three times a day Last Documented On 03/18/2015 10:43AM By JOSIE TOWNSEND MD ; [facility] Hydrocodone-Acetaminophen 7. 5-325 MG Tablet 01/22/2015 - 02/23/2015 Provider: JARON TOWNSEND M.D. Diagnosis: One tablet three times a day as needed Last Documented On 02/23/2015 9:23AM By JOSIE TOWNSEND MD ; [facility] Xanax 0.5 MG Tablet 01/16/2015 - 02/16/2015 Provider: JARON TOWNSEND M.D. Diagnosis: One tablet three times a day Last Documented On 02/16/2015 12:03PM By JOSIE TOWNSEND MD ; [facility] Hydrocodone-Acetaminophen 7. 5-325 MG Tablet 12/23/2014 - 01/22/2015 Provider: JARON TOWNSEND M.D. Diagnosis: One tablet three times a day as needed Last Documented On 01/22/2015 9:32AM By JOSIE TOWNSEND MD ; [facility] Xanax 0.5 MG Tablet 12/16/2014 - 01/16/2015 Provider: JARON TOWNSEND M.D. Diagnosis: 1 three times daily Last Documented On 01/16/2015 9:49AM By JOSIE TOWNSEND MD ; [facility] SEROquel 200 MG Tablet 12/08/2014 - 03/06/2015 Provide r: JARON TOWNSEND M.D. Diagnosis: One tablet at bed time Last Documented On 03/06/2015 2:45PM By JOSIE TOWNSEND MD ; [facility] Amitriptyline HCl 50 MG Tablet 12/05/2014 - 03/06/2015 Provider: JARON TOWNSEND M.D. Diagnosis: TAKE 1 TABLET AT BEDTIME Last Documented On 03/06/2015 2:45PM By JOSIE TOWNSEND MD ; [facility] Hydrocodone-Acetaminophen 7. 5-325 MG Tablet 11/24/2014 - 12/23/2014 Provider: JARON TOWNSEND M.D. Diagnosis: One tablet three times a day as needed Last Documented On 12/23/2014 9:52AM By JOSIE TOWNSEND MD ; [facility] Xanax 0.5 MG Tablet 11/17/2014 - 12/16/2014 Provider: JARON TOWNSEND M.D. Diagnosis: 1 three times daily Last Documented On 12/16/2014 10:42AM By JOSIE TOWNSEND MD ; [facility] Amitriptyline HCl 50 MG Tablet 11/07/2014 - 12/05/2014 Provider: JARON TOWNSEND M.D. Diagnosis: TAKE 1 TABLET AT BEDTIME Last Documented On 12/05/2014 1:49PM By JOSIE TOWNSEND MD ; [facility] SEROquel 200 MG Tablet 11/06/2014 - 12/08/2014 Provide r: JARON TOWNSEND M.D. Diagnosis: One tablet at bed time Last Documented On 12/08/2014 9:35AM By JOSIE TOWNSEND MD ; [facility] Hydrocodone-Acetaminophen 7. 5-325 MG Tablet 10/27/2014 - 11/24/2014 Provider: BEHZAD BENITEZ D.O. Diagnosis: One tablet three times a day as needed Last Documented On 11/24/2014 11:56AM By JOSIE TOWNSEND MD ; [facility] Hydrocodone-Acetaminophen 7. 5-325 MG Tablet 10/23/2014 - 10/27/2014 Provider: JARON TOWNSEND M.D. Diagnosis: One tablet three times a day as needed Last Documented On 10/27/2014 2:21PM By BEHZAD BENITEZ DO ; [facility] Xanax 0.5 MG Tablet 10/17/2014 - 11/17/2014 Provider: JARON TOWNSEND M.D. Diagnosis: 1 three times daily Last Documented On 11/17/2014 10:30AM By JOSIE TOWNSEND MD ; [facility] SEROquel 200 MG Tablet 10/07/2014 - 11/06/2014 Provide r: JARON TOWNSEND M.D. Diagnosis: One tablet at bed time Last Documented On 11/06/2014 11:58AM By JOSIE TOWNSEND MD ; [facility] Amitriptyline HCl 50 MG Tablet 10/07/2014 - 11/07/2014 Provider: JARON TOWNSEND M.D. Diagnosis: One tablet at bed time Last Documented On 11/07/2014 4:56PM By JOSIE TOWNSEND MD ; [facility] Hydrocodone-Acetaminophen 7. 5-325 MG Tablet 09/22/2014 - 10/23/2014 Provider: JARON TOWNSEND M.D. Diagnosis: One tablet three times a day as needed Last Documented On 10/23/2014 3:25PM By JOSIE TOWNSEND MD ; [facility] Xanax 0.5 MG Tablet 09/18/2014 - 10/17/2014 Provider: JARON TOWNSEND M.D. Diagnosis: 1 three times daily Last Documented On 10/17/2014 3:23PM By JOSIE TOWNSEND MD ; [facility] SEROquel 200 MG Tablet 09/05/2014 - 10/07/2014 Provide r: JARON TOWNSEND M.D. Diagnosis: One tablet at bed time Last Documented On 10/07/2014 9:32AM By JOSIE TOWNSEND MD ; [facility] Hydrocodone-Acetaminophen 7. 5-325 MG Tablet 08/19/2014 - 09/22/2014 Provider: JARON TOWNSEND M.D. Diagnosis: One tablet three times a day as needed Last Documented On 09/22/2014 1:21PM By JOSIE TOWNSEND MD ; [facility] Xanax 0.5 MG Tablet 08/18/2014 - 09/18/2014 Provider: JARON TOWNSEND M.D. Diagnosis: 1 three times daily Last Documented On 09/18/2014 1:45PM By JOSIE TOWNSEND MD ; [facility] SEROquel 200 MG Tablet 08/05/2014 - 09/05/2014 Provide r: JARON TOWNSEND M.D. Diagnosis: One tablet at bed time Last Documented On 09/05/2014 3:22PM By JOSIE TOWNSEND MD ; [facility] Amitriptyline HCl 50 MG Tablet 08/05/2014 - 10/07/2014 Provider: JARON TOWNSEND M.D. Diagnosis: One tablet at bed time Last Documented On 10/07/2014 9:32AM By JOSIE TOWNSEND MD ; [facility] PROzac 40 MG Capsule, conventional 08/05/2014 - 08/31/2015 Provider: JARON TOWNSEND M.D. Diagnosis: 1 daily Last Documented On 08/31/2015 10:47AM By CINTHYA TREVINO ; [facility] Xanax 0.5 MG OR TABS 07/21/2014 - 08/18/2014 Provider: JARON TOWNSEND M.D. Diagnosis: Last Documented On 08/18/2014 10:29AM By JOSIE TOWNSEND MD ; [facility] HYDROcodone-Acetaminophen 7. 5-325 MG OR TABS 07/21/2014 - 08/19/2014 Provider: JARON TOWNSEND M.D. Diagnosis: Need Office Visit. Last Documented On 08/19/2014 4:12PM By JOSIE TOWNSEND MD ; [facility] Xanax 0.5 MG OR TABS 06/19/2014 - 07/21/2014 Provider: JARON TOWNSEND M.D. Diagnosis: Last Documented On 07/21/2014 10:56AM By JOSIE TOWNSEND MD ; [facility] HYDROcodone-Acetaminophen 7. 5-325 MG OR TABS 06/19/2014 - 07/21/2014 Provider: JARON TOWNSEND M.D. Diagnosis: Need Office Visit. Last Documented On 07/21/2014 9:35AM By JOSIE TOWNSEND MD ; [facility] Xanax 0.5 MG OR TABS 05/19/2014 - 06/19/2014 Provider: JARON TOWNSEND M.D. Diagnosis: Last Documented On 06/19/2014 3:09PM By JOSIE TOWNSEND MD ; [facility] HYDROcodone-Acetaminophen 7. 5-325 MG OR TABS 05/13/2014 - 06/19/2014 Provider: JARON TOWNSEND M.D. Diagnosis: Last Documented On 06/19/2014 1:47PM By JOSIE TOWNSEND MD ; [facility] SEROquel 200 MG OR TABS 05/06/2014 - 08/05/2014 Provid er: JARON TOWNSEND M.D. Diagnosis: Last Documented On 08/05/2014 11:50AM By JOSIE TOWNSEND MD ; [facility] Amitriptyline HCl 25 MG OR TABS 05/06/2014 - 10/13/2014 Provider: JARON TOWNSEND M.D. Diagnosis: Last Documented On 10/13/2014 4:54PM By JOSIE TOWNSEND MD ; [facility] Xanax 0.5 MG OR TABS 04/17/2014 - 05/19/2014 Provider: JARON TOWNSEND M.D. Diagnosis: Last Documented On 05/19/2014 2:17PM By JOSIE TOWNSEND MD ; [facility] HYDROcodone-Acetaminophen 7. 5-325 MG OR TABS 04/14/2014 - 05/13/2014 Provider: JARON TOWNSEND M.D. Diagnosis: Last Documented On 05/13/2014 11:42AM By JOSIE TOWNSEND MD ; [facility] SEROquel 200 MG OR TABS 04/03/2014 - 05/06/2014 Provid er: JARON TOWNSEND M.D. Diagnosis: Last Documented On 05/06/2014 1:34PM By JOSIE TOWNSEND MD ; [facility] Amitriptyline HCl 25 MG OR TABS 04/03/2014 - 05/06/2014 Provider: JARON TOWNSEND M.D. Diagnosis: Last Documented On 05/06/2014 1:34PM By JOSIE TOWNSEND MD ; [facility] Xanax 0.5 MG OR TABS 03/20/2014 - 04/17/2014 Provider: JARON TOWNSEND M.D. Diagnosis: Last Documented On 04/17/2014 1:42PM By JOSIE TOWNSEND MD ; [facility] Diflucan 150 MG OR TABS 03/18/2014 - 04/17/2014 Provid er: JARON TOWNSEND M.D. Diagnosis: Last Documented On 04/17/2014 1:39PM By JOSIE TOWNSEND MD ; [facility] HYDROcodone-Acetaminophen 7. 5-325 MG OR TABS 03/14/2014 - 04/14/2014 Provider: BEHZAD BENITEZ D.O. Diagnosis: Last Documented On 04/14/2014 10:19AM By JOSIE TOWNSEND MD ; [facility] Amitriptyline HCl 25 MG OR TABS 03/03/2014 - 04/03/2014 Provider: JARON TOWNSEND M.D. Diagnosis: Last Documented On 04/03/2014 10:43AM By JOSIE TOWNSEND MD ; [facility] HYDROcodone-Acetaminophen 7. 5-325 MG OR TABS 02/14/2014 - 03/14/2014 Provider: JARON TOWNSEND M.D. Diagnosis: Last Documented On 03/14/2014 1:00PM By BEHZAD BENITEZ DO ; [facility] Amitriptyline HCl 25 MG OR TABS 01/24/2014 - 03/03/2014 Provider: JARON TOWNSEND M.D. Diagnosis: Last Documented On 03/03/2014 1:52PM By JOSIE TOWNSEND MD ; [facility] HYDROcodone-Acetaminophen 7. 5-325 MG OR TABS 01/16/2014 - 02/14/2014 Provider: JARON TOWNSEND M.D. Diagnosis: Last Documented On 02/14/2014 9:50AM By JOSIE TOWNSEND MD ; [facility] HYDROcodone-Acetaminophen 7. 5-325 MG OR TABS 12/17/2013 - 01/16/2014 Provider: JARON TOWNSEND M.D. Diagnosis: Last Documented On 01/16/2014 2:12PM By JOSIE TOWNSEND MD ; [facility] HYDROcodone-Acetaminophen 7. 5-325 MG OR TABS 11/18/2013 - 12/17/2013 Provider: JARON TOWNSEND M.D. Diagnosis: Last Documented On 12/17/2013 3:37PM By JOSIE TOWNSEND MD ; [facility] Xanax 0.5 MG OR TABS 11/04/2013 - 03/20/2014 Provider: BEHZAD BENITEZ D.O. Diagnosis: Last Documented On 03/20/2014 11:36AM By JOSIE TOWNSEND MD ; [facility] Amitriptyline HCl 25 MG OR TABS 10/24/2013 - 01/24/2014 Provider: JARON TOWNSEND M.D. Diagnosis: Last Documented On 01/24/2014 12:03PM By JOSIE TOWNSEND MD ; [facility] HYDROcodone-Acetaminophen 7. 5-325 MG OR TABS 10/17/2013 - 11/18/2013 Provider: JARON TOWNSEND M.D. Diagnosis: Last Documented On 11/18/2013 2:33PM By JOSIE TOWNSEND MD ; [facility] SEROquel 200 MG OR TABS 10/07/2013 - 04/03/2014 Provid er: JARON TOWNSEND M.D. Diagnosis: Last Documented On 04/03/2014 10:44AM By JOSIE TOWNSEND MD ; [facility] Xanax 0.5 MG OR TABS 10/04/2013 - 11/04/2013 Provider: JARON TOWNSEND M.D. Diagnosis: Last Documented On 11/04/2013 4:47PM By BEHZAD BENITEZ DO ; [facility] PROzac 40 MG OR CAPS 10/04/2013 - 08/05/2014 Provider: JARON TOWNSEND M.D. Diagnosis: Last Documented On 08/05/2014 11:50AM By JOSIE TOWNSEND MD ; [facility] Aldactone 25 MG OR TABS 09/23/2013 - 03/18/2014 Provid er: JARON TOWNSEND M.D. Diagnosis: Last Documented On 03/18/2014 2:19PM By JOSIE TOWNSEND MD ; [facility] HYDROcodone-Acetaminophen 7. 5-325 MG OR TABS 09/18/2013 - 10/17/2013 Provider: JARON TOWNSEND M.D. Diagnosis: Last Documented On 10/17/2013 1:22PM By JOSIE TOWNSEND MD ; [facility] Xanax 0.5 MG OR TABS 09/06/2013 - 10/04/2013 Provider: JARON TOWNSEND M.D. Diagnosis: Last Documented On 10/04/2013 2:27PM By JOSIE TOWNSEND MD ; [facility] HYDROcodone-Acetaminophen 7. 5-325 MG OR TABS 08/19/2013 - 09/18/2013 Provider: JARON TOWNSEND M.D. Diagnosis: Last Documented On 09/18/2013 11:09AM By JOSIE TOWNSEND MD ; [facility] Xanax 0.5 MG OR TABS 08/08/2013 - 09/06/2013 Provider: JARON TOWNSEND M.D. Diagnosis: Last Documented On 09/06/2013 1:28PM By JOSIE TOWNSEND MD ; [facility] Amitriptyline HCl 25 MG OR TABS 07/25/2013 - 10/24/2013 Provider: JARON TOWNSEND M.D. Diagnosis: Last Documented On 10/24/2013 11:12AM By JOSIE TOWNSEND MD ; [facility] HYDROcodone-Acetaminophen 7. 5-325 MG OR TABS 07/22/2013 - 08/19/2013 Provider: JARON TOWNSEND M.D. Diagnosis: Last Documented On 08/19/2013 1:37PM By JOSIE TOWNSEND MD ; [facility] Xanax 0.5 MG OR TABS 07/08/2013 - 08/08/2013 Provider: JARON TOWNSEND M.D. Diagnosis: Last Documented On 08/08/2013 2:21PM By JOSIE TOWNSEND MD ; [facility] PROzac 40 MG OR CAPS 07/08/2013 - 10/04/2013 Provider: JARON TOWNSEND M.D. Diagnosis: Last Documented On 10/04/2013 2:13PM By JOSIE TOWNSEND MD ; [facility] SEROquel 200 MG OR TABS 07/08/2013 - 10/07/2013 Provid er: JARON TOWNSEND M.D. Diagnosis: Last Documented On 10/07/2013 11:37AM By JOSIE TOWNSEND MD ; [facility] Amitriptyline HCl 25 MG OR TABS 06/27/2013 - 07/25/2013 Provider: JARON TOWNSEND M.D. Diagnosis: Last Documented On 07/25/2013 11:49AM By JOSIE TOWNSEND MD ; [facility] HYDROcodone-Acetaminophen 7. 5-325 MG OR TABS 06/24/2013 - 07/22/2013 Provider: BEHZAD BENITEZ D.O. Diagnosis: Last Documented On 07/22/2013 3:22PM By JOSIE TOWNSEND MD ; [facility] PROzac 40 MG OR CAPS 06/10/2013 - 07/08/2013 Provider: JARON TOWNSEND M.D. Diagnosis: Last Documented On 07/08/2013 1:19PM By JOSIE TOWNSEND MD ; [facility] SEROquel 200 MG OR TABS 06/10/2013 - 07/08/2013 Provid er: JARON TOWNSEND M.D. Diagnosis: Last Documented On 07/08/2013 1:19PM By JOSIE TOWNSEND MD ; [facility] Xanax 0.5 MG OR TABS 06/07/2013 - 07/08/2013 Provider: JARON TOWNSEND M.D. Diagnosis: Last Documented On 07/08/2013 2:22PM By JOSIE TOWNSEND MD ; [facility] HYDROcodone-Acetaminophen 7. 5-325 MG OR TABS 05/23/2013 - 06/24/2013 Provider: BEHZAD BENITEZ D.O. Diagnosis: Last Documented On 06/24/2013 1:20PM By BEHZAD BENITEZ DO ; [facility] Xanax 0.5 MG OR TABS 05/07/2013 - 06/07/2013 Provider: JARON TOWNSEND M.D. Diagnosis: Last Documented On 06/07/2013 1:59PM By JOSIE TOWNSEND MD ; [facility] PROzac 40 MG OR CAPS 05/07/2013 - 06/10/2013 Provider: JARON TOWNSEND M.D. Diagnosis: Last Documented On 06/10/2013 11:23AM By JOSIE TOWNSEND MD ; [facility] SEROquel 200 MG OR TABS 05/07/2013 - 06/10/2013 Provid er: JARON TOWNSEND M.D. Diagnosis: Last Documented On 06/10/2013 11:23AM By JOSIE TOWNSEND MD ; [facility] HYDROcodone-Acetaminophen 7. 5-325 MG OR TABS 04/23/2013 - 05/23/2013 Provider: JARON TOWNSEND M.D. Diagnosis: Last Documented On 05/23/2013 4:36PM By BEHZAD BENITEZ DO ; [facility] Xanax 0.5 MG OR TABS 04/08/2013 - 05/07/2013 Provider: JARON TOWNSEND M.D. Diagnosis: Last Documented On 05/07/2013 10:28AM By JOSIE TOWNSEND MD ; [facility] PROzac 40 MG OR CAPS 04/08/2013 - 05/07/2013 Provider: JARON TOWNSEND M.D. Diagnosis: Last Documented On 05/07/2013 10:10AM By JOSIE TOWNSEND MD ; [facility] SEROquel 200 MG OR TABS 04/08/2013 - 05/07/2013 Provid er: JARON TOWNSEND M.D. Diagnosis: Last Documented On 05/07/2013 10:10AM By JOSIE TOWNSEND MD ; [facility] HYDROcodone-Acetaminophen 7. 5-325 MG OR TABS 03/25/2013 - 04/23/2013 Provider: JARON TOWNSEND M.D. Diagnosis: Last Documented On 04/23/2013 11:32AM By JOSIE TOWNSEND MD ; [facility] SEROquel 200 MG OR TABS 03/11/2013 - 04/08/2013 Provid er: JARON TOWNSEND M.D. Diagnosis: Last Documented On 04/08/2013 10:50AM By JOSIE TOWNSEND MD ; [facility] Xanax 0.5 MG OR TABS 03/08/2013 - 04/08/2013 Provider: JARON TOWNSEND M.D. Diagnosis: Last Documented On 04/08/2013 10:58AM By JOSIE TOWNSEND MD ; [facility] traZODone HCl 50 MG OR TABS 03/08/2013 - 04/23/2013 Pr ovider: JARON TOWNSEND M.D. Diagnosis: Last Documented On 04/23/2013 11:29AM By JOSIE TOWNSEND MD ; [facility] HYDROcodone-Acetaminophen 7. 5-325 MG OR TABS 02/22/2013 - 03/25/2013 Provider: JARON TOWNSEND M.D. Diagnosis: Last Documented On 03/25/2013 11:26AM By JOSIE TOWNSEND MD ; [facility] HYDROcodone-Acetaminophen 7. 5-325 MG OR TABS 02/08/2013 - 02/22/2013 Provider: JARON TOWNSEND M.D. Diagnosis: Last Documented On 02/22/2013 1:42PM By JOSIE TOWNSEND MD ; [facility] Xanax 0.5 MG OR TABS 02/06/2013 - 03/08/2013 Provider: JARON TOWNSEND M.D. Diagnosis: Last Documented On 03/08/2013 9:51AM By JOSIE TOWNSEND MD ; [facility] PROzac 40 MG OR CAPS 02/06/2013 - 04/08/2013 Provider: JARON TOWNSEND M.D. Diagnosis: Last Documented On 04/08/2013 10:50AM By JOSIE TOWNSEND MD ; [facility] SEROquel 200 MG OR TABS 02/06/2013 - 03/11/2013 Provid er: JARON S KRISTIAN M.D. Diagnosis: Last Documented On 03/11/2013 9:50AM By JOSIE TOWNSEND MD ; [facility] traZODone HCl 50 MG OR TABS 01/21/2013 - 03/08/2013 Pr ovider: JARON TOWNSEND M.D. Diagnosis: Last Documented On 03/08/2013 9:43AM By JOSIE TOWNSEND MD ; [facility] Xanax 0.5 MG OR TABS 01/07/2013 - 02/06/2013 Provider: JARON TOWNSEND M.D. Diagnosis: Last Documented On 02/06/2013 10:53AM By JOSIE TOWNSEND MD ; [facility] Naprosyn 500 MG OR TABS 01/07/2013 - 02/08/2013 Provid er: JARON TOWNSEND M.D. Diagnosis: Last Documented On 02/08/2013 1:24PM By JOSIE TOWNSEND MD ; [facility] SEROquel 200 MG OR TABS 01/07/2013 - 02/06/2013 Provid er: JARON TOWNSEND M.D. Diagnosis: Last Documented On 02/06/2013 10:35AM By JOSIE TOWNSEND MD ; [facility] PROzac 40 MG OR CAPS 01/07/2013 - 02/06/2013 Provider: JARON TOWNSEND M.D. Diagnosis: Last Documented On 02/06/2013 10:39AM By JOSIE TOWNSEND MD ; [facility] Xanax 0.5 MG OR TABS 12/07/2012 - 01/07/2013 Provider: JARON TOWNSEND M.D. Diagnosis: Last Documented On 01/07/2013 10:16AM By JOSIE TOWNSEND MD ; [facility] SEROquel 200 MG OR TABS 11/06/2012 - 01/07/2013 Provid er: JARON TOWNSEND M.D. Diagnosis: Last Documented On 01/07/2013 10:15AM By JOSIE TOWNSEND MD ; [facility] PROzac 40 MG OR CAPS 11/06/2012 - 01/07/2013 Provider: JARON TOWNSEND M.D. Diagnosis: Last Documented On 01/07/2013 10:15AM By JOSIE TOWNSEND MD ; [facility] Xanax 0.5 MG OR TABS 11/06/2012 - 12/07/2012 Provider: JARON TOWNSEND M.D. Diagnosis: Last Documented On 12/07/2012 3:48PM By JOSIE TOWNSEND MD ; [facility] Xanax 0.5 MG OR TABS 10/17/2012 - 11/06/2012 Provider: JARON TOWNSEND M.D. Diagnosis: Last Documented On 11/06/2012 2:44PM By JOSIE TOWNSEND MD ; [facility] Xanax 0.5 MG OR TABS 09/17/2012 - 10/17/2012 Provider: JARON TOWNSEND M.D. Diagnosis: Last Documented On 10/17/2012 3:18PM By JOSIE TOWNSEND MD ; [facility] PROzac 40 MG OR CAPS 09/07/2012 - 11/06/2012 Provider: JARON TOWNSEND M.D. Diagnosis: Last Documented On 11/06/2012 2:44PM By JOSIE TOWNSEND MD ; [facility] SEROquel 200 MG OR TABS 09/07/2012 - 11/06/2012 Provid er: JARON TOWNSEND M.D. Diagnosis: Last Documented On 11/06/2012 2:44PM By JOSIE TOWNSEND MD ; [facility] Xanax 0.5 MG OR TABS 08/15/2012 - 09/17/2012 Provider: JARON TOWNSEND M.D. Diagnosis: Last Documented On 09/17/2012 10:30AM By JOSIE TOWNSEND MD ; [facility] SEROquel 200 MG OR TABS 08/06/2012 - 09/07/2012 Provid er: JARON TOWNSEND M.D. Diagnosis: Last Documented On 09/07/2012 4:37PM By JOSIE TOWNSEND MD ; [facility] PROzac 40 MG OR CAPS 08/02/2012 - 01/02/2023 Provider: ANAY TIRADO Diagnosis: Last Documented On 01/02/2023 2:45PM By JOSIE TOWNSEND MD ; [facility] Xanax 0.5 MG OR TABS 08/02/2012 - 08/27/2012 Provider: Diagnosis: Last Documented On 3 5:27PM By MIGDALIA CARL MA ; [facility] PROzac 40 MG OR CAPS 08/02/2012 - 08/27/2012 Provider: Diagnosis: Last Documented On 3 5:27PM By MIGDALIA CARL MA ; [facility] SEROquel 200 MG OR TABS 08/02/2012 - 08/27/2012 Provid er: Diagnosis: Last Documented On 3 5:27PM By MIGDALIA CARL MA ; [facility] SEROquel 300 MG OR TABS 08/02/2012 - 01/02/2023 Provid er: ANAY LLANOS DO [facility] Diagnosis: Last Documented On 01/02/2023 1:45PM By JOSIE TOWNSEND MD ; [facility] Xanax 0.5 MG OR TABS 08/02/2012 - 01/02/2023 Provider: ANAY LLANOS DO [facility] Diagnosis: Last Documented On 01/02/2023 1:45PM By JOSIE TOWNSEND MD ; [facility] Xanax 0.5 MG OR TABS 07/09/2012 - 08/15/2012 Provider: JARON TOWNSEND M.D. Diagnosis: Last Documented On 08/15/2012 11:05AM By JOSIE TOWNSEND MD ; [facility] PROzac 40 MG OR CAPS 07/09/2012 - 09/07/2012 Provider: JARON TOWNSEND M.D. Diagnosis: Last Documented On 09/07/2012 4:36PM By JOSIE TOWNSEND MD ; [facility] SEROquel 200 MG OR TABS 07/09/2012 - 08/06/2012 Provid er: JARON TOWNSEND M.D. Diagnosis: Last Documented On 08/06/2012 11:38AM By JOSIE TOWNSEND MD ; [facility] Everman Carbonate 300 MG OR CAPS 06/25/2012 - 08/15/2012 Provider: JARON TOWNSEND M.D. Diagnosis: Last Documented On 08/15/2012 9:50AM By JOSIE TOWNSEND MD ; [facility] SEROquel 100 MG OR TABS 06/20/2012 - 08/15/2012 Provid er: JARON TOWNSEND M.D. Diagnosis: Last Documented On 08/15/2012 9:41AM By TONYA LUONG CMA ; [facility] PROzac 40 MG OR CAPS 05/18/2012 - 07/09/2012 Provider: JARON TOWNSEND M.D. Diagnosis: Last Documented On 07/09/2012 11:30AM By JOSIE TOWNSEND MD ; [facility] Amphetamine-Dextroamphetamin e 10 MG OR TABS 05/17/2012 - 07/09/2012 Provider: JARON TOWNSEND M.D. Diagnosis: ATTN DEFICIT W HYPERACT Last Documented On 07/09/2012 11:26AM By JOSIE TOWNSEND MD ; [facility] Xanax 0.5 MG OR TABS 05/17/2012 - 07/09/2012 Provider: JARON TOWNSEND M.D. Diagnosis: Last Documented On 07/09/2012 11:30AM By JOSIE TOWNSEND MD ; [facility] Flexeril 10 MG OR TABS 05/16/2012 - 06/25/2012 Provide r: JARON TOWNSEND M.D. Diagnosis: Last Documented On 06/25/2012 3:12PM By JOSIE TOWNSEND MD ; [facility] Ibuprofen 800 MG OR TABS 05/16/2012 - 06/25/2012 Provi jazmine: JARON TOWNSEND M.D. Diagnosis: Last Documented On 06/25/2012 3:12PM By JOSIE TOWNSEND MD ; [facility] SEROquel 100 MG OR TABS 04/18/2012 - 06/20/2012 Provid er: JARON TOWNSEND M.D. Diagnosis: Last Documented On 06/20/2012 9:41AM By JOSIE TOWNSEND MD ; [facility] Xanax 0.5 MG OR TABS 04/16/2012 - 05/17/2012 Provider: JARON TOWNSEND M.D. Diagnosis: Last Documented On 05/17/2012 10:43AM By JOSIE TOWNSEND MD ; [facility] Amphetamine-Dextroamphetamin e 10 MG OR TABS 04/11/2012 - 05/17/2012 Provider: JAORN TOWNSEND M.D. Diagnosis: ATTN DEFICIT W HYPERACT Last Documented On 05/17/2012 10:43AM By JOSIE TOWNSEND MD ; [facility] Flexeril 10 MG OR TABS 04/11/2012 - 05/16/2012 Provide r: JARON TOWNSEND M.D. Diagnosis: Last Documented On 05/16/2012 4:56PM By JOSIE TOWNSEND MD ; [facility] Ibuprofen 800 MG OR TABS 04/11/2012 - 05/16/2012 Provi jazmine: JARON TOWNSEND M.D. Diagnosis: Last Documented On 05/16/2012 4:56PM By JOSIE TOWNSEND MD ; [facility] SEROquel 100 MG OR TABS 03/21/2012 - 04/18/2012 Provid er: JARON TOWNSEND M.D. Diagnosis: Last Documented On 04/18/2012 3:47PM By JOSIE TOWNSEND MD ; [facility] PROzac 40 MG OR CAPS 03/16/2012 - 05/18/2012 Provider: JARON TOWNSEND M.D. Diagnosis: Last Documented On 05/18/2012 8:50PM By JOSIE TOWNSEND MD ; [facility] Xanax 0.5 MG OR TABS 03/16/2012 - 04/16/2012 Provider: JARON TOWNSEND M.D. Diagnosis: Last Documented On 04/16/2012 4:37PM By JOSIE TOWNSEND MD ; [facility] Amphetamine-Dextroamphetamin e 10 MG OR TABS 03/06/2012 - 04/11/2012 Provider: JARON TOWNSEND M.D. Diagnosis: ATTN DEFICIT W HYPERACT Last Documented On 04/11/2012 11:17AM By JOSIE TOWNSEND MD ; [facility] Amphetamine-Dextroamphetamin e 10 MG OR TABS 02/20/2012 - 03/06/2012 Provider: JARON TOWNSEND M.D. Diagnosis: ATTN DEFICIT W HYPERACT Last Documented On 03/06/2012 9:46AM By JOSIE TOWNSEND MD ; [facility] Ritalin 10 MG OR TABS 02/20/2012 - 03/06/2012 Provider : JARON TOWNSEND M.D. Diagnosis: Last Documented On 03/06/2012 9:42AM By JOSIE TOWNSEND MD ; [facility] PROzac 40 MG OR CAPS 02/20/2012 - 03/16/2012 Provider: JARON TOWNSEND M.D. Diagnosis: Last Documented On 03/16/2012 2:16PM By JOSIE TOWNSEND MD ; [facility] PROzac 20 MG OR CAPS 02/17/2012 - 03/06/2012 Provider: JARON TOWNSEND M.D. Diagnosis: Need Office Visit. Last Documented On 03/06/2012 9:37AM By TONYA LUONG CMA ; [facility] Xanax 0.5 MG OR TABS 02/17/2012 - 03/16/2012 Provider: JARON TOWNSEND M.D. Diagnosis: Last Documented On 03/16/2012 2:32PM By JOSIE TOWNSEND MD ; [facility] SEROquel 100 MG OR TABS 02/17/2012 - 03/21/2012 Provid er: JARON TOWNSEND M.D. Diagnosis: Last Documented On 03/21/2012 4:43PM By JOSIE TOWNSEND MD ; [facility] SEROquel 100 MG OR TABS 01/17/2012 - 02/17/2012 Provid er: JARON TOWNSEND M.D. Diagnosis: Last Documented On 02/17/2012 11:35AM By JOSIE TOWNSEND MD ; [facility] Xanax 0.5 MG OR TABS 01/17/2012 - 02/17/2012 Provider: JARON TOWNSEND M.D. Diagnosis: Last Documented On 02/17/2012 11:45AM By JOSIE TOWNSEND MD ; [facility] Zithromax Z-Gonzalez 250 MG OR TABS 01/04/2012 - 12/25/2015 Provider: MELANIE Nogueira Diagnosis: ACUTE PHARYNGITI S Last Documented On 12/25/2015 2:02PM By TONYA LUONG CMA ; [facility] Fioricet 50-325-40 MG OR TABS 12/26/2011 - 02/20/2012 Provider: JARON TOWNSEND M.D. Diagnosis: prn Last Documented On 02/20/2012 11:20AM By TONYA LUONG CMA ; [facility] PROzac 20 MG OR CAPS 12/26/2011 - 02/17/2012 Provider: JARON TOWNSEND M.D. Diagnosis: Last Documented On 02/17/2012 11:34AM By JOSIE TOWNSEND MD ; [facility] SEROquel 100 MG OR TABS 12/26/2011 - 01/17/2012 Provid er: JARON TOWNSEND M.D. Diagnosis: Last Documented On 01/17/2012 10:22AM By JOSIE TOWNSEND MD ; [facility] Xanax 0.5 MG OR TABS 12/19/2011 - 01/17/2012 Provider: JARON TOWNSEND M.D. Diagnosis: Last Documented On 01/17/2012 10:49AM By JOSIE TOWNSEND MD ; [facility] PROzac 20 MG OR CAPS 11/18/2011 - 12/26/2011 Provider: JARON TOWNSEND M.D. Diagnosis: Last Documented On 12/26/2011 9:50AM By JOSIE TOWNSEND MD ; [facility] SEROquel 100 MG OR TABS 11/18/2011 - 12/26/2011 Provid er: JARON TOWNSEND M.D. Diagnosis: Last Documented On 12/26/2011 9:50AM By JOSIE TOWNSEND MD ; [facility] Xanax 0.5 MG OR TABS 11/18/2011 - 12/19/2011 Provider: JARON TOWNSEND M.D. Diagnosis: Last Documented On 12/19/2011 11:36AM By JOSIE TOWNSEND MD ; [facility] Nystatin [id number] UNIT/GM EX POWD 11/18/2011 - 02/20/2012 Provider: JARON TOWNSEND M.D. Diagnosis: Apply to area qid Last Documented On 02/20/2012 11:20AM By TONYA LUONG CMA ; [facility] SEROquel 100 MG OR TABS 10/26/2011 - 11/18/2011 Provid er: JARON TOWNSEND M.D. Diagnosis: Need Office Visit. Last Documented On 11/18/2011 4:48PM By JOSIE TOWNSEND MD ; [facility] Xanax 0.5 MG OR TABS 10/18/2011 - 11/18/2011 Provider: JARON TOWNSEND M.D. Diagnosis: Last Documented On 11/18/2011 4:48PM By JOSIE TOWNSEND MD ; [facility] SEROquel 100 MG OR TABS 09/19/2011 - 10/26/2011 Provid er: JARON TOWNSEND M.D. Diagnosis: Last Documented On 10/26/2011 3:32PM By JOSIE TOWNSEND MD ; [facility] Xanax 0.5 MG OR TABS 09/19/2011 - 10/18/2011 Provider: JARON TOWNSEND M.D. Diagnosis: Last Documented On 10/18/2011 2:19PM By JOSIE TOWNSEND MD ; [facility] Xanax 0.5 MG OR TABS 08/17/2011 - 09/19/2011 Provider: JARON TOWNSEND M.D. Diagnosis: Last Documented On 09/19/2011 3:09PM By JOSIE TOWNSEND MD ; [facility] SEROquel 100 MG OR TABS 08/17/2011 - 09/19/2011 Provid er: JARON TOWNSEND M.D. Diagnosis: Last Documented On 09/19/2011 1:50PM By JOSIE TOWNSEND MD ; [facility] SEROquel 50 MG OR TABS 08/17/2011 - 12/25/2015 Provide r: JARON TOWNSEND M.D. Diagnosis: 1 tab q am Last Documented On 12/25/2015 2:02PM By TONYA LUONG CMA ; [facility] Xanax 0.5 MG OR TABS 07/19/2011 - 08/17/2011 Provider: JARON TOWNSEND M.D. Diagnosis: Last Documented On 08/17/2011 4:33PM By JOSIE TOWNSEND MD ; [facility] SEROquel 100 MG OR TABS 07/19/2011 - 08/17/2011 Provid er: JARON TOWNSEND M.D. Diagnosis: Need Office Visit. Last Documented On 08/17/2011 12:43PM By JOSIE TOWNSEND MD ; [facility] Xanax 0.5 MG OR TABS 06/17/2011 - 07/19/2011 Provider: JARON TOWNSEND M.D. Diagnosis: Last Documented On 07/19/2011 4:33PM By JOSIE OTWNSEND MD ; [facility] SEROquel 100 MG OR TABS 05/13/2011 - 07/19/2011 Provid er: JARON TOWNSEND M.D. Diagnosis: Last Documented On 07/19/2011 2:35PM By JOSIE TOWNSEND MD ; [facility] Xanax 0.5 MG OR TABS 05/13/2011 - 06/17/2011 Provider: JARON TOWNSEND M.D. Diagnosis: Last Documented On 06/17/2011 3:48PM By JOSIE TOWNSEND MD ; [facility] Hyoscyamine Sulfate 0.125 MG OR TABS 05/13/2011 - 12/25/2015 Provider: JARON TOWNSEND M.D. Diagnosis: prn Last Documented On 12/25/2015 2:02PM By TONYA LUONG CMA ; [facility] SEROquel 50 MG OR TABS 04/18/2011 - 08/17/2011 Provide r: JARON TOWNSEND M.D. Diagnosis: 1 tab q amNeed Office Visit. Last Documented On 08/17/2011 12:43PM By JOSIE TOWNSEND MD ; [facility] Xanax 0.5 MG OR TABS 04/14/2011 - 05/13/2011 Provider: JARON TOWNSEND M.D. Diagnosis: Last Documented On 05/13/2011 11:27AM By JOSIE TOWNSEND MD ; [facility] SEROquel 50 MG OR TABS 03/08/2011 - 04/18/2011 Provide r: JARON TOWNSEND M.D. Diagnosis: 1 tab q am Last Documented On 04/18/2011 4:16PM By JOSIE TOWNSEND MD ; [facility] Xanax 0.5 MG OR TABS 03/08/2011 - 04/14/2011 Provider: JARON TOWNSEND M.D. Diagnosis: Last Documented On 04/14/2011 4:00PM By JOSIE TOWNSEND MD ; [facility] SEROquel 100 MG OR TABS 03/08/2011 - 05/13/2011 Provid er: JARON TOWNSEND M.D. Diagnosis: Last Documented On 05/13/2011 11:27AM By JOSIE TOWNSEND MD ; [facility] SEROquel 100 MG OR TABS 01/28/2011 - 03/08/2011 Provider: JARON TOWNSEND M.D. Diagnosis: DEPRESSIVE DISOR JAZMINE NEC Last Documented On 03/08/2011 1:53PM By JOSIE TOWNSEND MD ; [facility] Xanax 0.5 MG OR TABS 01/27/2011 - 03/08/2011 Provider: JARON TOWNSEND M.D. Diagnosis: Last Documented On 03/08/2011 1:53PM By JOSIE TOWNSEND MD ; [facility] Xanax 0.5 MG OR TABS 01/14/2011 - 01/27/2011 Provider: JARON TOWNSEND M.D. Diagnosis: Last Documented On 01/27/2011 2:38PM By JOSIE TOWNSEND MD ; [facility] SEROquel 100 MG OR TABS 12/27/2010 - 01/28/2011 Provider: JARON TOWNSEND M.D. Diagnosis: DEPRESSIVE DISOR JAZMINE NEC Need Office Visit. Last Documented On 01/28/2011 2:21PM By JOSIE TOWNSEND MD ; [facility] Xanax 0.5 MG OR TABS 12/27/2010 - 01/14/2011 Provider: JARON TOWNSEND M.D. Diagnosis: Last Documented On 01/14/2011 4:52PM By JOSIE TOWNSEND MD ; [facility] Xanax 0.5 MG OR TABS 12/14/2010 - 12/27/2010 Provider: JARON TOWNSEND M.D. Diagnosis: Last Documented On 12/27/2010 1:36PM By JOSIE TOWNSEND MD ; [facility] Xanax 0.5 MG OR TABS 11/15/2010 - 12/14/2010 Provider: LC FIGUEROA PA-C Diagnosis: Last Documented On 12/14/2010 1:40PM By JOSIE TOWNSEND MD ; [facility] SEROquel 100 MG OR TABS 10/19/2010 - 12/27/2010 Provider: JARON TOWNSEND M.D. Diagnosis: DEPRESSIVE DISOR JAZMINE NEC Last Documented On 12/27/2010 11:42AM By JOSIE TOWNSEND MD ; [facility] Xanax 0.5 MG OR TABS 10/11/2010 - 11/15/2010 Provider: JARON TOWNSEND M.D. Diagnosis: Last Documented On 11/15/2010 9:48AM By LC FIGUEROA PA-C ; [facility] SEROquel 100 MG OR TABS 09/17/2010 - 10/19/2010 Provider: JARON TOWNSEND M.D. Diagnosis: DEPRESSIVE DISOR JAZMINE NEC Last Documented On 10/19/2010 10:31AM By JOSIE TOWNSEND MD ; [facility] Xanax 0.5 MG OR TABS 09/10/2010 - 10/11/2010 Provider: JARON TOWNSEND M.D. Diagnosis: Last Documented On 10/11/2010 3:27PM By JOSIE TOWNSEND MD ; [facility] SEROquel 100 MG OR TABS 08/17/2010 - 09/17/2010 Provider: JARON TOWNSEND M.D. Diagnosis: DEPRESSIVE DISOR JAZMINE NEC Last Documented On 09/17/2010 3:23PM By JOSIE TOWNSEND MD ; [facility] Xanax 0.5 MG OR TABS 08/11/2010 - 09/10/2010 Provider: JARON TOWNSEND M.D. Diagnosis: Last Documented On 09/10/2010 2:05PM By JOSIE TOWNSEND MD ; [facility] Effexor XR 150 MG OR CP24 08/11/2010 - 12/25/2015 Provider: JARON TOWNSEND M.D. Diagnosis: DEPRESSIVE DISOR JAZMINE NEC Last Documented On 12/25/2015 2:02PM By TONYA LUONG CMA ; [facility] Xanax 0.5 MG OR TABS 07/12/2010 - 08/11/2010 Provider: JARON TOWNSEND M.D. Diagnosis: Last Documented On 08/11/2010 11:44AM By JOSIE TOWNSEND MD ; [facility] Effexor XR 150 MG OR CP24 07/12/2010 - 08/11/2010 Provider: JARON TOWNSEND M.D. Diagnosis: DEPRESSIVE DISOR JAZMINE NEC Last Documented On 08/11/2010 11:03AM By JOSIE TOWNSEND MD ; [facility] Effexor XR 150 MG OR CP24 06/11/2010 - 07/12/2010 Provider: JARON TOWNSEND M.D. Diagnosis: DEPRESSIVE DISOR JAZMINE NEC Last Documented On 07/12/2010 10:23AM By JOSIE TOWNSEND MD ; [facility] Xanax 0.5 MG OR TABS 06/11/2010 - 07/12/2010 Provider: JARON TOWNSEND M.D. Diagnosis: Last Documented On 07/12/2010 10:24AM By JOSIE TOWNSEND MD ; [facility] SEROquel 100 MG OR TABS 06/11/2010 - 08/17/2010 Provider: JARON TOWNSEND M.D. Diagnosis: DEPRESSIVE DISOR JAZMINE NEC Last Documented On 08/17/2010 11:35AM By JOSIE TOWNSEND MD ; [facility] Effexor XR 150 MG OR CP24 05/03/2010 - 06/11/2010 Provider: JARON TOWNSEND M.D. Diagnosis: DEPRESSIVE DISOR JAZMINE NEC Need Office Visit. Last Documented On 06/11/2010 1:45PM By JOSIE TOWNSEND MD ; [facility] Xanax 0.5 MG OR TABS 05/03/2010 - 06/11/2010 Provider: JARON TOWNSEND M.D. Diagnosis: Last Documented On 06/11/2010 1:45PM By JOSIE TOWNSEND MD ; [facility] SEROquel 50 MG OR TABS 05/03/2010 - 12/25/2015 Provide r: JARON TOWNSEND M.D. Diagnosis: Last Documented On 12/25/2015 2:02PM By TONYA LUONG CMA ; [facility] Amoxicillin 500 MG OR CAPS 04/12/2010 - 12/25/2015 Pro vider: JARON TOWNSEND M.D. Diagnosis: Last Documented On 12/25/2015 2:02PM By TONYA LUONG CMA ; [facility] SEROquel 50 MG OR TABS 03/22/2010 - 05/03/2010 Provide r: JARON TOWNSEND M.D. Diagnosis: Last Documented On 05/03/2010 10:42AM By JOSIE TOWNSEND MD ; [facility] Xanax 0.5 MG OR TABS 03/22/2010 - 05/03/2010 Provider: JARON TOWNSEND M.D. Diagnosis: Last Documented On 05/03/2010 1:44PM By JOSIE TOWNSEND MD ; [facility] Effexor XR 150 MG OR CP24 03/22/2010 - 05/03/2010 Provider: JARON TOWNSEND M.D. Diagnosis: DEPRESSIVE DISOR JAZMINE NEC Last Documented On 05/03/2010 10:42AM By JOSIE TOWNSEND MD ; [facility] Xanax 0.5 MG OR TABS 02/23/2010 - 03/22/2010 Provider: JARON TOWNSEND M.D. Diagnosis: Last Documented On 03/22/2010 3:35PM By JOSIE TOWNSEND MD ; [facility] Effexor XR 150 MG OR CP24 02/02/2010 - 03/22/2010 Provider: JARON TOWNSEND M.D. Diagnosis: DEPRESSIVE DISOR JAZMINE NEC Last Documented On 03/22/2010 3:35PM By JOSIE TOWNSEND MD ; [facility] Xanax 0.5 MG OR TABS 01/18/2010 - 02/23/2010 Provider: JARON TOWNSEND M.D. Diagnosis: Last Documented On 02/23/2010 4:42PM By JOSIE TOWNSEND MD ; [facility] Effexor XR 75 MG OR CP24 01/07/2010 - 12/25/2015 Provi jazmine: JARON TOWNSEND M.D. Diagnosis: Need Office Visit. Last Documented On 12/25/2015 2:02PM By TONYA LUONG CMA ; [facility] SEROquel 50 MG OR TABS 01/07/2010 - 03/22/2010 Provide r: JARON TOWNSEND M.D. Diagnosis: Need Office Visit. Last Documented On 03/22/2010 3:35PM By JOSIE TOWNSEND MD ; [facility] Xanax 0.5 MG OR TABS 12/18/2009 - 01/18/2010 Provider: JARON TOWNSEND M.D. Diagnosis: Last Documented On 01/18/2010 3:54PM By JOSIE TOWNSEND MD ; [facility] Effexor XR 75 MG OR CP24 12/04/2009 - 01/07/2010 Provi jazmine: JARON TOWNSEND M.D. Diagnosis: Last Documented On 01/07/2010 9:47PM By JOSIE TOWNSEND MD ; [facility] SEROquel 50 MG OR TABS 12/04/2009 - 01/07/2010 Provide r: JARON TOWNSEND M.D.

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
--- OUTSIDE RECORDS SUMMARY | 2025-05-17 14:00 | XMS_ITS ---
Care Plan - [facility] Created on: May 17, 2025 WILL PAEZ : 1985 Sex: Female Author Organization [facility] S Address [address] [place] [id number] Phone Care Team Providers Care Roving Hand Name Role Phone ANAY BUCIO Primary Care Provider [phone]
--- OUTSIDE RECORDS SUMMARY | 2025-05-17 14:00 | XMS_ITS | Clinical Summary ---
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 ANAY LLANOS DO FAPA Active Last Documented On 08/30/2012 11:58AM ; [facility] Cannabis Dependence - Continuous 08/30/2012 ANAY LLANOS DO FAPA Active Last Documented On 08/30/2012 11:58AM ; [facility]: [facility] Episodic Mood Disorders 08/30/2012 ANAY LLANOS DO FAPA Active Last Documented On 08/30/2012 11:58AM ; [facility]: Unchanged - , Most likely major de pressive disorder, recurrent Group Home Use of Other Medications 08/30/2012 ANAY LLANOS DO FAPA Active Last Documented On 08/30/2012 11:58AM ; [facility]: [facility] Post-traumatic Stress Disorder 08/30/2012 ANAY LLANOS DO FAPA Active Last Documented On 08/30/2012 11:58AM ; [facility] Note: Unchanged Plan of Treatment The [...] - Last Documented On 08/30/2012 4:54PM ; [facility] The patient is an adult that appeared competent and capable of understanding all the information given and to make decisions for herself. - Last Documented On 08/30/2012 4:54PM ; [facility] - Consultation with a psychologist /therapist of her choice strongly encouraged to work on the psychological issues causing or exacerbating her mental health concerns - Last Documented On 08/30/2012 4:54PM ; [facility] GOAL Stabilize anxiety level while increasing [...] - Last Documented On 08/30/2012 4:54PM ; [facility] She was instructed that antidepressant medication can take up to 2-3 months to see the full effect with anxiety and on average 1-2 weeks before any effects are seen (occasionally as little as a few days and occasionally as long as a month). - Last Documented On 08/30/2012 4:54PM ; [facility] Increase physical activity as tolerated and directed/considered safe by PCP. - Last Documented On 08/30/2012 4:54PM ; [facility] Avoid daytime sleeping and isolating. - Last Documented On 08/30/2012 4:54PM ; [facility] Education and Decision Aids were provided during visit for: Discussed concerns about tob acco use Discussed in detatil the deleterious effects of nicotine on health in general and on mental health in particular Last Documented On 3 11:57AM ; [facility] Discussed concerns about tob acco use Last Documented On 3 11:57AM ; [facility] Discussed concerns about alc ohol use [...] withdrawal Last Documented On 3 11:57AM ; [facility] Discussed concerns about ill icit drug use I advised against the use of all illicit substances as they can cause/exacerbate all of their mental health symptoms and cause treatment failure or worse in combination with psychotropics Last Documented On 3 11:57AM ; [facility] Assessments Includes: Assessments from this encounter Findings - Cannabis dependence - continuous - Last Documented On 08/30/2012 4:54PM ; [facility] - Episodic mood disorders, Most likely major depressive disorder, recurrent - Last Documented On 08/30/2012 4:54PM ; [facility] - Atypical depressive disorder - Last Documented On 08/30/2012 4:54PM ; [facility] - Post-traumatic stress disorder - Last Documented On 08/30/2012 4:54PM ; [facility] - Anxiety disorder NOS Appears to be JAJA, rule out OCD - Last Documented On 08/30/2012 4:54PM ; [facility] - Somatoform disorder NOS rule out somatoform disorder causing health concerns - Last Documented On 08/30/2012 4:54PM ; [facility] - Psychiatric diagnosis or condition deferred on axis II - Last Documented On 08/30/2012 4:54PM ; [facility] - Psychiatric diagnosis or condition deferred on axis III -Rule out psychogenic basis for chronic emesis - Last Documented On 08/30/2012 4:54PM ; [facility] Instructions Includes: Instructions from this encounter Education and Decision Aids were provided during visit for: Discussed concerns about tob acco use Discussed in detatil the deleterious effects of nicotine on health in general and on mental health in particular Last Documented On 3 11:57AM ; [facility] Discussed concerns about tob acco use Last Documented On 3 11:57AM ; [facility] Discussed concerns about alc ohol use [...] withdrawal Last Documented On 3 11:57AM ; [facility] Discussed concerns about ill icit drug use I advised against the use of all illicit substances as they can cause/exacerbate all of their mental health symptoms and cause treatment failure or worse in combination with psychotropics Last Documented On 3 11:57AM ; [facility] Medical Equipment - Implanted Devices Includes: Current Devices No Medical Equipment Recorded Medications Includes: Medications discussed during this encounter and other current Medications Current Medications (continue as prescribed) Xanax 0.5 MG OR TABS 08/02/2012 Provider: MINDY LLANOS DO FAPA Diagnosis: Last Documented On 3 12:13PM By ANAY LLANOS DO ; [facility] PROzac 40 MG OR CAPS 08/02/2012 Provider: MINDY LOPESA Diagnosis: Last Documented On 3 12:11PM By ANAY LLANOS DO ; [facility] SEROquel 300 MG OR TABS 08/02/2012 Provider: JENNA TIRADO Diagnosis: Last Documented On 3 12:16PM By ANAY LLANOS DO ; [facility] Medications Administered Includes: Administered Medications from [...] Last Documented: On 08/30/2012 11:37A M ; [facility] Results Includes: Results discussed during this [...] 08/30/2012 Last Documented On 3 4:54PM ; [facility] Procedures and Surgical History Includes: Procedures from this encounter Procedures Code Diagnosis Performing Provider Service L ocation Service Date follow-up visit Last Documented On 3 11:57AM ; [facility] psychiatric therapy for drug abuse Last Documented On 3 11:57AM ; [facility] psychiatric therapy for drug and alcohol abuse Cannabis currently, alcohol in high school per pt report Last Documented On 3 11:57AM ; [facility] brief solution-focused therapy with me Last Documented On 3 11:57AM ; [facility] Clinical summary provided to patient Last Documented On 3 11:57AM ; [facility] Medical History Includes: Medical History addressed during this encounter Description Last Updated No recent change in medication 3 Last Documented On 3 4:54PM ; [facility] Family History Includes: Family History addressed during this encounter Description Last Updated 1 children living 08/30/2012 Last Documented On 3 4:54PM ; [facility] Family history of alcoholism MOTHER 08/2012 Last Documented On 3 4:54PM ; [facility] Family history of cancer AUNTS ANDGRANDP ARENTS 08/30/2012 Last Documented On 3 4:54PM ; [facility] Family history of genetic disease GRANDF ATHER 08/30/2012 Last Documented On 3 4:54PM ; [facility] Family history of GI problems GRANDMOTHE R 08/30/2012 Last Documented On 3 4:54PM ; [facility] Family history of heart disease SISTER- GRANDPARENTS 08/30/2012 Last Documented On 3 4:54PM ; [facility] No family history of allergies 3 Last Documented On 3 4:54PM ; [facility] No family history of bleeding problems 0 08/30/2012 Last Documented On 3 4:54PM ; [facility] No family history of chronic disabling d iseases 08/30/2012 Last Documented On 3 4:54PM ; [facility] No family history of early deaths 2012 Last Documented On 3 4:54PM ; [facility] No family history of endocrine history 0 08/30/2012 Last Documented On 3 4:54PM ; [facility] No family history of mental illness (not retardation) 08/30/2012 Last Documented On 3 4:54PM ; [facility] No family history of pulmonary disease 0 08/30/2012 Last Documented On 3 4:54PM ; [facility] Review of Systems [...] Active Last Documented On 01/02/2023 1:31PM ; [facility] Note: Imported from external source. [facility] 10/13/2014 Active Last Documented On 01/02/2023 1:31PM ; [facility] Note: Imported from external source. Encounters Encounter Provider Location Date Check-In Time Check-Out Time Diagnosis ESTABLISHED PT. EXAM ANAY LLANOS DO [facility] 013 11:06AM 12:12PM Post-traumatic Stress Disorder,Anxie ty Disorder Nos,Atypical Depressive Disorder,Episo dic Mood Disorders,Zaki abis Dependence - Continuous,Oscar atoform Disorder Nos,Psychiatri c Diagnosis Or Condition Deferred on [place] II,Psychiatric Diagnosis Or Condition Deferred on [place] III Insurance Includes: Active Insurance Policies Plan Name Member ID Group # Subscriber Relationship Effect adolfo Dates 1 - MEDICARE PART A CLAIMS/NGS [id number] WILL Alarcon 2 - MEDICAID OF [place] MEDICARE SECOND [id number] WILL Alarcon Clinical Notes Includes: Clinical Notes from this encounter No Clinical Notes Recorded
[2025-05-17 14:04] VITALS: BP 118/70; PULSE 112; RESP 16; TEMP 36.9; O2SAT 100
--- NOTE | 2025-05-17 14:14 | ED.GENADULT ---
HPI - General Adult General Chief complaint: Upper Respiratory Infection Stated complaint: Sore Throat Time Seen by Provider: 05/17/25 14:14 Source: patient, RN notes reviewed and old records reviewed Mode of arrival: ambulatory Limitations: no limitations History of Present Illness HPI narrative: 40 year old female who presents to [facility] care with complaints of sore throat and fevers up to 102.6F and body aches for the past 3 days. Patient reports that she has been taking severe Tylenol cold and flu for her symptoms. MD complaint: fever, bodyaches and sore throat Onset (ago): day(s) (3) Severity: moderate Treatments prior to arrival: other (severe Tylenol cold and flu) Related Data Home Medications ?Medication ?Instructions ?Recorded ?Confirmed ?Last Taken ?Type amitriptyline 50 mg tablet 50 mg PO HS 12/30/19 03/23/23 Unknown History quetiapine 100 mg tablet 100 mg PO HS 12/30/19 03/23/23 Unknown History hydrochlorothiazide 25 mg tablet mg 05/17/25 Unknown History venlafaxine besylate PO 05/17/25 Unknown History Allergies Allergy/AdvReac Type Severity Reaction Status Date / Time No Known Allergies Allergy Verified 05/17/25 14:16 Review of Systems Review of Systems: CONSTITUTIONAL: Reports malaise, chills, sweats, or fever. EYES: Denies visual changes, redness, or discharge. ENT: Reports rhinorrhea, congestion, sinus pain, no otalgia and + sore throat. CARDIOVASCULAR: Denies chest pain, palpitations, or edema. RESPIRATORY: Reports cough.? Denies dyspnea. GASTROINTESTINAL: Denies abdominal pain, nausea, vomiting, diarrhea SKIN: Denies rash or itching. MUSCULOSKELETAL:reports myalgia. NEUROLOGIC: Denies headache. All systems reviewed & are unremarkable except as noted in HPI and below PMFSH Past Medical History Medical History Fibromyalgia PTSD (post-traumatic stress disorder) Strep throat Bronchitis Family History Family History Other No acute medical problems Social History Social History Smoking status: Current some day smoker Tobacco type: cigarettes Alcohol intake: current Substance use type: marijuana Living arrangements: with family Gender identity (if verbalized by the patient): Female Comments At time of signature, agree with nursing past medical, surgical, social and family history. There is no relevant family history pertinent to the presenting complaint Exam Narrative: GENERAL: Illl-appearing, well-nourished, and in no acute distress. HEAD: Normocephalic EYES: PERRLA, conjunctivae clear ENT: Nares clear, turbinates edematous and erythematous, clear discharge, sinus pressure. Mucous membranes moist. TM pearly monahan with dull light reflex bilaterally; no tragal tenderness. Oropharynx erythematous without lesions. Tonsils mildly enlarged and without exudate, no drooling, no hoarseness, no trismus, uvula midline.post nasal drainage noted NECK: Supple. No lymphadenopathy CHEST: Clear to auscultation, breath sounds equal. No wheezing, rhonchi, rales, or stridor. No respiratory distress, speaks in full sentences.SAO2 100% on room air HEART: Regular rate and rhythm. No murmur heard. SKIN: Warm, dry, no rash. NEURO: Alert and oriented x3. PSYCH: Normal mood and affect Course Course Level of Care: Express Care Visit Vital Signs Vital signs: Vital Signs Temperature 36.9 C 05/17/25 14:04 Pulse Rate 112 H 05/17/25 14:04 Respiratory Rate 16 05/17/25 14:04 Blood Pressure 118/70 05/17/25 14:04 Pulse Oximetry 100 05/17/25 14:04 Oxygen Delivery Room Air 05/17/25 14:04 Temperature 36.9 C 05/17/25 14:04 Pulse Rate 112 H 05/17/25 14:04 Respiratory Rate 16 05/17/25 14:04 Blood Pressure 118/70 05/17/25 14:04 Pulse Oximetry 100 05/17/25 14:04 Oxygen Delivery Room Air 05/17/25 14:04 reviewed MDM MDM Narrative Medical decision making narrative: Patient presents to express care with 3 day history of fevers up to 102.6F bodyaches and sore throat and tested positive for COVID in clinic today. Patient is appropriate for outpatient care and follow up. Anticipatory guidance and reasons o seek care in ED reviewed with patient with understanding voiced. Differential Diagnosis Differential Diagnosis: Differential diagnostic considerations for upper respiratory infection include upper respiratory infection, croup, otitis media, sinusitis, viral infection, bronchitis, influenza, pharyngitis, strep, uvulitis.? Lab Data MDM Lab Attestation statement: I personally reviewed the patient's lab results. Lab results narrative: Influenza A negative, Influenza B negative, COVID positive Labs: Lab Results 05/17/25 Range/Units 14:18 POC Influenza A Ag Negative (Negative) POC Influenza B Ag Negative (Negative) POC SARS CoV-2 Ag Positive (Negative) reviewed Critical Care Time Critical Care Time Critical Care Time: No Discharge Plan Discharge Clinical Impression: COVID-19 Patient Disposition: Home Condition: Stable Instructions: How to Recover from COVID-19 at Home (ED) Additional Instructions: Increase fluids especially juices and water Tylenol or Ibuprofen for any fever or pain Byun-cce-yidaxuk cough and cold medicine of your choice for your symptoms Zyrtec Claritin or Love daily may include Coricidin brand decongestant Continue your inhaler/nebulizer as directed Steroids as directed--take with food heat to the face 20-30 minutes 4-6 times a day for pain Salt water gargles, throat lozenges or throat sprays as desired you tested negative for influenza and positive COVID COVID-19 DISCHARGE The following recommendations have been made by the CDC and local Health Departments, regarding COVID-19: Those individuals with mild cases of COVID-19 can generally be discontinued from isolation, 5 AFTER the onset of symptoms AND the resolution of fever for 24hrs (without the use of fever-reducing medications) Those individuals who were asymptomatic, and tested positive, are discontinued from isolation 10 days AFTER their first positive COVID-19 test Those individuals with SEVERE to CRITICAL illness or immunocompromised diseases may require up to 20 days of home isolation or hospitalization Majority of mild to moderate cases can be treated at home, without hospitalization or prescription medications You do not need a negative test result to return to work/school, assuming the above recommendations have been met and you are not symptomatic. At this time, return to work/school notes will not be provided. Guidelines from the local Health Department, CDC, and workplace are expected to be followed. All individuals in the household need to remained quarantined for up to 14 days if asymptomatic OR 10 days after the start of symptoms. Everyone in the home DOES NOT require testing, they are presumed positive and should quarantine as directed. Treating symptoms for mild to moderate cases may include: Tylenol, Flonase/nasal spray, OTC cold/flu medications recommended from your provider or any necessary prescription medications provided at your visit or from your PCP IF YOU TESTED NEGATIVE If you are symptomatic with reason to believe you have COVID-19, there is a high possibility your rapid test may not have detected the virus. Rapid testing is dependent on timing and viral load and may have a false-negative reading You should follow appropriate guidelines regarding quarantine, hand washing, mask wearing, and social distancing You may be sent for PCR testing as an outpatient to the [place] testing site Common Adult Symptoms: Fever/chills Cough Shortness of breath Fatigue, muscle aches Headache Loss of taste/smell Sore throat, congestion, runny nose GI symptoms (nausea, vomiting, diarrhea) Common Pediatric Symptoms Cough Fever GI symptoms (diarrhea, upset stomach, nausea, vomiting) Symptoms may differ in severity however, most cases do not require hospitalization. WHEN TO SEEK ER EVALUATION/TREATMENT Severe/persistent shortness of breath or difficulty breathing Elevated, persistent fevers without resolution with fever-reducing medications Chest pain Extreme fatigue/lethargy Complications of pre-existing disease Patient Language: Zimbabwean Prescriptions: No Action amitriptyline 50 mg Tablet 50 mg PO HS quetiapine 100 mg Tablet 100 mg PO HS albuterol sulfate 90 mcg/actuation HFA aerosol inhaler 2 puff inhalation QID PRN (Reason: shortness of breath or wheezing) Qty: 6.7 0RF (DME) Aerochamber MV Spacer See Rx Instructions .Route Qty: 1 0RF Rx Instructions: As directed hydrochlorothiazide 25 mg tablet venlafaxine besylate PO Follow-up/Referrals: PHYSICIAN NOT ON STAFF,NONSTAFF [Primary Care Provider] Time of Disposition: 14:31 [place] Coma Scale Eyes: Open Verbal: Oriented and Alert Motor: Follows Commands Justyna Coma Total Score: 15
[2025-05-17 14:23] LABS: EDCOVIDSCREEN Positive (Negative); EDINFLUASCREEN Negative (Negative); EDINFLUBSCREEN Negative (Negative)
== END 2025-05-17 14:35 | disposition home or self-care (01) ==
PROVIDERS: Emergency Provider Registered Nurse
DX: U07.1 COVID-19 (principal); F17.210 Nicotine dependence, cigarettes, uncomplicated; F12.90 Cannabis use, unspecified, uncomplicated; M79.7 Fibromyalgia
CPT/HCPCS: 87426; 87804; 99212; G0463